=== PATIENT | female | born 1965 | race Caucasian/White ===

== ENCOUNTER → 2018-10-31 | Outpatient (CLI) | payer OTHER, BC ==
[2018-10-31 13:32] VITALS: BP 147/84; PULSE 79; TEMP 98.1; BMI 35.5
--- NOTE | 2018-10-31 15:06 | FL ---
EXAMINATION TYPE: FL barium swallow DATE OF EXAM: 10/31/2018 LAP BANDING LIMITED ESOPHAGRAM: CLINICAL HISTORY: History of lap band for over 10 years with dysphasia, pain at site. TECHNIQUE: Limited esophagram is performed utilizing 2-3 oz of barium. 20 seconds of fluoroscopic ti me was utilized during procedure. 18 spot images are saved to PACS. COMPARISON: Prior CT abdomen and pelvis February 20, 2010. FINDINGS: Pre-procedure machine heel seat fitter image shows lap band in stable position in the epigastric region bel ow the gastroesophageal junction. Angle is unchanged. Cholecystectomy clips are redemonstrated. The patient then drank oral contrast. There is good flow of contrast along the course of the esophagu s. There is good flow of contrast along the course of the lap band, there is no evidence of contrast extravasation to suggest leak. There is no lap band slippage appreciated. IMPRESSION: No evidence of lap band slippage or significant obstruction.
--- NOTE | 2018-10-31 16:42 | P.HPBAR ---
Bariatric H&P - History & Physicial H&P Date: 10/31/18 History & Physicial: Visit/CC: discuss band issues Patient initial contact: Initial weight: 98.883 kg Initial weight in pounds: 218.00 Height: 5 ft 1 in Initial BMI: 41.1 Last weight: Current weight: 85.275 kg Current weight in pounds: 188.00 Current BMI: 35.5 [place] body weight (based on NIH guidelines): 47.627 kg Excess body weight loss: 26.5% The patient is a 52 year-old F who presents for Bariatric Assessment. Patient has had some complaints of mild pain at her port site. She's not had a fill in many years. She currently feels hungry. Past Medical History Past Medical History: Hypertension History of Any Multi-Drug Resistant Organisms: None Reported Past Surgical History: Bariatric Surgery, Cholecystectomy, Hysterectomy Additional Past Surgical History / Comment(s): lap band placed 2010 (?), partial hysterectomy (bilateral ovaries retained), Past Anesthesia/Blood Transfusion Reactions: Postoperative Nausea & Vomiting (PONV) Additional Past Anesthesia/Blood Transfusion Reaction / Comm: No blood transfusion to date Smoking Status: Never smoker Surgical - Exam Vital Signs Temp Pulse BP 98.1 F 79 147/84 10/31/18 13:23 10/31/18 13:23 10/31/18 13:23 - General well developed, well nourished, no distress - Eyes PERRL - ENT normal pinna - Neck no masses - Abdomen Abdomen: soft, non tender Bariatric Assessment & Plan Plan: The patient had an esophagram. This was normal. She had her [place] adjusted. She had 3 mL added to her band. She will follow-up in one month. Bariatric Checklist Checklist: Plan: Checklist: EGD: 1. Hiatal hernia: 2. H. Pylori: HgbA1c: Vitamin D: Smoking: Never smoker Primary care physician referral: Dr. Petty Hargrove ([place] office) Psychiatry clearance: Cardiology clearance: Sleep study: Diet journal: VTE risk score: VTE risk level: Rehab needs at discharge:
== END ==
LOC: BARWHC3 12:52
PROVIDERS: ATTEND Surgery
DX: Z48.815 Encounter for surgical aftercare following surgery on the digestive system (principal); R10.13 Epigastric pain; R13.10 Dysphagia, unspecified; Z98.84 Bariatric surgery status; Z90.49 Acquired absence of other specified parts of digestive tract
CPT/HCPCS: 74220; 99213

== ENCOUNTER 2018-12-12 11:19 | Day surgery (SDC) | payer OTHER, BC ==
[2018-12-09 08:49] VITALS: BMI 36.2
[~2018-12-12 11:19] MED LIST: LACTATED RINGERS 1,000 ML IV SCH
[2018-12-12] MEDS ORDERED: LIDOCAINE 1% 20 ML VIAL (10MG/ML) FOR IV START INTRADERMA ONE (11:32)
[2018-12-12] MEDS ORDERED: LACTATED RINGERS 1,000 ML IV ONE (11:32)
[2018-12-12 11:53] VITALS: TEMP 97.8
[2018-12-12] MEDS ORDERED: PROPOFOL 10 MG/ML 20 ML VIAL IV ONE (12:00)
--- NOTE | 2018-12-12 12:26 | P.PCN ---
Date of Procedure: 12/12/18 Description of Procedure: BRIEF HISTORY: Patient is a 53-year-old pleasant female scheduled for an elective colonoscopy as a part of screening for malignant neoplasm of the colon. Patient reports a remote history of colonoscopy approximately 20 years ago and believes she may have had polyps at that time. She is unsure why the colonoscopy was performed. She denies any change in bowel habits, blood per rectum or family history of colon cancer. PROCEDURE PERFORMED: Colonoscopy. PREOPERATIVE DIAGNOSIS: Screening for malignant neoplasm of the colon, Patient reports last colonoscopy approximately 20 years ago with possible polypectomy at that time. ESTIMATED BLOOD LOSS: Minimal. IV sedation per Anesthesia. PROCEDURE: After informed consent was obtained, the patient, was brought into the endoscopy unit. IV sedation was administered by Anesthesia under continuous monitoring. Digital rectal examination was normal. Initially the Olympus CF-190 flexible video colonoscope was then inserted in the rectum, gradually advanced into the cecum without any difficulty, the terminal ileum was intubated and appeared normal. Careful examination was performed as the scope was gradually being withdrawn. Ileocecal valve and the appendiceal orifice were visualized and appeared normal. Prep was excellent. Mucosa of the cecum, ascending colon, transverse colon, descending colon, sigmoid colon, and rectum appeared normal. Retroflexion was performed in the rectum and no lesions were seen, low-grade internal hemorrhoids seen. The patient tolerated the procedure well. IMPRESSION: Normal-appearing colon from rectum to cecum, and normal-appearing terminal ileum. RECOMMENDATIONS: Findings of this examination were discussed with the patient. Okay to resume diet and medications. Recommendation is for repeat screening colonoscopy in 10 years based on findings from current colonoscopy, if patient indeed had polypectomy with past colonoscopy would recommend colonoscopy in 5 years.
[2018-12-12 12:29] VITALS: RESP 16
[2018-12-12 12:50] VITALS: BP 116/76; PULSE 76
== END 2018-12-12 13:10 | disposition home or self-care (01) ==
LOC: ORWHC2ENDO 11:19
PROVIDERS: ATTEND Internal Medicine
DX: Z12.11 Encounter for screening for malignant neoplasm of colon (principal); K64.8 Other hemorrhoids; I10 Essential (primary) hypertension; K21.9 Gastro-esophageal reflux disease without esophagitis; Z79.899 Other long term (current) drug therapy; Z90.710 Acquired absence of both cervix and uterus; Z98.84 Bariatric surgery status; Z90.49 Acquired absence of other specified parts of digestive tract
CPT/HCPCS: J2704; G0121

== ENCOUNTER → 2018-12-22 | Outpatient (CLI) | payer OTHER, BC ==
--- NOTE | 2018-12-26 10:37 | MM ---
Reason for exam: screening (asymptomatic). Last mammogram was performed 8 years ago. History: Patient is postmenopausal. Took hormonal contraceptives for 1 year. Physical Findings: A clinical breast exam by your physician is recommended on an annual basis and results should be correlated with mammographic findings. MG Screening Mammo w CAD Bilateral CC and MLO view(s) were taken. Prior study comparison: December 19, 2010, [facility] DIGITAL LEFT BREAST MAMMOGRAM w/CAD. December 05, 2010, bilateral digital screening mammo w/CAD. There are scattered fibroglandular densities. Inferior asymmetric density right breast MLO view. Otherwise, no significant change. ASSESSMENT: Incomplete: need additional imaging evaluation, BI-RAD 0 RECOMMENDATION: Special view mammogram of the right breast. (3D) If lesion persists on supplemental views, image directed ultrasound is recommended. [facility] will attempt to contact patient to return for supplemental views and ultrasound if indicated.
== END | disposition home or self-care (01) ==
LOC: RADMAMWWP 16:11
PROVIDERS: ATTEND Family Medicine
DX: Z12.31 Encounter for screening mammogram for malignant neoplasm of breast (principal)
CPT/HCPCS: 77067

== ENCOUNTER → 2019-01-02 | Outpatient (CLI) | payer OTHER, BC ==
--- NOTE | 2019-01-03 08:38 | MM ---
Reason for exam: additional evaluation requested from abnormal screening. Last mammogram was performed less than 1 month ago. History: Patient is postmenopausal. Took hormonal contraceptives for 1 year. Physical Findings: Nurse did not find any significant physical abnormalities on exam. MG Work Up Mamm w CAD RT LM and spot compression MLO view(s) were taken of the right breast. Prior study comparison: December 22, 2018, bilateral MG screening mammo w CAD. December 19, 2010, [facility] DIGITAL LEFT BREAST MAMMOGRAM w/CAD. There are scattered fibroglandular densities. The inferior density becomes less defined on spot MLO and does not appear to persist on the true lateral view. Precautionary 6 month follow up recommended. These results were verbally communicated with the patient and result sheet given to the patient on 01/02/19. ASSESSMENT: Probably benign, BI-RAD 3 RECOMMENDATION: Follow-up diagnostic mammogram of the right breast in 6 months.
== END | disposition home or self-care (01) ==
LOC: RADMAMWWP 14:53
PROVIDERS: ATTEND Family Medicine
DX: R92.8 Other abnormal and inconclusive findings on diagnostic imaging of breast (principal)
CPT/HCPCS: 77065

== ENCOUNTER → 2019-11-08 | Outpatient (CLI) | payer OTHER, BC ==
--- NOTE | 2019-11-08 13:59 | MM ---
Reason for exam: follow-up at short interval from prior study. Last mammogram was performed 10 months ago. History: Patient is postmenopausal. Took hormonal contraceptives for 1 year. Physical Findings: Nurse did not find any significant physical abnormalities on exam. MG Diagnostic Mammo RT w CAD CC and MLO view(s) were taken of the right breast. Prior study comparison: January 02, 2019, right breast MG work up mamm w CAD RT. December 22, 2018, bilateral MG screening mammo w CAD. The breast tissue is heterogeneously dense. This may lower the sensitivity of mammography. Nodular density is less conspicuous. These results were verbally communicated with the patient and result sheet given to the patient on 11/08/19. ASSESSMENT: Benign, BI-RAD 2 RECOMMENDATION: Follow-up diagnostic mammogram of both breasts in 2 months. Back on schedule for December 2019.
== END | disposition home or self-care (01) ==
LOC: RADMAMWWP 12:48
PROVIDERS: ATTEND Family Medicine
DX: R92.8 Other abnormal and inconclusive findings on diagnostic imaging of breast (principal)
CPT/HCPCS: 77065

== ENCOUNTER 2019-12-14 10:46 | Inpatient (IN) | payer OTHER, BC ==
[2019-12-14] MEDS ORDERED: SODIUM CHLORIDE 0.9% 1,000 ML IV ONE (11:31)
[2019-12-14] MEDS: SODIUM CHLORIDE 0.9% 1,000 ML IV SCH ×2 (12:13→22:36)
[2019-12-14 12:17] LABS: Basophils % (A) 0 %; Eosinophils % (A) 0 %; HCT 44.9 % (34.0-46.0); HGB 14.5 gm/dL (11.4-16.0); Lymphocytes # (A) 0.5 k/uL (1.0-4.8); Lymphocytes % (A) 9 %; MCH 28.5 pg (25.0-35.0); MCHC 32.2 g/dL (31.0-37.0); MCV 88.3 fL (80.0-100.0); Mean Platelet Volume 7.4; Monocytes # (A) 0.2 k/uL (0-1.0); Monocytes % (A) 4 %; Neutrophils # (A) 4.5 k/uL (1.3-7.7); Neutrophils % (A) 85 %; Platelet Count 181 k/uL (150-450); RBC 5.09 m/uL (3.80-5.40); RDW 14.4 % (11.5-15.5); WBC 5.3 k/uL (3.8-10.6)
--- NOTE | 2019-12-14 12:23 | XR ---
EXAMINATION TYPE: XR chest 1V portable DATE OF EXAM: 12/14/2019 CLINICAL HISTORY: Suspected COVID-19 pneumonia. TECHNIQUE: Portable frontal view of the chest. COMPARISON: None FINDINGS: Low lung volumes. The cardiomediastinal silhouette is within normal limits for size. Pulmo nary vasculature is normal. Patchy airspace opacities of the bilateral lungs. No pleural effusion, or pneumothorax seen. The osseous structures are intact. IMPRESSION: Diffuse airspace opacities of the bilateral lungs most likely represent pneumonia, with differential including Covid 19 viral infection.
--- NOTE | 2019-12-14 12:25 | ED ---
General Adult HPI - General Source: patient, RN notes reviewed, old records reviewed Mode of arrival: wheelchair Limitations: no limitations <Joellen Valdivia - Last Filed: 12/14/19 13:34> <July Rivas - Last Filed: 12/17/19 22:09> - General Chief complaint: Weakness Stated complaint: + covid and sob Time Seen by Provider: 12/14/19 11:06 - History of Present Illness Initial comments: 54-year-old female presents emergency department today for evaluation with complaints of nausea vomiting. Patient purchase diagnosed with Covid On Wednesday of this week. She states that she's been unable to keep anything down. She complains of weakness, nausea and vomiting. Patient reports that multiple family have been admitted for Covid 19 infection. (Joellen Valdivia) - Related Data Home Medications Medication Instructions Recorded Confirmed lisinopriL 20 mg PO DAILY 10/31/18 12/14/19 Pravastatin Sodium [Pravachol] 40 mg PO HS 12/14/19 12/14/19 Allergies Allergy/AdvReac Type Severity Reaction Status Date / Time No Known Allergies Allergy Verified 12/14/19 13:03 Review of Systems ROS Other: All systems not noted in ROS Statement are negative. <Joellen Valdivia - Last Filed: 12/14/19 13:34> ROS Other: All systems not noted in ROS Statement are negative. <July Rivas - Last Filed: 12/17/19 22:09> ROS Statement: Those systems with pertinent positive or pertinent negative responses have been documented in the HPI. Past Medical History Past Medical History: Hypertension History of Any Multi-Drug Resistant Organisms: None Reported Past Surgical History: Bariatric Surgery, Cholecystectomy, Hysterectomy Additional Past Surgical History / Comment(s): lap band placed 2010 (?), partial hysterectomy (bilateral ovaries retained), colonscopy Past Anesthesia/Blood Transfusion Reactions: Postoperative Nausea & Vomiting (PONV) Additional Past Anesthesia/Blood Transfusion Reaction / Comment(s): No blood transfusion to date Past Psychological History: No Psychological Hx Reported Smoking Status: Never smoker Past Alcohol Use History: None Reported Past Drug Use History: None Reported - Past Family History Father Family Medical History: Cancer Additional Family Medical History / Comment(s): bladder Sister(s) Family Medical History: Cancer <Joellen Valdivia - Last Filed: 12/14/19 13:34> General Exam Limitations: no limitations General appearance: alert, in no apparent distress Head exam: Present: atraumatic, normocephalic, normal inspection, other (Hoarse voice) Eye exam: Present: normal appearance, PERRL, EOMI. Absent: scleral icterus, conjunctival injection, periorbital swelling ENT exam: Present: normal exam, mucous membranes moist Neck exam: Present: normal inspection. Absent: tenderness, meningismus, lymphadenopathy Respiratory exam: Present: decreased breath sounds. Absent: normal lung sounds bilaterally, respiratory distress, wheezes, rales, rhonchi, stridor Cardiovascular Exam: Present: regular rate, normal rhythm, normal heart sounds. Absent: systolic murmur, diastolic murmur, rubs, gallop, clicks GI/Abdominal exam: Present: soft, normal bowel sounds. Absent: distended, tenderness, guarding, rebound, rigid Extremities exam: Present: normal inspection, full ROM, normal capillary refill. Absent: tenderness, pedal edema, joint swelling, calf tenderness Back exam: Present: normal inspection Neurological exam: Present: alert, oriented X3, CN II-XII intact <Joellen Valdivia - Last Filed: 12/14/19 13:34> - General Exam Comments Initial Comments: 54-year-old male. No distress. (Joellen Valdivia) Course Vital Signs 12/14/19 12/14/19 12/14/19 10:51 12:09 12:28 Temperature 98.6 F Pulse Rate 102 H 92 90 Respiratory 18 18 18 Rate Blood Pressure 102/70 142/81 133/77 O2 Sat by Pulse 92 L 98 99 Oximetry 12/14/19 12/14/19 13:51 14:00 Temperature 100.3 F H Pulse Rate 91 83 Respiratory 18 18 Rate Blood Pressure 133/81 141/85 O2 Sat by Pulse 98 98 Oximetry EKG Findings - EKG Comments: EKG Findings:: EKG shows normal sinus rhythm nonspecific ST and T wave at [place]. Abnormal EKG. Ventricular rate of 96 bpm. Interval is 1:30 milliseconds. She worship is 76 ms. QT QTC 340/429 ms. <Joellen Valdivia - Last Filed: 12/14/19 13:34> Medical Decision Making - Lab Data Result diagrams: 12/14/19 11:45 10/29/20 11:45 - Radiology Data Radiology results: report reviewed <Edel Valdiviaily - Last Filed: 12/14/19 13:34> - Lab Data Result diagrams: 12/17/19 04:16 12/17/19 04:16 <July Rivas - Last Filed: 12/17/19 22:09> - Medical Decision Making 54-year-old male presents emergency department today for evaluation with chief complaint of nausea vomiting weakness. Patient is diagnosed with pelvic 19 infection on Wednesday. She reports that she's been getting increasingly more fatigued and dehydrated. Patient has been given IV fluids labwork obtained. Chest x-ray shows evidence of bilateral airspace disease consistent with cocaine 19 infection. She was hypoxic upon arrival 87-90% on room air. She is noted on 2 L [address] Dr. Rivas whom discussed with Dr. Armstrong, Patient will be admitted at this time consult pulmonology. (Joellen Valdivia) I was available for consultation in the emergency department. The history and physical exam were done by the midlevel provider. I was consulted for this patients care. I reviewed the case with the midlevel provider and based on their presentation of the patient, I agree with the assessment, medical decision making and plan of care as documented. Chart was dictated using [employer] dictation software. Attempts were made to correct any dictation errors however some typographical errors may persist. Patient was seen during a national state of emergency due to the Covid-19 pandemic. (July Rivas) - Lab Data Lab Results 12/14/19 12/14/19 12/14/19 Range/Units 11:45 11:45 11:45 WBC 5.3 (3.8-10.6) k/uL RBC 5.09 (3.80-5.40) m/uL Hgb 14.5 (11.4-16.0) gm/dL Hct 44.9 (34.0-46.0) % MCV 88.3 (80.0-100.0) fL MCH 28.5 (25.0-35.0) pg MCHC 32.2 (31.0-37.0) g/dL RDW 14.4 (11.5-15.5) % Plt Count 181 (150-450) k/uL Neutrophils % 85 % Lymphocytes % 9 % Monocytes % 4 % Eosinophils % 0 % Basophils % 0 % Neutrophils # 4.5 (1.3-7.7) k/uL Lymphocytes # 0.5 L (1.0-4.8) k/uL Monocytes # 0.2 (0-1.0) k/uL Eosinophils # 0.0 (0-0.7) k/uL Basophils # 0.0 (0-0.2) k/uL PT 9.6 (9.0-12.0) sec INR 0.9 (<1.2) D-Dimer 1.22 H (<0.60) mg/L FEU Sodium 137 (137-145) mmol/L Potassium 3.8 (3.5-5.1) mmol/L Chloride 101 (98-107) mmol/L Carbon Dioxide 26 (22-30) mmol/L Anion Gap 10 mmol/L BUN 14 (7-17) mg/dL Creatinine 0.57 (0.52-1.04) mg/dL Est GFR (CKD-EPI)AfAm >90 (>60 ml/min/1.73 sqM) Est GFR (CKD-EPI)NonAf >90 (>60 ml/min/1.73 sqM) Glucose 118 H (74-99) mg/dL Plasma Lactic Acid Jonathon (0.7-2.0) mmol/L Calcium 8.6 (8.4-10.2) mg/dL Magnesium 2.1 (1.6-2.3) mg/dL Total Bilirubin 0.6 (0.2-1.3) mg/dL AST 48 H (14-36) U/L ALT 21 (4-34) U/L Alkaline Phosphatase 89 (38-126) U/L C-Reactive Protein 73.9 H (<10.0) mg/L Total Protein 6.4 (6.3-8.2) g/dL Albumin 3.6 (3.5-5.0) g/dL Procalcitonin (0.02-0.09) ng/mL 12/14/19 12/14/19 Range/Units 11:45 11:45 WBC (3.8-10.6) k/uL RBC (3.80-5.40) m/uL Hgb (11.4-16.0) gm/dL Hct (34.0-46.0) % MCV (80.0-100.0) fL MCH (25.0-35.0) pg MCHC (31.0-37.0) g/dL RDW (11.5-15.5) % Plt Count (150-450) k/uL Neutrophils % % Lymphocytes % % Monocytes % % Eosinophils % % Basophils % % Neutrophils # (1.3-7.7) k/uL Lymphocytes # (1.0-4.8) k/uL Monocytes # (0-1.0) k/uL Eosinophils # (0-0.7) k/uL Basophils # (0-0.2) k/uL PT (9.0-12.0) sec INR (<1.2) D-Dimer (<0.60) mg/L FEU Sodium (137-145) mmol/L Potassium (3.5-5.1) mmol/L Chloride (98-107) mmol/L Carbon Dioxide (22-30) mmol/L Anion Gap mmol/L BUN (7-17) mg/dL Creatinine (0.52-1.04) mg/dL Est GFR (CKD-EPI)AfAm (>60 ml/min/1.73 sqM) Est GFR (CKD-EPI)NonAf (>60 ml/min/1.73 sqM) Glucose (74-99) mg/dL Plasma Lactic Acid Jonathon 0.9 (0.7-2.0) mmol/L Calcium (8.4-10.2) mg/dL Magnesium (1.6-2.3) mg/dL Total Bilirubin (0.2-1.3) mg/dL AST (14-36) U/L ALT (4-34) U/L Alkaline Phosphatase (38-126) U/L C-Reactive Protein (<10.0) mg/L Total Protein (6.3-8.2) g/dL Albumin (3.5-5.0) g/dL Procalcitonin 0.12 H (0.02-0.09) ng/mL - Radiology Data Diffuse airspace opacities in bilateral lungs represent pneumonia differential including [place] 19 viral infection. (Joellen Valdivia) Disposition Is patient prescribed a controlled substance at d/c from ED?: No Time of Disposition: 13:37 <Joellen Valdivia - Last Filed: 12/14/19 13:34> <July Rivas - Last Filed: 12/17/19 22:09> Clinical Impression: COVID-19, Hypoxia, Dehydration Disposition: ADMITTED IP TO THIS HOSP Condition: Stable
[2019-12-14 12:26] LABS: INR 0.9 (<1.2); Prothrombin Time 9.6 sec (9.0-12.0)
[2019-12-14 12:32] LABS: ALT 21 U/L (4-34); AST 48 U/L (14-36); African American GFR (CKD) >90 (>60 ml/min/1.73 sqM); Albumin 3.6 g/dL (3.5-5.0); Alkaline Phosphatase 89 U/L (38-126); Anion Gap 10 mmol/L; Blood Urea Nitrogen 14 mg/dL (7-17); C Reactive Protein 73.9 mg/L (<10.0); Calcium 8.6 mg/dL (8.4-10.2); Carbon Dioxide 26 mmol/L (22-30); Chloride 101 mmol/L (98-107); D-Dimer 1.22 mg/L FEU (<0.60); Glucose 118 mg/dL (74-99); Magnesium 2.1 mg/dL (1.6-2.3); Non-African American GFR(CKD) >90 (>60 ml/min/1.73 sqM); Potassium 3.8 mmol/L (3.5-5.1); Sodium 137 mmol/L (137-145); Total Bilirubin 0.6 mg/dL (0.2-1.3); Total Protein 6.4 g/dL (6.3-8.2)
[2019-12-14] MEDS ORDERED: HYDROmorphone 0.5 MG/0.5 ML SYRINGE IVP PRN (13:38)
[2019-12-14] MEDS ORDERED: IBUPROFEN 400 MG TAB PO PRN (13:38)
[2019-12-14] MEDS ORDERED: NALOXONE 0.4 MG/ML 1 ML VIAL IV PRN (13:38)
[2019-12-14] MEDS: dexAMETHasone 2 MG TAB PO SCH (22:35)
[2019-12-14] MEDS: AZITHROMYCIN 500 MG TAB PO SCH (22:35)
[2019-12-14] MEDS: PRAVASTATIN SODIUM 40 MG TAB PO SCH (22:35)
[2019-12-14] MEDS: ENOXAPARIN 40 MG/0.4 ML SYRINGE SQ SCH (22:36)
--- NOTE | 2019-12-14 23:24 | P.HPIM ---
History of Present Illness H&P Date: 12/14/19 Chief Complaint: N/V/SOB and Fever Patient is a 54-year-old female with a known history of hypertension, hyperlipidemia presents to ER with complaints of nausea and vomiting. Patient was diagnosed with COVID-19 on 12/12/2019. Patient has been having intermittent fevers and nausea vomiting and unable to keep down food. Patient has been having generalized weakness and myalgias. Patient states that multiple members of her family were admitted to the hospital due to COVID-19 infections. On admission patient was tachycardic and hypoxic at 86% on room air. Patient was placed on nasal cannula oxygen and was admitted to the hospital currently. Patient feels generalized weakness. Denies any chest pain or shortness of breath. Laboratory data showed lymphocytes 0.5, D-dimer 1.22, CRP 73.2, pro calcitonin 0.12 Chest x-ray showed diffuse airspace opacities of the bilateral lungs most likely represent pneumonia. With a differential including COVID-19 viral infection EKG showed normal sinus rhythm. Review of Systems Constitutional: Patient does have fever or chills . generalized weakness , no weight loss. Abdomen: nausea vomiting and diarrhea and abdominal pain. Cardiovascular: Patient denies any chest pain or short of breath no palpitations. Respiratory: patient denied any cough or sputum production. No shortness of breath Neurologic: Patient denied any numbness or tingling headache. Musculoskeletal: Patient denies any complaints of joint swelling or deformity. Skin: Negative Psychiatric: Negative Endocrine: No heat or cold intolerance. No recent weight gain. Genitourinary: No dysuria or hematuria. All other 14 point ROS negative except the above Past Medical History Past Medical History: Hyperlipidemia, Hypertension History of Any Multi-Drug Resistant Organisms: None Reported Past Surgical History: Bariatric Surgery, Cholecystectomy, Hysterectomy Additional Past Surgical History / Comment(s): lap band placed 2010 (?), partial hysterectomy (bilateral ovaries retained), colonscopy Past Anesthesia/Blood Transfusion Reactions: Postoperative Nausea & Vomiting (PONV) Additional Past Anesthesia/Blood Transfusion Reaction / Comment(s): No blood transfusion to date Past Psychological History: No Psychological Hx Reported Smoking Status: Never smoker Past Alcohol Use History: None Reported Past Drug Use History: None Reported - Past Family History Father Family Medical History: Cancer Additional Family Medical History / Comment(s): bladder Sister(s) Family Medical History: Cancer Medications and Allergies Home Medications Medication Instructions Recorded Confirmed Type lisinopriL 20 mg PO DAILY 10/31/18 12/14/19 History Pravastatin Sodium [Pravachol] 40 mg PO HS 12/14/19 12/14/19 History Allergies Allergy/AdvReac Type Severity Reaction Status Date / Time No Known Allergies Allergy Verified 12/14/19 13:03 Physical Exam Vitals: Vital Signs Temp Pulse Pulse Resp BP BP Pulse Ox 12/14/19 19:22 99.0 F 99 14 153/82 93 L 12/14/19 14:36 98.5 F 86 17 130/81 90 L 12/14/19 14:00 83 18 141/85 98 12/14/19 13:51 100.3 F H 91 18 133/81 98 12/14/19 12:28 90 18 133/77 99 12/14/19 12:09 92 18 142/81 98 12/14/19 10:51 98.6 F 102 H 18 102/70 92 L Intake and Output 12/14/19 12/14/19 12/14/19 06:59 14:59 22:59 Intake Total 1200 Balance 1200 Intake: Amount of Fluid Infused ( 1200 ml) Other: Weight 86.183 kg PHYSICAL EXAMINATION: Patient is lying in the bed comfortably, no acute distress, awake alert and oriented.. HEENT: Normocephalic. Neck is supple. Pupils reactive. Nostrils clear. Oral cavity is moist. Ears reveal no drainage. Neck reveals no JVD, carotid bruits, or thyromegaly. CHEST EXAMINATION: Trachea is central. Symmetrical expansion. Lung mauricio clear to auscultation and percussion. CARDIAC: Normal S1, S2 with no gallops. No murmurs ABDOMEN: Soft. Bowel sounds normal. No organomegaly. No abdominal bruits. Extremities: reveal no edema. No clubbing or cyanosis Neurologically awake, alert, oriented x3 with well-coordinated movements. No focal deficits noted Skin: No rash or skin lesions. Psychiatric: Coperative. Nonsuicidal Musculoskeletal: No joint swelling or deformity. Normal range of motion. Results CBC & Chem 7: 12/14/19 11:45 12/14/19 11:45 Labs: Abnormal Lab Results - Last 24 Hours (Table) 12/14/19 12/14/19 12/14/19 Range/Units 11:45 11:45 11:45 Lymphocytes # 0.5 L (1.0-4.8) k/uL D-Dimer 1.22 H (<0.60) mg/L FEU Glucose 118 H (74-99) mg/dL AST 48 H (14-36) U/L C-Reactive Protein 73.9 H (<10.0) mg/L Procalcitonin (0.02-0.09) ng/mL 12/14/19 Range/Units 11:45 Lymphocytes # (1.0-4.8) k/uL D-Dimer (<0.60) mg/L FEU Glucose (74-99) mg/dL AST (14-36) U/L C-Reactive Protein (<10.0) mg/L Procalcitonin 0.12 H (0.02-0.09) ng/mL Thrombosis Risk Factor Assmnt - DVT/VTE Prophylaxis DVT/VTE Prophylaxis: Pharmacologic Prophylaxis ordered - Choose All That Apply Each Factor Represents 1 point: Age 41-60 years Thrombosis Risk Factor Assessment Total Risk Factor Score: 1 Thrombosis Risk Factor Assessment Level: Low Risk Assessment and Plan Assessment: Acute COVID-19 virus pneumonia Acute hypoxic respiratory failure secondary to pneumonia Nausea vomiting, generalized weakness and cough shortness of breath secondary to pneumonia Hypertension Hyperlipidemia DVT prophylaxis with Lovenox. Plan: Patient will be continued on gentle IV hydration and oxygen supplementation. Will be started on dexamethasone 6 mg daily and Lovenox 40 mg subcu daily. Pulmonary was consulted and monitor closely. Will consider remdesivir course. Further recommendations based on clinical course. Continue with droplet and contact precautions. Time with Patient: Greater than 30
[2019-12-15 06:17] LABS: Basophils % (A) 0 %; Eosinophils % (A) 0 %; HCT 43.6 % (34.0-46.0); HGB 13.9 gm/dL (11.4-16.0); Lymphocytes # (A) 0.5 k/uL (1.0-4.8); Lymphocytes % (A) 10 %; MCV 90.7 fL (80.0-100.0); Mean Platelet Volume 7.5; Monocytes # (A) 0.2 k/uL (0-1.0); Monocytes % (A) 3 %; Neutrophils # (A) 4.2 k/uL (1.3-7.7); Neutrophils % (A) 86 %; Platelet Count 184 k/uL (150-450); RDW 14.1 % (11.5-15.5); WBC 4.9 k/uL (3.8-10.6)
[2019-12-15] MEDS: SODIUM CHLORIDE 0.9% 1,000 ML IV SCH ×2 (07:29→16:53)
[2019-12-15] MEDS: lisinopriL 20 MG TAB PO SCH (07:40)
[2019-12-15] MEDS: ENOXAPARIN 40 MG/0.4 ML SYRINGE SQ SCH (07:40)
[2019-12-15] MEDS: AZITHROMYCIN 500 MG TAB PO SCH (07:42)
[2019-12-15] MEDS: dexAMETHasone 2 MG TAB PO SCH (07:42)
[2019-12-15] MEDS ORDERED: PANTOPRAZOLE 40 MG/10 ML VIAL IV SCH (09:00)
[2019-12-15 10:24] LABS: African American GFR (CKD) 120.6 (60.0-200.0); Anion Gap 13.2 mmol/L (4.00-12.00); BUN/Creat Ratio 13.33 Ratio (12.00-20.00); Calcium 7.9 mg/dL (8.7-10.3); Carbon Dioxide 18.8 mmol/L (21.6-31.8); Ferritin 382.1 ng/mL (10.0-291.0); Non-African American GFR(CKD) 104.1 (60.0-200.0); Potassium 4.2 mmol/L (3.5-5.5)
[2019-12-15] MEDS ORDERED: REMDESIVIR 200 MG in SODIUM CHLORIDE 0.9% 250 ML IVPB ONE (12:00)
--- NOTE | 2019-12-15 14:35 | P.PN ---
Subjective Progress Note Date: 12/15/19 Principal diagnosis: Shortness of breath, Covid 19 pneumonia 54-year-old white female patient with past medical history of hypertension, nonsmoker, previous history of lab band surgery for morbid obesity who presented to the hospital on 12/14/2019 with complaints of nausea, vomiting, weakness. Patient was tested for Covid 19 7 days ago last Wednesday, and received positive results 5 days ago on Wednesday. Patient has a daughter who was hospitalized with COVID 19 related pneumonia, and that daughter was discharged home after treatment, her other daughter is also currently hospitalized with Covid 19. Her was also positive for Covid 19 infection. Patient has not been able to keep anything down related to nausea and vomiting. Chest x-ray showed diffuse airspace opacities of bilateral lungs related to Covid 19 viral infection. Patient had positive lymphopenia, with lymphocyte count of 0.5, d-dimer was 1.22, initial BMP was unremarkable, lactic acid was 0.9, ferritin level was elevated at 382, LDH of 704, CRP was significantly elevated at 73.9, pro calcitonin is 0.12, C. diff was negative. Patient is currently on 10 L of oxygen her pulse ox is 91%, she is a very short of breath with any activity. Occasional cough, nonproductive, she was started on oral Decadron, prophylactic dose of Lovenox, and we will start the patient on Remdesivir Objective - Vital Signs Vital signs: Vital Signs Temp 98.0 F 12/15/19 14:16 Pulse 74 12/15/19 14:16 Resp 26 H 12/15/19 14:16 BP 135/80 12/15/19 14:16 Pulse Ox 91 L 12/15/19 14:16 Intake & Output 12/14/19 12/15/19 12/15/19 18:59 06:59 18:59 Intake Total 1200 1800 Balance 1200 1800 Weight 86.183 kg Intake: IV 1200 Sodium Chloride 0.9% 1, 1200 000 ml @ 100 mls/hr IV . Q10H [facility] Rx#:[id number] Amount of Fluid Infused ( 1200 ml) Oral 600 Other: # Voids 1 1 # Bowel Movements 1 - Exam GENERAL EXAM: Alert, , comfortable in no apparent distress. HEAD: Normocephalic/atraumatic. EYES: Normal reaction of pupils, equal size. Conjunctiva pink, sclera white. NOSE: Clear with pink turbinates. THROAT: No erythema or exudates. NECK: No masses, no JVD, no thyroid enlargement, no adenopathy. CHEST: No chest wall deformity. Symmetrical expansion. LUNGS: Equal air entry with no crackles, wheeze, rhonchi or dullness. CVS: Regular rate and rhythm, normal S1 and S2, no gallops, no murmurs, no rubs ABDOMEN: Soft, nontender. No hepatosplenomegaly, normal bowel sounds, no guarding or rigidity. EXTREMITIES: No clubbing, no edema, no cyanosis, 2+ pulses and upper and lower extremities. MUSCULOSKELETAL: Muscle strength and tone normal. SPINE: No scoliosis or deformity SKIN: No rashes CENTRAL NERVOUS SYSTEM: Alert and oriented -3. No focal deficits, tone is normal in all 4 extremities. PSYCHIATRIC: Alert and oriented -3. Appropriate affect. Intact judgment and insight. - Labs CBC & Chem 7: 12/15/19 05:28 12/15/19 05:28 Labs: Abnormal Lab Results - Last 24 Hours (Table) 12/14/19 12/15/19 12/15/19 Range/Units 11:45 05:28 05:28 Lymphocytes # 0.5 L (1.0-4.8) k/uL Carbon Dioxide 18.8 L (21.6-31.8) mmol/L Anion Gap 13.20 H (4.00-12.00) mmol/L BUN 8.0 L (9.0-27.0) mg/dL Glucose 130 H (70-110) mg/dL Calcium 7.9 L (8.7-10.3) mg/dL Ferritin 382.1 H (10.0-291.0) ng/mL Lactate Dehydrogenase 704 H (120-246) U/L Procalcitonin 0.12 H (0.02-0.09) ng/mL Microbiology - Last 24 Hours (Table) 12/14/19 11:45 Blood Culture - Preliminary Blood No Growth after 24 hours Assessment and Plan Plan: Assessment: #1. Acute hypoxemic respiratory failure related to Covid 19 related pneumonia #2. Weakness, nausea, vomiting, with onset of symptoms 7 days ago on Wednesday and positive outpatient Covid 19 PCR Wednesday 5 days ago #3. Increased inflammatory markers related to the above #4. Hypertension #5. Hyperlipidemia #6. Morbid obesity with history of previous lap band surgery Plan: We'll continue with oral Decadron, continue with prophylactic dose of Lovenox, we'll add Pepcid, we'll add Remdesivir, we'll add zinc, vitamin C, Zofran, continue monitoring febrile pattern, oxygenation pattern, if oxygenation becomes worse we'll transfer to the intensive care unit. Follow inflammatory markers I performed a history & physical examination of the patient and discussed their management with my nurse practitioner, Andreia Lau. I reviewed the nurse practitioner's note and agree with the documented findings and plan of care. Lung sounds are positive for diminished breath sounds. The findings and the impression was discussed with the patient. I attest to the documentation by the nurse practitioner. Time with Patient: Greater than 30
--- NOTE | 2019-12-15 15:35 | XR ---
EXAMINATION TYPE: XR chest 1V portable DATE OF EXAM: 12/15/2019 CLINICAL HISTORY: Difficulty breathing progress study. TECHNIQUE: Single AP portable upright view of the chest is obtained. COMPARISON: Chest x-ray from one day earlier FINDINGS: Persistent low lung volumes and mid to lower lung opacities greater in the periphery. No p leural effusion or pneumothorax seen bilaterally. Cardiac silhouette size stable and within normal li mits. Lap band device redemonstrated with slightly inferior position relative to hemidiaphragm is sta ble. Cholecystectomy clips are redemonstrated. Osseous structures are intact. IMPRESSION: Persistent mid to lower lung multifocal acute infiltrates greatest in the periphery corre lating with history of suspected covid 19 infection
[2019-12-15] MEDS ORDERED: MELATONIN 1 MG TAB PO SCH (21:00)
[2019-12-15] MEDS: MELATONIN 5 MG TABLET PO SCH (21:02)
[2019-12-15] MEDS: PRAVASTATIN SODIUM 40 MG TAB PO SCH (21:02)
[2019-12-15] MEDS: FAMOTIDINE 20 MG/2 ML VIAL IV SCH (21:02)
--- NOTE | 2019-12-15 23:38 | P.PN ---
Subjective Progress Note Date: 12/15/19 Patient is a 54-year-old female with a known history of hypertension, hyperlipidemia presents to ER with complaints of nausea and vomiting. Patient was diagnosed with COVID-19 on 12/12/2019. Patient has been having intermittent fevers and nausea vomiting and unable to keep down food. Patient has been lange ving generalized weakness and myalgias. Patient states that multiple members of her family were admitted to the hospital due to COVID-19 infections. On admission patient was tachycardic and hypoxic at 86% on room air. Patient was placed on nasal cannula oxygen and was admitted to the hospital currently. Patient feels generalized weakness. Denies any chest pain or shortness of breath. Laboratory data showed lymphocytes 0.5, D-dimer 1.22, CRP 73.2, pro calcitonin 0.12 Chest x-ray showed diffuse airspace opacities of the bilateral lungs most likely represent pneumonia. With a differential including COVID-19 viral infection EKG showed normal sinus rhythm. 12/15/2019 Patient is currently lying in the bed and awake alert oriented x3. Requiring oxygen at 10 L via nasal cannula high flow. Patient does have elevated inflammatory markers with LDH 704, ferritin 382 and pro calcitonin 0.12. Patient is being continued on Lovenox and dexamethasone. Remdesivir was added and loading dose was given today. Pulmonary is following. Repeat chest x-ray showed persistent mild to lower lung multifocal acute infiltrates greatest in the periphery correlating with history of suspected C OVID-19 infection. Patient has been afebrile. No nausea vomiting or abdominal pain or diarrhea. Tolerating oral diet. All other review of systems negative except above. Current medications reviewed. Objective - Vital Signs Vital signs: Vital Signs Temp 98.4 F 12/15/19 19:39 Pulse 70 12/15/19 19:54 Resp 24 12/15/19 19:54 BP 135/76 12/15/19 19:39 Pulse Ox 92 L 12/15/19 19:39 Intake & Output 12/15/19 12/15/19 12/16/19 06:59 18:59 06:59 Intake Total 1800 Balance 1800 Intake: IV 1200 Sodium Chloride 0.9% 1, 1200 000 ml @ 100 mls/hr IV . Q10H [facility] Rx#:[id number] Oral 600 Other: # Voids 1 1 # Bowel Movements 1 - Exam PHYSICAL EXAMINATION: Patient is lying in the bed comfortably, no acute distress, awake alert and oriented.. HEENT: Normocephalic. Neck is supple. Pupils reactive. Nostrils clear. Oral cavity is moist. Ears reveal no drainage. Neck reveals no JVD, carotid bruits, or thyromegaly. CHEST EXAMINATION: Trachea is central. Symmetrical expansion. Lung mauricio clear to auscultation and percussion. CARDIAC: Normal S1, S2 with no gallops. No murmurs ABDOMEN: Soft. Bowel sounds normal. No organomegaly. No abdominal bruits. Extremities: reveal no edema. No clubbing or cyanosis Neurologically awake, alert, oriented x3 with well-coordinated movements. No focal deficits noted Skin: No rash or skin lesions. Psychiatric: Coperative. Nonsuicidal Musculoskeletal: No joint swelling or deformity. Normal range of motion. - Labs CBC & Chem 7: 12/15/19 05:28 12/15/19 05:28 Labs: Abnormal Lab Results - Last 24 Hours (Table) 12/15/19 12/15/19 Range/Units 05:28 05:28 Lymphocytes # 0.5 L (1.0-4.8) k/uL Carbon Dioxide 18.8 L (21.6-31.8) mmol/L Anion Gap 13.20 H (4.00-12.00) mmol/L BUN 8.0 L (9.0-27.0) mg/dL Glucose 130 H (70-110) mg/dL Calcium 7.9 L (8.7-10.3) mg/dL Ferritin 382.1 H (10.0-291.0) ng/mL Lactate Dehydrogenase 704 H (120-246) U/L Microbiology - Last 24 Hours (Table) 12/14/19 11:45 Blood Culture - Preliminary Blood No Growth after 24 hours Assessment and Plan Assessment: Acute COVID-19 virus pneumonia Acute hypoxic respiratory failure secondary to pneumonia Nausea vomiting, generalized weakness and cough shortness of breath secondary to pneumonia Hypertension Hyperlipidemia DVT prophylaxis with Lovenox. Plan: Patient will be continued on gentle IV hydration and oxygen supplementation. Will be started on dexamethasone 6 mg daily and Lovenox 40 mg subcu daily. Pulmonary is on board. strated on remdesivir course. Further recommendations based on clinical course. Continue with droplet and contact precautions. Time with Patient: Greater than 30
[2019-12-16] MEDS: SODIUM CHLORIDE 0.9% 1,000 ML IV SCH ×3 (04:55→23:05)
[2019-12-16 06:44] LABS: Basophils % (A) 0 %; Eosinophils % (A) 0 %; HCT 42.5 % (34.0-46.0); HGB 13.3 gm/dL (11.4-16.0); Lymphocytes # (A) 0.5 k/uL (1.0-4.8); Lymphocytes % (A) 6 %; MCHC 31.4 g/dL (31.0-37.0); MCV 89.1 fL (80.0-100.0); Mean Platelet Volume 7.2; Monocytes # (A) 0.2 k/uL (0-1.0); Monocytes % (A) 3 %; Neutrophils % (A) 91 %; Platelet Count 213 k/uL (150-450); RBC 4.77 m/uL (3.80-5.40); RDW 14.2 % (11.5-15.5); WBC 8.8 k/uL (3.8-10.6)
[2019-12-16 06:59] LABS: D-Dimer 2.52 mg/L FEU (<0.60)
[2019-12-16] MEDS: ENOXAPARIN 40 MG/0.4 ML SYRINGE SQ SCH (07:21)
[2019-12-16] MEDS: dexAMETHasone 2 MG TAB PO SCH (07:22)
[2019-12-16] MEDS: lisinopriL 20 MG TAB PO SCH (07:22)
[2019-12-16] MEDS: FAMOTIDINE 20 MG/2 ML VIAL IV SCH ×2 (07:22→20:10)
[2019-12-16] MEDS: ASCORBIC ACID 500 MG TAB PO SCH (07:22)
[2019-12-16] MEDS: ZINC SULFATE 220 MG CAP PO SCH (07:22)
[2019-12-16 08:46] LABS: ALT 17 U/L (4-34); AST 55 U/L (14-36); African American GFR (CKD) >90 (>60 ml/min/1.73 sqM); Albumin 2.7 g/dL (3.5-5.0); Alkaline Phosphatase 69 U/L (38-126); Anion Gap 5 mmol/L; Blood Urea Nitrogen 13 mg/dL (7-17); Calcium 8.1 mg/dL (8.4-10.2); Carbon Dioxide 26 mmol/L (22-30); Chloride 111 mmol/L (98-107); Globulin 2.6 g/dL; Glucose 115 mg/dL (74-99); Non-African American GFR(CKD) >90 (>60 ml/min/1.73 sqM); Potassium 3.4 mmol/L (3.5-5.1); Sodium 142 mmol/L (137-145); Total Bilirubin 0.5 mg/dL (0.2-1.3); Total Protein 5.3 g/dL (6.3-8.2)
[2019-12-16 08:58] LABS: C Reactive Protein 70.8 mg/L (<10.0); LDH 1933 U/L (313-618)
--- NOTE | 2019-12-16 12:29 | P.PN ---
Subjective Progress Note Date: 12/16/19 Principal diagnosis: CoVID 19 pneumonitis 54-year-old white female patient with past medical history of hypertension, nonsmoker, previous history of lab band surgery for morbid obesity who presented to the hospital on 12/14/2019 with complaints of nausea, vomiting, weakness. Joao sanchez was tested for Covid 19 7 days ago last Wednesday, and received positive results 5 days ago on Wednesday. Patient has a daughter who was hospitalized with COVID 19 related pneumonia, and that daughter was discharged home after treatment, her other daughter is also currently hospitalized with Covid 19. Her was also positive for Covid 19 infection. Patient has not been able to keep anything down related to nausea and vomiting. Chest x-ray showed diffuse airspace opacities of bilateral lungs related to Covid 19 viral infection. Patient had positive lymphopenia, with lymphocyte count of 0.5, d-dimer was 1.22, initial BMP was unremarkable, lactic acid was 0.9, ferritin level was alina vated at 382, LDH of 704, CRP was significantly elevated at 73.9, pro calcitonin is 0.12, C. diff was negative. Patient is currently on 10 L of oxygen her pulse ox is 91%, she is a very short of breath with any activity. Occasional cough, nonproductive, she was started on oral Decadron, prophylactic dose of Lovenox, and we will start the patient on Remdesivir. The patient is seen today 12/16/2019 in follow-up on the regular medical floor. She is currently awake. She is still quite short of breath. Still fatigued and weak. She is now requiring AirVo high flow oxygen with the fluid at 50 L an FiO2 of 70% to maintain O2 saturations in the 90s. Currently afebrile. She had a temperature earlier this morning at 100.0. She is short of breath with minimal exertion. White count 8.8. Hemoglobin 13.3. Lymphocyte 0.5. D-dimer 2.52. Sodium 142. Potassium 3.4. Creatinine 0.54. LDH 1933. C-reactive protein 70.8. Continued on Remdesivir, day #2. Continued on zinc, melatonin, vitamin C, Decadron, Lovenox, Pepcid. 0.9 normal saline at 100 ML's per hour. Objective - Vital Signs Vital signs: Vital Signs Temp 98.6 F 12/16/19 07:15 Pulse 86 12/16/19 07:15 Resp 17 12/16/19 07:15 BP 145/73 12/16/19 07:15 Pulse Ox 96 12/16/19 07:15 Intake & Output 12/15/19 12/16/19 12/16/19 18:59 06:59 18:59 Intake Total 1600 Balance 1600 Intake: IV 1600 Sodium Chloride 0.9% 1, 1600 000 ml @ 100 mls/hr IV . Q10H [facility] Rx#:[id number] Other: # Voids 1 2 # Bowel Movements 1 - Exam GENERAL EXAM: Alert, pleasant 54-year-old female patient, now on AirVo at 50 L and 70% FiO2, in mild respiratory distress. HEAD: Normocephalic/atraumatic. EYES: Normal reaction of pupils, equal size. Conjunctiva pink, sclera white. NOSE: Clear with pink turbinates. THROAT: No erythema or exudates. NECK: No masses, no JVD, no thyroid enlargement, no adenopathy. CHEST: No chest wall deformity. Symmetrical expansion. LUNGS: Equal air entry with bilateral scattered rhonchi. CVS: Regular rate and rhythm, normal S1 and S2, no gallops, no murmurs, no rubs ABDOMEN: Soft, nontender. No hepatosplenomegaly, normal bowel sounds, no guarding or rigidity. EXTREMITIES: No clubbing, no edema, no cyanosis, 2+ pulses and upper and lower extremities. MUSCULOSKELETAL: Muscle strength and tone normal. SPINE: No scoliosis or deformity SKIN: No rashes CENTRAL NERVOUS SYSTEM: No focal deficits, tone is normal in all 4 extremities. PSYCHIATRIC: Alert and oriented -3. Appropriate affect. Intact judgment and insight. - Labs CBC & Chem 7: 12/16/19 06:08 12/16/19 06:08 Labs: Abnormal Lab Results - Last 24 Hours (Table) 12/16/19 12/16/19 12/16/19 Range/Units 06:08 06:08 06:08 Neutrophils # 8.0 H (1.3-7.7) k/uL Lymphocytes # 0.5 L (1.0-4.8) k/uL Fibrinogen 514 H (200-500) mg/dL D-Dimer 2.52 H (<0.60) mg/L FEU Potassium 3.4 L (3.5-5.1) mmol/L Chloride 111 H (98-107) mmol/L Glucose 115 H (74-99) mg/dL Calcium 8.1 L (8.4-10.2) mg/dL AST 55 H (14-36) U/L Lactate Dehydrogenase 1933 H (313-618) U/L C-Reactive Protein 70.8 H (<10.0) mg/L Total Protein 5.3 L (6.3-8.2) g/dL Albumin 2.7 L (3.5-5.0) g/dL Microbiology - Last 24 Hours (Table) 12/14/19 11:45 Blood Culture - Preliminary Blood No Growth after 24 hours Assessment and Plan Assessment: #1. Acute hypoxemic respiratory failure related to Covid 19 related pneumonia, now requiring AirVo at 50 L and 70% FiO2, transferred to the ICU on 12/16/2019 #2. Weakness, nausea, vomiting, with onset of symptoms 7 days ago on Wednesday and positive outpatient Covid 19 PCR Wednesday 5 days ago #3. Increased inflammatory markers related to the above #4. Hypertension #5. Hyperlipidemia #6. Morbid obesity with history of previous lap band surgery Plan: The patient was seen and evaluated by Dr. Benitez She will be transferred to the intensive care unit for closer monitoring Continue Remdesivir Continue vitamin C, zinc, Decadron, Lovenox, Pepcid, melatonin Repeat chest x-ray in a.m. Titrate down the FiO2 as tolerated We will continue to follow make further recommendations based on her clinical status. I, the cosigning physician, performed a history & physical examination of the patient. Lungs sounds with bilateral scattered rhonchi. Maintaining good O2 saturations in the 90s on AirVo at 50 L and 70% FiO2. I discussed the assessment and plan of care with my nurse practitioner, Latha So. I attest to the above note as dictated by her.
[2019-12-16] MEDS: REMDESIVIR 100 MG in SODIUM CHLORIDE 0.9% 250 ML IVPB SCH (12:49)
[2019-12-16 13:42] LABS: Glucose,Whole Blood 116 mg/dL (75-99)
[2019-12-16 17:26] LABS: Ferritin 552.7 ng/mL (10.0-291.0)
[2019-12-16] MEDS ORDERED: Potassium Replacement Protocol 1 EACH MISC MISCELLANE PRN (19:34)
[2019-12-16] MEDS: POTASSIUM CHLORIDE 10 MEQ in WATER FOR INJECTION 1 100ML.BAG IVPB SCH ×4 (20:10→23:43)
[2019-12-16] MEDS: MELATONIN 5 MG TABLET PO SCH (21:16)
[2019-12-16] MEDS: PRAVASTATIN SODIUM 40 MG TAB PO SCH (21:16)
[2019-12-17] MEDS: ONDANSETRON 4 MG/2 ML VIAL IVP PRN ×2 (01:54→23:46)
[2019-12-17 05:09] LABS: Basophils # (A) 0.1 k/uL (0-0.2); Basophils % (A) 1 %; Eosinophils % (A) 0 %; HGB 13.6 gm/dL (11.4-16.0); Lymphocytes # (A) 0.6 k/uL (1.0-4.8); Lymphocytes % (A) 6 %; MCH 28.5 pg (25.0-35.0); MCHC 31.6 g/dL (31.0-37.0); MCV 90.2 fL (80.0-100.0); Mean Platelet Volume 7.4; Monocytes # (A) 0.4 k/uL (0-1.0); Monocytes % (A) 3 %; Neutrophils % (A) 89 %; Platelet Count 224 k/uL (150-450); RBC 4.76 m/uL (3.80-5.40); RDW 14.2 % (11.5-15.5); WBC 10.2 k/uL (3.8-10.6)
[2019-12-17 05:20] LABS: D-Dimer 3.97 mg/L FEU (<0.60)
[2019-12-17 05:26] LABS: ALT 15 U/L (4-34); AST 51 U/L (14-36); African American GFR (CKD) >90 (>60 ml/min/1.73 sqM); Albumin 2.5 g/dL (3.5-5.0); Alkaline Phosphatase 61 U/L (38-126); Anion Gap 5 mmol/L; Blood Urea Nitrogen 12 mg/dL (7-17); Carbon Dioxide 23 mmol/L (22-30); Chloride 114 mmol/L (98-107); Glucose 87 mg/dL (74-99); Non-African American GFR(CKD) >90 (>60 ml/min/1.73 sqM); Potassium 3.7 mmol/L (3.5-5.1); Sodium 142 mmol/L (137-145); Total Bilirubin 0.5 mg/dL (0.2-1.3)
--- NOTE | 2019-12-17 07:29 | XR ---
EXAMINATION TYPE: XR chest 1V portable DATE OF EXAM: 12/17/2019 COMPARISON: 12/15/2019 INDICATION: Covid TECHNIQUE: Single frontal view of the chest is obtained. FINDINGS: The heart size is normal. The pulmonary vasculature is distinct. There is diffuse increased lung markings greater bronchograms are present. Findings can be compatible with ARDS. Findings are worsening over the interval. IMPRESSION: 1. Diffuse increased lung markings bilaterally. Correlate for ARDS.
[2019-12-17] MEDS ORDERED: FUROSEMIDE 10 MG/ML 4 ML VIAL IV STA (07:48)
[2019-12-17] MEDS ORDERED: POTASSIUM CHLORIDE ER 20 MEQ TAB.ER PO SCH (08:00)
[2019-12-17 08:21] LABS: LDH 3003 U/L (313-618)
[2019-12-17 09:16] LABS: C Reactive Protein 169.4 mg/L (<10.0)
[2019-12-17] MEDS: PRAVASTATIN SODIUM 40 MG TAB PO SCH (09:16)
[2019-12-17] MEDS: ZINC SULFATE 220 MG CAP PO SCH (09:16)
[2019-12-17] MEDS: ENOXAPARIN 40 MG/0.4 ML SYRINGE SQ SCH ×2 (09:16→20:51)
[2019-12-17] MEDS: lisinopriL 20 MG TAB PO SCH (09:16)
[2019-12-17] MEDS: dexAMETHasone 2 MG TAB PO SCH (09:16)
[2019-12-17] MEDS: ASCORBIC ACID 500 MG TAB PO SCH (09:16)
[2019-12-17] MEDS: FAMOTIDINE 20 MG/2 ML VIAL IV SCH ×2 (09:16→20:51)
[2019-12-17] MEDS: SODIUM CHLORIDE 0.9% 1,000 ML IV SCH ×2 (10:00→20:51)
--- NOTE | 2019-12-17 12:01 | P.PN ---
Subjective Progress Note Date: 12/17/19 54-year-old white female patient with past medical history of hypertension, nonsmoker, previous history of lab band surgery for morbid obesity who presented to the hospital on 12/14/2019 with complaints of nausea, vomiting, weakness. Patient was tested for Covid 19 7 days ago last Wednesday, and received positive results 5 days ago on Wednesday. Patient has a daughter who was hospitalized with COVID 19 related pneumonia, and that daughter was discharged home after treatment, her other daughter is also currently hospitalized with Covid 19. Her was also positive for Covid 19 infection. Patient has not been able to keep anything down related to nausea and vomiting. Chest x-ray showed diffuse airspace opacities of bilateral lungs related to Covid 19 viral infection. Patient had positive lymphopenia, with lymphocyte count of 0.5, d-dimer was 1.22, initial BMP was unremarkable, lactic acid was 0.9, ferritin level was elevated at 382, LDH of 704, CRP was significantly elevated at 73.9, pro calcitonin is 0.12, C. diff was negative. Patient is currently on 10 L of oxygen her pulse ox is 91%, she is a very short of breath with any activity. Occasional cough, nonproductive, she was started on oral Decadron, prophylactic dose of Lovenox, and we will start the patient on Remdesivir. The patient is seen today 12/16/2019 in follow-up on the regular medical floor. She is currently awake. She is still quite short of breath. Still fatigued and weak. She is now requiring AirVo high flow oxygen with the fluid at 50 L an FiO2 of 70% to maintain O2 saturations in the 90s. Currently afebrile. She had a temperature earlier this morning at 100.0. She is short of breath with minimal exertion. White count 8.8. Hemoglobin 13.3. Lymphocyte 0.5. D-dimer 2.52. Sodium 142. Potassium 3.4. Creatinine 0.54. LDH 1933. C-reactive protein 70.8. Continued on Remdesivir, day #2. Continued on zinc, melatonin, vitamin C, Decadron, Lovenox, Pepcid. 0.9 normal saline at 100 ML's per hour. 12/17/2019, the patient is currently being taken care of in the intensive care unit. Noted the patient got transferred to the ICU yesterday because of her progressive hypoxemia that was developing related to colitis code 19 related pneumonia. The patient has progressive increase in the oxygen requirements and currently she is in the intensive care unit and she is on 6 L of oxygen to high flow system and the patient's pulse ox in the order of 94%. Chest x-ray showing diffuse breath and pulmonary infiltrates consistent with pneumonia. The patient is short of breath even at rest and she is trying to sleep on her side and prone herself if possible. She is not using this is an was of breathing , is quite tired and weak and lethargic. No chest pain. No hemoptysis. No pleurisy. She is on and off cough and. No altered mentation. We discussed the possibility of intubation mechanical ventilation and she was agreeable to that. I think we can hold off on this intervention for now and monitor progress. She still on Remdesivir and Decadron. I'm going to go ahead and order interleukin-6 levels to evaluate this patient for possible tocilizumab treatment. We will also order some coalescent immunoglobulins if available. The patient's d-dimer is up to 3.97. The patient continues to have lymphopenia with a lymphocyte count of 0.6. White cell count of 10.2. The electrolytes are all within normal limits. The LDH is up to 3003 and the C-reactive protein is up to 169. She is having low-grade fever on and off. Oral intake is quite diminished. Objective - Vital Signs Vital signs: Vital Signs Temp 97.9 F 12/17/19 04:30 Pulse 68 12/17/19 07:00 Resp 25 H 12/17/19 07:00 BP 150/54 12/17/19 07:00 Pulse Ox 96 12/17/19 10:57 Intake & Output 12/16/19 12/17/19 12/17/19 19:59 06:59 18:59 Intake Total 100 Output Total Balance 100 Weight Intake: IV 100 Potassium Chloride 10 meq In Water For Injection 1 100ml.bag @ 100 mls/hr IVPB Q1HR [facility] Rx#: [id number] Sodium Chloride 0.9% 1, 100 000 ml @ 100 mls/hr IV . Q10H [facility] Rx#:[id number] Tube Feeding Output: Urine - Exam - Exam GENERAL EXAM: Alert, pleasant 54-year-old female patient, now on AirVo at 60 L and 94% FiO2, in mild respiratory distress. The patient is not using extra muscles of breathing. She is alert and awake and communicating. She is getting more lethargic however. HEAD: Normocephalic/atraumatic. EYES: Normal reaction of pupils, equal size. Conjunctiva pink, sclera white. NOSE: Clear with pink turbinates. THROAT: No erythema or exudates. NECK: No masses, no JVD, no thyroid enlargement, no adenopathy. CHEST: No chest wall deformity. Symmetrical expansion. LUNGS: Equal air entry with bilateral scattered rhonchi. CVS: Regular rate and rhythm, normal S1 and S2, no gallops, no murmurs, no rubs ABDOMEN: Soft, nontender. No hepatosplenomegaly, normal bowel sounds, no guarding or rigidity. EXTREMITIES: No clubbing, no edema, no cyanosis, 2+ pulses and upper and lower extremities. MUSCULOSKELETAL: Muscle strength and tone normal. SPINE: No scoliosis or deformity SKIN: No rashes CENTRAL NERVOUS SYSTEM: No focal deficits, tone is normal in all 4 extremities. PSYCHIATRIC: Alert and oriented -3. Appropriate affect. Intact judgment and insight. - Labs CBC & Chem 7: 12/17/19 04:16 12/17/19 04:16 Labs: Abnormal Lab Results - Last 24 Hours (Table) 12/16/19 12/16/19 12/17/19 Range/Units 06:08 13:41 04:16 Neutrophils # 9.0 H (1.3-7.7) k/uL Lymphocytes # 0.6 L (1.0-4.8) k/uL Fibrinogen (200-500) mg/dL D-Dimer (<0.60) mg/L FEU Chloride (98-107) mmol/L Creatinine (0.52-1.04) mg/dL POC Glucose (mg/dL) 116 H (75-99) mg/dL Calcium (8.4-10.2) mg/dL Ferritin 552.7 H (10.0-291.0) ng/mL AST (14-36) U/L Lactate Dehydrogenase (313-618) U/L C-Reactive Protein (<10.0) mg/L Total Protein (6.3-8.2) g/dL Albumin (3.5-5.0) g/dL 12/17/19 12/17/19 Range/Units 04:16 04:16 Neutrophils # (1.3-7.7) k/uL Lymphocytes # (1.0-4.8) k/uL Fibrinogen 506 H (200-500) mg/dL D-Dimer 3.97 H (<0.60) mg/L FEU Chloride 114 H (98-107) mmol/L Creatinine 0.49 L (0.52-1.04) mg/dL POC Glucose (mg/dL) (75-99) mg/dL Calcium 8.0 L (8.4-10.2) mg/dL Ferritin (10.0-291.0) ng/mL AST 51 H (14-36) U/L Lactate Dehydrogenase 3003 H (313-618) U/L C-Reactive Protein 169.4 H (<10.0) mg/L Total Protein 5.0 L (6.3-8.2) g/dL Albumin 2.5 L (3.5-5.0) g/dL Microbiology - Last 24 Hours (Table) 12/14/19 11:45 Blood Culture - Preliminary Blood No Growth after 48 hours Assessment and Plan Plan: 1. Acute hypoxemic respiratory failure related to Covid 19 related pneumonia, now requiring AirVo at 60 L and the chest x-ray shows significant increase in a diffuse bilateral pulmonary infiltrates and there is obvious worsening in the pulmonary infiltration compared to yesterday's chest x-ray. As patient may be going into ARDS secondary to Covid 19 related pneumonia. 2 Covid 19 related pneumonia 3 episodic fever, generalized weakness secondary to Covid 19 related infection #3. Increased inflammatory markers related to the above #4. Hypertension #5. Hyperlipidemia #6. Morbid obesity with history of previous lap band surgery Plan: Keep the patient in the intensive care unit for close monitoring Continue high flow oxygen at 60 L per minute Continue oral Decadron 6 mg by mouth daily Continue Remdesivir per protocol Order convalescent plasma for this patient if available we'll proceed with she is using her with that check a baseline interleukin-6 level and consider Tocilizumab Continue zinc sulfate, vitamin C, and melatonin Continue Lovenox at a dose of 40 mg subcu twice a day and adjustments was done based on the elevated d-dimer Condition is highly critical the patient may potentially require intubation mechanical ventilation. She was agreeable to that. We'll continue to follow.
[2019-12-17] MEDS: REMDESIVIR 100 MG in SODIUM CHLORIDE 0.9% 250 ML IVPB SCH (12:07)
[2019-12-17] MEDS: MELATONIN 5 MG TABLET PO SCH (20:51)
--- NOTE | 2019-12-18 01:39 | P.PN ---
Subjective Progress Note Date: 12/16/19 Principal diagnosis: Acute COVID-19 virus pneumonia Acute hypoxic respiratory failure secondary to pneumonia. Requiring high flow oxygen with FiO2 70% Patient is a 54-year-old female with a known history of hypertension, hyperlipidemia presents to ER with complaints of nausea and vomiting. Patient was diagnosed with COVID-19 on 12/12/2019. Patient has been having intermittent fevers and nausea vomiting and unable to keep down food. Patient has been having generalized weakness and myalgias. Patient states that multiple members of her family were admitted to the hospital due to COVID-19 infections. On admission patient was tachycardic and hypoxic at 86% on room air. Patient was placed on nasal cannula oxygen and was admitted to the hospital currently. Patient feels generalized weakness. Denies any chest pain or shortness of breath. Laboratory data showed lymphocytes 0.5, D-dimer 1.22, CRP 73.2, pro calcitonin 0.12 Chest x-ray showed diffuse airspace opacities of the bilateral lungs most likely represent pneumonia. With a differential including COVID-19 viral infection EKG showed normal sinus rhythm. 12/15/2019 Patient is currently lying in the bed and awake alert oriented x3. Requiring oxygen at 10 L via nasal cannula high flow. Patient does have elevated inflammatory markers with LDH 704, ferritin 382 and pro calcitonin 0.12. Patient is being continued on Lovenox and dexamethasone. Remdesivir was added and loading dose was given today. Pulmonary is following. Repeat chest x-ray showed persistent mild to lower lung multifocal acute infiltrates greatest in the periphery correlating with history of suspected COVID-19 infection. Patient has been afebrile. No nausea vomiting or abdominal pain or diarrhea. Tolerating oral diet. 12/16/2019 Patient is currently awake alert and still having shortness of breath and requiring high flow oxygen at 50 L and FiO2 70%. Patient has been afebrile otherwise. Currently being continued on dexamethasone 6 mg daily, Lovenox and remdesivir was started. Due to worsening shortness of breath patient is being transferred to the MICU. Laboratory data showed WBC 8.8, hemoglobin 13.3 and platelets 213 D-dimer is 2.52, potassium 3.4, ferritin 552.7, LDH 1933, CRP 70.8. Current medications reviewed. All other review of systems negative except above. Current medications reviewed. Objective - Vital Signs Vital signs: Vital Signs Temp 98.2 F 12/16/19 20:00 Pulse 75 12/16/19 21:00 Resp 37 H 12/16/19 21:00 BP 149/77 12/16/19 21:00 Pulse Ox 92 L 12/16/19 21:00 Intake & Output 12/16/19 12/16/19 12/17/19 06:59 18:59 05:59 Intake Total 1600 1300 740 Output Total 100 100 Balance 1600 1200 640 Intake: IV 1600 1300 500 Potassium Chloride 10 meq 200 In Water For Injection 1 100ml.bag @ 100 mls/hr IVPB Q1HR [facility] Rx#: [id number] Sodium Chloride 0.9% 1, 1600 1300 300 000 ml @ 100 mls/hr IV . Q10H [facility] Rx#:[id number] Tube Feeding 240 Output: Urine 100 100 Other: # Voids 2 - Exam PHYSICAL EXAMINATION: Patient is lying in the bed comfortably, no acute distress, awake alert and oriented.. HEENT: Normocephalic. Neck is supple. Pupils reactive. Nostrils clear. Oral cavity is moist. Ears reveal no drainage. Neck reveals no JVD, carotid bruits, or thyromegaly. CHEST EXAMINATION: Trachea is central. Symmetrical expansion. Lung mauricio clear to auscultation and percussion. CARDIAC: Normal S1, S2 with no gallops. No murmurs ABDOMEN: Soft. Bowel sounds normal. No organomegaly. No abdominal bruits. Extremities: reveal no edema. No clubbing or cyanosis Neurologically awake, alert, oriented x3 with well-coordinated movements. No focal deficits noted Skin: No rash or skin lesions. Psychiatric: Coperative. Nonsuicidal Musculoskeletal: No joint swelling or deformity. Normal range of motion. - Labs CBC & Chem 7: 12/17/19 04:16 12/17/19 04:16 Labs: Abnormal Lab Results - Last 24 Hours (Table) 12/16/19 12/16/19 12/16/19 Range/Units 06:08 06:08 06:08 Neutrophils # 8.0 H (1.3-7.7) k/uL Lymphocytes # 0.5 L (1.0-4.8) k/uL Fibrinogen 514 H (200-500) mg/dL D-Dimer 2.52 H (<0.60) mg/L FEU Potassium 3.4 L (3.5-5.1) mmol/L Chloride 111 H (98-107) mmol/L Glucose 115 H (74-99) mg/dL POC Glucose (mg/dL) (75-99) mg/dL Calcium 8.1 L (8.4-10.2) mg/dL Ferritin 552.7 H (10.0-291.0) ng/mL AST 55 H (14-36) U/L Lactate Dehydrogenase 1933 H (313-618) U/L C-Reactive Protein 70.8 H (<10.0) mg/L Total Protein 5.3 L (6.3-8.2) g/dL Albumin 2.7 L (3.5-5.0) g/dL 12/16/19 Range/Units 13:41 Neutrophils # (1.3-7.7) k/uL Lymphocytes # (1.0-4.8) k/uL Fibrinogen (200-500) mg/dL D-Dimer (<0.60) mg/L FEU Potassium (3.5-5.1) mmol/L Chloride (98-107) mmol/L Glucose (74-99) mg/dL POC Glucose (mg/dL) 116 H (75-99) mg/dL Calcium (8.4-10.2) mg/dL Ferritin (10.0-291.0) ng/mL AST (14-36) U/L Lactate Dehydrogenase (313-618) U/L C-Reactive Protein (<10.0) mg/L Total Protein (6.3-8.2) g/dL Albumin (3.5-5.0) g/dL Microbiology - Last 24 Hours (Table) 12/14/19 11:45 Blood Culture - Preliminary Blood No Growth after 48 hours Assessment and Plan Assessment: Acute COVID-19 virus pneumonia Acute hypoxic respiratory failure secondary to pneumonia. Requiring high flow oxygen with FiO2 70% Nausea vomiting, generalized weakness and cough shortness of breath secondary to pneumonia. Hypertension Hyperlipidemia DVT prophylaxis with Lovenox. Plan: Patient will be continued on gentle IV hydration and oxygen supplementation. on dexamethasone 6 mg daily and Lovenox 40 mg subcu daily. Pulmonary is on board. strated on remdesivir course. Continue with droplet and contact precautions.Pulmonary is following. Prognosis is guarded at this time. Time with Patient: Greater than 30
[2019-12-18 04:29] LABS: Basophils % (A) 0 %; Eosinophils % (A) 0 %; HCT 41.7 % (34.0-46.0); HGB 12.9 gm/dL (11.4-16.0); Lymphocytes # (A) 0.6 k/uL (1.0-4.8); Lymphocytes % (A) 6 %; MCH 27.8 pg (25.0-35.0); MCV 89.8 fL (80.0-100.0); Mean Platelet Volume 8.1; Monocytes # (A) 0.3 k/uL (0-1.0); Monocytes % (A) 3 %; Neutrophils # (A) 9.2 k/uL (1.3-7.7); Neutrophils % (A) 90 %; Platelet Count 266 k/uL (150-450); RBC 4.64 m/uL (3.80-5.40); RDW 14.4 % (11.5-15.5); WBC 10.2 k/uL (3.8-10.6)
[2019-12-18 04:44] LABS: D-Dimer 4.69 mg/L FEU (<0.60)
[2019-12-18 04:51] LABS: ALT 17 U/L (4-34); AST 48 U/L (14-36); African American GFR (CKD) >90 (>60 ml/min/1.73 sqM); Albumin 2.5 g/dL (3.5-5.0); Alkaline Phosphatase 73 U/L (38-126); Anion Gap 4 mmol/L; Blood Urea Nitrogen 12 mg/dL (7-17); Calcium 8.1 mg/dL (8.4-10.2); Carbon Dioxide 31 mmol/L (22-30); Chloride 108 mmol/L (98-107); Glucose 93 mg/dL (74-99); Non-African American GFR(CKD) >90 (>60 ml/min/1.73 sqM); Potassium 3.2 mmol/L (3.5-5.1); Sodium 143 mmol/L (137-145); Total Bilirubin 0.7 mg/dL (0.2-1.3)
[2019-12-18 05:20] LABS: C Reactive Protein 250.3 mg/L (<10.0); LDH 2003 U/L (313-618)
[2019-12-18] MEDS: POTASSIUM CHLORIDE ER 20 MEQ TAB.ER PO SCH ×6 (05:46→21:00)
[2019-12-18] MEDS: SODIUM CHLORIDE 0.9% 1,000 ML IV SCH ×2 (05:46→17:17)
--- NOTE | 2019-12-18 06:57 | XR ---
EXAMINATION TYPE: XR chest 1V portable DATE OF EXAM: 12/18/2019 CLINICAL HISTORY: Difficulty breathing progress study. Covid-19 infection. TECHNIQUE: Single AP portable upright view of the chest is obtained. COMPARISON: Chest x-ray from one day earlier and older studies. FINDINGS: Persistent low lung volumes and diffuse bilateral opacities with relative sparing of the a pices. No pleural effusion or pneumothorax seen bilaterally. Cardiac silhouette size stable and withi n normal limits. Some silhouetting of both right and left heart border is redemonstrated. Lap band de vice redemonstrated with slightly inferior position relative to hemidiaphragm is stable. Cholecystect lucio clips are partially imaged. Multilevel spurring in the spine is present. Overlying right-sided de fibrillator pad on current study. IMPRESSION: Persistent diffuse bilateral multifocal infiltrates and/or edema. Perhaps slight improved aeration left upper to midlung otherwise no significant change from one day earlier.
[2019-12-18] MEDS: dexAMETHasone 2 MG TAB PO SCH (09:16)
[2019-12-18] MEDS: FAMOTIDINE 20 MG/2 ML VIAL IV SCH ×2 (09:16→20:04)
[2019-12-18] MEDS: ASCORBIC ACID 500 MG TAB PO SCH (09:16)
[2019-12-18] MEDS: lisinopriL 20 MG TAB PO SCH (09:16)
[2019-12-18] MEDS: ENOXAPARIN 80 MG/0.8 ML SYRINGE SQ SCH ×2 (09:33→21:48)
[2019-12-18 11:23] LABS: Ferritin 487.7 ng/mL (10.0-291.0)
[2019-12-18] MEDS: ZINC SULFATE 220 MG CAP PO SCH (11:49)
[2019-12-18] MEDS: REMDESIVIR 100 MG in SODIUM CHLORIDE 0.9% 250 ML IVPB SCH (11:49)
[2019-12-18] MEDS: ACETAMINOPHEN TAB 325 MG TAB PO PRN (12:01)
[2019-12-18] MEDS ORDERED: Potassium Replacement Protocol 1 EACH MISC MISCELLANE PRN ×3 (12:48→19:43)
[2019-12-18] MEDS ORDERED: FUROSEMIDE 10 MG/ML 4 ML VIAL IV STA (14:00)
--- NOTE | 2019-12-18 14:08 | P.PN ---
Subjective Progress Note Date: 12/18/19 Principal diagnosis: Acute hypoxic respiratory failure secondary to covid 19 pneumonitis. 54-year-old white female patient with past medical history of hypertension, nonsmoker, previous history of lab band surgery for morbid obesity who presented to the hospital on 12/14/2019 with complaints of nausea, vomiting, weakness. Patient was tested for Covid 19 7 days ago last Wednesday, and received positive results 5 days ago on Wednesday. Patient has a daughter who was hospitalized with COVID 19 related pneumonia, and that daughter was discharged home after treatment, her other daughter is also currently hospitalized with Covid 19. Her was also positive for Covid 19 infection. Patient has not been able to keep anything down related to nausea and vomiting. Chest x-ray showed diffuse airspace opacities of bilateral lungs related to Covid 19 viral infection. Patient had positive lymphopenia, with lymphocyte count of 0.5, d-dimer was 1.22, initial BMP was unremarkable, lactic acid was 0.9, ferritin level was elevated at 382, LDH of 704, CRP was significantly elevated at 73.9, pro calcitonin is 0.12, C. diff was negative. Patient is currently on 10 L of oxygen her pulse ox is 91%, she is a very short of breath with any activity. Occasional cough, nonproductive, she was started on oral Decadron, prophylactic dose of Lovenox, and we will start the patient on Remdesivir. The patient is seen today 12/16/2019 in follow-up on the regular medical floor. She is currently awake. She is still quite short of breath. Still fatigued and weak. She is now requiring AirVo high flow oxygen with the fluid at 50 L an FiO2 of 70% to maintain O2 saturations in the 90s. Currently afebrile. She had a temperature earlier this morning at 100.0. She is short of breath with minimal exertion. White count 8.8. Hemoglobin 13.3. Lymphocyte 0.5. D-dimer 2.52. Sodium 142. Potassium 3.4. Creatinine 0.54. LDH 1933. C-reactive protein 70.8. Continued on Remdesivir, day #2. Continued on zinc, melatonin, vitamin C, Decadron, Lovenox, Pepcid. 0.9 normal saline at 100 ML's per hour. 12/17/2019, the patient is currently being taken care of in the intensive care unit. Noted the patient got transferred to the ICU yesterday because of her progressive hypoxemia that was developing related to colitis code 19 related pneumonia. The patient has progressive increase in the oxygen requirements and currently she is in the intensive care unit and she is on 6 L of oxygen to high flow system and the patient's pulse ox in the order of 94%. Chest x-ray showing diffuse breath and pulmonary infiltrates consistent with pneumonia. The patient is short of breath even at rest and she is trying to sleep on her side and prone herself if possible. She is not using this is an was of breathing , is quite tired and weak and lethargic. No chest pain. No hemoptysis. No pleurisy. She is on and off cough and. No altered mentation. We discussed the possibility of intubation mechanical ventilation and she was agreeable to that. I think we can hold off on this intervention for now and monitor progress. She still on Remdesivir and Decadron. I'm going to go ahead and order interleukin-6 levels to evaluate this patient for possible tocilizumab treatment. We will also order some coalescent immunoglobulins if available. The patient's d-dimer is up to 3.97. The patient continues to have lymphopenia with a lymphocyte count of 0.6. White cell count of 10.2. The electrolytes are all within normal limits. The LDH is up to 3003 and the C-reactive protein is up to 169. She is having low-grade fever on and off. Oral intake is quite diminished. Patient was reevaluated today on 12/18/19, remains in the ICU, she is presently on airvo at a flow of 60 L/m, and FiO2 of 94%, patient is comfortable, does not seem to be in distress, patient is on third day of remdesivir , and she received convalescent plasma on 12/17/19. Chest x-ray continues to deteriorate, and she has diffuse multifocal infiltrates not much knife changer the last couple of days. Surprisingly, the patient seems to be clinically better than expected considering the worsening of her chest x-ray. Patient has a relatively high d- dimer, and she remains on Lovenox at 80 mg subcu twice a day. Patient remains on Decadron. I also plan to give the patient a dose of Lasix today. No plans to transfer the patient out of the ICU at this point yet. Labs today showed a relatively normal CBC. D-dimer is rising up to 4.69 today. Electrolytes are normal except for low potassium of 3.2. Renal profile is normal. LDH seems to be coming down however C-reactive protein is elevated. Objective - Vital Signs Vital signs: Vital Signs Temp 100.3 F H 12/18/19 12:00 Pulse 85 12/18/19 13:00 Resp 41 H 12/18/19 13:00 BP 123/65 12/18/19 13:00 Pulse Ox 87 L 12/18/19 13:00 Intake & Output 12/17/19 12/18/19 12/18/19 18:59 06:59 18:59 Intake Total 1450 1575 850 Output Total 3000 300 500 Balance -1550 1275 350 Weight 83.3 kg Intake: IV 1450 1150 850 Remdesivir (Eua) 100 mg 250 250 In Sodium Chloride 0.9% 250 ml @ 250 mls/hr IVPB DAILY@1200 [facility] Rx#: [id number] Sodium Chloride 0.9% 1, 1200 1150 600 000 ml @ 100 mls/hr IV . Q10H [facility] Rx#:[id number] Blood Product 0 425 Ffp Pher Conval Covid19 0 215 Acda 1 Unit [id number] Output: Urine 3000 300 500 Other: Voiding Method Indwelling Catheter # Voids 1 1 1 - Exam GENERAL EXAM: Revealed a 54-year-old female on airvo , in no distress. HEAD: Normocephalic/atraumatic. EENT: PERRLA, EOMI, no icterus, moist mucous membranes, no neck masses, no JVD, no stridor. CHEST: No chest wall deformity. Symmetrical expansion. LUNGS: Crackles at the bases bilaterally. CVS: Regular rate and rhythm, normal S1 and S2, no gallops, no murmurs, no rubs ABDOMEN: Soft, nontender. No hepatosplenomegaly, normal bowel sounds, no guarding or rigidity. EXTREMITIES: No clubbing, no edema, no cyanosis, 2+ pulses and upper and lower extremities. MUSCULOSKELETAL: Muscle strength and tone normal. SPINE: No scoliosis or deformity SKIN: No rashes CENTRAL NERVOUS SYSTEM: No focal deficits, tone is normal in all 4 extremities. PSYCHIATRIC: Alert and oriented -3. Appropriate affect. Intact judgment and insight. - Labs CBC & Chem 7: 12/18/19 03:32 12/18/19 12:18 Labs: Abnormal Lab Results - Last 24 Hours (Table) 12/18/19 12/18/19 12/18/19 Range/Units 03:32 03:32 03:32 Neutrophils # 9.2 H (1.3-7.7) k/uL Lymphocytes # 0.6 L (1.0-4.8) k/uL Fibrinogen 566 H (200-500) mg/dL D-Dimer 4.69 H (<0.60) mg/L FEU Potassium 3.2 L (3.5-5.1) mmol/L Chloride 108 H (98-107) mmol/L Carbon Dioxide 31 H (22-30) mmol/L Creatinine 0.50 L (0.52-1.04) mg/dL Calcium 8.1 L (8.4-10.2) mg/dL Ferritin 487.7 H (10.0-291.0) ng/mL AST 48 H (14-36) U/L Lactate Dehydrogenase 2003 H (313-618) U/L C-Reactive Protein 250.3 H (<10.0) mg/L Total Protein 5.0 L (6.3-8.2) g/dL Albumin 2.5 L (3.5-5.0) g/dL 12/18/19 Range/Units 12:18 Neutrophils # (1.3-7.7) k/uL Lymphocytes # (1.0-4.8) k/uL Fibrinogen (200-500) mg/dL D-Dimer (<0.60) mg/L FEU Potassium 3.2 L (3.5-5.1) mmol/L Chloride (98-107) mmol/L Carbon Dioxide (22-30) mmol/L Creatinine (0.52-1.04) mg/dL Calcium (8.4-10.2) mg/dL Ferritin (10.0-291.0) ng/mL AST (14-36) U/L Lactate Dehydrogenase (313-618) U/L C-Reactive Protein (<10.0) mg/L Total Protein (6.3-8.2) g/dL Albumin (3.5-5.0) g/dL Microbiology - Last 24 Hours (Table) 12/14/19 11:45 Blood Culture - Preliminary Blood No Growth after 72 hours Assessment and Plan Assessment: Impression: Acute hypoxic respiratory failure secondary to covid 19 pneumonitis. Acute Covid in 19 pneumonitis. Increased inflammatory markers related to above. Generalized weakness secondary to above. History of obesity and previous lab band surgery. Patient is status post day #3 of remdesivir treatment and convalescent plasma given. Recommendation: Continue present treatment plan. Increase Lovenox to 80 mg by mouth twice a day considering the increase in her d-dimer. Continue high flow oxygen and high FiO2. Titrate accordingly. Continue to monitor the patient in the ICU. Prognosis is definitely guarded. We will continue to follow. Time with Patient: Less than 30
[2019-12-18] MEDS: POTASSIUM CHLORIDE 10 MEQ in WATER FOR INJECTION 1 100ML.BAG IVPB SCH ×2 (17:17→17:18)
[2019-12-18] MEDS: PRAVASTATIN SODIUM 40 MG TAB PO SCH (21:00)
[2019-12-18] MEDS: MELATONIN 5 MG TABLET PO SCH (21:00)
[2019-12-19] MEDS: SODIUM CHLORIDE 0.9% 1,000 ML IV SCH ×3 (02:43→23:54)
[2019-12-19] MEDS ORDERED: propofoL 100 ML IV ONE (03:41)
[2019-12-19] MEDS ORDERED: CISATRACURIUM 2 MG/ML 5 ML VIAL IV ONE (04:43)
--- NOTE | 2019-12-19 04:47 | XR ---
ADDENDUM - Added by Sagar Bagley MD on 12/19/2019 5:58 AM (-06:00) Speech recognition error. ET tube 3.8 cm above the darrick. EXAM: XR Chest, 1 View CLINICAL HISTORY: ITS.REASON XR Reason: Tube placement TECHNIQUE: Frontal view of the chest. COMPARISON: Chest x-ray 12/18/2019. FINDINGS: Lungs: Continued diffuse bilateral interstitial and airspace disease. Pleural space: Unremarkable. No pneumothorax. Heart: No cardiomegaly. Mediastinum: Unremarkable. Bones/joints: No acute osseous abnormality. Tubes, lines and devices: ET tube 3.8 cm below the darrick. An enteric tube tip overlies the proximal stomach. IMPRESSION: Continued diffuse bilateral interstitial and airspace disease. <MYCVCSECTION> Communications: 12/19/19 05:56 Call From [facility] on 12/18 05:54 (-05:00)
[2019-12-19] MEDS: CISATRACURIUM 200 MG in SODIUM CHLORIDE 0.9% 180 ML IV SCH ×2 (04:54→21:09)
[2019-12-19 06:13] LABS: ABG Base Excess 0.9 mmol/L; ABG HCO3 28 mmol/L (21-25); ABG Oxygen Saturation 98.8 % (94-97); ABG PCO2 57 mmHg (35-45); ABG PH 7.29 (7.35-7.45); ABG PO2 137 mmHg (83-108); ABG TCO2 29 mmol/L (19-24); Allen Test Performed? Yes
[2019-12-19 07:48] LABS: Basophils % (A) 0 %; Eosinophils % (A) 0 %; HCT 42.1 % (34.0-46.0); HGB 12.8 gm/dL (11.4-16.0); Hypochromasia Slight; Lymphocytes # (A) 0.6 k/uL (1.0-4.8); Lymphocytes % (A) 4 %; MCHC 30.5 g/dL (31.0-37.0); MCV 91.8 fL (80.0-100.0); Mean Platelet Volume 7.6; Monocytes # (A) 0.4 k/uL (0-1.0); Monocytes % (A) 3 %; Neutrophils # (A) 13.3 k/uL (1.3-7.7); Neutrophils % (A) 93 %; Platelet Count 342 k/uL (150-450); RBC 4.59 m/uL (3.80-5.40); RDW 14.5 % (11.5-15.5); WBC 14.3 k/uL (3.8-10.6)
[2019-12-19 07:52] LABS: Albumin 2.4 g/dL (3.5-5.0)
[2019-12-19 08:06] LABS: ALT 23 U/L (4-34); AST 64 U/L (14-36); African American GFR (CKD) >90 (>60 ml/min/1.73 sqM); Alkaline Phosphatase 85 U/L (38-126); Anion Gap 7 mmol/L; Blood Urea Nitrogen 14 mg/dL (7-17); Calcium 7.8 mg/dL (8.4-10.2); Carbon Dioxide 26 mmol/L (22-30); Chloride 109 mmol/L (98-107); Creatine Kinase 459 U/L (30-135); Glucose 92 mg/dL (74-99); Non-African American GFR(CKD) >90 (>60 ml/min/1.73 sqM); Potassium 3.9 mmol/L (3.5-5.1); Sodium 142 mmol/L (137-145); Total Bilirubin 0.9 mg/dL (0.2-1.3); Total Protein 4.9 g/dL (6.3-8.2)
[2019-12-19 08:18] LABS: LDH 2264 U/L (313-618)
[2019-12-19] MEDS: FAMOTIDINE 20 MG/2 ML VIAL IV SCH ×2 (08:50→20:59)
[2019-12-19] MEDS: ASCORBIC ACID 500 MG TAB PO SCH (08:50)
[2019-12-19 09:02] LABS: D-Dimer 4.25 mg/L FEU (<0.60)
[2019-12-19 09:07] LABS: C Reactive Protein 267.4 mg/L (<10.0)
[2019-12-19] MEDS: lisinopriL 20 MG TAB PO SCH (09:11)
[2019-12-19] MEDS: ENOXAPARIN 80 MG/0.8 ML SYRINGE SQ SCH ×2 (09:22→20:59)
[2019-12-19] MEDS: dexAMETHasone 2 MG TAB PO SCH (09:22)
[2019-12-19] MEDS: ZINC SULFATE 220 MG CAP PO SCH (09:22)
[2019-12-19] MEDS ORDERED: fentaNYL (PF) 1,000 MCG in SODIUM CHLORIDE 0.9% 80 ML IV SCH (11:00)
[2019-12-19] MEDS ORDERED: SODIUM CHLORIDE 0.9% 1,000 ML IV ONE ×2 (12:20→16:59)
--- NOTE | 2019-12-19 12:30 | XR ---
EXAMINATION TYPE: XR chest 1V confirm line [facility] DATE OF EXAM: 12/19/2019 COMPARISON: 12/19/2019, earlier today HISTORY: 54-year-old female central line placement TECHNIQUE: Single frontal view of the chest is obtained. FINDINGS: Right IJ CVC tip within the lower right atrium. Heart normal size. Diffuse interstitial and patchy ai rspace opacities persist but aeration is improving from prior. No sizable pleural effusion. ET tube a nd NG tube are satisfactory. Suspect calcified left AP window/left hilar lymph nodes. IMPRESSION: 1. Right IJ CVC tip in the lower right atrium. 2. Continued diffuse opacities though with significant improvement from earlier today.
[2019-12-19] MEDS: REMDESIVIR 100 MG in SODIUM CHLORIDE 0.9% 250 ML IVPB SCH (12:47)
--- NOTE | 2019-12-19 15:32 | P.PN ---
Subjective Progress Note Date: 12/19/19 Principal diagnosis: Acute hypoxic respiratory failure secondary to covid 19 pneumonitis. 54-year-old white female patient with past medical history of hypertension, nonsmoker, previous history of lab band surgery for morbid obesity who presented to the hospital on 12/14/2019 with complaints of nausea, vomiting, weakness. Patient was tested for Covid 19 7 days ago last Wednesday, and received positive results 5 days ago on Wednesday. Patient has a daughter who was hospitalized with COVID 19 related pneumonia, and that daughter was discharged home after treatment, her other daughter is also currently hospitalized with Covid 19. Her was also positive for Covid 19 infection. Patient has not been able to keep anything down related to nausea and vomiting. Chest x-ray showed diffuse airspace opacities of bilateral lungs related to Covid 19 viral infection. Patient had positive lymphopenia, with lymphocyte count of 0.5, d-dimer was 1.22, initial BMP was unremarkable, lactic acid was 0.9, ferritin level was elevated at 382, LDH of 704, CRP was significantly elevated at 73.9, pro calcitonin is 0.12, C. diff was negative. Patient is currently on 10 L of oxygen her pulse ox is 91%, she is a very short of breath with any activity. Occasional cough, nonproductive, she was started on oral Decadron, prophylactic dose of Lovenox, and we will start the patient on Remdesivir. The patient is seen today 12/16/2019 in follow-up on the regular medical floor. She is currently awake. She is still quite short of breath. Still fatigued and weak. She is now requiring AirVo high flow oxygen with the fluid at 50 L an FiO2 of 70% to maintain O2 saturations in the 90s. Currently afebrile. She had a temperature earlier this morning at 100.0. She is short of breath with minimal exertion. White count 8.8. Hemoglobin 13.3. Lymphocyte 0.5. D-dimer 2.52. Sodium 142. Potassium 3.4. Creatinine 0.54. LDH 1933. C-reactive protein 70.8. Continued on Remdesivir, day #2. Continued on zinc, melatonin, vitamin C, Decadron, Lovenox, Pepcid. 0.9 normal saline at 100 ML's per hour. 12/17/2019, the patient is currently being taken care of in the intensive care unit. Noted the patient got transferred to the ICU yesterday because of her progressive hypoxemia that was developing related to colitis code 19 related pneumonia. The patient has progressive increase in the oxygen requirements and currently she is in the intensive care unit and she is on 6 L of oxygen to high flow system and the patient's pulse ox in the order of 94%. Chest x-ray showing diffuse breath and pulmonary infiltrates consistent with pneumonia. The patient is short of breath even at rest and she is trying to sleep on her side and prone herself if possible. She is not using this is an was of breathing , is quite tired and weak and lethargic. No chest pain. No hemoptysis. No pleurisy. She is on and off cough and. No altered mentation. We discussed the possibility of intubation mechanical ventilation and she was agreeable to that. I think we can hold off on this intervention for now and monitor progress. She still on Remdesivir and Decadron. I'm going to go ahead and order interleukin-6 levels to evaluate this patient for possible tocilizumab treatment. We will also order some coalescent immunoglobulins if available. The patient's d-dimer is up to 3.97. The patient continues to have lymphopenia with a lymphocyte count of 0.6. White cell count of 10.2. The electrolytes are all within normal limits. The LDH is up to 3003 and the C-reactive protein is up to 169. She is having low-grade fever on and off. Oral intake is quite diminished. Patient was reevaluated today on 12/18/19, remains in the ICU, she is presently on airvo at a flow of 60 L/m, and FiO2 of 94%, patient is comfortable, does not seem to be in distress, patient is on third day of remdesivir , and she received convalescent plasma on 12/17/19. Chest x-ray continues to deteriorate, and she has diffuse multifocal infiltrates not much manager exchange the last couple of days. Surprisingly, the patient seems to be clinically better than expected considering the worsening of her chest x-ray. Patient has a relatively high d- dimer, and she remains on Lovenox at 80 mg subcu twice a day. Patient remains on Decadron. I also plan to give the patient a dose of Lasix today. No plans to transfer the patient out of the ICU at this point yet. Labs today showed a relatively normal CBC. D-dimer is rising up to 4.69 today. Electrolytes are normal except for low potassium of 3.2. Renal profile is normal. LDH seems to be coming down however C-reactive protein is elevated. Patient was reevaluated today on 12/19/19, patient took a downhill course last night, her oxygenation worsened significantly, patient dropped her O2 saturation down to the 70s, and she was on a high flow O2 using airvo patient was supposedly DO NOT RESUSCITATE CODE STATUS, however she changed her CODE STATUS and the patient required intubation and mechanical ventilation. She is now on mechanical ventilation. And her ventilator settings are assist control rate of 20 tidal volume is 400 FiO2 80% PEEP of 12. I adjusted her FiO2 down to 65% tidal volume cut down to 375 respiratory rate increased to 28. Patient is on Nimbex at 2 mcg/kg/m, she is also on propofol at 60, and may consider adding fentanyl. Her peak airway pressure is 38 and her plateau pressure is 34. Chest x-ray continues to show worsening ARDS. D-dimer today is 4.25 CBC is relatively normal ABG earlier today showed a pO2 of 137 pCO2 of 57 pH of 7.29. Basic metabolic profile is basically normal. Renal profile is normal. Inflammatory markers are high including elevated C-reactive protein of 267 LDH is 2264 and ferritin is pending. D-dimer is 4.5 with fibrinogen of 581. Objective - Vital Signs Vital signs: Vital Signs Temp 99.2 F 12/19/19 12:30 Pulse 107 H 12/19/19 13:30 Resp 28 H 12/19/19 13:30 BP 99/53 12/19/19 12:30 Pulse Ox 97 12/19/19 13:30 Intake & Output 12/18/19 12/19/19 12/19/19 18:59 06:59 18:59 Intake Total 1450 7429.521 4753.374 Output Total 2545 1185 360 Balance -1095 637.100 1017.374 Weight 82.7 kg 82.7 kg Intake: IV 1450 1200 950 Remdesivir (Eua) 100 mg 250 250 In Sodium Chloride 0.9% 250 ml @ 250 mls/hr IVPB DAILY@1200 [facility] Rx#: [id number] Sodium Chloride 0.9% 1, 1200 1200 700 000 ml @ 100 mls/hr IV . Q10H [facility] Rx#:[id number] Intake, IV Titration 25.865 1177.374 Amount Sodium Chloride 0.9% 1, 1000 000 ml @ 999 mls/hr IV . Q1H1M [facility] Rx#:[id number] fentaNYL (PF) 1,000 mcg 3.239 In Sodium Chloride 0.9% 80 ml @ Per Protocol IV . Q0M [facility] Rx#:[id number] propofoL 1,000 mg In 25.865 174.135 Empty Bag 1 bag @ Titrate IV .Q0M [facility] Rx#: [id number] Lipid 125 Sodium Chloride 0.9% 1, 125 000 ml @ 100 mls/hr IV . Q10H [facility] Rx#:[id number] Output: Urine 2545 1185 360 Other: Voiding Method Indwelling Catheter Indwelling Catheter # Voids 1 ABP, PAP, CO, CI - Last Documented Arterial Blood Pressure 143/78 - Exam GENERAL EXAM: Revealed a 54-year-old female on mechanical ventilation, sedated and paralyzed. HEAD: Normocephalic/atraumatic. Endotracheal tube and orogastric tube are intact. EENT: PERRLA, EOMI, no icterus, moist mucous membranes, no neck masses, no JVD, no stridor. CHEST: No chest wall deformity. Symmetrical expansion. LUNGS: Diffuse crackles and rhonchi bilaterally. CVS: Regular rate and rhythm, normal S1 and S2, no gallops, no murmurs, no rubs ABDOMEN: Soft, nontender. No hepatosplenomegaly, normal bowel sounds, no guarding or rigidity. EXTREMITIES: No clubbing, no edema, no cyanosis, 2+ pulses and upper and lower extremities. MUSCULOSKELETAL: Could not be assessed, patient is sedated and paralyzed. SKIN: No rashes CENTRAL NERVOUS SYSTEM: Could not be assessed, patient is sedated and paralyzed. PSYCHIATRIC: Unable to assess - Labs CBC & Chem 7: 12/19/19 07:17 12/19/19 07:17 Labs: Abnormal Lab Results - Last 24 Hours (Table) 12/17/19 12/18/19 12/19/19 Range/Units 08:05 18:07 06:10 WBC (3.8-10.6) k/uL MCHC (31.0-37.0) g/dL Neutrophils # (1.3-7.7) k/uL Lymphocytes # (1.0-4.8) k/uL Fibrinogen (200-500) mg/dL D-Dimer (<0.60) mg/L FEU ABG pH 7.29 L (7.35-7.45) ABG pCO2 57 H (35-45) mmHg ABG pO2 137 H (83-108) mmHg ABG HCO3 28 H (21-25) mmol/L ABG Total CO2 29 H (19-24) mmol/L ABG O2 Saturation 98.8 H (94-97) % Potassium 3.4 L (3.5-5.1) mmol/L Chloride (98-107) mmol/L Creatinine (0.52-1.04) mg/dL Calcium (8.4-10.2) mg/dL AST (14-36) U/L Lactate Dehydrogenase (313-618) U/L Creatine Kinase (30-135) U/L C-Reactive Protein (<10.0) mg/L Total Protein (6.3-8.2) g/dL Albumin (3.5-5.0) g/dL Interleukin 6 223.3 H (<6.4) pg/mL 12/19/19 12/19/19 12/19/19 Range/Units 07:17 07:17 07:59 WBC 14.3 H (3.8-10.6) k/uL MCHC 30.5 L (31.0-37.0) g/dL Neutrophils # 13.3 H (1.3-7.7) k/uL Lymphocytes # 0.6 L (1.0-4.8) k/uL Fibrinogen 581 H (200-500) mg/dL D-Dimer 4.25 H (<0.60) mg/L FEU ABG pH (7.35-7.45) ABG pCO2 (35-45) mmHg ABG pO2 (83-108) mmHg ABG HCO3 (21-25) mmol/L ABG Total CO2 (19-24) mmol/L ABG O2 Saturation (94-97) % Potassium (3.5-5.1) mmol/L Chloride 109 H (98-107) mmol/L Creatinine 0.50 L (0.52-1.04) mg/dL Calcium 7.8 L (8.4-10.2) mg/dL AST 64 H (14-36) U/L Lactate Dehydrogenase 2264 H (313-618) U/L Creatine Kinase 459 H (30-135) U/L C-Reactive Protein 267.4 H (<10.0) mg/L Total Protein 4.9 L (6.3-8.2) g/dL Albumin 2.4 L (3.5-5.0) g/dL Interleukin 6 (<6.4) pg/mL Microbiology - Last 24 Hours (Table) 12/14/19 11:45 Blood Culture - Preliminary Blood No Growth after 120 hours 12/19/19 04:40 Gram Stain - Preliminary Sputum Sputum Culture - Preliminary Assessment and Plan Assessment: Impression: Acute hypoxic respiratory failure secondary to covid 19 pneumonitis. With ARDS Requiring intubation on 12/19/19 Acute Covid in 19 pneumonitis. Increased inflammatory markers related to above. Generalized weakness secondary to above. History of obesity and previous lab band surgery. Patient is status post day #4 of remdesivir treatment and convalescent plasma given. Recommendation: Continue present treatment plan. Continue Lovenox. Continue high flow oxygen and high FiO2. Titrate accordingly. Continue to monitor the patient in the ICU. Prognosis is extremely poor and guarded especially now that she is intubated on mechanical ventilation. Lines including a right IJ central line were placed, Critical care time is 34 minutes not including the time placed on procedures. We will continue to follow. Time with Patient: Greater than 30
[2019-12-19 16:18] LABS: Ferritin 584.6 ng/mL (10.0-291.0)
[2019-12-19] MEDS: NOREPINEPHRINE 32 MG in SODIUM CHLORIDE 0.9% 218 ML IV SCH (17:18)
--- NOTE | 2019-12-19 17:52 | OP ---
OPERATIVE REPORT OPERATIVE REPORT: Placement of right internal jugular central line. PREOPERATIVE DIAGNOSIS: Acute Covid pneumonitis and hypoxic respiratory failure. POSTOPERATIVE DIAGNOSIS: Acute Covid pneumonitis and hypoxic respiratory failure. ANESTHESIA USED: 2 mL of 1% lidocaine. PROCEDURE DETAILS: The patient was placed in a Trendelenburg position, the right adnexal region was prepared in a sterile fashion and drapes were applied. The area behind the posterior belly of the sternocleidomastoid was locally anesthetized. Then using the posterior approach, the right internal jugular vein was easily cannulated, a guidewire was placed, the area around the guidewire was dilated. Then a triple-lumen catheter was inserted over the guidewire, the guidewire was removed. Good blood flow noted in the 3 different ports, line was secured using 3.0 silk sutures. Chest x-ray showed adequate placement of the central line. No evidence of any complications. MMODL / IJN: [id number] /
--- NOTE | 2019-12-19 17:52 | PCN ---
PROCEDURE NOTE OPERATIVE REPORT: Placement of left radial arterial line. PREOPERATIVE DIAGNOSIS: Acute hypoxic respiratory failure secondary to Covid 19 pneumonitis. POSTOPERATIVE DIAGNOSIS: Acute hypoxic respiratory failure secondary to Covid 19 pneumonitis. ANESTHESIA: None deployed. PROCEDURE DETAILS: The left wrist was prepared in a sterile fashion. The drapes were applied. The left radial artery was palpated, cannulated, and a guidewire was placed. A Cook catheter was inserted over the guidewire, and the guidewire was removed. Good blood flow noted. No evidence of any immediate complications and good waveform. The line was secured using 3.0 silk sutures. MMODL / IJN: [id number] /
[2019-12-19] MEDS: CHLORHEXIDINE GLUCONATE 15 ML CUP MUCOUS MEM SCH (20:58)
[2019-12-19] MEDS: PRAVASTATIN SODIUM 40 MG TAB PO SCH (20:58)
[2019-12-19] MEDS: MELATONIN 5 MG TABLET PO SCH (20:58)
[2019-12-20 00:06] LABS: Glucose,Whole Blood 114 mg/dL (75-99)
[2019-12-20 05:03] LABS: Basophils % (A) 0 %; Eosinophils % (A) 0 %; HCT 39.8 % (34.0-46.0); Hypochromasia Slight; Lymphocytes # (A) 0.4 k/uL (1.0-4.8); Lymphocytes % (A) 4 %; MCHC 30.1 g/dL (31.0-37.0); Mean Platelet Volume 7.2; Monocytes # (A) 0.3 k/uL (0-1.0); Monocytes % (A) 4 %; Neutrophils # (A) 7.3 k/uL (1.3-7.7); Neutrophils % (A) 91 %; Platelet Count 315 k/uL (150-450); RBC 4.28 m/uL (3.80-5.40); RDW 14.9 % (11.5-15.5)
[2019-12-20 05:19] LABS: ALT 21 U/L (4-34); AST 40 U/L (14-36); African American GFR (CKD) >90 (>60 ml/min/1.73 sqM); Albumin 2.2 g/dL (3.5-5.0); Alkaline Phosphatase 79 U/L (38-126); Anion Gap 2 mmol/L; Blood Urea Nitrogen 13 mg/dL (7-17); Calcium 7.8 mg/dL (8.4-10.2); Carbon Dioxide 29 mmol/L (22-30); Chloride 111 mmol/L (98-107); Creatine Kinase 123 U/L (30-135); Glucose 130 mg/dL (74-99); Non-African American GFR(CKD) >90 (>60 ml/min/1.73 sqM); Potassium 3.7 mmol/L (3.5-5.1); Sodium 142 mmol/L (137-145); Total Bilirubin 0.6 mg/dL (0.2-1.3); Total Protein 4.7 g/dL (6.3-8.2)
[2019-12-20 06:08] LABS: Glucose,Whole Blood 108 mg/dL (75-99)
[2019-12-20 06:21] LABS: C Reactive Protein 190.9 mg/L (<10.0)
--- NOTE | 2019-12-20 07:15 | XR ---
EXAMINATION TYPE: XR chest 1V portable DATE OF EXAM: 12/20/2019 COMPARISON: 12/19/2019 HISTORY: Shortness TECHNIQUE: Single frontal view of the chest is obtained. FINDINGS: Central line, ET tube, NG tube stable. Diffuse bilateral airspace disease with pleural eff usion. No sizable pneumothorax. Heart size stable. IMPRESSION: 1. Diffuse bilateral airspace disease stable
[2019-12-20 07:37] LABS: ABG Base Excess 3.4 mmol/L; ABG HCO3 29 mmol/L (21-25); ABG Oxygen Saturation 96.8 % (94-97); ABG PCO2 53 mmHg (35-45); ABG PH 7.35 (7.35-7.45); ABG PO2 81 mmHg (83-108); ABG TCO2 31 mmol/L (19-24)
[2019-12-20 07:39] LABS: Allen Test Performed? no
[2019-12-20] MEDS ORDERED: POTASSIUM BICARBONATE/CIT AC 20 MEQ TABLET.EFF NG-TUBE SCH (08:00)
[2019-12-20] MEDS: CHLORHEXIDINE GLUCONATE 15 ML CUP MUCOUS MEM SCH ×2 (09:13→20:27)
[2019-12-20] MEDS: dexAMETHasone 2 MG TAB PO SCH (09:14)
[2019-12-20] MEDS: ZINC SULFATE 220 MG CAP PO SCH (09:14)
[2019-12-20] MEDS: FAMOTIDINE 20 MG/2 ML VIAL IV SCH ×2 (09:15→20:27)
[2019-12-20] MEDS: ENOXAPARIN 80 MG/0.8 ML SYRINGE SQ SCH ×2 (09:15→20:50)
[2019-12-20] MEDS: ASCORBIC ACID 500 MG TAB PO SCH (09:15)
[2019-12-20] MEDS: lisinopriL 20 MG TAB PO SCH (09:16)
[2019-12-20] MEDS: HYDROmorphone 0.5 MG/0.5 ML SYRINGE IVP SCH ×8 (09:49→23:38)
[2019-12-20] MEDS: SODIUM CHLORIDE 0.9% 1,000 ML IV SCH ×2 (12:16→20:25)
--- NOTE | 2019-12-20 13:05 | P.PN ---
Subjective Progress Note Date: 12/20/19 Principal diagnosis: Acute hypoxic respiratory failure secondary to covid 19 pneumonitis. 54-year-old white female patient with past medical history of hypertension, nonsmoker, previous history of lab band surgery for morbid obesity who presented to the hospital on 12/14/2019 with complaints of nausea, vomiting, weakness. Patient was tested for Covid 19 7 days ago last Wednesday, and received positive results 5 days ago on Wednesday. Patient has a daughter who was hospitalized with COVID 19 related pneumonia, and that daughter was discharged home after treatment, her other daughter is also currently hospitalized with Covid 19. Her was also positive for Covid 19 infection. Patient has not been able to keep anything down related to nausea and vomiting. Chest x-ray showed diffuse airspace opacities of bilateral lungs related to Covid 19 viral infection. Patient had positive lymphopenia, with lymphocyte count of 0.5, d-dimer was 1.22, initial BMP was unremarkable, lactic acid was 0.9, ferritin level was elevated at 382, LDH of 704, CRP was significantly elevated at 73.9, pro calcitonin is 0.12, C. diff was negative. Patient is currently on 10 L of oxygen her pulse ox is 91%, she is a very short of breath with any activity. Occasional cough, nonproductive, she was started on oral Decadron, prophylactic dose of Lovenox, and we will start the patient on Remdesivir. The patient is seen today 12/16/2019 in follow-up on the regular medical floor. She is currently awake. She is still quite short of breath. Still fatigued and weak. She is now requiring AirVo high flow oxygen with the fluid at 50 L an FiO2 of 70% to maintain O2 saturations in the 90s. Currently afebrile. She had a temperature earlier this morning at 100.0. She is short of breath with minimal exertion. White count 8.8. Hemoglobin 13.3. Lymphocyte 0.5. D-dimer 2.52. Sodium 142. Potassium 3.4. Creatinine 0.54. LDH 1933. C-reactive protein 70.8. Continued on Remdesivir, day #2. Continued on zinc, melatonin, vitamin C, Decadron, Lovenox, Pepcid. 0.9 normal saline at 100 ML's per hour. 12/17/2019, the patient is currently being taken care of in the intensive care unit. Noted the patient got transferred to the ICU yesterday because of her progressive hypoxemia that was developing related to colitis code 19 related pneumonia. The patient has progressive increase in the oxygen requirements and currently she is in the intensive care unit and she is on 6 L of oxygen to high flow system and the patient's pulse ox in the order of 94%. Chest x-ray showing diffuse breath and pulmonary infiltrates consistent with pneumonia. The patient is short of breath even at rest and she is trying to sleep on her side and prone herself if possible. She is not using this is an was of breathing , is quite tired and weak and lethargic. No chest pain. No hemoptysis. No pleurisy. She is on and off cough and. No altered mentation. We discussed the possibility of intubation mechanical ventilation and she was agreeable to that. I think we can hold off on this intervention for now and monitor progress. She still on Remdesivir and Decadron. I'm going to go ahead and order interleukin-6 levels to evaluate this patient for possible tocilizumab treatment. We will also order some coalescent immunoglobulins if available. The patient's d-dimer is up to 3.97. The patient continues to have lymphopenia with a lymphocyte count of 0.6. White cell count of 10.2. The electrolytes are all within normal limits. The LDH is up to 3003 and the C-reactive protein is up to 169. She is having low-grade fever on and off. Oral intake is quite diminished. Patient was reevaluated today on 12/18/19, remains in the ICU, she is presently on airvo at a flow of 60 L/m, and FiO2 of 94%, patient is comfortable, does not seem to be in distress, patient is on third day of remdesivir , and she received convalescent plasma on 12/17/19. Chest x-ray continues to deteriorate, and she has diffuse multifocal infiltrates not much place change roof bolter the last couple of days. Surprisingly, the patient seems to be clinically better than expected considering the worsening of her chest x-ray. Patient has a relatively high d- dimer, and she remains on Lovenox at 80 mg subcu twice a day. Patient remains on Decadron. I also plan to give the patient a dose of Lasix today. No plans to transfer the patient out of the ICU at this point yet. Labs today showed a relatively normal CBC. D-dimer is rising up to 4.69 today. Electrolytes are normal except for low potassium of 3.2. Renal profile is normal. LDH seems to be coming down however C-reactive protein is elevated. Patient was reevaluated today on 12/19/19, patient took a downhill course last night, her oxygenation worsened significantly, patient dropped her O2 saturation down to the 70s, and she was on a high flow O2 using airvo patient was supposedly DO NOT RESUSCITATE CODE STATUS, however she changed her CODE STATUS and the patient required intubation and mechanical ventilation. She is now on mechanical ventilation. And her ventilator settings are assist control rate of 20 tidal volume is 400 FiO2 80% PEEP of 12. I adjusted her FiO2 down to 65% tidal volume cut down to 375 respiratory rate increased to 28. Patient is on Nimbex at 2 mcg/kg/m, she is also on propofol at 60, and may consider adding fentanyl. Her peak airway pressure is 38 and her plateau pressure is 34. Chest x-ray continues to show worsening ARDS. D-dimer today is 4.25 CBC is relatively normal ABG earlier today showed a pO2 of 137 pCO2 of 57 pH of 7.29. Basic metabolic profile is basically normal. Renal profile is normal. Inflammatory markers are high including elevated C-reactive protein of 267 LDH is 2264 and ferritin is pending. D-dimer is 4.5 with fibrinogen of 581. Patient was reevaluated today on 12/20/19, she is now in the ICU intubated and mechanically ventilated. Her ventilator settings are assist control rate of 28 tidal volume is 380 FiO2 is 70% and PEEP is 12. ABG showed a pO2 of 81 pCO2 of 53 pH of 7.35, hence I was able to titrate down her FiO2 to 60%. I have also recommended Dilaudid 0.5 mg every 12 hours. Patient remains on propofol at 50 mcg/kg/m and she is on Nimbex. She required norepinephrine yesterday as she was placed on fentanyl, however she did not tolerate the fentanyl well, and both were discontinued including norepinephrine. Patient is on vital HP nutritional support . Chest x-ray continues to show evidence of ARDS. Labs showed relatively normal CBC, platelets are normal, lymphocytes are low at 4%. D-dimer is 2.48. Elects lites are normal renal profile is normal. Her inflammatory markers were reviewed her C-reactive protein is 191 ferritin is 456 and her LDH not done today. C-reactive protein is lower today than the last 2 days. Objective - Vital Signs Vital signs: Vital Signs Temp 99.1 F 12/20/19 12:00 Pulse 85 12/20/19 12:00 Resp 28 H 12/20/19 12:00 BP 127/78 12/20/19 07:00 Pulse Ox 91 L 12/20/19 12:00 Intake & Output 12/19/19 12/20/19 12/20/19 18:59 06:59 18:59 Intake Total 3627.400 1711.769 726.968 Output Total 540 690 315 Balance 3087.400 1021.769 411.968 Weight 82.7 kg Intake: IV 1250 1300 500 Remdesivir (Eua) 100 mg 250 In Sodium Chloride 0.9% 250 ml @ 250 mls/hr IVPB DAILY@1200 [facility] Rx#: [id number] Sodium Chloride 0.9% 1, 1000 1300 500 000 ml @ 100 mls/hr IV . Q10H [facility] Rx#:[id number] Intake, IV Titration 2277.400 355.769 112.968 Amount Cisatracurium 200 mg In 162.435 Sodium Chloride 0.9% 180 ml @ 2 MCG/KG/MIN 9.996 mls/hr IV .Q20H1M [facility] Rx# :[id number] Norepinephrine 32 mg In 0.026 11.063 0 Sodium Chloride 0.9% 218 ml @ 0.05 MCG/KG/MIN 1. 938 mls/hr IV .Q24H [facility] Rx#:[id number] Sodium Chloride 0.9% 1, 1000 000 ml @ 999 mls/hr IV . Q1H1M [facility] Rx#:[id number] Sodium Chloride 0.9% 1, 1000 000 ml @ 999 mls/hr IV . Q1H1M [facility] Rx#:[id number] fentaNYL (PF) 1,000 mcg 3.239 In Sodium Chloride 0.9% 80 ml @ Per Protocol IV . Q0M [facility] Rx#:[id number] propofoL 1,000 mg In 274.135 182.271 112.968 Empty Bag 1 bag @ Titrate IV .Q0M [facility] Rx#: [id number] Tube Feeding 70 56 84 Other 30 30 Output: Urine 540 690 315 Other: Voiding Method Indwelling Catheter Indwelling Catheter Indwelling Catheter # Voids 1 ABP, PAP, CO, CI - Last Documented Arterial Blood Pressure 130/59 - Exam GENERAL EXAM: Revealed a 54-year-old female on mechanical ventilation, sedated and paralyzed. HEAD: Normocephalic/atraumatic. Endotracheal tube and orogastric tube are intact. EENT: PERRLA, EOMI, no icterus, moist mucous membranes, no neck masses, no JVD, no stridor. Right IJ triple-lumen catheter is noted. CHEST: No chest wall deformity. Symmetrical expansion. LUNGS: Fine crackles at the bases, no rhonchi and no wheezes.. CVS: Regular rate and rhythm, normal S1 and S2, no gallops, no murmurs, no rubs ABDOMEN: Soft, nontender. No hepatosplenomegaly, normal bowel sounds, no guarding or rigidity. EXTREMITIES: No clubbing, no edema, no cyanosis, 2+ pulses and upper and lower extremities. MUSCULOSKELETAL: Could not be assessed, patient is sedated and paralyzed. SKIN: No rashes CENTRAL NERVOUS SYSTEM: Could not be assessed, patient is sedated and paralyzed. PSYCHIATRIC: Unable to assess - Labs CBC & Chem 7: 12/20/19 04:50 12/20/19 04:50 Labs: Abnormal Lab Results - Last 24 Hours (Table) 12/19/19 12/20/19 12/20/19 Range/Units 07:17 00:04 04:50 MCHC 30.1 L (31.0-37.0) g/dL Lymphocytes # 0.4 L (1.0-4.8) k/uL D-Dimer (<0.60) mg/L FEU ABG pCO2 (35-45) mmHg ABG pO2 (83-108) mmHg ABG HCO3 (21-25) mmol/L ABG Total CO2 (19-24) mmol/L Chloride (98-107) mmol/L Creatinine (0.52-1.04) mg/dL Glucose (74-99) mg/dL POC Glucose (mg/dL) 114 H (75-99) mg/dL Calcium (8.4-10.2) mg/dL Ferritin 584.6 H (10.0-291.0) ng/mL AST (14-36) U/L C-Reactive Protein (<10.0) mg/L Total Protein (6.3-8.2) g/dL Albumin (3.5-5.0) g/dL 12/20/19 12/20/19 12/20/19 Range/Units 04:50 04:50 04:50 MCHC (31.0-37.0) g/dL Lymphocytes # (1.0-4.8) k/uL D-Dimer 2.48 H (<0.60) mg/L FEU ABG pCO2 (35-45) mmHg ABG pO2 (83-108) mmHg ABG HCO3 (21-25) mmol/L ABG Total CO2 (19-24) mmol/L Chloride 111 H (98-107) mmol/L Creatinine 0.44 L (0.52-1.04) mg/dL Glucose 130 H (74-99) mg/dL POC Glucose (mg/dL) (75-99) mg/dL Calcium 7.8 L (8.4-10.2) mg/dL Ferritin 456.4 H (10.0-291.0) ng/mL AST 40 H (14-36) U/L C-Reactive Protein 190.9 H (<10.0) mg/L Total Protein 4.7 L (6.3-8.2) g/dL Albumin 2.2 L (3.5-5.0) g/dL 12/20/19 12/20/19 Range/Units 06:07 07:30 MCHC (31.0-37.0) g/dL Lymphocytes # (1.0-4.8) k/uL D-Dimer (<0.60) mg/L FEU ABG pCO2 53 H (35-45) mmHg ABG pO2 81 L (83-108) mmHg ABG HCO3 29 H (21-25) mmol/L ABG Total CO2 31 H (19-24) mmol/L Chloride (98-107) mmol/L Creatinine (0.52-1.04) mg/dL Glucose (74-99) mg/dL POC Glucose (mg/dL) 108 H (75-99) mg/dL Calcium (8.4-10.2) mg/dL Ferritin (10.0-291.0) ng/mL AST (14-36) U/L C-Reactive Protein (<10.0) mg/L Total Protein (6.3-8.2) g/dL Albumin (3.5-5.0) g/dL Microbiology - Last 24 Hours (Table) 12/14/19 11:45 Blood Culture - Preliminary Blood No Growth after 120 hours 12/19/19 04:40 Gram Stain - Preliminary Sputum Sputum Culture - Preliminary Assessment and Plan Assessment: Impression: Acute hypoxic respiratory failure secondary to covid 19 pneumonitis. With ARDS Requiring intubation on 12/19/19 ARDS, requiring high FiO2 and high PEEP. Acute Covid in 19 pneumonitis. Increased inflammatory markers related to above. Generalized weakness secondary to above. History of obesity and previous lab band surgery. Patient is status post day #5 of remdesivir treatment and convalescent plasma given. Recommendation: Continue ventilatory support. Continue nutritional support. Continue Decadron. Continue supportive care measures. Continue GI and DVT prophylaxis. Titrate FiO2 as tolerated and keep O2 saturation above 90% Continue to monitor the patient in the ICU. Prognosis remains definitely poor and guarded. Patient is obviously critically ill, and critical care time is 33 minutes We'll continue to follow. Time with Patient: Greater than 30
[2019-12-20] MEDS: CISATRACURIUM 200 MG in SODIUM CHLORIDE 0.9% 180 ML IV SCH (17:53)
[2019-12-20] MEDS: MELATONIN 5 MG TABLET PO SCH (20:49)
[2019-12-20] MEDS: PRAVASTATIN SODIUM 40 MG TAB PO SCH (20:49)
[2019-12-20] MEDS: NOREPINEPHRINE 32 MG in SODIUM CHLORIDE 0.9% 218 ML IV SCH (22:28)
[2019-12-20 23:53] LABS: Glucose,Whole Blood 151 mg/dL (75-99)
[2019-12-21] MEDS: HYDROmorphone 0.5 MG/0.5 ML SYRINGE IVP SCH ×12 (01:34→23:47)
[2019-12-21 04:20] LABS: Basophils % (A) 0 %; Eosinophils % (A) 0 %; HGB 11.2 gm/dL (11.4-16.0); Hypochromasia Slight; Lymphocytes # (A) 0.3 k/uL (1.0-4.8); Lymphocytes % (A) 5 %; MCH 28.4 pg (25.0-35.0); MCHC 31.1 g/dL (31.0-37.0); MCV 91.1 fL (80.0-100.0); Monocytes # (A) 0.3 k/uL (0-1.0); Monocytes % (A) 5 %; Neutrophils # (A) 5.2 k/uL (1.3-7.7); Neutrophils % (A) 89 %; Platelet Count 254 k/uL (150-450); RBC 3.95 m/uL (3.80-5.40); RDW 14.3 % (11.5-15.5); WBC 5.9 k/uL (3.8-10.6)
[2019-12-21 04:42] LABS: ALT 29 U/L (4-34); AST 53 U/L (14-36); African American GFR (CKD) >90 (>60 ml/min/1.73 sqM); Alkaline Phosphatase 76 U/L (38-126); Anion Gap 1 mmol/L; Blood Urea Nitrogen 12 mg/dL (7-17); Calcium 7.8 mg/dL (8.4-10.2); Carbon Dioxide 30 mmol/L (22-30); Chloride 111 mmol/L (98-107); Creatine Kinase 43 U/L (30-135); Glucose 157 mg/dL (74-99); Non-African American GFR(CKD) >90 (>60 ml/min/1.73 sqM); Potassium 3.7 mmol/L (3.5-5.1); Sodium 142 mmol/L (137-145); Total Bilirubin 0.5 mg/dL (0.2-1.3); Total Protein 4.4 g/dL (6.3-8.2)
[2019-12-21 04:57] LABS: C Reactive Protein 172.1 mg/L (<10.0)
[2019-12-21] MEDS: SODIUM CHLORIDE 0.9% 1,000 ML IV SCH ×3 (05:24→19:41)
[2019-12-21] MEDS ORDERED: POTASSIUM BICARBONATE/CIT AC 20 MEQ TABLET.EFF NG-TUBE SCH (06:00)
[2019-12-21 06:14] LABS: Glucose,Whole Blood 143 mg/dL (75-99)
--- NOTE | 2019-12-21 07:44 | XR ---
EXAMINATION TYPE: XR chest 1V portable DATE OF EXAM: 12/21/2019 COMPARISON: Prior chest x-ray 12/20/2019 HISTORY: Intubated TECHNIQUE: Single frontal view of the chest is obtained. FINDINGS: Endotracheal tube and NG tube are overlying appropriate positions. Right jugular central v enous catheter shows the distal tip in the right atrium. Bilateral airspace disease, bibasilar increa sed attenuation is noted. Heart is stable. No evident pneumothorax. There are overlying cardiac leads . IMPRESSION: Correlate for congestive heart failure with pulmonary edema, basilar effusions, pneumoni a, ARDS
[2019-12-21 08:00] LABS: ABG Base Excess 6.6 mmol/L; ABG HCO3 31 mmol/L (21-25); ABG Oxygen Saturation 92.5 % (94-97); ABG PCO2 45 mmHg (35-45); ABG PH 7.44 (7.35-7.45); ABG TCO2 32 mmol/L (19-24)
[2019-12-21 08:04] LABS: ABG PO2 59 mmHg (83-108); Allen Test Performed? NO
[2019-12-21] MEDS: CHLORHEXIDINE GLUCONATE 15 ML CUP MUCOUS MEM SCH ×2 (09:24→21:06)
[2019-12-21] MEDS: dexAMETHasone 2 MG TAB PO SCH (09:24)
[2019-12-21] MEDS: FAMOTIDINE 20 MG/2 ML VIAL IV SCH ×2 (09:24→21:06)
[2019-12-21] MEDS: ASCORBIC ACID 500 MG TAB PO SCH (09:24)
[2019-12-21] MEDS: ENOXAPARIN 80 MG/0.8 ML SYRINGE SQ SCH ×2 (09:24→21:06)
[2019-12-21] MEDS: ZINC SULFATE 220 MG CAP PO SCH (09:25)
--- NOTE | 2019-12-21 09:47 | P.PN ---
Subjective Progress Note Date: 12/17/19 Principal diagnosis: Acute COVID-19 virus pneumonia Acute hypoxic respiratory failure secondary to pneumonia. Requiring high flow oxygen with FiO2 70% Patient is a 54-year-old female with a known history of hypertension, hyperlipidemia presents to ER with complaints of nausea and vomiting. Patient was diagnosed with COVID-19 on 12/12/2019. Patient has been having intermittent fevers and nausea vomiting and unable to keep down food. Patient has been having generalized weakness and myalgias. Patient states that multiple members of her family were admitted to the hospital due to COVID-19 infections. On admission patient was tachycardic and hypoxic at 86% on room air. Patient was placed on nasal cannula oxygen and was admitted to the hospital currently. Patient feels generalized weakness. Denies any chest pain or shortness of breath. Laboratory data showed lymphocytes 0.5, D-dimer 1.22, CRP 73.2, pro calcitonin 0.12 Chest x-ray showed diffuse airspace opacities of the bilateral lungs most likely represent pneumonia. With a differential including COVID-19 viral infection EKG showed normal sinus rhythm. 12/15/2019 Patient is currently lying in the bed and awake alert oriented x3. Requiring oxygen at 10 L via nasal cannula high flow. Patient does have elevated inflammatory markers with LDH 704, ferritin 382 and pro calcitonin 0.12. Patient is being continued on Lovenox and dexamethasone. Remdesivir was added and loading dose was given today. Pulmonary is following. Repeat chest x-ray showed persistent mild to lower lung multifocal acute infiltrates greatest in the periphery correlating with history of suspected COVID-19 infection. Patient has been afebrile. No nausea vomiting or abdominal pain or diarrhea. Tolerating oral diet. 12/16/2019 Patient is currently awake alert and still having shortness of breath and requiring high flow oxygen at 50 L and FiO2 70%. Patient has been afebrile otherwise. Currently being continued on dexamethasone 6 mg daily, Lovenox and remdesivir was started. Due to worsening shortness of breath patient is being transferred to the MICU. Laboratory data showed WBC 8.8, hemoglobin 13.3 and platelets 213 D-dimer is 2.52, potassium 3.4, ferritin 552.7, LDH 1933, CRP 70.8. 12/17/2019 Patient is currently in MICU requiring high flow oxygen with nasal cannula. Chest x-ray showing diffuse bilateral pulmonary infiltrates consistent with pneumonia. Denied any complaints of chest pain. Does have cough without sputum production. Patient is being continued on Lovenox and dexamethasone. Remdesivir was sta rted. Patient continues to have lymphopenia. Patient is having low-grade fevers otherwise. All other review of systems negative except above. Current medications reviewed. Objective - Vital Signs Vital signs: Vital Signs Temp 98.1 F 12/17/19 19:14 Pulse 64 12/17/19 19:14 Resp 37 H 12/17/19 19:14 BP 141/81 12/17/19 19:14 Pulse Ox 93 L 12/17/19 19:31 Intake & Output 12/17/19 12/17/19 12/18/19 06:59 18:59 06:59 Intake Total 1450 50 Output Total 3000 0 Balance -1550 50 Weight Intake: IV 1450 50 Potassium Chloride 10 meq In Water For Injection 1 100ml.bag @ 100 mls/hr IVPB Q1HR [facility] Rx#: [id number] Remdesivir (Eua) 100 mg 250 In Sodium Chloride 0.9% 250 ml @ 250 mls/hr IVPB DAILY@1200 [facility] Rx#: [id number] Sodium Chloride 0.9% 1, 1200 50 000 ml @ 100 mls/hr IV . Q10H [facility] Rx#:[id number] Tube Feeding Blood Product 0 Ffp Pher Conval Covid19 0 Acda 1 Unit [id number] Output: Urine 3000 0 Other: # Voids 1 - Exam PHYSICAL EXAMINATION: Patient is lying in the bed comfortably, no acute distress, awake alert and oriented.. HEENT: Normocephalic. Neck is supple. Pupils reactive. Nostrils clear. Oral cavity is moist. Ears reveal no drainage. Neck reveals no JVD, carotid bruits, or thyromegaly. CHEST EXAMINATION: Trachea is central. Symmetrical expansion. Lung mauricio clear to auscultation and percussion. CARDIAC: Normal S1, S2 with no gallops. No murmurs ABDOMEN: Soft. Bowel sounds normal. No organomegaly. No abdominal bruits. Extremities: reveal no edema. No clubbing or cyanosis Neurologically awake, alert, oriented x3 with well-coordinated movements. No focal deficits noted Skin: No rash or skin lesions. Psychiatric: Coperative. Nonsuicidal Musculoskeletal: No joint swelling or deformity. Normal range of motion. - Labs CBC & Chem 7: 12/21/19 04:10 12/21/19 04:10 Labs: Abnormal Lab Results - Last 24 Hours (Table) 12/17/19 12/17/19 12/17/19 Range/Units 04:16 04:16 04:16 Neutrophils # 9.0 H (1.3-7.7) k/uL Lymphocytes # 0.6 L (1.0-4.8) k/uL Fibrinogen 506 H (200-500) mg/dL D-Dimer 3.97 H (<0.60) mg/L FEU Chloride 114 H (98-107) mmol/L Creatinine 0.49 L (0.52-1.04) mg/dL Calcium 8.0 L (8.4-10.2) mg/dL Ferritin (10.0-291.0) ng/mL AST 51 H (14-36) U/L Lactate Dehydrogenase 3003 H (313-618) U/L C-Reactive Protein 169.4 H (<10.0) mg/L Total Protein 5.0 L (6.3-8.2) g/dL Albumin 2.5 L (3.5-5.0) g/dL 12/17/19 Range/Units 08:05 Neutrophils # (1.3-7.7) k/uL Lymphocytes # (1.0-4.8) k/uL Fibrinogen (200-500) mg/dL D-Dimer (<0.60) mg/L FEU Chloride (98-107) mmol/L Creatinine (0.52-1.04) mg/dL Calcium (8.4-10.2) mg/dL Ferritin 532.5 H (10.0-291.0) ng/mL AST (14-36) U/L Lactate Dehydrogenase (313-618) U/L C-Reactive Protein (<10.0) mg/L Total Protein (6.3-8.2) g/dL Albumin (3.5-5.0) g/dL Microbiology - Last 24 Hours (Table) 12/14/19 11:45 Blood Culture - Preliminary Blood No Growth after 72 hours Assessment and Plan Assessment: Acute COVID-19 virus pneumonia Acute hypoxic respiratory failure secondary to pneumonia. Requiring high flow oxygen with FiO2 70% Nausea vomiting, generalized weakness and cough shortness of breath secondary to pneumonia. Hypertension Hyperlipidemia DVT prophylaxis with Lovenox. Plan: Patient will be continued on gentle IV hydration and oxygen supplementation. on dexamethasone 6 mg daily and Lovenox 40 mg subcu daily. Pulmonary is on board. strated on remdesivir course. Continue with droplet and contact precautions.Pulmonary is following. Prognosis is guarded at this time. Time with Patient: Greater than 30
--- NOTE | 2019-12-21 09:50 | P.PN ---
Subjective Progress Note Date: 12/18/19 Principal diagnosis: Acute COVID-19 virus pneumonia Acute hypoxic respiratory failure secondary to pneumonia. Requiring high flow oxygen with FiO2 70% Patient is a 54-year-old female with a known history of hypertension, hyperlipidemia presents to ER with complaints of nausea and vomiting. Patient was diagnosed with COVID-19 on 12/12/2019. Patient has been having intermittent fevers and nausea vomiting and unable to keep down food. Patient has been having generalized weakness and myalgias. Patient states that multiple members of her family were admitted to the hospital due to COVID-19 infections. On admission patient was tachycardic and hypoxic at 86% on room air. Patient was placed on nasal cannula oxygen and was admitted to the hospital currently. Patient feels generalized weakness. Denies any chest pain or shortness of breath. Laboratory data showed lymphocytes 0.5, D-dimer 1.22, CRP 73.2, pro calcitonin 0.12 Chest x-ray showed diffuse airspace opacities of the bilateral lungs most likely represent pneumonia. With a differential including COVID-19 viral infection EKG showed normal sinus rhythm. 12/15/2019 Patient is currently lying in the bed and awake alert oriented x3. Requiring oxygen at 10 L via nasal cannula high flow. Patient does have elevated inflammatory markers with LDH 704, ferritin 382 and pro calcitonin 0.12. Patient is being continued on Lovenox and dexamethasone. Remdesivir was added and loading dose was given today. Pulmonary is following. Repeat chest x-ray showed persistent mild to lower lung multifocal acute infiltrates greatest in the periphery correlating with history of suspected COVID-19 infection. Patient has been afebrile. No nausea vomiting or abdominal pain or diarrhea. Tolerating oral diet. 12/16/2019 Patient is currently awake alert and still having shortness of breath and requiring high flow oxygen at 50 L and FiO2 70%. Patient has been afebrile otherwise. Currently being continued on dexamethasone 6 mg daily, Lovenox and remdesivir was started. Due to worsening shortness of breath patient is being transferred to the MICU. Laboratory data showed WBC 8.8, hemoglobin 13.3 and platelets 213 D-dimer is 2.52, potassium 3.4, ferritin 552.7, LDH 1933, CRP 70.8. 12/17/2019 Patient is currently in MICU requiring high flow oxygen with nasal cannula. Chest x-ray showing diffuse bilateral pulmonary infiltrates consistent with pneumonia. Denied any complaints of chest pain. Does have cough without sputum production. Patient is being continued on Lovenox and dexamethasone. Remdesivir was sta rted. Patient continues to have lymphopenia. Patient is having low-grade fevers otherwise. 12/18/2019 Patient is currently on avoid 60 L FiO2 94%. Patient is comfortable lying in the bed. Next a chest x-ray showed diffuse multifocal infiltrates without change. Patient is being continued on Lovenox and Decadron and remedesivir. Laboratory data reviewed and replace potassium. Inflammatory markers are still elevated. All other review of systems negative except above. Current medications reviewed. Objective - Vital Signs Vital signs: Vital Signs Temp 98.0 F 12/18/19 20:00 Pulse 70 12/18/19 21:00 Resp 34 H 12/18/19 21:00 BP 147/72 12/18/19 21:00 Pulse Ox 92 L 12/18/19 21:00 Intake & Output 12/18/19 12/18/19 12/19/19 06:59 18:59 06:59 Intake Total 1575 1450 425 Output Total 300 2545 200 Balance 1275 -1095 225 Weight 83.3 kg Intake: IV 1150 1450 300 Remdesivir (Eua) 100 mg 250 In Sodium Chloride 0.9% 250 ml @ 250 mls/hr IVPB DAILY@1200 [facility] Rx#: [id number] Sodium Chloride 0.9% 1, 1150 1200 300 000 ml @ 100 mls/hr IV . Q10H [facility] Rx#:[id number] Blood Product 425 Ffp Pher Conval Covid19 215 Acda 1 Unit [id number] Lipid 125 Sodium Chloride 0.9% 1, 125 000 ml @ 100 mls/hr IV . Q10H [facility] Rx#:[id number] Output: Urine 300 2545 200 Other: Voiding Method Indwelling Catheter Indwelling Catheter # Voids 1 1 - Exam PHYSICAL EXAMINATION: Patient is lying in the bed comfortably, no acute distress, awake alert and oriented.. HEENT: Normocephalic. Neck is supple. Pupils reactive. Nostrils clear. Oral cavity is moist. Ears reveal no drainage. Neck reveals no JVD, carotid bruits, or thyromegaly. CHEST EXAMINATION: Trachea is central. Symmetrical expansion. Lung mauricio clear to auscultation and percussion. CARDIAC: Normal S1, S2 with no gallops. No murmurs ABDOMEN: Soft. Bowel sounds normal. No organomegaly. No abdominal bruits. Extremities: reveal no edema. No clubbing or cyanosis Neurologically awake, alert, oriented x3 with well-coordinated movements. No focal deficits noted Skin: No rash or skin lesions. Psychiatric: Coperative. Nonsuicidal Musculoskeletal: No joint swelling or deformity. Normal range of motion. - Labs CBC & Chem 7: 12/21/19 04:10 12/21/19 04:10 Labs: Abnormal Lab Results - Last 24 Hours (Table) 12/18/19 12/18/19 12/18/19 Range/Units 03:32 03:32 03:32 Neutrophils # 9.2 H (1.3-7.7) k/uL Lymphocytes # 0.6 L (1.0-4.8) k/uL Fibrinogen 566 H (200-500) mg/dL D-Dimer 4.69 H (<0.60) mg/L FEU Potassium 3.2 L (3.5-5.1) mmol/L Chloride 108 H (98-107) mmol/L Carbon Dioxide 31 H (22-30) mmol/L Creatinine 0.50 L (0.52-1.04) mg/dL Calcium 8.1 L (8.4-10.2) mg/dL Ferritin 487.7 H (10.0-291.0) ng/mL AST 48 H (14-36) U/L Lactate Dehydrogenase 2003 H (313-618) U/L C-Reactive Protein 250.3 H (<10.0) mg/L Total Protein 5.0 L (6.3-8.2) g/dL Albumin 2.5 L (3.5-5.0) g/dL 12/18/19 12/18/19 Range/Units 12:18 18:07 Neutrophils # (1.3-7.7) k/uL Lymphocytes # (1.0-4.8) k/uL Fibrinogen (200-500) mg/dL D-Dimer (<0.60) mg/L FEU Potassium 3.2 L 3.4 L (3.5-5.1) mmol/L Chloride (98-107) mmol/L Carbon Dioxide (22-30) mmol/L Creatinine (0.52-1.04) mg/dL Calcium (8.4-10.2) mg/dL Ferritin (10.0-291.0) ng/mL AST (14-36) U/L Lactate Dehydrogenase (313-618) U/L C-Reactive Protein (<10.0) mg/L Total Protein (6.3-8.2) g/dL Albumin (3.5-5.0) g/dL Microbiology - Last 24 Hours (Table) 12/14/19 11:45 Blood Culture - Preliminary Blood No Growth after 96 hours Assessment and Plan Assessment: Acute COVID-19 virus pneumonia Acute hypoxic respiratory failure secondary to pneumonia. Requiring high flow oxygen with FiO2 70% Nausea vomiting, generalized weakness and cough shortness of breath secondary to pneumonia. Hypertension Hyperlipidemia DVT prophylaxis with Lovenox. Plan: Patient will be continued on gentle IV hydration and oxygen supplementation. on dexamethasone 6 mg daily and Lovenox 80 mg subcu daily. Pulmonary is on board. strated on remdesivir course. Continue with droplet and contact precautions.Pulmonary is following. Prognosis is guarded at this time. Time with Patient: Greater than 30
--- NOTE | 2019-12-21 09:52 | P.PN ---
Subjective Progress Note Date: 12/19/19 Principal diagnosis: Acute COVID-19 virus pneumonia Acute hypoxic respiratory failure secondary to pneumonia. Requiring high flow oxygen with FiO2 70% Patient is a 54-year-old female with a known history of hypertension, hyperlipidemia presents to ER with complaints of nausea and vomiting. Patient was diagnosed with COVID-19 on 12/12/2019. Patient has been having intermittent fevers and nausea vomiting and unable to keep down food. Patient has been having generalized weakness and myalgias. Patient states that multiple members of her family were admitted to the hospital due to COVID-19 infections. On admission patient was tachycardic and hypoxic at 86% on room air. Patient was placed on nasal cannula oxygen and was admitted to the hospital currently. Patient feels generalized weakness. Denies any chest pain or shortness of breath. Laboratory data showed lymphocytes 0.5, D-dimer 1.22, CRP 73.2, pro calcitonin 0.12 Chest x-ray showed diffuse airspace opacities of the bilateral lungs most likely represent pneumonia. With a differential including COVID-19 viral infection EKG showed normal sinus rhythm. 12/15/2019 Patient is currently lying in the bed and awake alert oriented x3. Requiring oxygen at 10 L via nasal cannula high flow. Patient does have elevated inflammatory markers with LDH 704, ferritin 382 and pro calcitonin 0.12. Patient is being continued on Lovenox and dexamethasone. Remdesivir was added and loading dose was given today. Pulmonary is following. Repeat chest x-ray showed persistent mild to lower lung multifocal acute infiltrates greatest in the periphery correlating with history of suspected COVID-19 infection. Patient has been afebrile. No nausea vomiting or abdominal pain or diarrhea. Tolerating oral diet. 12/16/2019 Patient is currently awake alert and still having shortness of breath and requiring high flow oxygen at 50 L and FiO2 70%. Patient has been afebrile otherwise. Currently being continued on dexamethasone 6 mg daily, Lovenox and remdesivir was started. Due to worsening shortness of breath patient is being transferred to the MICU. Laboratory data showed WBC 8.8, hemoglobin 13.3 and platelets 213 D-dimer is 2.52, potassium 3.4, ferritin 552.7, LDH 1933, CRP 70.8. 12/17/2019 Patient is currently in MICU requiring high flow oxygen with nasal cannula. Chest x-ray showing diffuse bilateral pulmonary infiltrates consistent with pneumonia. Denied any complaints of chest pain. Does have cough without sputum production. Patient is being continued on Lovenox and dexamethasone. Remdesivir was sta rted. Patient continues to have lymphopenia. Patient is having low-grade fevers otherwise. 12/18/2019 Patient is currently on avoid 60 L FiO2 94%. Patient is comfortable lying in the bed. Next a chest x-ray showed diffuse multifocal infiltrates without change. Patient is being continued on Lovenox and Decadron and remedesivir. Laboratory data reviewed and replace potassium. Inflammatory markers are still elevated. All other review of systems negative except above. 12/18/2016 Overnight patient was pretty status declined and is currently placed on mechanical ventilator. Chest x-ray continues to show diffuse infiltrates. ABG showed pH of 7.29 and pCO2 57. Laboratory data reviewed. Patient has been afebrile today. Current medications reviewed. Objective - Vital Signs Vital signs: Vital Signs Temp 99.8 F H 12/19/19 16:00 Pulse 101 H 12/19/19 16:00 Resp 29 H 12/19/19 16:00 BP 99/53 12/19/19 12:30 Pulse Ox 94 L 12/19/19 16:00 Intake & Output 12/18/19 12/19/19 12/19/19 18:59 06:59 18:59 Intake Total 1450 0441.004 7476.374 Output Total 2545 1185 410 Balance -1095 452.692 3341.374 Weight 82.7 kg 82.7 kg Intake: IV 1450 1200 1050 Remdesivir (Eua) 100 mg 250 250 In Sodium Chloride 0.9% 250 ml @ 250 mls/hr IVPB DAILY@1200 [facility] Rx#: [id number] Sodium Chloride 0.9% 1, 1200 1200 800 000 ml @ 100 mls/hr IV . Q10H [facility] Rx#:[id number] Intake, IV Titration 25.865 1177.374 Amount Sodium Chloride 0.9% 1, 1000 000 ml @ 999 mls/hr IV . Q1H1M [facility] Rx#:[id number] fentaNYL (PF) 1,000 mcg 3.239 In Sodium Chloride 0.9% 80 ml @ Per Protocol IV . Q0M [facility] Rx#:[id number] propofoL 1,000 mg In 25.865 174.135 Empty Bag 1 bag @ Titrate IV .Q0M [facility] Rx#: [id number] Tube Feeding 14 Lipid 125 Sodium Chloride 0.9% 1, 125 000 ml @ 100 mls/hr IV . Q10H [facility] Rx#:[id number] Output: Urine 2545 1185 410 Other: Voiding Method Indwelling Catheter Indwelling Catheter # Voids 1 ABP, PAP, CO, CI - Last Documented Arterial Blood Pressure 124/69 - Exam PHYSICAL EXAMINATION: Patient is currently on mechanical ventilator... HEENT: Normocephalic. Neck is supple. Pupils reactive. Nostrils clear. Oral cavity is moist. Ears reveal no drainage. Neck reveals no JVD, carotid bruits, or thyromegaly. CHEST EXAMINATION: Trachea is central. Symmetrical expansion. Bibasilar diminished air entry. Lung mauricio clear to auscultation and percussion. CARDIAC: Normal S1, S2 with no gallops. No murmurs ABDOMEN: Soft. Bowel sounds normal. No organomegaly. No abdominal bruits. Extremities: reveal no edema. No clubbing or cyanosis Neurologically patient is currently sedated and on the carotid.. No focal deficits noted Skin: No rash or skin lesions. Psychiatric: Could not wheezes at this time. Musculoskeletal: No joint swelling or deformity. - Labs CBC & Chem 7: 12/21/19 04:10 12/21/19 04:10 Labs: Abnormal Lab Results - Last 24 Hours (Table) 12/17/19 12/18/19 12/19/19 Range/Units 08:05 18:07 06:10 WBC (3.8-10.6) k/uL MCHC (31.0-37.0) g/dL Neutrophils # (1.3-7.7) k/uL Lymphocytes # (1.0-4.8) k/uL Fibrinogen (200-500) mg/dL D-Dimer (<0.60) mg/L FEU ABG pH 7.29 L (7.35-7.45) ABG pCO2 57 H (35-45) mmHg ABG pO2 137 H (83-108) mmHg ABG HCO3 28 H (21-25) mmol/L ABG Total CO2 29 H (19-24) mmol/L ABG O2 Saturation 98.8 H (94-97) % Potassium 3.4 L (3.5-5.1) mmol/L Chloride (98-107) mmol/L Creatinine (0.52-1.04) mg/dL Calcium (8.4-10.2) mg/dL Ferritin (10.0-291.0) ng/mL AST (14-36) U/L Lactate Dehydrogenase (313-618) U/L Creatine Kinase (30-135) U/L C-Reactive Protein (<10.0) mg/L Total Protein (6.3-8.2) g/dL Albumin (3.5-5.0) g/dL Interleukin 6 223.3 H (<6.4) pg/mL 12/19/19 12/19/19 12/19/19 Range/Units 07:17 07:17 07:59 WBC 14.3 H (3.8-10.6) k/uL MCHC 30.5 L (31.0-37.0) g/dL Neutrophils # 13.3 H (1.3-7.7) k/uL Lymphocytes # 0.6 L (1.0-4.8) k/uL Fibrinogen 581 H (200-500) mg/dL D-Dimer 4.25 H (<0.60) mg/L FEU ABG pH (7.35-7.45) ABG pCO2 (35-45) mmHg ABG pO2 (83-108) mmHg ABG HCO3 (21-25) mmol/L ABG Total CO2 (19-24) mmol/L ABG O2 Saturation (94-97) % Potassium (3.5-5.1) mmol/L Chloride 109 H (98-107) mmol/L Creatinine 0.50 L (0.52-1.04) mg/dL Calcium 7.8 L (8.4-10.2) mg/dL Ferritin 584.6 H (10.0-291.0) ng/mL AST 64 H (14-36) U/L Lactate Dehydrogenase 2264 H (313-618) U/L Creatine Kinase 459 H (30-135) U/L C-Reactive Protein 267.4 H (<10.0) mg/L Total Protein 4.9 L (6.3-8.2) g/dL Albumin 2.4 L (3.5-5.0) g/dL Interleukin 6 (<6.4) pg/mL Microbiology - Last 24 Hours (Table) 12/14/19 11:45 Blood Culture - Preliminary Blood No Growth after 120 hours 12/19/19 04:40 Gram Stain - Preliminary Sputum Sputum Culture - Preliminary Assessment and Plan Assessment: Acute COVID-19 virus pneumonia Acute hypoxic respiratory failure secondary to pneumonia. Requiring high flow oxygen with FiO2 70%. Currently requiring mechanical ventilation. Nausea vomiting, generalized weakness and cough shortness of breath secondary to pneumonia. Hypertension Hyperlipidemia DVT prophylaxis with Lovenox. Plan: Patient will be continued on gentle IV hydration and oxygen supplementation. on dexamethasone 6 mg daily and Lovenox 80 mg subcu daily. Pulmonary is on board. strated on remdesivir course. Continue with droplet and contact precautions.Pulmonary is following. Prognosis is guarded at this time. Time with Patient: Greater than 30
--- NOTE | 2019-12-21 09:54 | P.PN ---
Subjective Progress Note Date: 12/20/19 Principal diagnosis: Acute COVID-19 virus pneumonia Acute hypoxic respiratory failure secondary to pneumonia. Requiring high flow oxygen with FiO2 70% Patient is a 54-year-old female with a known history of hypertension, hyperlipidemia presents to ER with complaints of nausea and vomiting. Patient was diagnosed with COVID-19 on 12/12/2019. Patient has been having intermittent fevers and nausea vomiting and unable to keep down food. Patient has been having generalized weakness and myalgias. Patient states that multiple members of her family were admitted to the hospital due to COVID-19 infections. On admission patient was tachycardic and hypoxic at 86% on room air. Patient was placed on nasal cannula oxygen and was admitted to the hospital currently. Patient feels generalized weakness. Denies any chest pain or shortness of breath. Laboratory data showed lymphocytes 0.5, D-dimer 1.22, CRP 73.2, pro calcitonin 0.12 Chest x-ray showed diffuse airspace opacities of the bilateral lungs most likely represent pneumonia. With a differential including COVID-19 viral infection EKG showed normal sinus rhythm. 12/15/2019 Patient is currently lying in the bed and awake alert oriented x3. Requiring oxygen at 10 L via nasal cannula high flow. Patient does have elevated inflammatory markers with LDH 704, ferritin 382 and pro calcitonin 0.12. Patient is being continued on Lovenox and dexamethasone. Remdesivir was added and loading dose was given today. Pulmonary is following. Repeat chest x-ray showed persistent mild to lower lung multifocal acute infiltrates greatest in the periphery correlating with history of suspected COVID-19 infection. Patient has been afebrile. No nausea vomiting or abdominal pain or diarrhea. Tolerating oral diet. 12/16/2019 Patient is currently awake alert and still having shortness of breath and requiring high flow oxygen at 50 L and FiO2 70%. Patient has been afebrile otherwise. Currently being continued on dexamethasone 6 mg daily, Lovenox and remdesivir was started. Due to worsening shortness of breath patient is being transferred to the MICU. Laboratory data showed WBC 8.8, hemoglobin 13.3 and platelets 213 D-dimer is 2.52, potassium 3.4, ferritin 552.7, LDH 1933, CRP 70.8. 12/17/2019 Patient is currently in MICU requiring high flow oxygen with nasal cannula. Chest x-ray showing diffuse bilateral pulmonary infiltrates consistent with pneumonia. Denied any complaints of chest pain. Does have cough without sputum production. Patient is being continued on Lovenox and dexamethasone. Remdesivir was sta rted. Patient continues to have lymphopenia. Patient is having low-grade fevers otherwise. 12/18/2019 Patient is currently on avoid 60 L FiO2 94%. Patient is comfortable lying in the bed. Next a chest x-ray showed diffuse multifocal infiltrates without change. Patient is being continued on Lovenox and Decadron and remedesivir. Laboratory data reviewed and replace potassium. Inflammatory markers are still elevated. All other review of systems negative except above. 12/18/2016 Overnight patient was pretty status declined and is currently placed on mechanical ventilator. Chest x-ray continues to show diffuse infiltrates. ABG showed pH of 7.29 and pCO2 57. Laboratory data reviewed. Patient has been afebrile today. 12/20/2019 Patient remained on mechanical ventilator. ABG showed pH of 7.34 and pCO2 53. Currently on FiO2 60% Chest x-ray continues to show diffuse infiltrates. No bruit or markers are trending down. All other laboratory data reviewed. Pulmonary is following. Current medications reviewed. Objective - Vital Signs Vital signs: Vital Signs Temp 98.1 F 12/20/19 20:00 Pulse 58 L 12/20/19 21:00 Resp 28 H 12/20/19 21:00 BP 116/64 12/20/19 20:00 Pulse Ox 94 L 12/20/19 21:00 Intake & Output 12/20/19 12/20/19 12/21/19 06:59 18:59 06:59 Intake Total 4932.928 3287.369 258 Output Total 690 605 127 Balance 3974.171 3620.369 131 Intake: IV 1300 1100 200 Sodium Chloride 0.9% 1, 1300 1100 200 000 ml @ 100 mls/hr IV . Q10H [facility] Rx#:[id number] Intake, IV Titration 355.769 469.369 Amount Cisatracurium 200 mg In 162.435 200.000 Sodium Chloride 0.9% 180 ml @ 2 MCG/KG/MIN 9.996 mls/hr IV .Q20H1M [facility] Rx# :[id number] Norepinephrine 32 mg In 11.063 0 Sodium Chloride 0.9% 218 ml @ 0.05 MCG/KG/MIN 1. 938 mls/hr IV .Q24H [facility] Rx#:[id number] propofoL 1,000 mg In 182.271 269.369 Empty Bag 1 bag @ Titrate IV .Q0M [facility] Rx#: [id number] Tube Feeding 56 182 28 Other 60 30 Output: Urine 690 605 127 Other: Voiding Method Indwelling Catheter Indwelling Catheter # Voids 1 ABP, PAP, CO, CI - Last Documented Arterial Blood Pressure 109/47 - Exam PHYSICAL EXAMINATION: Patient is currently on mechanical ventilator... HEENT: Normocephalic. Neck is supple. Pupils reactive. Nostrils clear. Oral cavity is moist. Ears reveal no drainage. Neck reveals no JVD, carotid bruits, or thyromegaly. CHEST EXAMINATION: Trachea is central. Symmetrical expansion. Bibasilar diminished air entry. Lung mauricio clear to auscultation and percussion. CARDIAC: Normal S1, S2 with no gallops. No murmurs ABDOMEN: Soft. Bowel sounds normal. No organomegaly. No abdominal bruits. Extremities: reveal no edema. No clubbing or cyanosis Neurologically patient is currently sedated and on the carotid.. No focal deficits noted Skin: No rash or skin lesions. Psychiatric: Could not wheezes at this time. Musculoskeletal: No joint swelling or deformity. - Labs CBC & Chem 7: 12/21/19 04:10 12/21/19 04:10 Labs: Abnormal Lab Results - Last 24 Hours (Table) 12/20/19 12/20/19 12/20/19 Range/Units 00:04 04:50 04:50 MCHC 30.1 L (31.0-37.0) g/dL Lymphocytes # 0.4 L (1.0-4.8) k/uL D-Dimer 2.48 H (<0.60) mg/L FEU ABG pCO2 (35-45) mmHg ABG pO2 (83-108) mmHg ABG HCO3 (21-25) mmol/L ABG Total CO2 (19-24) mmol/L Chloride (98-107) mmol/L Creatinine (0.52-1.04) mg/dL Glucose (74-99) mg/dL POC Glucose (mg/dL) 114 H (75-99) mg/dL Calcium (8.4-10.2) mg/dL Ferritin (10.0-291.0) ng/mL AST (14-36) U/L C-Reactive Protein (<10.0) mg/L Total Protein (6.3-8.2) g/dL Albumin (3.5-5.0) g/dL 12/20/19 12/20/19 12/20/19 Range/Units 04:50 04:50 06:07 MCHC (31.0-37.0) g/dL Lymphocytes # (1.0-4.8) k/uL D-Dimer (<0.60) mg/L FEU ABG pCO2 (35-45) mmHg ABG pO2 (83-108) mmHg ABG HCO3 (21-25) mmol/L ABG Total CO2 (19-24) mmol/L Chloride 111 H (98-107) mmol/L Creatinine 0.44 L (0.52-1.04) mg/dL Glucose 130 H (74-99) mg/dL POC Glucose (mg/dL) 108 H (75-99) mg/dL Calcium 7.8 L (8.4-10.2) mg/dL Ferritin 456.4 H (10.0-291.0) ng/mL AST 40 H (14-36) U/L C-Reactive Protein 190.9 H (<10.0) mg/L Total Protein 4.7 L (6.3-8.2) g/dL Albumin 2.2 L (3.5-5.0) g/dL 12/20/19 Range/Units 07:30 MCHC (31.0-37.0) g/dL Lymphocytes # (1.0-4.8) k/uL D-Dimer (<0.60) mg/L FEU ABG pCO2 53 H (35-45) mmHg ABG pO2 81 L (83-108) mmHg ABG HCO3 29 H (21-25) mmol/L ABG Total CO2 31 H (19-24) mmol/L Chloride (98-107) mmol/L Creatinine (0.52-1.04) mg/dL Glucose (74-99) mg/dL POC Glucose (mg/dL) (75-99) mg/dL Calcium (8.4-10.2) mg/dL Ferritin (10.0-291.0) ng/mL AST (14-36) U/L C-Reactive Protein (<10.0) mg/L Total Protein (6.3-8.2) g/dL Albumin (3.5-5.0) g/dL Microbiology - Last 24 Hours (Table) 12/14/19 11:45 Blood Culture - Final Blood No Growth after 144 hours Assessment and Plan Assessment: Acute COVID-19 virus pneumonia Acute hypoxic respiratory failure secondary to pneumonia. Requiring high flow oxygen with FiO2 70%. Currently requiring mechanical ventilation. Nausea vomiting, generalized weakness and cough shortness of breath secondary to pneumonia. Hypertension Hyperlipidemia DVT prophylaxis with Lovenox. Plan: Patient is on mechanical ventilator. Continue to follow. on dexamethasone 6 mg daily and Lovenox 80 mg subcu daily. Pulmonary is on board. strated on remdesivir course. Continue with droplet and contact precautions.Pulmonary is following. Prognosis is guarded at this time. Time with Patient: Greater than 30
[2019-12-21 09:59] LABS: Glucose,Whole Blood 135 mg/dL (75-99)
[2019-12-21] MEDS: CISATRACURIUM 200 MG in SODIUM CHLORIDE 0.9% 180 ML IV SCH (10:56)
--- NOTE | 2019-12-21 14:24 | P.PN ---
Subjective Progress Note Date: 12/21/19 Principal diagnosis: Acute hypoxic respiratory failure secondary to covid 19 pneumonitis. 54-year-old white female patient with past medical history of hypertension, nonsmoker, previous history of lab band surgery for morbid obesity who presented to the hospital on 12/14/2019 with complaints of nausea, vomiting, weakness. Patient was tested for Covid 19 7 days ago last Wednesday, and received positive results 5 days ago on Wednesday. Patient has a daughter who was hospitalized with COVID 19 related pneumonia, and that daughter was discharged home after treatment, her other daughter is also currently hospitalized with Covid 19. Her was also positive for Covid 19 infection. Patient has not been able to keep anything down related to nausea and vomiting. Chest x-ray showed diffuse airspace opacities of bilateral lungs related to Covid 19 viral infection. Patient had positive lymphopenia, with lymphocyte count of 0.5, d-dimer was 1.22, initial BMP was unremarkable, lactic acid was 0.9, ferritin level was elevated at 382, LDH of 704, CRP was significantly elevated at 73.9, pro calcitonin is 0.12, C. diff was negative. Patient is currently on 10 L of oxygen her pulse ox is 91%, she is a very short of breath with any activity. Occasional cough, nonproductive, she was started on oral Decadron, prophylactic dose of Lovenox, and we will start the patient on Remdesivir. The patient is seen today 12/16/2019 in follow-up on the regular medical floor. She is currently awake. She is still quite short of breath. Still fatigued and weak. She is now requiring AirVo high flow oxygen with the fluid at 50 L an FiO2 of 70% to maintain O2 saturations in the 90s. Currently afebrile. She had a temperature earlier this morning at 100.0. She is short of breath with minimal exertion. White count 8.8. Hemoglobin 13.3. Lymphocyte 0.5. D-dimer 2.52. Sodium 142. Potassium 3.4. Creatinine 0.54. LDH 1933. C-reactive protein 70.8. Continued on Remdesivir, day #2. Continued on zinc, melatonin, vitamin C, Decadron, Lovenox, Pepcid. 0.9 normal saline at 100 ML's per hour. 12/17/2019, the patient is currently being taken care of in the intensive care unit. Noted the patient got transferred to the ICU yesterday because of her progressive hypoxemia that was developing related to colitis code 19 related pneumonia. The patient has progressive increase in the oxygen requirements and currently she is in the intensive care unit and she is on 6 L of oxygen to high flow system and the patient's pulse ox in the order of 94%. Chest x-ray showing diffuse breath and pulmonary infiltrates consistent with pneumonia. The patient is short of breath even at rest and she is trying to sleep on her side and prone herself if possible. She is not using this is an was of breathing , is quite tired and weak and lethargic. No chest pain. No hemoptysis. No pleurisy. She is on and off cough and. No altered mentation. We discussed the possibility of intubation mechanical ventilation and she was agreeable to that. I think we can hold off on this intervention for now and monitor progress. She still on Remdesivir and Decadron. I'm going to go ahead and order interleukin-6 levels to evaluate this patient for possible tocilizumab treatment. We will also order some coalescent immunoglobulins if available. The patient's d-dimer is up to 3.97. The patient continues to have lymphopenia with a lymphocyte count of 0.6. White cell count of 10.2. The electrolytes are all within normal limits. The LDH is up to 3003 and the C-reactive protein is up to 169. She is having low-grade fever on and off. Oral intake is quite diminished. Patient was reevaluated today on 12/18/19, remains in the ICU, she is presently on airvo at a flow of 60 L/m, and FiO2 of 94%, patient is comfortable, does not seem to be in distress, patient is on third day of remdesivir , and she received convalescent plasma on 12/17/19. Chest x-ray continues to deteriorate, and she has diffuse multifocal infiltrates not much tire changer aircraft the last couple of days. Surprisingly, the patient seems to be clinically better than expected considering the worsening of her chest x-ray. Patient has a relatively high d- dimer, and she remains on Lovenox at 80 mg subcu twice a day. Patient remains on Decadron. I also plan to give the patient a dose of Lasix today. No plans to transfer the patient out of the ICU at this point yet. Labs today showed a relatively normal CBC. D-dimer is rising up to 4.69 today. Electrolytes are normal except for low potassium of 3.2. Renal profile is normal. LDH seems to be coming down however C-reactive protein is elevated. Patient was reevaluated today on 12/19/19, patient took a downhill course last night, her oxygenation worsened significantly, patient dropped her O2 saturation down to the 70s, and she was on a high flow O2 using airvo patient was supposedly DO NOT RESUSCITATE CODE STATUS, however she changed her CODE STATUS and the patient required intubation and mechanical ventilation. She is now on mechanical ventilation. And her ventilator settings are assist control rate of 20 tidal volume is 400 FiO2 80% PEEP of 12. I adjusted her FiO2 down to 65% tidal volume cut down to 375 respiratory rate increased to 28. Patient is on Nimbex at 2 mcg/kg/m, she is also on propofol at 60, and may consider adding fentanyl. Her peak airway pressure is 38 and her plateau pressure is 34. Chest x-ray continues to show worsening ARDS. D-dimer today is 4.25 CBC is relatively normal ABG earlier today showed a pO2 of 137 pCO2 of 57 pH of 7.29. Basic metabolic profile is basically normal. Renal profile is normal. Inflammatory markers are high including elevated C-reactive protein of 267 LDH is 2264 and ferritin is pending. D-dimer is 4.5 with fibrinogen of 581. Patient was reevaluated today on 12/20/19, she is now in the ICU intubated and mechanically ventilated. Her ventilator settings are assist control rate of 28 tidal volume is 380 FiO2 is 70% and PEEP is 12. ABG showed a pO2 of 81 pCO2 of 53 pH of 7.35, hence I was able to titrate down her FiO2 to 60%. I have also recommended Dilaudid 0.5 mg every 12 hours. Patient remains on propofol at 50 mcg/kg/m and she is on Nimbex. She required norepinephrine yesterday as she was placed on fentanyl, however she did not tolerate the fentanyl well, and both were discontinued including norepinephrine. Patient is on vital HP nutritional support . Chest x-ray continues to show evidence of ARDS. Labs showed relatively normal CBC, platelets are normal, lymphocytes are low at 4%. D-dimer is 2.48. Elects lites are normal renal profile is normal. Her inflammatory markers were reviewed her C-reactive protein is 191 ferritin is 456 and her LDH not done today. C-reactive protein is lower today than the last 2 days. Patient was reevaluated today on 12/21/19, remains in the ICU, basically on the same ventilator settings, she is now on assist control rate of 28 tidal volume of 375 FiO2 of 60% PEEP is 12 her pO2 is marginal at 59, hence I have increased her PEEP up to 16. Patient remains on Nimbex at 2 mcg/kg/m, she is also on propofol at 40 mcg/kg/m, she is on enteral feeding vital HP . And her IV fluid is at 100 mL per hour. Patient is hemodynamically stable, not requiring any pressors. Chest x-ray continues to show evidence of diffuse interstitial infiltrates/ARDS. Electrolytes are normal renal profile is normal CBC is rel atively normal. D-dimer is 1.54. C-reactive protein is 172 and her ferritin level is 618. Objective - Vital Signs Vital signs: Vital Signs Temp 98.4 F 12/21/19 04:00 Pulse 54 L 12/21/19 12:00 Resp 28 H 12/21/19 12:00 BP 127/59 12/21/19 08:00 Pulse Ox 91 L 12/21/19 08:00 Intake & Output 12/20/19 12/21/19 12/21/19 18:59 06:59 18:59 Intake Total 4625.212 3743.097 1045.227 Output Total 605 487 263 Balance 9749.951 2089.097 782.227 Weight 82.7 kg Intake: IV 1100 1100 800 Sodium Chloride 0.9% 1, 1100 1100 800 000 ml @ 100 mls/hr IV . Q10H [facility] Rx#:[id number] Intake, IV Titration 469.369 343.097 203.227 Amount Cisatracurium 200 mg In 200.000 91.713 108.287 Sodium Chloride 0.9% 180 ml @ 2 MCG/KG/MIN 9.996 mls/hr IV .Q20H1M [facility] Rx# :[id number] Norepinephrine 32 mg In 0 8.907 Sodium Chloride 0.9% 218 ml @ 0.05 MCG/KG/MIN 1. 938 mls/hr IV .Q24H [facility] Rx#:[id number] propofoL 1,000 mg In 269.369 242.477 94.94 Empty Bag 1 bag @ Titrate IV .Q0M [facility] Rx#: [id number] Tube Feeding 182 154 42 Other 60 90 Output: Urine 605 487 263 Other: Voiding Method Indwelling Catheter Indwelling Catheter Indwelling Catheter # Voids 1 # Bowel Movements 0 ABP, PAP, CO, CI - Last Documented Arterial Blood Pressure 116/53 - Exam GENERAL EXAM: Revealed a 54-year-old female remains intubated, mechanically ventilated, and on Nimbex as well as propofol. HEAD: Normocephalic/atraumatic. Endotracheal tube and orogastric tube are intact. EENT: PERRLA, EOMI, no icterus, moist mucous membranes, right IJ catheter is intact.. CHEST: No chest wall deformity. Symmetrical expansion. LUNGS: Fine crackles at the bases, no rhonchi and no wheezes.. CVS: Regular rate and rhythm, normal S1 and S2, no gallops, no murmurs, no rubs ABDOMEN: Soft, nontender. No hepatosplenomegaly, normal bowel sounds, no guarding or rigidity. EXTREMITIES: No clubbing, no edema, no cyanosis, 2+ pulses and upper and lower extremities. MUSCULOSKELETAL: Could not be assessed, patient is sedated and paralyzed. SKIN: No rashes CENTRAL NERVOUS SYSTEM: Could not be assessed, patient is sedated and paralyzed. PSYCHIATRIC: Unable to assess - Labs CBC & Chem 7: 12/21/19 04:10 12/21/19 10:00 Labs: Abnormal Lab Results - Last 24 Hours (Table) 12/20/19 12/21/19 12/21/19 Range/Units 23:51 04:10 04:10 Hgb 11.2 L (11.4-16.0) gm/dL Lymphocytes # 0.3 L (1.0-4.8) k/uL D-Dimer 1.54 H (<0.60) mg/L FEU ABG pO2 (83-108) mmHg ABG HCO3 (21-25) mmol/L ABG Total CO2 (19-24) mmol/L ABG O2 Saturation (94-97) % Chloride (98-107) mmol/L Creatinine (0.52-1.04) mg/dL Glucose (74-99) mg/dL POC Glucose (mg/dL) 151 H (75-99) mg/dL Calcium (8.4-10.2) mg/dL Ferritin (10.0-291.0) ng/mL AST (14-36) U/L C-Reactive Protein (<10.0) mg/L Total Protein (6.3-8.2) g/dL Albumin (3.5-5.0) g/dL 12/21/19 12/21/19 12/21/19 Range/Units 04:10 06:12 07:53 Hgb (11.4-16.0) gm/dL Lymphocytes # (1.0-4.8) k/uL D-Dimer (<0.60) mg/L FEU ABG pO2 59 L* (83-108) mmHg ABG HCO3 31 H (21-25) mmol/L ABG Total CO2 32 H (19-24) mmol/L ABG O2 Saturation 92.5 L (94-97) % Chloride 111 H (98-107) mmol/L Creatinine 0.44 L (0.52-1.04) mg/dL Glucose 157 H (74-99) mg/dL POC Glucose (mg/dL) 143 H (75-99) mg/dL Calcium 7.8 L (8.4-10.2) mg/dL Ferritin 618.0 H (10.0-291.0) ng/mL AST 53 H (14-36) U/L C-Reactive Protein 172.1 H (<10.0) mg/L Total Protein 4.4 L (6.3-8.2) g/dL Albumin 2.0 L (3.5-5.0) g/dL 12/21/19 Range/Units 09:57 Hgb (11.4-16.0) gm/dL Lymphocytes # (1.0-4.8) k/uL D-Dimer (<0.60) mg/L FEU ABG pO2 (83-108) mmHg ABG HCO3 (21-25) mmol/L ABG Total CO2 (19-24) mmol/L ABG O2 Saturation (94-97) % Chloride (98-107) mmol/L Creatinine (0.52-1.04) mg/dL Glucose (74-99) mg/dL POC Glucose (mg/dL) 135 H (75-99) mg/dL Calcium (8.4-10.2) mg/dL Ferritin (10.0-291.0) ng/mL AST (14-36) U/L C-Reactive Protein (<10.0) mg/L Total Protein (6.3-8.2) g/dL Albumin (3.5-5.0) g/dL Microbiology - Last 24 Hours (Table) 12/19/19 04:40 Gram Stain - Final Sputum Sputum Culture - Final 12/14/19 11:45 Blood Culture - Final Blood No Growth after 144 hours Assessment and Plan Assessment: Impression: Acute hypoxic respiratory failure secondary to covid 19 pneumonitis. With ARDS Requiring intubation on 12/19/19 ARDS, requiring high FiO2 and high PEEP. PEEP was increased to 16. And FiO2 remained at 60% Acute Covid in 19 pneumonitis. Increased inflammatory markers related to above. Generalized weakness secondary to above. History of obesity and previous lab band surgery. Patient finished full course of REM to severe and finished convalescent plasma treatment. Recommendation: Continue ventilatory support. Continue nutritional support. Continue Decadron. Continue GI and DVT prophylaxis. Increase PEEP to 16. Titrate FiO2 as tolerated and keep O2 saturation above 90% patient remains critically ill, prognosis is guarded, critical care time is 32 minutes Time with Patient: Greater than 30
[2019-12-21] MEDS: NOREPINEPHRINE 32 MG in SODIUM CHLORIDE 0.9% 218 ML IV SCH (17:23)
--- NOTE | 2019-12-21 20:17 | P.PN ---
Subjective Progress Note Date: 12/21/19 Principal diagnosis: Acute COVID-19 virus pneumonia Acute hypoxic respiratory failure secondary to pneumonia. Requiring high flow oxygen with FiO2 70% Patient is a 54-year-old female with a known history of hypertension, hyperlipidemia presents to ER with complaints of nausea and vomiting. Patient was diagnosed with COVID-19 on 12/12/2019. Patient has been having intermittent fevers and nausea vomiting and unable to keep down food. Patient has been having generalized weakness and myalgias. Patient states that multiple members of her family were admitted to the hospital due to COVID-19 infections. On admission patient was tachycardic and hypoxic at 86% on room air. Patient was placed on nasal cannula oxygen and was admitted to the hospital currently. Patient feels generalized weakness. Denies any chest pain or shortness of breath. Laboratory data showed lymphocytes 0.5, D-dimer 1.22, CRP 73.2, pro calcitonin 0.12 Chest x-ray showed diffuse airspace opacities of the bilateral lungs most likely represent pneumonia. With a differential including COVID-19 viral infection EKG showed normal sinus rhythm. 12/15/2019 Patient is currently lying in the bed and awake alert oriented x3. Requiring oxygen at 10 L via nasal cannula high flow. Patient does have elevated inflammatory markers with LDH 704, ferritin 382 and pro calcitonin 0.12. Patient is being continued on Lovenox and dexamethasone. Remdesivir was added and loading dose was given today. Pulmonary is following. Repeat chest x-ray showed persistent mild to lower lung multifocal acute infiltrates greatest in the periphery correlating with history of suspected COVID-19 infection. Patient has been afebrile. No nausea vomiting or abdominal pain or diarrhea. Tolerating oral diet. 12/16/2019 Patient is currently awake alert and still having shortness of breath and requiring high flow oxygen at 50 L and FiO2 70%. Patient has been afebrile otherwise. Currently being continued on dexamethasone 6 mg daily, Lovenox and remdesivir was started. Due to worsening shortness of breath patient is being transferred to the MICU. Laboratory data showed WBC 8.8, hemoglobin 13.3 and platelets 213 D-dimer is 2.52, potassium 3.4, ferritin 552.7, LDH 1933, CRP 70.8. 12/17/2019 Patient is currently in MICU requiring high flow oxygen with nasal cannula. Chest x-ray showing diffuse bilateral pulmonary infiltrates consistent with pneumonia. Denied any complaints of chest pain. Does have cough without sputum production. Patient is being continued on Lovenox and dexamethasone. Remdesivir was sta rted. Patient continues to have lymphopenia. Patient is having low-grade fevers otherwise. 12/18/2019 Patient is currently on avoid 60 L FiO2 94%. Patient is comfortable lying in the bed. Next a chest x-ray showed diffuse multifocal infiltrates without change. Patient is being continued on Lovenox and Decadron and remedesivir. Laboratory data reviewed and replace potassium. Inflammatory markers are still elevated. All other review of systems negative except above. 12/18/2016 Overnight patient was pretty status declined and is currently placed on mechanical ventilator. Chest x-ray continues to show diffuse infiltrates. ABG showed pH of 7.29 and pCO2 57. Laboratory data reviewed. Patient has been afebrile today. 12/20/2019 Patient remained on mechanical ventilator. ABG showed pH of 7.34 and pCO2 53. Currently on FiO2 60% Chest x-ray continues to show diffuse infiltrates. No bruit or markers are trending down. All other laboratory data reviewed. Pulmonary is following. 12/21/2019 Patient remained on mechanical ventilator. ABG showed pH of 7.44, PCO2 45 and PO2 59 FiO2 60% and PEEP of 12., Increased to 16 today. Chest x-ray showed correlate for congestive heart failure with pulmonary edema, basilar effusions pneumonia/ARDS. Laboratory data showed CRP 172, ferritin 618 and absolute lymphocyte count 0.3 and D-dimer 1.54 Review of systems could not be obtained from the patient. Patient has been afebrile. Current medications reviewed. Objective - Vital Signs Vital signs: Vital Signs Temp 98.4 F 12/21/19 04:00 Pulse 54 L 12/21/19 08:00 Resp 28 H 12/21/19 08:00 BP 127/59 12/21/19 08:00 Pulse Ox 91 L 12/21/19 08:00 Intake & Output 12/20/19 12/21/19 12/21/19 18:59 06:59 18:59 Intake Total 9474.512 3047.097 328 Output Total 605 487 108 Balance 7384.069 6143.097 220 Intake: IV 1100 1100 300 Sodium Chloride 0.9% 1, 1100 1100 300 000 ml @ 100 mls/hr IV . Q10H [facility] Rx#:[id number] Intake, IV Titration 469.369 343.097 Amount Cisatracurium 200 mg In 200.000 91.713 Sodium Chloride 0.9% 180 ml @ 2 MCG/KG/MIN 9.996 mls/hr IV .Q20H1M [facility] Rx# :[id number] Norepinephrine 32 mg In 0 8.907 Sodium Chloride 0.9% 218 ml @ 0.05 MCG/KG/MIN 1. 938 mls/hr IV .Q24H [facility] Rx#:[id number] propofoL 1,000 mg In 269.369 242.477 Empty Bag 1 bag @ Titrate IV .Q0M [facility] Rx#: [id number] Tube Feeding 182 154 28 Other 60 90 Output: Urine 605 487 108 Other: Voiding Method Indwelling Catheter Indwelling Catheter # Voids 1 # Bowel Movements 0 ABP, PAP, CO, CI - Last Documented Arterial Blood Pressure 116/53 - Exam PHYSICAL EXAMINATION: Patient is currently on mechanical ventilator... HEENT: Normocephalic. Neck is supple. Pupils reactive. Nostrils clear. Oral cavity is moist. Ears reveal no drainage. Neck reveals no JVD, carotid bruits, or thyromegaly. CHEST EXAMINATION: Trachea is central. Symmetrical expansion. Bibasilar diminished air entry. Lung mauricio clear to auscultation and percussion. CARDIAC: Normal S1, S2 with no gallops. No murmurs ABDOMEN: Soft. Bowel sounds normal. No organomegaly. No abdominal bruits. Extremities: reveal no edema. No clubbing or cyanosis Neurologically patient is currently sedated and on the carotid.. No focal deficits noted Skin: No rash or skin lesions. Psychiatric: Could not wheezes at this time. Musculoskeletal: No joint swelling or deformity. - Labs CBC & Chem 7: 12/21/19 04:10 12/21/19 10:00 Labs: Abnormal Lab Results - Last 24 Hours (Table) 12/20/19 12/20/19 12/21/19 Range/Units 04:50 23:51 04:10 Hgb 11.2 L (11.4-16.0) gm/dL Lymphocytes # 0.3 L (1.0-4.8) k/uL D-Dimer (<0.60) mg/L FEU ABG pO2 (83-108) mmHg ABG HCO3 (21-25) mmol/L ABG Total CO2 (19-24) mmol/L ABG O2 Saturation (94-97) % Chloride (98-107) mmol/L Creatinine (0.52-1.04) mg/dL Glucose (74-99) mg/dL POC Glucose (mg/dL) 151 H (75-99) mg/dL Calcium (8.4-10.2) mg/dL Ferritin 456.4 H (10.0-291.0) ng/mL AST (14-36) U/L C-Reactive Protein (<10.0) mg/L Total Protein (6.3-8.2) g/dL Albumin (3.5-5.0) g/dL 12/21/19 12/21/19 12/21/19 Range/Units 04:10 04:10 06:12 Hgb (11.4-16.0) gm/dL Lymphocytes # (1.0-4.8) k/uL D-Dimer 1.54 H (<0.60) mg/L FEU ABG pO2 (83-108) mmHg ABG HCO3 (21-25) mmol/L ABG Total CO2 (19-24) mmol/L ABG O2 Saturation (94-97) % Chloride 111 H (98-107) mmol/L Creatinine 0.44 L (0.52-1.04) mg/dL Glucose 157 H (74-99) mg/dL POC Glucose (mg/dL) 143 H (75-99) mg/dL Calcium 7.8 L (8.4-10.2) mg/dL Ferritin 618.0 H (10.0-291.0) ng/mL AST 53 H (14-36) U/L C-Reactive Protein 172.1 H (<10.0) mg/L Total Protein 4.4 L (6.3-8.2) g/dL Albumin 2.0 L (3.5-5.0) g/dL 12/21/19 Range/Units 07:53 Hgb (11.4-16.0) gm/dL Lymphocytes # (1.0-4.8) k/uL D-Dimer (<0.60) mg/L FEU ABG pO2 59 L* (83-108) mmHg ABG HCO3 31 H (21-25) mmol/L ABG Total CO2 32 H (19-24) mmol/L ABG O2 Saturation 92.5 L (94-97) % Chloride (98-107) mmol/L Creatinine (0.52-1.04) mg/dL Glucose (74-99) mg/dL POC Glucose (mg/dL) (75-99) mg/dL Calcium (8.4-10.2) mg/dL Ferritin (10.0-291.0) ng/mL AST (14-36) U/L C-Reactive Protein (<10.0) mg/L Total Protein (6.3-8.2) g/dL Albumin (3.5-5.0) g/dL Microbiology - Last 24 Hours (Table) 12/19/19 04:40 Gram Stain - Final Sputum Sputum Culture - Final 12/14/19 11:45 Blood Culture - Final Blood No Growth after 144 hours Assessment and Plan Assessment: Acute COVID-19 virus pneumonia Acute hypoxic respiratory failure secondary to pneumonia. Requiring high flow oxygen --> Currently requiring mechanical ventilation. Nausea vomiting, generalized weakness and cough shortness of breath secondary to pneumonia. Hypertension Hyperlipidemia DVT prophylaxis with Lovenox. Plan: Patient is on mechanical ventilator. Continue to follow. on dexamethasone 6 mg daily and Lovenox 80 mg subcu daily. Pulmonary is on board. started on remdesivir course. Continue with droplet and contact precautions.Pulmonary is following. Progn osis is guarded at this time. Time with Patient: Greater than 30
[2019-12-21] MEDS: MELATONIN 5 MG TABLET PO SCH (21:06)
[2019-12-21] MEDS: PRAVASTATIN SODIUM 40 MG TAB PO SCH (21:06)
[2019-12-22] MEDS: CISATRACURIUM 200 MG in SODIUM CHLORIDE 0.9% 180 ML IV SCH ×2 (01:42→17:49)
[2019-12-22] MEDS: HYDROmorphone 0.5 MG/0.5 ML SYRINGE IVP SCH ×12 (01:43→23:37)
[2019-12-22 05:51] LABS: Basophils % (A) 0 %; Eosinophils # (A) 0.1 k/uL (0-0.7); Eosinophils % (A) 1 %; HCT 35.1 % (34.0-46.0); HGB 11.4 gm/dL (11.4-16.0); Hypochromasia Slight; Lymphocytes # (A) 0.5 k/uL (1.0-4.8); Lymphocytes % (A) 7 %; MCH 29.3 pg (25.0-35.0); MCHC 32.4 g/dL (31.0-37.0); MCV 90.2 fL (80.0-100.0); Mean Platelet Volume 8.3; Monocytes # (A) 0.2 k/uL (0-1.0); Monocytes % (A) 3 %; Neutrophils # (A) 6.2 k/uL (1.3-7.7); Neutrophils % (A) 87 %; Platelet Count 232 k/uL (150-450); RBC 3.89 m/uL (3.80-5.40); RDW 14.2 % (11.5-15.5); WBC 7.1 k/uL (3.8-10.6)
[2019-12-22 05:58] LABS: Glucose,Whole Blood 114 mg/dL (75-99)
[2019-12-22 06:04] LABS: Anion Gap 0 mmol/L; Blood Urea Nitrogen 14 mg/dL (7-17); Carbon Dioxide 32 mmol/L (22-30); Chloride 110 mmol/L (98-107); Glucose 130 mg/dL (74-99); Potassium 3.7 mmol/L (3.5-5.1); Sodium 142 mmol/L (137-145)
[2019-12-22 06:05] LABS: ALT 51 U/L (4-34); AST 93 U/L (14-36); African American GFR (CKD) >90 (>60 ml/min/1.73 sqM); Alkaline Phosphatase 76 U/L (38-126); C Reactive Protein 71.2 mg/L (<10.0); Calcium 7.7 mg/dL (8.4-10.2); Creatine Kinase 20 U/L (30-135); Non-African American GFR(CKD) >90 (>60 ml/min/1.73 sqM); Total Bilirubin 0.5 mg/dL (0.2-1.3); Total Protein 4.5 g/dL (6.3-8.2)
[2019-12-22] MEDS ORDERED: POTASSIUM BICARBONATE/CIT AC 20 MEQ TABLET.EFF NG-TUBE SCH ×2 (07:00→18:00)
--- NOTE | 2019-12-22 07:57 | XR ---
EXAMINATION TYPE: XR chest 1V portable DATE OF EXAM: 12/22/2019 COMPARISON: 12/21/2019 INDICATION: Tube placement TECHNIQUE: Single frontal view of the chest is obtained. FINDINGS: The heart size is normal. The pulmonary vasculature is rounded. There is diffuse patchy infiltrates in the bilateral lungs greater in the lower lung mauricio. Findings are similar to comparison. Right central venous catheter is present with tip in the deep right atrium. Endotracheal tube tip is above the darrick. Nasogastric tube transverses the thorax. IMPRESSION: 1. Stable patchy infiltrate to the bilateral lung mauricio. Continued follow-up is recommended. 2. Lines and catheters discussed above
[2019-12-22 08:03] LABS: ABG Base Excess 5.3 mmol/L; ABG HCO3 30 mmol/L (21-25); ABG Oxygen Saturation 95.5 % (94-97); ABG PCO2 46 mmHg (35-45); ABG PH 7.42 (7.35-7.45); ABG PO2 75 mmHg (83-108); ABG TCO2 31 mmol/L (19-24)
[2019-12-22 08:04] LABS: Allen Test Performed? no
[2019-12-22] MEDS: ENOXAPARIN 80 MG/0.8 ML SYRINGE SQ SCH ×2 (08:39→21:26)
[2019-12-22] MEDS: dexAMETHasone 2 MG TAB PO SCH (08:40)
[2019-12-22] MEDS: ZINC SULFATE 220 MG CAP PO SCH (08:40)
[2019-12-22] MEDS: ASCORBIC ACID 500 MG TAB PO SCH (08:41)
[2019-12-22] MEDS: CHLORHEXIDINE GLUCONATE 15 ML CUP MUCOUS MEM SCH ×2 (08:41→20:01)
[2019-12-22] MEDS: FAMOTIDINE 20 MG/2 ML VIAL IV SCH ×2 (08:41→20:01)
[2019-12-22] MEDS: SODIUM CHLORIDE 0.9% 1,000 ML IV SCH ×2 (09:55→18:12)
[2019-12-22] MEDS ORDERED: FUROSEMIDE 10 MG/ML 4 ML VIAL IV STA (10:21)
[2019-12-22] MEDS: PIPERACILLIN-TAZOBACTAM 3.375 GM in SODIUM CHLORIDE 0.9% 100 ML IVPB SCH ×3 (10:46→23:37)
[2019-12-22 11:47] LABS: Glucose,Whole Blood 138 mg/dL (75-99)
[2019-12-22] MEDS: NOREPINEPHRINE 32 MG in SODIUM CHLORIDE 0.9% 218 ML IV SCH (12:24)
--- NOTE | 2019-12-22 14:33 | P.PN ---
Subjective Progress Note Date: 12/22/19 Principal diagnosis: Acute hypoxic respiratory failure secondary to covid 19 pneumonitis. 54-year-old white female patient with past medical history of hypertension, nonsmoker, previous history of lab band surgery for morbid obesity who presented to the hospital on 12/14/2019 with complaints of nausea, vomiting, weakness. Patient was tested for Covid 19 7 days ago last Wednesday, and received positive results 5 days ago on Wednesday. Patient has a daughter who was hospitalized with COVID 19 related pneumonia, and that daughter was discharged home after treatment, her other daughter is also currently hospitalized with Covid 19. Her was also positive for Covid 19 infection. Patient has not been able to keep anything down related to nausea and vomiting. Chest x-ray showed diffuse airspace opacities of bilateral lungs related to Covid 19 viral infection. Patient had positive lymphopenia, with lymphocyte count of 0.5, d-dimer was 1.22, initial BMP was unremarkable, lactic acid was 0.9, ferritin level was elevated at 382, LDH of 704, CRP was significantly elevated at 73.9, pro calcitonin is 0.12, C. diff was negative. Patient is currently on 10 L of oxygen her pulse ox is 91%, she is a very short of breath with any activity. Occasional cough, nonproductive, she was started on oral Decadron, prophylactic dose of Lovenox, and we will start the patient on Remdesivir. The patient is seen today 12/16/2019 in follow-up on the regular medical floor. She is currently awake. She is still quite short of breath. Still fatigued and weak. She is now requiring AirVo high flow oxygen with the fluid at 50 L an FiO2 of 70% to maintain O2 saturations in the 90s. Currently afebrile. She had a temperature earlier this morning at 100.0. She is short of breath with minimal exertion. White count 8.8. Hemoglobin 13.3. Lymphocyte 0.5. D-dimer 2.52. Sodium 142. Potassium 3.4. Creatinine 0.54. LDH 1933. C-reactive protein 70.8. Continued on Remdesivir, day #2. Continued on zinc, melatonin, vitamin C, Decadron, Lovenox, Pepcid. 0.9 normal saline at 100 ML's per hour. 12/17/2019, the patient is currently being taken care of in the intensive care unit. Noted the patient got transferred to the ICU yesterday because of her progressive hypoxemia that was developing related to colitis code 19 related pneumonia. The patient has progressive increase in the oxygen requirements and currently she is in the intensive care unit and she is on 6 L of oxygen to high flow system and the patient's pulse ox in the order of 94%. Chest x-ray showing diffuse breath and pulmonary infiltrates consistent with pneumonia. The patient is short of breath even at rest and she is trying to sleep on her side and prone herself if possible. She is not using this is an was of breathing , is quite tired and weak and lethargic. No chest pain. No hemoptysis. No pleurisy. She is on and off cough and. No altered mentation. We discussed the possibility of intubation mechanical ventilation and she was agreeable to that. I think we can hold off on this intervention for now and monitor progress. She still on Remdesivir and Decadron. I'm going to go ahead and order interleukin-6 levels to evaluate this patient for possible tocilizumab treatment. We will also order some coalescent immunoglobulins if available. The patient's d-dimer is up to 3.97. The patient continues to have lymphopenia with a lymphocyte count of 0.6. White cell count of 10.2. The electrolytes are all within normal limits. The LDH is up to 3003 and the C-reactive protein is up to 169. She is having low-grade fever on and off. Oral intake is quite diminished. Patient was reevaluated today on 12/18/19, remains in the ICU, she is presently on airvo at a flow of 60 L/m, and FiO2 of 94%, patient is comfortable, does not seem to be in distress, patient is on third day of remdesivir , and she received convalescent plasma on 12/17/19. Chest x-ray continues to deteriorate, and she has diffuse multifocal infiltrates not much foreign exchange clerk the last couple of days. Surprisingly, the patient seems to be clinically better than expected considering the worsening of her chest x-ray. Patient has a relatively high d- dimer, and she remains on Lovenox at 80 mg subcu twice a day. Patient remains on Decadron. I also plan to give the patient a dose of Lasix today. No plans to transfer the patient out of the ICU at this point yet. Labs today showed a relatively normal CBC. D-dimer is rising up to 4.69 today. Electrolytes are normal except for low potassium of 3.2. Renal profile is normal. LDH seems to be coming down however C-reactive protein is elevated. Patient was reevaluated today on 12/19/19, patient took a downhill course last night, her oxygenation worsened significantly, patient dropped her O2 saturation down to the 70s, and she was on a high flow O2 using airvo patient was supposedly DO NOT RESUSCITATE CODE STATUS, however she changed her CODE STATUS and the patient required intubation and mechanical ventilation. She is now on mechanical ventilation. And her ventilator settings are assist control rate of 20 tidal volume is 400 FiO2 80% PEEP of 12. I adjusted her FiO2 down to 65% tidal volume cut down to 375 respiratory rate increased to 28. Patient is on Nimbex at 2 mcg/kg/m, she is also on propofol at 60, and may consider adding fentanyl. Her peak airway pressure is 38 and her plateau pressure is 34. Chest x-ray continues to show worsening ARDS. D-dimer today is 4.25 CBC is relatively normal ABG earlier today showed a pO2 of 137 pCO2 of 57 pH of 7.29. Basic metabolic profile is basically normal. Renal profile is normal. Inflammatory markers are high including elevated C-reactive protein of 267 LDH is 2264 and ferritin is pending. D-dimer is 4.5 with fibrinogen of 581. Patient was reevaluated today on 12/20/19, she is now in the ICU intubated and mechanically ventilated. Her ventilator settings are assist control rate of 28 tidal volume is 380 FiO2 is 70% and PEEP is 12. ABG showed a pO2 of 81 pCO2 of 53 pH of 7.35, hence I was able to titrate down her FiO2 to 60%. I have also recommended Dilaudid 0.5 mg every 12 hours. Patient remains on propofol at 50 mcg/kg/m and she is on Nimbex. She required norepinephrine yesterday as she was placed on fentanyl, however she did not tolerate the fentanyl well, and both were discontinued including norepinephrine. Patient is on vital HP nutritional support . Chest x-ray continues to show evidence of ARDS. Labs showed relatively normal CBC, platelets are normal, lymphocytes are low at 4%. D-dimer is 2.48. Elects lites are normal renal profile is normal. Her inflammatory markers were reviewed her C-reactive protein is 191 ferritin is 456 and her LDH not done today. C-reactive protein is lower today than the last 2 days. Patient was reevaluated today on 12/21/19, remains in the ICU, basically on the same ventilator settings, she is now on assist control rate of 28 tidal volume of 375 FiO2 of 60% PEEP is 12 her pO2 is marginal at 59, hence I have increased her PEEP up to 16. Patient remains on Nimbex at 2 mcg/kg/m, she is also on propofol at 40 mcg/kg/m, she is on enteral feeding vital HP 14/14. And her IV fluid is at 100 mL per hour. Patient is hemodynamically stable, not requiring any pressors. Chest x-ray continues to show evidence of diffuse interstitial infiltrates/ARDS. Electrolytes are normal renal profile is normal CBC is rel atively normal. D-dimer is 1.54. C-reactive protein is 172 and her ferritin level is 618. Patient was reevaluated today on 12/22/19, remains in ICU, intubated and mechanically ventilated, sedated and paralyzed, and maintained on Nimbex propofol, also on Dilaudid. Her ventilator settings are assist control rate of 28 tidal volume is 375 FiO2 is 60% and PEEP is 16. Attempted to go down on the FiO2 to 55%, however her saturation dropped, been recommended placing her back on 60% and The PEEP at 16. ABG today showed a pO2 of 75 pCO2 of 46 pH of 7.42. Patient is sedated and paralyzed, her chest x-ray continues to show evidence of ARDS. Patient is on enteral feeding using vital HP 14/14 patient seems to be edematous, hence I recommended Lasix 40 mg IV push 1, and empirically I went ahead and added Zosyn. Bit concerned about slight increase in the constellation in the right lower lobe. Objective - Vital Signs Vital signs: Vital Signs Temp 98.5 F 12/22/19 12:00 Pulse 65 12/22/19 13:00 Resp 28 H 12/22/19 13:00 BP 94/63 12/22/19 13:00 Pulse Ox 92 L 12/22/19 13:00 Intake & Output 11/05/20 11/06/20 11/06/20 18:59 06:59 18:59 Intake Total 2244.115 7096.533 1129.440 Output Total 724 087 0051 Balance 8176.519 5810.533 -265.560 Weight 82.7 kg 85.8 kg Intake: IV 1200 1200 460 Sodium Chloride 0.9% 1, 1200 1200 460 000 ml @ 20 mls/hr IV . Q24H [facility] Rx#:[id number] Intake, IV Titration 303.227 320.533 461.440 Amount Cisatracurium 200 mg In 108.287 147.608 112.288 Sodium Chloride 0.9% 180 ml @ 2 MCG/KG/MIN 9.996 mls/hr IV .Q20H1M [facility] Rx# :[id number] Norepinephrine 32 mg In 0.827 Sodium Chloride 0.9% 218 ml @ 0.05 MCG/KG/MIN 1. 938 mls/hr IV .Q24H [facility] Rx#:[id number] Piperacillin-Tazobactam 3 100 .375 gm In Sodium Chloride 0.9% 100 ml @ 25 mls/hr IVPB Q8HR [facility] Rx# :[id number] propofoL 1,000 mg In 194.94 172.925 248.325 Empty Bag 1 bag @ Titrate IV .Q0M [facility] Rx#: [id number] Tube Feeding 56 140 98 Other 120 110 Output: Urine 291 532 3422 Other: Voiding Method Indwelling Catheter Indwelling Catheter Indwelling Catheter # Voids 1 # Bowel Movements 0 0 ABP, PAP, CO, CI - Last Documented Arterial Blood Pressure 97/49 - Exam GENERAL EXAM: Revealed a 54-year-old female remains intubated, mechanically ventilated, and on Nimbex as well as propofol. And on Dilaudid. HEAD: Normocephalic/atraumatic. Endotracheal tube and orogastric tube are intact. EENT: PERRLA, EOMI, no icterus, moist mucous membranes, CHEST: No chest wall deformity. Symmetrical expansion. LUNGS: Bilateral crackles at the bases noted, no wheezes. CVS: Regular rate and rhythm, normal S1 and S2, no gallops, no murmurs, no rubs ABDOMEN: Soft, nontender. No hepatosplenomegaly, normal bowel sounds, no guarding or rigidity. EXTREMITIES: No clubbing, 2+ bipedal edema, no cyanosis, 2+ pulses and upper and lower extremities. MUSCULOSKELETAL: Could not be assessed, patient is sedated and paralyzed. SKIN: No rashes CENTRAL NERVOUS SYSTEM: Could not be assessed, patient is sedated and paralyzed. PSYCHIATRIC: Unable to assess - Labs CBC & Chem 7: 12/22/19 05:31 12/22/19 05:31 Labs: Abnormal Lab Results - Last 24 Hours (Table) 12/22/19 12/22/19 12/22/19 Range/Units 05:31 05:31 05:31 Lymphocytes # 0.5 L (1.0-4.8) k/uL D-Dimer 1.92 H (<0.60) mg/L FEU ABG pCO2 (35-45) mmHg ABG pO2 (83-108) mmHg ABG HCO3 (21-25) mmol/L ABG Total CO2 (19-24) mmol/L Chloride 110 H (98-107) mmol/L Carbon Dioxide 32 H (22-30) mmol/L Creatinine 0.39 L (0.52-1.04) mg/dL Glucose 130 H (74-99) mg/dL POC Glucose (mg/dL) (75-99) mg/dL Calcium 7.7 L (8.4-10.2) mg/dL AST 93 H (14-36) U/L ALT 51 H (4-34) U/L Creatine Kinase 20 L (30-135) U/L C-Reactive Protein 71.2 H (<10.0) mg/L Total Protein 4.5 L (6.3-8.2) g/dL Albumin 2.0 L (3.5-5.0) g/dL 12/22/19 12/22/19 12/22/19 Range/Units 05:57 08:01 11:45 Lymphocytes # (1.0-4.8) k/uL D-Dimer (<0.60) mg/L FEU ABG pCO2 46 H (35-45) mmHg ABG pO2 75 L (83-108) mmHg ABG HCO3 30 H (21-25) mmol/L ABG Total CO2 31 H (19-24) mmol/L Chloride (98-107) mmol/L Carbon Dioxide (22-30) mmol/L Creatinine (0.52-1.04) mg/dL Glucose (74-99) mg/dL POC Glucose (mg/dL) 114 H 138 H (75-99) mg/dL Calcium (8.4-10.2) mg/dL AST (14-36) U/L ALT (4-34) U/L Creatine Kinase (30-135) U/L C-Reactive Protein (<10.0) mg/L Total Protein (6.3-8.2) g/dL Albumin (3.5-5.0) g/dL Microbiology - Last 24 Hours (Table) 12/19/19 04:40 Gram Stain - Final Sputum Sputum Culture - Final Assessment and Plan Assessment: Impression: Acute hypoxic respiratory failure secondary to covid 19 pneumonitis. With ARDS Requiring intubation on 12/19/19 ARDS, requiring high FiO2 and high PEEP. PEEP was increased to 16. And FiO2 remained at 60% Acute Covid in 19 pneumonitis. Increased inflammatory markers related to above. Generalized weakness secondary to above. History of obesity and previous lab band surgery. Patient finished full course of REMDESIVIR and finished convalescent plasma treatment. Recommendation: Continue ventilatory support. We'll keep the patient on PEEP of 16 and FiO2 of 60% for now. Could not tolerate going down to 55%. Continue nutritional support. Continue enteral feeding. Continue Decadron. Continue GI and DVT prophylaxis. Continue PEEP at 16. Patient will be given a dose of Lasix as she seems to be quite swollen and edematous. Patient will be started empirically on Zosyn. patient remains critically ill, prognosis is guarded, critical care time is 34 minutes Time with Patient: Greater than 30
--- NOTE | 2019-12-22 15:02 | P.PN ---
Subjective Acute hypoxic respiratory failure secondary to covid 19 pneumonitis. Patient remains on ventilator support, patient did receive convalescent plasma along with Remdesevir. Patient remains on the Decadron patient remains on pressor support. Zosyn was added empirically by pulmonology. Patient remains on assist-control ventilation with the high before 15 FiO2 of 60%.failed weaning trials today. review of systems: Unable to obtain due to her clinical condition. All inpatient medications were reviewed and appropriate changes in these medications as dictated in the interval history and assessment and plan. Objective - Vital Signs Vital signs: Vital Signs Temp 98.5 F 12/22/19 12:00 Pulse 65 12/22/19 13:00 Resp 28 H 12/22/19 13:00 BP 94/63 12/22/19 13:00 Pulse Ox 92 L 12/22/19 13:00 Intake & Output 12/21/19 12/22/19 12/22/19 18:59 06:59 18:59 Intake Total 3148.378 4970.533 1129.440 Output Total 796 249 9296 Balance 6229.948 6454.533 -265.560 Weight 82.7 kg 85.8 kg Intake: IV 1200 1200 460 Sodium Chloride 0.9% 1, 1200 1200 460 000 ml @ 20 mls/hr IV . Q24H [facility] Rx#:[id number] Intake, IV Titration 303.227 320.533 461.440 Amount Cisatracurium 200 mg In 108.287 147.608 112.288 Sodium Chloride 0.9% 180 ml @ 2 MCG/KG/MIN 9.996 mls/hr IV .Q20H1M [facility] Rx# :[id number] Norepinephrine 32 mg In 0.827 Sodium Chloride 0.9% 218 ml @ 0.05 MCG/KG/MIN 1. 938 mls/hr IV .Q24H [facility] Rx#:[id number] Piperacillin-Tazobactam 3 100 .375 gm In Sodium Chloride 0.9% 100 ml @ 25 mls/hr IVPB Q8HR [facility] Rx# :[id number] propofoL 1,000 mg In 194.94 172.925 248.325 Empty Bag 1 bag @ Titrate IV .Q0M [facility] Rx#: [id number] Tube Feeding 56 140 98 Other 120 110 Output: Urine 338 870 0981 Other: Voiding Method Indwelling Catheter Indwelling Catheter Indwelling Catheter # Voids 1 # Bowel Movements 0 0 ABP, PAP, CO, CI - Last Documented Arterial Blood Pressure 97/49 - Exam PHYSICAL EXAMINATION: GENERAL: patient is intubated sedated paralyzed HEENT: Pupils are round and equally reacting to light. EOMI. No scleral icterus. No conjunctival pallor. Normocephalic, atraumatic. No pharyngeal erythema. No thyromegaly. CARDIOVASCULAR: S1 and S2 present. No murmurs, rubs, or gallops. PULMONARY: Chest is clear to auscultation, no wheezing or crackles. ABDOMEN: Soft, nontender, nondistended, normoactive bowel sounds. No palpable organomegaly. MUSCULOSKELETAL: No joint swelling or deformity. EXTREMITIES: No cyanosis, clubbing, or pedal edema. NEUROLOGICAL: patient is sedated SKIN: No rashes. Note: Because of [place] [id number] isolation, some of the history and physical exam findings are indirect and obtained from nursing staff, and other physician examinations to avoid unnecessary contact with the patient. - Labs CBC & Chem 7: 12/22/19 05:31 12/22/19 05:31 Labs: Abnormal Lab Results - Last 24 Hours (Table) 12/22/19 12/22/19 12/22/19 Range/Units 05:31 05:31 05:31 Lymphocytes # 0.5 L (1.0-4.8) k/uL D-Dimer 1.92 H (<0.60) mg/L FEU ABG pCO2 (35-45) mmHg ABG pO2 (83-108) mmHg ABG HCO3 (21-25) mmol/L ABG Total CO2 (19-24) mmol/L Chloride 110 H (98-107) mmol/L Carbon Dioxide 32 H (22-30) mmol/L Creatinine 0.39 L (0.52-1.04) mg/dL Glucose 130 H (74-99) mg/dL POC Glucose (mg/dL) (75-99) mg/dL Calcium 7.7 L (8.4-10.2) mg/dL AST 93 H (14-36) U/L ALT 51 H (4-34) U/L Creatine Kinase 20 L (30-135) U/L C-Reactive Protein 71.2 H (<10.0) mg/L Total Protein 4.5 L (6.3-8.2) g/dL Albumin 2.0 L (3.5-5.0) g/dL 12/22/19 12/22/19 12/22/19 Range/Units 05:57 08:01 11:45 Lymphocytes # (1.0-4.8) k/uL D-Dimer (<0.60) mg/L FEU ABG pCO2 46 H (35-45) mmHg ABG pO2 75 L (83-108) mmHg ABG HCO3 30 H (21-25) mmol/L ABG Total CO2 31 H (19-24) mmol/L Chloride (98-107) mmol/L Carbon Dioxide (22-30) mmol/L Creatinine (0.52-1.04) mg/dL Glucose (74-99) mg/dL POC Glucose (mg/dL) 114 H 138 H (75-99) mg/dL Calcium (8.4-10.2) mg/dL AST (14-36) U/L ALT (4-34) U/L Creatine Kinase (30-135) U/L C-Reactive Protein (<10.0) mg/L Total Protein (6.3-8.2) g/dL Albumin (3.5-5.0) g/dL Assessment and Plan Plan: COVID-19 virus pneumoniano significant improvement in her respiratory status the patient remains on mechanical ventilator. Acute hypoxic respiratory failure secondary to pneumonia. Requiring high flow oxygen --> Currently requiring mechanical ventilation. Nausea vomiting, generalized weakness and cough shortness of breath secondary to pneumonia. Hypertension Hyperlipidemia DVT prophylaxis with Lovenox.although patient's INR is high. Plan: Patient is on mechanical ventilator. on dexamethasone 6 mg daily and Lovenox 80 mg subcu daily. Pulmonary is on board. started on remdesivir course. Continue with droplet and contact precautions.Pulmonary is following. Prognosis is guarded at this time. Time with Patient: Greater than 30
[2019-12-22 17:35] LABS: Ferritin 791.4 ng/mL (10.0-291.0)
[2019-12-22] MEDS: MELATONIN 5 MG TABLET PO SCH (21:26)
[2019-12-22] MEDS: PRAVASTATIN SODIUM 40 MG TAB PO SCH (21:26)
[2019-12-23] MEDS: HYDROmorphone 0.5 MG/0.5 ML SYRINGE IVP SCH ×11 (02:12→22:11)
[2019-12-23 05:41] LABS: Basophils % (A) 0 %; Eosinophils # (A) 0.1 k/uL (0-0.7); Eosinophils % (A) 2 %; HCT 34.4 % (34.0-46.0); HGB 11.1 gm/dL (11.4-16.0); Lymphocytes # (A) 0.6 k/uL (1.0-4.8); Lymphocytes % (A) 9 %; MCH 28.9 pg (25.0-35.0); MCHC 32.2 g/dL (31.0-37.0); Monocytes # (A) 0.2 k/uL (0-1.0); Monocytes % (A) 4 %; Neutrophils # (A) 5.5 k/uL (1.3-7.7); Neutrophils % (A) 84 %; Platelet Count 231 k/uL (150-450); RBC 3.83 m/uL (3.80-5.40); RDW 14.5 % (11.5-15.5); WBC 6.6 k/uL (3.8-10.6)
[2019-12-23 05:49] LABS: African American GFR (CKD) >90 (>60 ml/min/1.73 sqM); Anion Gap 0 mmol/L; Blood Urea Nitrogen 15 mg/dL (7-17); C Reactive Protein 88.8 mg/L (<10.0); Calcium 7.7 mg/dL (8.4-10.2); Carbon Dioxide 35 mmol/L (22-30); Chloride 106 mmol/L (98-107); Creatine Kinase 23 U/L (30-135); Glucose 119 mg/dL (74-99); LDH 915 U/L (313-618); Non-African American GFR(CKD) >90 (>60 ml/min/1.73 sqM); Potassium 3.6 mmol/L (3.5-5.1); Sodium 141 mmol/L (137-145)
[2019-12-23 05:53] LABS: D-Dimer 2.6 mg/L FEU (<0.60)
[2019-12-23] MEDS ORDERED: POTASSIUM BICARBONATE/CIT AC 20 MEQ TABLET.EFF NG-TUBE SCH ×2 (06:00→15:00)
[2019-12-23] MEDS: CISATRACURIUM 200 MG in SODIUM CHLORIDE 0.9% 180 ML IV SCH ×2 (06:19→20:20)
[2019-12-23 07:32] LABS: ABG Base Excess 10.6 mmol/L; ABG HCO3 34 mmol/L (21-25); ABG Oxygen Saturation 92.2 % (94-97); ABG PCO2 44 mmHg (35-45); ABG PO2 60 mmHg (83-108); ABG TCO2 35 mmol/L (19-24); Allen Test Performed? Yes
[2019-12-23] MEDS: PIPERACILLIN-TAZOBACTAM 3.375 GM in SODIUM CHLORIDE 0.9% 100 ML IVPB SCH ×3 (07:57→23:26)
--- NOTE | 2019-12-23 08:31 | XR ---
EXAMINATION TYPE: XR chest 1V portable DATE OF EXAM: 12/23/2019 CLINICAL HISTORY: Tube placement. TECHNIQUE: Portable semiupright view of the chest. COMPARISON: 12/22/2019 chest radiograph FINDINGS: Endotracheal tube and enteric tube redemonstrated. Redemonstrated right internal jugular c entral venous catheter with distal tip over the right atrium. The cardiomediastinal silhouette is wit hin normal limits for size. Diffuse patchy airspace opacities of the bilateral lungs, mildly decrease d versus 12/22/2019. No pneumothorax. No pleural effusion. IMPRESSION: Patchy bilateral airspace opacities are mildly decreased versus 12/22/2019.
[2019-12-23] MEDS: dexAMETHasone 2 MG TAB PO SCH (09:04)
[2019-12-23] MEDS: CHLORHEXIDINE GLUCONATE 15 ML CUP MUCOUS MEM SCH ×2 (09:04→19:40)
[2019-12-23] MEDS: ASCORBIC ACID 500 MG TAB PO SCH (09:04)
[2019-12-23] MEDS: FAMOTIDINE 20 MG/2 ML VIAL IV SCH ×2 (09:04→19:40)
[2019-12-23] MEDS: ZINC SULFATE 220 MG CAP PO SCH (09:04)
[2019-12-23] MEDS: ENOXAPARIN 80 MG/0.8 ML SYRINGE SQ SCH ×2 (09:05→19:41)
--- NOTE | 2019-12-23 12:36 | P.PN ---
Subjective Progress Note Date: 12/23/19 Principal diagnosis: Acute hypoxic respiratory failure secondary to covid 19 pneumonitis. 54-year-old white female patient with past medical history of hypertension, nonsmoker, previous history of lab band surgery for morbid obesity who presented to the hospital on 12/14/2019 with complaints of nausea, vomiting, weakness. Patient was tested for Covid 19 7 days ago last Wednesday, and received positive results 5 days ago on Wednesday. Patient has a daughter who was hospitalized with COVID 19 related pneumonia, and that daughter was discharged home after treatment, her other daughter is also currently hospitalized with Covid 19. Her was also positive for Covid 19 infection. Patient has not been able to keep anything down related to nausea and vomiting. Chest x-ray showed diffuse airspace opacities of bilateral lungs related to Covid 19 viral infection. Patient had positive lymphopenia, with lymphocyte count of 0.5, d-dimer was 1.22, initial BMP was unremarkable, lactic acid was 0.9, ferritin level was elevated at 382, LDH of 704, CRP was significantly elevated at 73.9, pro calcitonin is 0.12, C. diff was negative. Patient is currently on 10 L of oxygen her pulse ox is 91%, she is a very short of breath with any activity. Occasional cough, nonproductive, she was started on oral Decadron, prophylactic dose of Lovenox, and we will start the patient on Remdesivir. The patient is seen today 12/16/2019 in follow-up on the regular medical floor. She is currently awake. She is still quite short of breath. Still fatigued and weak. She is now requiring AirVo high flow oxygen with the fluid at 50 L an FiO2 of 70% to maintain O2 saturations in the 90s. Currently afebrile. She had a temperature earlier this morning at 100.0. She is short of breath with minimal exertion. White count 8.8. Hemoglobin 13.3. Lymphocyte 0.5. D-dimer 2.52. Sodium 142. Potassium 3.4. Creatinine 0.54. LDH 1933. C-reactive protein 70.8. Continued on Remdesivir, day #2. Continued on zinc, melatonin, vitamin C, Decadron, Lovenox, Pepcid. 0.9 normal saline at 100 ML's per hour. 12/17/2019, the patient is currently being taken care of in the intensive care unit. Noted the patient got transferred to the ICU yesterday because of her progressive hypoxemia that was developing related to colitis code 19 related pneumonia. The patient has progressive increase in the oxygen requirements and currently she is in the intensive care unit and she is on 6 L of oxygen to high flow system and the patient's pulse ox in the order of 94%. Chest x-ray showing diffuse breath and pulmonary infiltrates consistent with pneumonia. The patient is short of breath even at rest and she is trying to sleep on her side and prone herself if possible. She is not using this is an was of breathing , is quite tired and weak and lethargic. No chest pain. No hemoptysis. No pleurisy. She is on and off cough and. No altered mentation. We discussed the possibility of intubation mechanical ventilation and she was agreeable to that. I think we can hold off on this intervention for now and monitor progress. She still on Remdesivir and Decadron. I'm going to go ahead and order interleukin-6 levels to evaluate this patient for possible tocilizumab treatment. We will also order some coalescent immunoglobulins if available. The patient's d-dimer is up to 3.97. The patient continues to have lymphopenia with a lymphocyte count of 0.6. White cell count of 10.2. The electrolytes are all within normal limits. The LDH is up to 3003 and the C-reactive protein is up to 169. She is having low-grade fever on and off. Oral intake is quite diminished. Patient was reevaluated today on 12/18/19, remains in the ICU, she is presently on airvo at a flow of 60 L/m, and FiO2 of 94%, patient is comfortable, does not seem to be in distress, patient is on third day of remdesivir , and she received convalescent plasma on 12/17/19. Chest x-ray continues to deteriorate, and she has diffuse multifocal infiltrates not much globe changer the last couple of days. Surprisingly, the patient seems to be clinically better than expected considering the worsening of her chest x-ray. Patient has a relatively high d- dimer, and she remains on Lovenox at 80 mg subcu twice a day. Patient remains on Decadron. I also plan to give the patient a dose of Lasix today. No plans to transfer the patient out of the ICU at this point yet. Labs today showed a relatively normal CBC. D-dimer is rising up to 4.69 today. Electrolytes are normal except for low potassium of 3.2. Renal profile is normal. LDH seems to be coming down however C-reactive protein is elevated. Patient was reevaluated today on 12/19/19, patient took a downhill course last night, her oxygenation worsened significantly, patient dropped her O2 saturation down to the 70s, and she was on a high flow O2 using airvo patient was supposedly DO NOT RESUSCITATE CODE STATUS, however she changed her CODE STATUS and the patient required intubation and mechanical ventilation. She is now on mechanical ventilation. And her ventilator settings are assist control rate of 20 tidal volume is 400 FiO2 80% PEEP of 12. I adjusted her FiO2 down to 65% tidal volume cut down to 375 respiratory rate increased to 28. Patient is on Nimbex at 2 mcg/kg/m, she is also on propofol at 60, and may consider adding fentanyl. Her peak airway pressure is 38 and her plateau pressure is 34. Chest x-ray continues to show worsening ARDS. D-dimer today is 4.25 CBC is relatively normal ABG earlier today showed a pO2 of 137 pCO2 of 57 pH of 7.29. Basic metabolic profile is basically normal. Renal profile is normal. Inflammatory markers are high including elevated C-reactive protein of 267 LDH is 2264 and ferritin is pending. D-dimer is 4.5 with fibrinogen of 581. Patient was reevaluated today on 12/20/19, she is now in the ICU intubated and mechanically ventilated. Her ventilator settings are assist control rate of 28 tidal volume is 380 FiO2 is 70% and PEEP is 12. ABG showed a pO2 of 81 pCO2 of 53 pH of 7.35, hence I was able to titrate down her FiO2 to 60%. I have also recommended Dilaudid 0.5 mg every 12 hours. Patient remains on propofol at 50 mcg/kg/m and she is on Nimbex. She required norepinephrine yesterday as she was placed on fentanyl, however she did not tolerate the fentanyl well, and both were discontinued including norepinephrine. Patient is on vital HP nutritional support . Chest x-ray continues to show evidence of ARDS. Labs showed relatively normal CBC, platelets are normal, lymphocytes are low at 4%. D-dimer is 2.48. Elects lites are normal renal profile is normal. Her inflammatory markers were reviewed her C-reactive protein is 191 ferritin is 456 and her LDH not done today. C-reactive protein is lower today than the last 2 days. Patient was reevaluated today on 12/21/19, remains in the ICU, basically on the same ventilator settings, she is now on assist control rate of 28 tidal volume of 375 FiO2 of 60% PEEP is 12 her pO2 is marginal at 59, hence I have increased her PEEP up to 16. Patient remains on Nimbex at 2 mcg/kg/m, she is also on propofol at 40 mcg/kg/m, she is on enteral feeding vital HP 14/14. And her IV fluid is at 100 mL per hour. Patient is hemodynamically stable, not requiring any pressors. Chest x-ray continues to show evidence of diffuse interstitial infiltrates/ARDS. Electrolytes are normal renal profile is normal CBC is rel atively normal. D-dimer is 1.54. C-reactive protein is 172 and her ferritin level is 618. Patient was reevaluated today on 12/22/19, remains in ICU, intubated and mechanically ventilated, sedated and paralyzed, and maintained on Nimbex propofol, also on Dilaudid. Her ventilator settings are assist control rate of 28 tidal volume is 375 FiO2 is 60% and PEEP is 16. Attempted to go down on the FiO2 to 55%, however her saturation dropped, been recommended placing her back on 60% and The PEEP at 16. ABG today showed a pO2 of 75 pCO2 of 46 pH of 7.42. Patient is sedated and paralyzed, her chest x-ray continues to show evidence of ARDS. Patient is on enteral feeding using vital HP 14/14 patient seems to be edematous, hence I recommended Lasix 40 mg IV push 1, and empirically I went ahead and added Zosyn. Bit concerned about slight increase in the constellation in the right lower lobe. Patient was reevaluated today on 12/23/19 remains in the ICU, intubated, mechanically ventilated. Remains on assist control mode of mechanical ventilation. Rate is 28 tidal volume 375 FiO2 60% PEEP is 16 ABG today is marginal with a pO2 of 60 pCO2 of 44 pH of 7.50. Patient remains on propofol Nimbex and she is receiving Dilaudid. Remains on enteral feeding. IV fluid is increased to 75 mL per hour. Based on the ABG and based on her overall status, no plans to wean or extubated at this point. Chest x-ray continues to show evidence of ARDS, not much of a change overall. Objective - Vital Signs Vital signs: Vital Signs Temp 98.8 F 12/23/19 08:00 Pulse 82 12/23/19 11:00 Resp 28 H 12/23/19 11:00 BP 124/65 12/23/19 07:00 Pulse Ox 90 L 12/23/19 11:00 Intake & Output 12/22/19 12/23/19 12/23/19 18:59 06:59 18:59 Intake Total 0224.403 2565.483 465 Output Total 1795 416 275 Balance -291.125 601.483 190 Intake: IV 560 240 265 Sodium Chloride 0.9% 1, 560 240 265 000 ml @ 75 mls/hr IV . [id number] [facility] Rx#:[id number] Intake, IV Titration 635.875 453.483 100 Amount Cisatracurium 200 mg In 185.509 187.425 Sodium Chloride 0.9% 180 ml @ 2 MCG/KG/MIN 9.996 mls/hr IV .Q20H1M [facility] Rx# :[id number] Norepinephrine 32 mg In 2.041 0.078 Sodium Chloride 0.9% 218 ml @ 0.05 MCG/KG/MIN 1. 938 mls/hr IV .Q24H [facility] Rx#:[id number] Piperacillin-Tazobactam 3 100 .375 gm In Sodium Chloride 0.9% 100 ml @ 25 mls/hr IVPB Q8HR [facility] Rx# :[id number] propofoL 1,000 mg In 348.325 265.980 100 Empty Bag 1 bag @ Titrate IV .Q0M [facility] Rx#: [id number] Tube Feeding 168 154 70 Other 140 170 30 Output: Urine 1795 416 275 Other: Voiding Method Indwelling Catheter Indwelling Catheter # Bowel Movements 0 0 ABP, PAP, CO, CI - Last Documented Arterial Blood Pressure 150/69 - Exam GENERAL EXAM: 54-year-old and mechanical ventilation. Sedated. HEAD: Normocephalic/atraumatic. Endotracheal tube and orogastric tube are intact. EENT: PERRLA, EOMI, no icterus, moist mucous membranes, CHEST: No chest wall deformity. Symmetrical expansion. LUNGS: Fine crackles at the bases. CVS: Regular rate and rhythm, normal S1 and S2, no gallops, no murmurs, no rubs ABDOMEN: Soft, nontender. No hepatosplenomegaly, normal bowel sounds, no guarding or rigidity. EXTREMITIES: No clubbing, trace of bipedal edema, no cyanosis, 2+ pulses and upper and lower extremities. MUSCULOSKELETAL: Could not be assessed, patient is sedated and paralyzed. SKIN: No rashes CENTRAL NERVOUS SYSTEM: Could not be assessed, patient is sedated and paralyzed. PSYCHIATRIC: Unable to assess - Labs CBC & Chem 7: 12/23/19 04:24 12/23/19 04:24 Labs: Abnormal Lab Results - Last 24 Hours (Table) 12/22/19 12/23/19 12/23/19 Range/Units 05:31 04:24 04:24 Hgb 11.1 L (11.4-16.0) gm/dL Lymphocytes # 0.6 L (1.0-4.8) k/uL Fibrinogen 525 H (200-500) mg/dL D-Dimer 2.60 H (<0.60) mg/L FEU ABG pH (7.35-7.45) ABG pO2 (83-108) mmHg ABG HCO3 (21-25) mmol/L ABG Total CO2 (19-24) mmol/L ABG O2 Saturation (94-97) % Carbon Dioxide (22-30) mmol/L Creatinine (0.52-1.04) mg/dL Glucose (74-99) mg/dL Calcium (8.4-10.2) mg/dL Ferritin 791.4 H (10.0-291.0) ng/mL Lactate Dehydrogenase (313-618) U/L Creatine Kinase (30-135) U/L C-Reactive Protein (<10.0) mg/L 12/23/19 12/23/19 Range/Units 04:24 07:26 Hgb (11.4-16.0) gm/dL Lymphocytes # (1.0-4.8) k/uL Fibrinogen (200-500) mg/dL D-Dimer (<0.60) mg/L FEU ABG pH 7.50 H (7.35-7.45) ABG pO2 60 L (83-108) mmHg ABG HCO3 34 H (21-25) mmol/L ABG Total CO2 35 H (19-24) mmol/L ABG O2 Saturation 92.2 L (94-97) % Carbon Dioxide 35 H (22-30) mmol/L Creatinine 0.46 L (0.52-1.04) mg/dL Glucose 119 H (74-99) mg/dL Calcium 7.7 L (8.4-10.2) mg/dL Ferritin (10.0-291.0) ng/mL Lactate Dehydrogenase 915 H (313-618) U/L Creatine Kinase 23 L (30-135) U/L C-Reactive Protein 88.8 H (<10.0) mg/L Assessment and Plan Assessment: Impression: Acute hypoxic respiratory failure secondary to covid 19 pneumonitis. With ARDS Requiring intubation on 12/19/19 ARDS, requiring high FiO2 and high PEEP. PEEP was increased to 16. And FiO2 remained at 60% Acute Covid in 19 pneumonitis. Increased inflammatory markers related to above. Generalized weakness secondary to above. History of obesity and previous lab band surgery. Patient finished full course of REMDESIVIR and finished convalescent plasma treatment. Recommendation: Continue ventilatory support. No plans to wean at this point. Continue nutritional support. Continue enteral feeding. Seems to be fairly well tolerated. Continue Decadron. Continue GI and DVT prophylaxis. Continue PEEP at 16. And continue FiO2 at 60% Discontinue diuretics and increase IV fluid to 75 mL per hour. Continue antibiotics/Zosyn. Remains critically ill, critical care time is 32 minutes Prognosis remains poor and guarded. Time with Patient: Greater than 30
--- NOTE | 2019-12-23 17:10 | P.PN ---
Subjective Acute hypoxic respiratory failure secondary to covid 19 pneumonitis. Patient remains on ventilator support, patient did receive convalescent plasma along with Remdesevir. Patient remains on the Decadron patient remains on pressor support. Zosyn was added empirically by pulmonology. Patient remains on assist-control ventilation with the high before 15 FiO2 of 60%.failed weaning trials today. 12/23/2019 Patient remains on the ventilator still requiring PEEP of 16 FiO2 of 60%. Patient is mildly alkalotic. Probably need to go down on the it up respiratory rate. Patient is on tidal volume at 375. Patient is on very low-dose of norepinephrine today. review of systems: Unable to obtain due to her clinical condition. All inpatient medications were reviewed and appropriate changes in these medications as dictated in the interval history and assessment and plan. Objective - Vital Signs Vital signs: Vital Signs Temp 98.6 F 12/23/19 16:00 Pulse 58 L 12/23/19 16:00 Resp 28 H 12/23/19 16:00 BP 115/62 12/23/19 13:00 Pulse Ox 94 L 12/23/19 16:00 Intake & Output 12/22/19 12/23/19 12/23/19 18:59 06:59 18:59 Intake Total 7545.160 9857.483 1305 Output Total 1795 416 575 Balance -291.125 601.483 730 Weight 85.8 kg Intake: IV 560 240 640 Sodium Chloride 0.9% 1, 560 240 640 000 ml @ 75 mls/hr IV . [id number] [facility] Rx#:[id number] Intake, IV Titration 635.875 453.483 400 Amount Cisatracurium 200 mg In 185.509 187.425 Sodium Chloride 0.9% 180 ml @ 2 MCG/KG/MIN 9.996 mls/hr IV .Q20H1M [facility] Rx# :[id number] Norepinephrine 32 mg In 2.041 0.078 Sodium Chloride 0.9% 218 ml @ 0.05 MCG/KG/MIN 1. 938 mls/hr IV .Q24H [facility] Rx#:[id number] Piperacillin-Tazobactam 3 100 200 .375 gm In Sodium Chloride 0.9% 100 ml @ 25 mls/hr IVPB Q8HR [facility] Rx# :[id number] propofoL 1,000 mg In 348.325 265.980 200 Empty Bag 1 bag @ Titrate IV .Q0M [facility] Rx#: [id number] Tube Feeding 168 154 205 Other 140 170 60 Output: Urine 1795 416 575 Other: Voiding Method Indwelling Catheter Indwelling Catheter Indwelling Catheter # Bowel Movements 0 0 ABP, PAP, CO, CI - Last Documented Arterial Blood Pressure 132/58 - Exam PHYSICAL EXAMINATION: GENERAL: patient is intubated sedated paralyzed HEENT: Pupils are round and equally reacting to light. EOMI. No scleral icterus. No conjunctival pallor. Normocephalic, atraumatic. No pharyngeal erythema. No thyromegaly. CARDIOVASCULAR: S1 and S2 present. No murmurs, rubs, or gallops. PULMONARY: Chest is clear to auscultation, no wheezing or crackles. ABDOMEN: Soft, nontender, nondistended, normoactive bowel sounds. No palpable organomegaly. MUSCULOSKELETAL: No joint swelling or deformity. EXTREMITIES: No cyanosis, clubbing, or pedal edema. NEUROLOGICAL: patient is sedated SKIN: No rashes. Note: Because of [place] [id number] isolation, some of the history and physical exam findings are indirect and obtained from nursing staff, and other physician examinations to avoid unnecessary contact with the patient. - Labs CBC & Chem 7: 12/23/19 04:24 12/23/19 12:10 Labs: Abnormal Lab Results - Last 24 Hours (Table) 12/22/19 12/23/19 12/23/19 Range/Units 05:31 04:24 04:24 Hgb 11.1 L (11.4-16.0) gm/dL Lymphocytes # 0.6 L (1.0-4.8) k/uL Fibrinogen 525 H (200-500) mg/dL D-Dimer 2.60 H (<0.60) mg/L FEU ABG pH (7.35-7.45) ABG pO2 (83-108) mmHg ABG HCO3 (21-25) mmol/L ABG Total CO2 (19-24) mmol/L ABG O2 Saturation (94-97) % Carbon Dioxide (22-30) mmol/L Creatinine (0.52-1.04) mg/dL Glucose (74-99) mg/dL Calcium (8.4-10.2) mg/dL Ferritin 791.4 H (10.0-291.0) ng/mL Lactate Dehydrogenase (313-618) U/L Creatine Kinase (30-135) U/L C-Reactive Protein (<10.0) mg/L 12/23/19 12/23/19 Range/Units 04:24 07:26 Hgb (11.4-16.0) gm/dL Lymphocytes # (1.0-4.8) k/uL Fibrinogen (200-500) mg/dL D-Dimer (<0.60) mg/L FEU ABG pH 7.50 H (7.35-7.45) ABG pO2 60 L (83-108) mmHg ABG HCO3 34 H (21-25) mmol/L ABG Total CO2 35 H (19-24) mmol/L ABG O2 Saturation 92.2 L (94-97) % Carbon Dioxide 35 H (22-30) mmol/L Creatinine 0.46 L (0.52-1.04) mg/dL Glucose 119 H (74-99) mg/dL Calcium 7.7 L (8.4-10.2) mg/dL Ferritin (10.0-291.0) ng/mL Lactate Dehydrogenase 915 H (313-618) U/L Creatine Kinase 23 L (30-135) U/L C-Reactive Protein 88.8 H (<10.0) mg/L Assessment and Plan Plan: COVID-19 virus pneumoniano significant improvement in her respiratory status the patient remains on mechanical ventilator. Acute hypoxic respiratory failure secondary to pneumonia. Requiring high flow oxygen --> Currently requiring mechanical ventilation. Nausea vomiting, generalized weakness and cough shortness of breath secondary to pneumonia. Hypertension Hyperlipidemia DVT prophylaxis with Lovenox.although patient's INR is high. Plan: Patient is on mechanical ventilator. on dexamethasone 6 mg daily and Lovenox 80 mg subcu daily. Pulmonary is on board. started on remdesivir course. Continue with droplet and contact precautions.Pulmonary is following. Prognosis is guarded at this time. Time with Patient: Greater than 30
[2019-12-23] MEDS: NOREPINEPHRINE 32 MG in SODIUM CHLORIDE 0.9% 218 ML IV SCH (18:18)
[2019-12-23] MEDS: PRAVASTATIN SODIUM 40 MG TAB PO SCH (19:40)
[2019-12-23] MEDS: MELATONIN 5 MG TABLET PO SCH (19:42)
[2019-12-23] MEDS: SODIUM CHLORIDE 0.9% 1,000 ML IV SCH ×2 (19:57→23:23)
[2019-12-24] MEDS: HYDROmorphone 0.5 MG/0.5 ML SYRINGE IVP SCH ×13 (00:21→23:51)
[2019-12-24 00:28] LABS: Glucose,Whole Blood 134 mg/dL (75-99)
[2019-12-24 04:59] LABS: Glucose,Whole Blood 132 mg/dL (75-99)
[2019-12-24 05:18] LABS: Basophils # (A) 0.1 k/uL (0-0.2); Basophils % (A) 1 %; Eosinophils # (A) 0.1 k/uL (0-0.7); Eosinophils % (A) 1 %; HCT 34.1 % (34.0-46.0); HGB 10.8 gm/dL (11.4-16.0); Lymphocytes # (A) 0.8 k/uL (1.0-4.8); Lymphocytes % (A) 14 %; MCH 28.6 pg (25.0-35.0); MCHC 31.7 g/dL (31.0-37.0); MCV 90.4 fL (80.0-100.0); Mean Platelet Volume 8.2; Monocytes # (A) 0.2 k/uL (0-1.0); Monocytes % (A) 4 %; Neutrophils # (A) 4.5 k/uL (1.3-7.7); Neutrophils % (A) 79 %; Platelet Count 211 k/uL (150-450); RBC 3.77 m/uL (3.80-5.40); RDW 14.4 % (11.5-15.5); WBC 5.6 k/uL (3.8-10.6)
[2019-12-24 05:38] LABS: ALT 60 U/L (4-34); AST 65 U/L (14-36); African American GFR (CKD) >90 (>60 ml/min/1.73 sqM); Alkaline Phosphatase 72 U/L (38-126); Anion Gap -1 mmol/L; Blood Urea Nitrogen 15 mg/dL (7-17); Calcium 7.6 mg/dL (8.4-10.2); Carbon Dioxide 35 mmol/L (22-30); Chloride 105 mmol/L (98-107); Creatine Kinase <20 U/L (30-135); Glucose 137 mg/dL (74-99); LDH 916 U/L (313-618); Non-African American GFR(CKD) >90 (>60 ml/min/1.73 sqM); Potassium 3.7 mmol/L (3.5-5.1); Sodium 139 mmol/L (137-145); Total Bilirubin 0.6 mg/dL (0.2-1.3); Total Protein 4.6 g/dL (6.3-8.2)
[2019-12-24 05:54] LABS: C Reactive Protein 121.7 mg/L (<10.0)
[2019-12-24] MEDS ORDERED: POTASSIUM BICARBONATE/CIT AC 20 MEQ TABLET.EFF NG-TUBE SCH (07:00)
[2019-12-24] MEDS: CISATRACURIUM 200 MG in SODIUM CHLORIDE 0.9% 180 ML IV SCH ×2 (07:14→19:38)
--- NOTE | 2019-12-24 07:19 | XR ---
EXAMINATION TYPE: XR chest 1V portable DATE OF EXAM: 12/24/2019 COMPARISON: 12/23/2019 HISTORY: SOB, Follow Up FINDINGS: Indwelling tubes and catheters are unchanged. No change in perihilar and basilar filtrates. Stable appearance of the cardio-mediastinal structures at this time. Pleural effusion unchanged. IMPRESSION: 1. Stable portable chest. Clinical correlation and follow up until resolution is recommended.
[2019-12-24 07:31] LABS: ABG HCO3 33 mmol/L (21-25); ABG PCO2 45 mmHg (35-45); ABG PH 7.47 (7.35-7.45); ABG PO2 68 mmHg (83-108); ABG TCO2 34 mmol/L (19-24); Allen Test Performed? Yes
[2019-12-24] MEDS: PIPERACILLIN-TAZOBACTAM 3.375 GM in SODIUM CHLORIDE 0.9% 100 ML IVPB SCH ×3 (08:14→23:21)
[2019-12-24 09:25] LABS: Ferritin 682.1 ng/mL (10.0-291.0)
[2019-12-24] MEDS: dexAMETHasone 2 MG TAB PO SCH (09:39)
[2019-12-24] MEDS: ZINC SULFATE 220 MG CAP PO SCH (09:39)
[2019-12-24] MEDS: ASCORBIC ACID 500 MG TAB PO SCH (09:39)
[2019-12-24] MEDS: FAMOTIDINE 20 MG/2 ML VIAL IV SCH ×2 (09:39→19:50)
[2019-12-24] MEDS: CHLORHEXIDINE GLUCONATE 15 ML CUP MUCOUS MEM SCH ×2 (09:40→19:50)
[2019-12-24] MEDS: ENOXAPARIN 80 MG/0.8 ML SYRINGE SQ SCH ×2 (09:40→19:50)
--- NOTE | 2019-12-24 13:47 | P.PN ---
Subjective Progress Note Date: 12/24/19 Principal diagnosis: Acute hypoxic respiratory failure secondary to covid 19 pneumonitis. 54-year-old white female patient with past medical history of hypertension, nonsmoker, previous history of lab band surgery for morbid obesity who presented to the hospital on 12/14/2019 with complaints of nausea, vomiting, weakness. Patient was tested for Covid 19 7 days ago last Wednesday, and received positive results 5 days ago on Wednesday. Patient has a daughter who was hospitalized with COVID 19 related pneumonia, and that daughter was discharged home after treatment, her other daughter is also currently hospitalized with Covid 19. Her was also positive for Covid 19 infection. Patient has not been able to keep anything down related to nausea and vomiting. Chest x-ray showed diffuse airspace opacities of bilateral lungs related to Covid 19 viral infection. Patient had positive lymphopenia, with lymphocyte count of 0.5, d-dimer was 1.22, initial BMP was unremarkable, lactic acid was 0.9, ferritin level was elevated at 382, LDH of 704, CRP was significantly elevated at 73.9, pro calcitonin is 0.12, C. diff was negative. Patient is currently on 10 L of oxygen her pulse ox is 91%, she is a very short of breath with any activity. Occasional cough, nonproductive, she was started on oral Decadron, prophylactic dose of Lovenox, and we will start the patient on Remdesivir. The patient is seen today 12/16/2019 in follow-up on the regular medical floor. She is currently awake. She is still quite short of breath. Still fatigued and weak. She is now requiring AirVo high flow oxygen with the fluid at 50 L an FiO2 of 70% to maintain O2 saturations in the 90s. Currently afebrile. She had a temperature earlier this morning at 100.0. She is short of breath with minimal exertion. White count 8.8. Hemoglobin 13.3. Lymphocyte 0.5. D-dimer 2.52. Sodium 142. Potassium 3.4. Creatinine 0.54. LDH 1933. C-reactive protein 70.8. Continued on Remdesivir, day #2. Continued on zinc, melatonin, vitamin C, Decadron, Lovenox, Pepcid. 0.9 normal saline at 100 ML's per hour. 12/17/2019, the patient is currently being taken care of in the intensive care unit. Noted the patient got transferred to the ICU yesterday because of her progressive hypoxemia that was developing related to colitis code 19 related pneumonia. The patient has progressive increase in the oxygen requirements and currently she is in the intensive care unit and she is on 6 L of oxygen to high flow system and the patient's pulse ox in the order of 94%. Chest x-ray showing diffuse breath and pulmonary infiltrates consistent with pneumonia. The patient is short of breath even at rest and she is trying to sleep on her side and prone herself if possible. She is not using this is an was of breathing , is quite tired and weak and lethargic. No chest pain. No hemoptysis. No pleurisy. She is on and off cough and. No altered mentation. We discussed the possibility of intubation mechanical ventilation and she was agreeable to that. I think we can hold off on this intervention for now and monitor progress. She still on Remdesivir and Decadron. I'm going to go ahead and order interleukin-6 levels to evaluate this patient for possible tocilizumab treatment. We will also order some coalescent immunoglobulins if available. The patient's d-dimer is up to 3.97. The patient continues to have lymphopenia with a lymphocyte count of 0.6. White cell count of 10.2. The electrolytes are all within normal limits. The LDH is up to 3003 and the C-reactive protein is up to 169. She is having low-grade fever on and off. Oral intake is quite diminished. Patient was reevaluated today on 12/18/19, remains in the ICU, she is presently on airvo at a flow of 60 L/m, and FiO2 of 94%, patient is comfortable, does not seem to be in distress, patient is on third day of remdesivir , and she received convalescent plasma on 12/17/19. Chest x-ray continues to deteriorate, and she has diffuse multifocal infiltrates not much interchange agent the last couple of days. Surprisingly, the patient seems to be clinically better than expected considering the worsening of her chest x-ray. Patient has a relatively high d- dimer, and she remains on Lovenox at 80 mg subcu twice a day. Patient remains on Decadron. I also plan to give the patient a dose of Lasix today. No plans to transfer the patient out of the ICU at this point yet. Labs today showed a relatively normal CBC. D-dimer is rising up to 4.69 today. Electrolytes are normal except for low potassium of 3.2. Renal profile is normal. LDH seems to be coming down however C-reactive protein is elevated. Patient was reevaluated today on 12/19/19, patient took a downhill course last night, her oxygenation worsened significantly, patient dropped her O2 saturation down to the 70s, and she was on a high flow O2 using airvo patient was supposedly DO NOT RESUSCITATE CODE STATUS, however she changed her CODE STATUS and the patient required intubation and mechanical ventilation. She is now on mechanical ventilation. And her ventilator settings are assist control rate of 20 tidal volume is 400 FiO2 80% PEEP of 12. I adjusted her FiO2 down to 65% tidal volume cut down to 375 respiratory rate increased to 28. Patient is on Nimbex at 2 mcg/kg/m, she is also on propofol at 60, and may consider adding fentanyl. Her peak airway pressure is 38 and her plateau pressure is 34. Chest x-ray continues to show worsening ARDS. D-dimer today is 4.25 CBC is relatively normal ABG earlier today showed a pO2 of 137 pCO2 of 57 pH of 7.29. Basic metabolic profile is basically normal. Renal profile is normal. Inflammatory markers are high including elevated C-reactive protein of 267 LDH is 2264 and ferritin is pending. D-dimer is 4.5 with fibrinogen of 581. Patient was reevaluated today on 12/20/19, she is now in the ICU intubated and mechanically ventilated. Her ventilator settings are assist control rate of 28 tidal volume is 380 FiO2 is 70% and PEEP is 12. ABG showed a pO2 of 81 pCO2 of 53 pH of 7.35, hence I was able to titrate down her FiO2 to 60%. I have also recommended Dilaudid 0.5 mg every 12 hours. Patient remains on propofol at 50 mcg/kg/m and she is on Nimbex. She required norepinephrine yesterday as she was placed on fentanyl, however she did not tolerate the fentanyl well, and both were discontinued including norepinephrine. Patient is on vital HP nutritional support . Chest x-ray continues to show evidence of ARDS. Labs showed relatively normal CBC, platelets are normal, lymphocytes are low at 4%. D-dimer is 2.48. Elects lites are normal renal profile is normal. Her inflammatory markers were reviewed her C-reactive protein is 191 ferritin is 456 and her LDH not done today. C-reactive protein is lower today than the last 2 days. Patient was reevaluated today on 12/21/19, remains in the ICU, basically on the same ventilator settings, she is now on assist control rate of 28 tidal volume of 375 FiO2 of 60% PEEP is 12 her pO2 is marginal at 59, hence I have increased her PEEP up to 16. Patient remains on Nimbex at 2 mcg/kg/m, she is also on propofol at 40 mcg/kg/m, she is on enteral feeding vital HP 14/14. And her IV fluid is at 100 mL per hour. Patient is hemodynamically stable, not requiring any pressors. Chest x-ray continues to show evidence of diffuse interstitial infiltrates/ARDS. Electrolytes are normal renal profile is normal CBC is rel atively normal. D-dimer is 1.54. C-reactive protein is 172 and her ferritin level is 618. Patient was reevaluated today on 12/22/19, remains in ICU, intubated and mechanically ventilated, sedated and paralyzed, and maintained on Nimbex propofol, also on Dilaudid. Her ventilator settings are assist control rate of 28 tidal volume is 375 FiO2 is 60% and PEEP is 16. Attempted to go down on the FiO2 to 55%, however her saturation dropped, been recommended placing her back on 60% and The PEEP at 16. ABG today showed a pO2 of 75 pCO2 of 46 pH of 7.42. Patient is sedated and paralyzed, her chest x-ray continues to show evidence of ARDS. Patient is on enteral feeding using vital HP 14/14 patient seems to be edematous, hence I recommended Lasix 40 mg IV push 1, and empirically I went ahead and added Zosyn. Bit concerned about slight increase in the constellation in the right lower lobe. Patient was reevaluated today on 12/23/19 remains in the ICU, intubated, mechanically ventilated. Remains on assist control mode of mechanical ventilation. Rate is 28 tidal volume 375 FiO2 60% PEEP is 16 ABG today is marginal with a pO2 of 60 pCO2 of 44 pH of 7.50. Patient remains on propofol Nimbex and she is receiving Dilaudid. Remains on enteral feeding. IV fluid is increased to 75 mL per hour. Based on the ABG and based on her overall status, no plans to wean or extubated at this point. Chest x-ray continues to show evidence of ARDS, not much of a change overall. Reevaluated today on 01/03/20, patient remains in the ICU intubated and mechanically ventilated. Patient had covid 19 pneumonitis and ARDS. Her ventilator settings are assist control rate of 28 tidal volume is 375 FiO2 is 60% PEEP is 16. I did cut down the FiO2 to 55%. ABG showed a pO2 of 68 pCO2 of 45 pH of 7.47. Patient remains on Nimbex propofol at 50 she is not requiring any pressors. She is on vital HP . Zosyn was added empirically. Patient did receive full course of remdesivir and she received one infusion of convalescent plasma. Chest x-ray was reviewed today, continues to show ARDS, but I believe there is slight improvement in his definitely not any worse. Hence considering her O2 saturations holding, I cut down the FiO2 to 55% The PEEP at 16. Patient remains on enteral feedings she remains on GI and DVT prophylaxis and clearly not ready for any modality of weaning at this point. Objective - Vital Signs Vital signs: Vital Signs Temp 98.9 F 12/24/19 08:00 Pulse 66 12/24/19 11:00 Resp 28 H 12/24/19 11:00 BP 125/73 12/24/19 10:00 Pulse Ox 91 L 12/24/19 11:00 Intake & Output 12/23/19 12/24/19 12/24/19 18:59 06:59 18:59 Intake Total 1509 1665 776.435 Output Total 675 605 280 Balance 834 1060 496.435 Weight 85.8 kg Intake: IV 790 900 375 Sodium Chloride 0.9% 1, 790 900 375 000 ml @ 75 mls/hr IV . [id number] [facility] Rx#:[id number] Intake, IV Titration 400 600 263.435 Amount Cisatracurium 200 mg In 200 163.435 Sodium Chloride 0.9% 180 ml @ 2 MCG/KG/MIN 9.996 mls/hr IV .Q20H1M [facility] Rx# :[id number] Piperacillin-Tazobactam 3 200 100 .375 gm In Sodium Chloride 0.9% 100 ml @ 25 mls/hr IVPB Q8HR [facility] Rx# :[id number] propofoL 1,000 mg In 200 300 100 Empty Bag 1 bag @ Titrate IV .Q0M [facility] Rx#: [id number] Tube Feeding 259 135 108 Other 60 30 30 Output: Urine 675 605 280 Other: Voiding Method Indwelling Catheter Indwelling Catheter # Bowel Movements 0 ABP, PAP, CO, CI - Last Documented Arterial Blood Pressure 129/59 - Exam GENERAL EXAM: 54-year-old and mechanical ventilation. Paralyzed and sedated. Still requiring high FiO2 and a relatively high PEEP. HEAD: Normocephalic/atraumatic. Endotracheal tube and orogastric tube are intact. EENT: PERRLA, EOMI, no icterus, moist mucous membranes, CHEST: No chest wall deformity. Symmetrical expansion. LUNGS: Fine crackles at the bases. CVS: Regular rate and rhythm, normal S1 and S2, no gallops, no murmurs, no rubs ABDOMEN: Soft, nontender. No hepatosplenomegaly, normal bowel sounds, no guarding or rigidity. EXTREMITIES: No clubbing, trace of bipedal edema, no cyanosis, 2+ pulses and upper and lower extremities. MUSCULOSKELETAL: Could not be assessed, patient is sedated and paralyzed. SKIN: No rashes CENTRAL NERVOUS SYSTEM: Could not be assessed, patient is sedated and paralyzed. PSYCHIATRIC: Unable to assess - Labs CBC & Chem 7: 12/24/19 04:50 12/24/19 04:50 Labs: Abnormal Lab Results - Last 24 Hours (Table) 12/24/19 12/24/19 12/24/19 Range/Units 00:27 04:50 04:50 RBC 3.77 L (3.80-5.40) m/uL Hgb 10.8 L (11.4-16.0) gm/dL Lymphocytes # 0.8 L (1.0-4.8) k/uL D-Dimer 2.86 H (<0.60) mg/L FEU ABG pH (7.35-7.45) ABG pO2 (83-108) mmHg ABG HCO3 (21-25) mmol/L ABG Total CO2 (19-24) mmol/L Carbon Dioxide (22-30) mmol/L Creatinine (0.52-1.04) mg/dL Glucose (74-99) mg/dL POC Glucose (mg/dL) 134 H (75-99) mg/dL Calcium (8.4-10.2) mg/dL Ferritin (10.0-291.0) ng/mL AST (14-36) U/L ALT (4-34) U/L Lactate Dehydrogenase (313-618) U/L Creatine Kinase (30-135) U/L C-Reactive Protein (<10.0) mg/L Total Protein (6.3-8.2) g/dL Albumin (3.5-5.0) g/dL 12/24/19 12/24/19 12/24/19 Range/Units 04:50 04:57 07:23 RBC (3.80-5.40) m/uL Hgb (11.4-16.0) gm/dL Lymphocytes # (1.0-4.8) k/uL D-Dimer (<0.60) mg/L FEU ABG pH 7.47 H (7.35-7.45) ABG pO2 68 L (83-108) mmHg ABG HCO3 33 H (21-25) mmol/L ABG Total CO2 34 H (19-24) mmol/L Carbon Dioxide 35 H (22-30) mmol/L Creatinine 0.49 L (0.52-1.04) mg/dL Glucose 137 H (74-99) mg/dL POC Glucose (mg/dL) 132 H (75-99) mg/dL Calcium 7.6 L (8.4-10.2) mg/dL Ferritin 682.1 H (10.0-291.0) ng/mL AST 65 H (14-36) U/L ALT 60 H (4-34) U/L Lactate Dehydrogenase 916 H (313-618) U/L Creatine Kinase <20 L (30-135) U/L C-Reactive Protein 121.7 H (<10.0) mg/L Total Protein 4.6 L (6.3-8.2) g/dL Albumin 2.0 L (3.5-5.0) g/dL Assessment and Plan Assessment: Impression: Acute hypoxic respiratory failure secondary to covid 19 pneumonitis. With ARDS Requiring intubation on 12/19/19 ARDS, requiring high FiO2 and high PEEP. PEEP was increased to 16. And FiO2 remained at 60% Acute Covid in 19 pneumonitis. Increased inflammatory markers related to above. History of obesity and previous lab band surgery. Patient finished full course of REMDESIVIR and finished convalescent plasma treatment. Recommendation: Continue ventilatory support. FiO2 is now at 55% PEEP is 16. Continue nutritional support. Continue enteral feeding. Seems to be fairly well tolerated. Continue Decadron. Continue GI and DVT prophylaxis. Continue PEEP at 16. Discontinue diuretics and increase IV fluid to 75 mL per hour. Continue antibiotics/Zosyn. Remains critically ill, critical care time is 34 minutes Prognosis remains poor and guarded. Time with Patient: Greater than 30
--- NOTE | 2019-12-24 15:26 | P.PN ---
Subjective Acute hypoxic respiratory failure secondary to covid 19 pneumonitis. Patient remains on ventilator support, patient did receive convalescent plasma along with Remdesevir. Patient remains on the Decadron patient remains on pressor support. Zosyn was added empirically by pulmonology. Patient remains on assist-control ventilation with the high before 15 FiO2 of 60%.failed weaning trials today. 12/23/2019 Patient remains on the ventilator still requiring PEEP of 16 FiO2 of 60%. Patient is mildly alkalotic. Probably need to go down on the it up respiratory rate. Patient is on tidal volume at 375. Patient is on very low-dose of norepinephrine today. 12/24/2019 Patient remains on mechanical ventilator patient has cold with 19 pneumonitis along with ARDS on high PEEP of 16 FiO2 of 55 and now. Patient's ABGs shows improvement in alkalosis. Patient is presently not requiring any pressors patient ontinues to be on propofol and Pneumovaxpatient remains on Decadron. review of systems: Unable to obtain due to her clinical condition. All inpatient medications were reviewed and appropriate changes in these medications as dictated in the interval history and assessment and plan. Objective - Vital Signs Vital signs: Vital Signs Temp 98.9 F 12/24/19 08:00 Pulse 53 L 12/24/19 14:00 Resp 28 H 12/24/19 14:00 BP 120/64 12/24/19 12:00 Pulse Ox 93 L 12/24/19 14:00 Intake & Output 12/23/19 12/24/19 12/24/19 18:59 06:59 18:59 Intake Total 1509 1665 1214.435 Output Total 675 605 880 Balance 834 1060 334.435 Weight 85.8 kg Intake: IV 790 900 675 Sodium Chloride 0.9% 1, 790 900 675 000 ml @ 75 mls/hr IV . [id number] [facility] Rx#:[id number] Intake, IV Titration 400 600 263.435 Amount Cisatracurium 200 mg In 200 163.435 Sodium Chloride 0.9% 180 ml @ 2 MCG/KG/MIN 9.996 mls/hr IV .Q20H1M [facility] Rx# :[id number] Piperacillin-Tazobactam 3 200 100 .375 gm In Sodium Chloride 0.9% 100 ml @ 25 mls/hr IVPB Q8HR [facility] Rx# :[id number] propofoL 1,000 mg In 200 300 100 Empty Bag 1 bag @ Titrate IV .Q0M [facility] Rx#: [id number] Tube Feeding 259 135 216 Other 60 30 60 Output: Urine 675 605 880 Other: Voiding Method Indwelling Catheter Indwelling Catheter Indwelling Catheter # Bowel Movements 0 ABP, PAP, CO, CI - Last Documented Arterial Blood Pressure 111/54 - Exam PHYSICAL EXAMINATION: GENERAL: patient is intubated sedated paralyzed HEENT: Pupils are round and equally reacting to light. EOMI. No scleral icterus. No conjunctival pallor. Normocephalic, atraumatic. No pharyngeal erythema. No thyromegaly. CARDIOVASCULAR: S1 and S2 present. No murmurs, rubs, or gallops. PULMONARY: Chest is clear to auscultation, no wheezing or crackles. ABDOMEN: Soft, nontender, nondistended, normoactive bowel sounds. No palpable organomegaly. MUSCULOSKELETAL: No joint swelling or deformity. EXTREMITIES: No cyanosis, clubbing, or pedal edema. NEUROLOGICAL: patient is sedated SKIN: No rashes. Note: Because of [place] [id number] isolation, some of the history and physical exam findings are indirect and obtained from nursing staff, and other physician examinations to avoid unnecessary contact with the patient. - Labs CBC & Chem 7: 12/24/19 04:50 12/24/19 04:50 Labs: Abnormal Lab Results - Last 24 Hours (Table) 12/24/19 12/24/19 12/24/19 Range/Units 00:27 04:50 04:50 RBC 3.77 L (3.80-5.40) m/uL Hgb 10.8 L (11.4-16.0) gm/dL Lymphocytes # 0.8 L (1.0-4.8) k/uL D-Dimer 2.86 H (<0.60) mg/L FEU ABG pH (7.35-7.45) ABG pO2 (83-108) mmHg ABG HCO3 (21-25) mmol/L ABG Total CO2 (19-24) mmol/L Carbon Dioxide (22-30) mmol/L Creatinine (0.52-1.04) mg/dL Glucose (74-99) mg/dL POC Glucose (mg/dL) 134 H (75-99) mg/dL Calcium (8.4-10.2) mg/dL Ferritin (10.0-291.0) ng/mL AST (14-36) U/L ALT (4-34) U/L Lactate Dehydrogenase (313-618) U/L Creatine Kinase (30-135) U/L C-Reactive Protein (<10.0) mg/L Total Protein (6.3-8.2) g/dL Albumin (3.5-5.0) g/dL 12/24/19 12/24/19 12/24/19 Range/Units 04:50 04:57 07:23 RBC (3.80-5.40) m/uL Hgb (11.4-16.0) gm/dL Lymphocytes # (1.0-4.8) k/uL D-Dimer (<0.60) mg/L FEU ABG pH 7.47 H (7.35-7.45) ABG pO2 68 L (83-108) mmHg ABG HCO3 33 H (21-25) mmol/L ABG Total CO2 34 H (19-24) mmol/L Carbon Dioxide 35 H (22-30) mmol/L Creatinine 0.49 L (0.52-1.04) mg/dL Glucose 137 H (74-99) mg/dL POC Glucose (mg/dL) 132 H (75-99) mg/dL Calcium 7.6 L (8.4-10.2) mg/dL Ferritin 682.1 H (10.0-291.0) ng/mL AST 65 H (14-36) U/L ALT 60 H (4-34) U/L Lactate Dehydrogenase 916 H (313-618) U/L Creatine Kinase <20 L (30-135) U/L C-Reactive Protein 121.7 H (<10.0) mg/L Total Protein 4.6 L (6.3-8.2) g/dL Albumin 2.0 L (3.5-5.0) g/dL Assessment and Plan Plan: COVID-19 virus pneumoniano significant improvement in her respiratory status the patient remains on mechanical ventilator. Acute hypoxic respiratory failure secondary to pneumonia. Requiring high flow oxygen --> Currently requiring mechanical ventilation. Nausea vomiting, generalized weakness and cough shortness of breath secondary to pneumonia. Hypertension Hyperlipidemia DVT prophylaxis with Lovenox. Plan: Patient is on mechanical ventilator. on dexamethasone 6 mg daily and Lovenox 80 mg subcu daily. completed remdesivir course. Continue with droplet and contact precautions.Pulmonary is following. Prognosis is guarded at this time.
[2019-12-24] MEDS: NOREPINEPHRINE 32 MG in SODIUM CHLORIDE 0.9% 218 ML IV SCH (18:59)
[2019-12-24] MEDS: MELATONIN 5 MG TABLET PO SCH (19:50)
[2019-12-24] MEDS: PRAVASTATIN SODIUM 40 MG TAB PO SCH (19:50)
[2019-12-24] MEDS: SODIUM CHLORIDE 0.9% 1,000 ML IV SCH (21:59)
[2019-12-25 00:37] LABS: Glucose,Whole Blood 123 mg/dL (75-99)
[2019-12-25] MEDS: HYDROmorphone 0.5 MG/0.5 ML SYRINGE IVP SCH ×12 (02:01→23:40)
[2019-12-25 04:10] LABS: Basophils # (A) 0.1 k/uL (0-0.2); Basophils % (A) 1 %; Eosinophils # (A) 0.1 k/uL (0-0.7); Eosinophils % (A) 1 %; HCT 33.1 % (34.0-46.0); HGB 10.7 gm/dL (11.4-16.0); Lymphocytes # (A) 0.9 k/uL (1.0-4.8); Lymphocytes % (A) 16 %; MCH 28.4 pg (25.0-35.0); MCHC 32.2 g/dL (31.0-37.0); MCV 88.2 fL (80.0-100.0); Mean Platelet Volume 8.2; Monocytes # (A) 0.3 k/uL (0-1.0); Monocytes % (A) 5 %; Neutrophils # (A) 4.6 k/uL (1.3-7.7); Neutrophils % (A) 77 %; Platelet Count 207 k/uL (150-450); RBC 3.75 m/uL (3.80-5.40); RDW 14.6 % (11.5-15.5)
[2019-12-25 04:25] LABS: ALT 70 U/L (4-34); AST 65 U/L (14-36); African American GFR (CKD) >90 (>60 ml/min/1.73 sqM); Albumin 2.1 g/dL (3.5-5.0); Alkaline Phosphatase 81 U/L (38-126); Anion Gap 0 mmol/L; Blood Urea Nitrogen 14 mg/dL (7-17); Calcium 7.7 mg/dL (8.4-10.2); Carbon Dioxide 32 mmol/L (22-30); Chloride 106 mmol/L (98-107); Glucose 128 mg/dL (74-99); Non-African American GFR(CKD) >90 (>60 ml/min/1.73 sqM); Potassium 3.9 mmol/L (3.5-5.1); Sodium 138 mmol/L (137-145); Total Bilirubin 0.5 mg/dL (0.2-1.3); Total Protein 4.8 g/dL (6.3-8.2)
[2019-12-25] MEDS ORDERED: POTASSIUM BICARBONATE/CIT AC 20 MEQ TABLET.EFF NG-TUBE SCH (05:00)
[2019-12-25] MEDS: CISATRACURIUM 200 MG in SODIUM CHLORIDE 0.9% 180 ML IV SCH ×2 (05:09→18:30)
[2019-12-25 05:20] LABS: ABG Base Excess 8.1 mmol/L; ABG HCO3 32 mmol/L (21-25); ABG Oxygen Saturation 94.4 % (94-97); ABG PCO2 45 mmHg (35-45); ABG PH 7.46 (7.35-7.45); ABG PO2 70 mmHg (83-108); ABG TCO2 33 mmol/L (19-24); Allen Test Performed? Yes
--- NOTE | 2019-12-25 07:31 | XR ---
EXAMINATION TYPE: XR chest 1V portable DATE OF EXAM: 12/25/2019 COMPARISON: 12/24/2019 HISTORY: SOB, Follow Up FINDINGS: Indwelling tubes and catheters are unchanged. Patchy perihilar and basilar infiltrates with small effusions persist essentially unchanged. Stable appearance of the cardio-mediastinal structures at this time. Pleural effusion unchanged. IMPRESSION: 1. Stable portable chest. Clinical correlation and follow up until resolution is recommended.
[2019-12-25] MEDS: dexAMETHasone 2 MG TAB PO SCH (08:22)
[2019-12-25] MEDS: ZINC SULFATE 220 MG CAP PO SCH (08:22)
[2019-12-25] MEDS: ENOXAPARIN 80 MG/0.8 ML SYRINGE SQ SCH ×2 (08:22→20:55)
[2019-12-25] MEDS: ASCORBIC ACID 500 MG TAB PO SCH (08:31)
[2019-12-25] MEDS: CHLORHEXIDINE GLUCONATE 15 ML CUP MUCOUS MEM SCH ×2 (08:31→19:58)
[2019-12-25] MEDS: PIPERACILLIN-TAZOBACTAM 3.375 GM in SODIUM CHLORIDE 0.9% 100 ML IVPB SCH ×3 (08:32→23:40)
[2019-12-25] MEDS: FAMOTIDINE 20 MG/2 ML VIAL IV SCH ×2 (09:19→19:57)
[2019-12-25] MEDS: DOCUSATE ORAL SOLN 100 MG/10 ML CUP PO PRN ×2 (10:13→21:51)
--- NOTE | 2019-12-25 10:31 | P.PN ---
Subjective Progress Note Date: 12/25/19 Principal diagnosis: Shortness of breath, Covid 19 pneumonia 54-year-old white female patient with past medical history of hypertension, nonsmoker, previous history of lab band surgery for morbid obesity who presented to the hospital on 12/14/2019 with complaints of nausea, vomiting, weakness. Patient was tested for Covid 19 7 days ago last Wednesday, and received positive results 5 days ago on Wednesday. Patient has a daughter who was hospitalized with COVID 19 related pneumonia, and that daughter was discharged home after treatment, her other daughter is also currently hospitalized with Covid 19. Her was also positive for Covid 19 infection. Patient has not been able to keep anything down related to nausea and vomiting. Chest x-ray showed diffuse airspace opacities of bilateral lungs related to Covid 19 viral infection. Patient had positive lymphopenia, with lymphocyte count of 0.5, d-dimer was 1.22, initial BMP was unremarkable, lactic acid was 0.9, ferritin level was elevated at 382, LDH of 704, CRP was significantly elevated at 73.9, pro calcitonin is 0.12, C. diff was negative. Patient is currently on 10 L of oxygen her pulse ox is 91%, she is a very short of breath with any activity. Occasional cough, nonproductive, she was started on oral Decadron, prophylactic dose of Lovenox, and we will start the patient on Remdesivir On 12/25/2019 patient seen in follow-up in the intensive care unit, she remains intubated, sedated and paralyzed, current vent settings are assist control mode of ventilation with a rate of 20, tidal vital 375, FiO2 60% and PEEP of 16, this morning blood gases showed pO2 of 70, pCO2 45, and pH is 7.46. Her IV drips include 0.9 normal saline at a rate 75 ML per hour, Diprivan at 50 mics per kilo per minute, Nimbex at 3 mics per kilo per minute, and patient has not been on any vasoactive drips. Vital high protein for tube feeding at 27 with a goal of 27 standard water flushes. Today's chest x-ray has been reviewed, showing stable she perihilar basilar infiltrates with small effusions. Patient has been afebrile, hemodynamically patient has been stable. She is status post convelescent plasma infusion back on 2019, and patient has completed Remdesivir. Patient remains on Lovenox 80 mg subcu twice daily, she is on IV Pepcid, she remains on oral Decadron 6 mg daily, today's lab work has been reviewed, no LDH and CRP today, on yesterday's labs LDH was stable from the day before, but overall decreasing over the last few days, CRP remains elevated at 121.7, but overall decreased from its peak at 267.4. Microalbumin reviewed, blood and sputum cultures have been negative to date, she remains on Zosyn for empiric antibiotic coverage. Objective - Vital Signs Vital signs: Vital Signs Temp 98.6 F 12/25/19 08:00 Pulse 55 L 12/25/19 09:00 Resp 28 H 12/25/19 09:00 BP 137/67 12/25/19 08:00 Pulse Ox 92 L 12/25/19 09:00 Intake & Output 12/24/19 12/25/19 12/25/19 18:59 06:59 18:59 Intake Total 8490.901 7821.718 336 Output Total 1355 960 345 Balance 292.389 881.718 -9 Weight 95.2 kg Intake: IV 900 900 225 Sodium Chloride 0.9% 1, 900 900 225 000 ml @ 75 mls/hr IV . [id number] [facility] Rx#:[id number] Intake, IV Titration 360.389 527.718 Amount Cisatracurium 200 mg In 163.435 328.619 Sodium Chloride 0.9% 180 ml @ 2 MCG/KG/MIN 9.996 mls/hr IV .Q20H1M [facility] Rx# :[id number] propofoL 1,000 mg In 196.954 199.099 Empty Bag 1 bag @ Titrate IV .Q0M [facility] Rx#: [id number] Tube Feeding 297 324 81 Other 90 90 30 Output: Urine 1355 960 345 Other: Voiding Method Indwelling Catheter Indwelling Catheter ABP, PAP, CO, CI - Last Documented Arterial Blood Pressure 126/59 - Exam GENERAL EXAM: Today to, sedated 54-year-old white female, paralyzed, intubated and sedated on mechanical ventilator with FiO2 of 50% and PEEP of 16 comfortable in no apparent distress. HEAD: Normocephalic/atraumatic. EYES: Normal reaction of pupils, equal size. Conjunctiva pink, sclera white. NOSE: Clear with pink turbinates. THROAT: No erythema or exudates. NECK: No masses, no JVD, no thyroid enlargement, no adenopathy. CHEST: No chest wall deformity. Symmetrical expansion. LUNGS: Equal air entry with no crackles, wheeze, rhonchi or dullness. CVS: Regular rate and rhythm, normal S1 and S2, no gallops, no murmurs, no rubs ABDOMEN: Soft, nontender. No hepatosplenomegaly, normal bowel sounds, no guarding or rigidity. EXTREMITIES: No clubbing, no edema, no cyanosis, 2+ pulses and upper and lower extremities. MUSCULOSKELETAL: Muscle strength and tone normal. SPINE: No scoliosis or deformity SKIN: No rashes CENTRAL NERVOUS SYSTEM: Sedated, intubated. No focal deficits, tone is normal in all 4 extremities. - Labs CBC & Chem 7: 12/25/19 04:00 12/25/19 04:00 Labs: Abnormal Lab Results - Last 24 Hours (Table) 12/25/19 12/25/19 12/25/19 Range/Units 00:35 04:00 04:00 RBC 3.75 L (3.80-5.40) m/uL Hgb 10.7 L (11.4-16.0) gm/dL Hct 33.1 L (34.0-46.0) % Lymphocytes # 0.9 L (1.0-4.8) k/uL ABG pH (7.35-7.45) ABG pO2 (83-108) mmHg ABG HCO3 (21-25) mmol/L ABG Total CO2 (19-24) mmol/L Carbon Dioxide 32 H (22-30) mmol/L Creatinine 0.45 L (0.52-1.04) mg/dL Glucose 128 H (74-99) mg/dL POC Glucose (mg/dL) 123 H (75-99) mg/dL Calcium 7.7 L (8.4-10.2) mg/dL AST 65 H (14-36) U/L ALT 70 H (4-34) U/L Total Protein 4.8 L (6.3-8.2) g/dL Albumin 2.1 L (3.5-5.0) g/dL 12/25/19 Range/Units 05:16 RBC (3.80-5.40) m/uL Hgb (11.4-16.0) gm/dL Hct (34.0-46.0) % Lymphocytes # (1.0-4.8) k/uL ABG pH 7.46 H (7.35-7.45) ABG pO2 70 L (83-108) mmHg ABG HCO3 32 H (21-25) mmol/L ABG Total CO2 33 H (19-24) mmol/L Carbon Dioxide (22-30) mmol/L Creatinine (0.52-1.04) mg/dL Glucose (74-99) mg/dL POC Glucose (mg/dL) (75-99) mg/dL Calcium (8.4-10.2) mg/dL AST (14-36) U/L ALT (4-34) U/L Total Protein (6.3-8.2) g/dL Albumin (3.5-5.0) g/dL Assessment and Plan Plan: Assessment: #1. Acute hypoxemic respiratory failure related to Covid 19 related pneumonia and COVID 19 related ARDS, patient has been intubated since 12/19/2019, and today on 12/25/2019 remains intubated, requiring 50% FiO2 and PEEP of 16. She has completed a course of Remdesivir, and received Convalescent plasma #2. Weakness, nausea, vomiting, and family members infected with Covid 19 #3. Increased inflammatory markers related to the above #4. Hypertension #5. Hyperlipidemia #6. Morbid obesity with history of previous lap band surgery Plan: Continue with current vent settings, pO2 still marginal. Not ready for any weaning yet, vital signs have been stable, patient has been afebrile, inflammatory markers overall are decreasing, patient has completed her Remdesi vir, she has received COVID 19 immunoglobulin infusion, continue supportive treatment, continue paralytics and sedatives, tube feedings, and today with empiric antibiotics, will prognosis is extremely guarded. We'll continue to follow inflammatory markers, blood gases and chest x-rays. I performed a history & physical examination of the patient and discussed their management with my nurse practitioner, Andreia Lau. I reviewed the nurse practitioner's note and agree with the documented findings and plan of care. Lung sounds are positive for diminished breath sounds. The findings and the impression was discussed with the patient. I attest to the documentation by the nurse practitioner. Time with Patient: Greater than 30
[2019-12-25] MEDS ORDERED: CISATRACURIUM 2 MG/ML 5 ML VIAL IV ONE ×2 (11:01→11:03)
[2019-12-25] MEDS ORDERED: IPRATROPIUM-ALBUTEROL 3 ML NEB ONE (11:02)
--- NOTE | 2019-12-25 11:21 | XR ---
EXAMINATION TYPE: XR chest 1V portable DATE OF EXAM: 12/25/2019 COMPARISON: 12/25/2019 HISTORY: SOB, Follow Up FINDINGS: Indwelling tubes and catheters are unchanged. Diffuse bilateral infiltrates and small pleural effusions persist. No significant interval change. Stable appearance of the cardio-mediastinal structures at this time. IMPRESSION: 1. Stable portable chest. Clinical correlation and follow up until resolution is recommended.
[2019-12-25] MEDS: SODIUM CHLORIDE 0.9% 1,000 ML IV SCH ×2 (13:06→23:40)
[2019-12-25] MEDS ORDERED: ALBUTEROL HFA INHALER INHALATION PRN (14:01)
[2019-12-25 15:13] LABS: C Reactive Protein 80.1 mg/L (<10.0)
[2019-12-25] MEDS: ALBUTEROL HFA INHALER INHALATION SCH ×2 (15:29→19:01)
--- NOTE | 2019-12-25 17:03 | P.PN ---
Subjective Acute hypoxic respiratory failure secondary to covid 19 pneumonitis. Patient remains on ventilator support, patient did receive convalescent plasma along with Remdesevir. Patient remains on the Decadron patient remains on pressor support. Zosyn was added empirically by pulmonology. Patient remains on assist-control ventilation with the high before 15 FiO2 of 60%.failed weaning trials today. 12/23/2019 Patient remains on the ventilator still requiring PEEP of 16 FiO2 of 60%. Patient is mildly alkalotic. Probably need to go down on the it up respiratory rate. Patient is on tidal volume at 375. Patient is on very low-dose of norepinephrine today. 12/24/2019 Patient remains on mechanical ventilator patient has cold with 19 pneumonitis along with ARDS on high PEEP of 16 FiO2 of 55 and now. Patient's ABGs shows improvement in alkalosis. Patient is presently not requiring any pressors patient ontinues to be on propofol and Nimbex remains on Decadron. 12/25/2019 Patient can use to require high be because of ARDS associated with Covid. Patient can use to be on propofol and Nimbex. Off pressor support receiving normal saline. Completed course of Remdesivir. review of systems: Unable to obtain due to her clinical condition. All inpatient medications were reviewed and appropriate changes in these medications as dictated in the interval history and assessment and plan. Objective - Vital Signs Vital signs: Vital Signs Temp 98.6 F 12/25/19 08:00 Pulse 62 12/25/19 15:00 Resp 28 H 12/25/19 15:00 BP 137/67 12/25/19 08:00 Pulse Ox 93 L 12/25/19 15:00 Intake & Output 12/24/19 12/25/19 12/25/19 18:59 06:59 18:59 Intake Total 1168.523 3511.718 1271.911 Output Total 1498 347 9837 Balance 292.389 881.718 -573.089 Weight 95.2 kg Intake: IV 900 900 750 Sodium Chloride 0.9% 1, 900 900 750 000 ml @ 75 mls/hr IV . [id number] [facility] Rx#:[id number] Intake, IV Titration 360.389 527.718 161.911 Amount Cisatracurium 200 mg In 163.435 328.619 91.463 Sodium Chloride 0.9% 180 ml @ 2 MCG/KG/MIN 9.996 mls/hr IV .Q20H1M [facility] Rx# :[id number] propofoL 1,000 mg In 196.954 199.099 Empty Bag 1 bag @ Titrate IV .Q0M [facility] Rx#: [id number] propofoL 500 mg In Empty 70.448 Bag 1 bag @ Titrate IV . Q0M [facility] Rx#:[id number] Tube Feeding 297 324 270 Other 90 90 90 Output: Urine 1271 374 9152 Other: Voiding Method Indwelling Catheter Indwelling Catheter Indwelling Catheter ABP, PAP, CO, CI - Last Documented Arterial Blood Pressure 151/71 - Exam PHYSICAL EXAMINATION: GENERAL: patient is intubated sedated paralyzed HEENT: Pupils are round and equally reacting to light. EOMI. No scleral icterus. No conjunctival pallor. Normocephalic, atraumatic. No pharyngeal erythema. No thyromegaly. CARDIOVASCULAR: S1 and S2 present. No murmurs, rubs, or gallops. PULMONARY: Chest is clear to auscultation, no wheezing or crackles. ABDOMEN: Soft, nontender, nondistended, normoactive bowel sounds. No palpable organomegaly. MUSCULOSKELETAL: No joint swelling or deformity. EXTREMITIES: No cyanosis, clubbing, or pedal edema. NEUROLOGICAL: patient is sedated SKIN: No rashes. Note: Because of [place] [id number] isolation, some of the history and physical exam find ings are indirect and obtained from nursing staff, and other physician examinations to avoid unnecessary contact with the patient. - Labs CBC & Chem 7: 12/25/19 04:00 12/25/19 04:00 Labs: Abnormal Lab Results - Last 24 Hours (Table) 12/25/19 12/25/19 12/25/19 Range/Units 00:35 04:00 04:00 RBC 3.75 L (3.80-5.40) m/uL Hgb 10.7 L (11.4-16.0) gm/dL Hct 33.1 L (34.0-46.0) % Lymphocytes # 0.9 L (1.0-4.8) k/uL ABG pH (7.35-7.45) ABG pO2 (83-108) mmHg ABG HCO3 (21-25) mmol/L ABG Total CO2 (19-24) mmol/L Carbon Dioxide 32 H (22-30) mmol/L Creatinine 0.45 L (0.52-1.04) mg/dL Glucose 128 H (74-99) mg/dL POC Glucose (mg/dL) 123 H (75-99) mg/dL Calcium 7.7 L (8.4-10.2) mg/dL AST 65 H (14-36) U/L ALT 70 H (4-34) U/L Lactate Dehydrogenase (313-618) U/L Creatine Kinase (30-135) U/L C-Reactive Protein (<10.0) mg/L Total Protein 4.8 L (6.3-8.2) g/dL Albumin 2.1 L (3.5-5.0) g/dL 12/25/19 12/25/19 Range/Units 04:00 05:16 RBC (3.80-5.40) m/uL Hgb (11.4-16.0) gm/dL Hct (34.0-46.0) % Lymphocytes # (1.0-4.8) k/uL ABG pH 7.46 H (7.35-7.45) ABG pO2 70 L (83-108) mmHg ABG HCO3 32 H (21-25) mmol/L ABG Total CO2 33 H (19-24) mmol/L Carbon Dioxide (22-30) mmol/L Creatinine (0.52-1.04) mg/dL Glucose (74-99) mg/dL POC Glucose (mg/dL) (75-99) mg/dL Calcium (8.4-10.2) mg/dL AST (14-36) U/L ALT (4-34) U/L Lactate Dehydrogenase 857 H (313-618) U/L Creatine Kinase 21 L (30-135) U/L C-Reactive Protein 80.1 H (<10.0) mg/L Total Protein (6.3-8.2) g/dL Albumin (3.5-5.0) g/dL Assessment and Plan Plan: COVID-19 virus pneumoniano significant improvement in her respiratory status the patient remains on mechanical ventilator. Acute hypoxic respiratory failure secondary to pneumonia. Requiring high flow oxygen --> Currently requiring mechanical ventilation. Nausea vomiting, generalized weakness and cough shortness of breath secondary to pneumonia. Hypertension Hyperlipidemia DVT prophylaxis with Lovenox. Plan: Patient is on mechanical ventilator. on dexamethasone 6 mg daily and Lovenox 80 mg subcu daily. completed remdesivir course. Continue with droplet and contact precautions.Pulmonary is following. Prognosis is guarded at this time.
[2019-12-25] MEDS: NOREPINEPHRINE 32 MG in SODIUM CHLORIDE 0.9% 218 ML IV SCH (18:03)
[2019-12-25] MEDS: MELATONIN 5 MG TABLET PO SCH (19:58)
[2019-12-25] MEDS: PRAVASTATIN SODIUM 40 MG TAB PO SCH (20:04)
[2019-12-25 23:48] LABS: Glucose,Whole Blood 86 mg/dL (75-99)
[2019-12-26] MEDS: ALBUTEROL HFA INHALER INHALATION SCH ×6 (00:57→20:34)
[2019-12-26] MEDS: HYDROmorphone 0.5 MG/0.5 ML SYRINGE IVP SCH ×11 (02:28→22:04)
[2019-12-26 03:58] LABS: Basophils # (A) 0.1 k/uL (0-0.2); Basophils % (A) 1 %; Eosinophils # (A) 0.1 k/uL (0-0.7); Eosinophils % (A) 1 %; HCT 31.3 % (34.0-46.0); HGB 10.3 gm/dL (11.4-16.0); Lymphocytes % (A) 13 %; MCH 29.3 pg (25.0-35.0); MCV 88.6 fL (80.0-100.0); Mean Platelet Volume 8.6; Monocytes # (A) 0.3 k/uL (0-1.0); Monocytes % (A) 5 %; Neutrophils # (A) 5.8 k/uL (1.3-7.7); Neutrophils % (A) 80 %; Platelet Count 220 k/uL (150-450); RBC 3.53 m/uL (3.80-5.40); RDW 14.7 % (11.5-15.5); WBC 7.3 k/uL (3.8-10.6)
[2019-12-26 04:07] LABS: Potassium 3.9 mmol/L (3.5-5.1)
[2019-12-26 04:08] LABS: ALT 65 U/L (4-34); AST 51 U/L (14-36); African American GFR (CKD) >90 (>60 ml/min/1.73 sqM); Albumin 2.1 g/dL (3.5-5.0); Alkaline Phosphatase 79 U/L (38-126); Anion Gap 2 mmol/L; Blood Urea Nitrogen 11 mg/dL (7-17); Calcium 7.9 mg/dL (8.4-10.2); Carbon Dioxide 31 mmol/L (22-30); Chloride 105 mmol/L (98-107); Glucose 89 mg/dL (74-99); Non-African American GFR(CKD) >90 (>60 ml/min/1.73 sqM); Sodium 138 mmol/L (137-145); Total Bilirubin 0.6 mg/dL (0.2-1.3); Total Protein 4.7 g/dL (6.3-8.2)
[2019-12-26] MEDS: CISATRACURIUM 200 MG in SODIUM CHLORIDE 0.9% 180 ML IV SCH (04:48)
[2019-12-26] MEDS ORDERED: POTASSIUM BICARBONATE/CIT AC 20 MEQ TABLET.EFF NG-TUBE SCH (05:00)
[2019-12-26 05:18] LABS: ABG Base Excess 7.2 mmol/L; ABG HCO3 31 mmol/L (21-25); ABG Oxygen Saturation 93.7 % (94-97); ABG PCO2 46 mmHg (35-45); ABG PH 7.44 (7.35-7.45); ABG PO2 69 mmHg (83-108); ABG TCO2 33 mmol/L (19-24); Allen Test Performed? Yes
[2019-12-26 06:06] LABS: Glucose,Whole Blood 85 mg/dL (75-99)
--- NOTE | 2019-12-26 06:58 | XR ---
EXAMINATION TYPE: XR chest 1V portable DATE OF EXAM: 12/26/2019 COMPARISON: 12/25/2019 HISTORY: SOB, Follow Up FINDINGS: Indwelling tubes and catheters are unchanged. Right IJ central venous line with its distal tip within the right atrium. Diffuse airspace infiltrates persist throughout both lung mauricio with interval progression suggested at the right lung base. Stable appearance of the cardio-mediastinal structures at this time. Pleural effusion unchanged. IMPRESSION: 1. Diffuse airspace infiltrates persist throughout both lung mauricio with interval progression sugges clarita at the right lung base.Clinical correlation and follow up until resolution is recommended.
[2019-12-26] MEDS: ARTIFICIAL TEARS-HYPROMELLOSE DROPS 15 ML BTL BOTH EYES SCH ×4 (08:51→20:29)
[2019-12-26] MEDS: CHLORHEXIDINE GLUCONATE 15 ML CUP MUCOUS MEM SCH ×2 (08:52→20:28)
[2019-12-26] MEDS: ASCORBIC ACID 500 MG TAB PO SCH (08:52)
[2019-12-26] MEDS: FAMOTIDINE 20 MG/2 ML VIAL IV SCH ×2 (08:52→20:28)
[2019-12-26] MEDS: PIPERACILLIN-TAZOBACTAM 3.375 GM in SODIUM CHLORIDE 0.9% 100 ML IVPB SCH ×2 (08:52→16:52)
[2019-12-26] MEDS: ZINC SULFATE 220 MG CAP PO SCH (08:53)
[2019-12-26] MEDS: ENOXAPARIN 80 MG/0.8 ML SYRINGE SQ SCH ×2 (08:53→20:28)
[2019-12-26] MEDS: dexAMETHasone 2 MG TAB PO SCH (08:53)
[2019-12-26 10:50] LABS: Ferritin 458.1 ng/mL (10.0-291.0)
--- NOTE | 2019-12-26 10:51 | P.PN ---
Subjective Progress Note Date: 12/26/19 Principal diagnosis: Shortness of breath, Covid 19 pneumonia 54-year-old white female patient with past medical history of hypertension, nonsmoker, previous history of lab band surgery for morbid obesity who presented to the hospital on 12/14/2019 with complaints of nausea, vomiting, weakness. Patient was tested for Covid 19 7 days ago last Wednesday, and received positive results 5 days ago on Wednesday. Patient has a daughter who was hospitalized with COVID 19 related pneumonia, and that daughter was discharged home after treatment, her other daughter is also currently hospitalized with Covid 19. Her was also positive for Covid 19 infection. Patient has not been able to keep anything down related to nausea and vomiting. Chest x-ray showed diffuse airspace opacities of bilateral lungs related to Covid 19 viral infection. Patient had positive lymphopenia, with lymphocyte count of 0.5, d-dimer was 1.22, initial BMP was unremarkable, lactic acid was 0.9, ferritin level was elevated at 382, LDH of 704, CRP was significantly elevated at 73.9, pro calcitonin is 0.12, C. diff was negative. Patient is currently on 10 L of oxygen her pulse ox is 91%, she is a very short of breath with any activity. Occasional cough, nonproductive, she was started on oral Decadron, prophylactic dose of Lovenox, and we will start the patient on Remdesivir On 12/25/2019 patient seen in follow-up in the intensive care unit, she remains intubated, sedated and paralyzed, current vent settings are assist control mode of ventilation with a rate of 20, tidal vital 375, FiO2 60% and PEEP of 16, this morning blood gases showed pO2 of 70, pCO2 45, and pH is 7.46. Her IV drips include 0.9 normal saline at a rate 75 ML per hour, Diprivan at 50 mics per kilo per minute, Nimbex at 3 mics per kilo per minute, and patient has not been on any vasoactive drips. Vital high protein for tube feeding at 27 with a goal of 27 standard water flushes. Today's chest x-ray has been reviewed, showing stable she perihilar basilar infiltrates with small effusions. Patient has been afebrile, hemodynamically patient has been stable. She is status post convelescent plasma infusion back on 2019, and patient has completed Remdesivir. Patient remains on Lovenox 80 mg subcu twice daily, she is on IV Pepcid, she remains on oral Decadron 6 mg daily, today's lab work has been reviewed, no LDH and CRP today, on yesterday's labs LDH was stable from the day before, but overall decreasing over the last few days, CRP remains elevated at 121.7, but overall decreased from its peak at 267.4. Microalbumin reviewed, blood and sputum cultures have been negative to date, she remains on Zosyn for empiric antibiotic coverage. On 12/26/2019 patient seen in follow-up in the intensive care unit, remains sedated, and paralyzed, on mechanical ventilator, current vent settings are ass ist-control mode of ventilation with a rate of 28, tidal volume of 375, FiO2 50% and PEEP of 16, this morning blood gases revealed pO2 of 69, pCO2 of 46 and pH of 7.44. O2 saturation at 95-96%, and have been stable in the last 24 hours. Patient is afebrile, she is not on any vasopressors, she is on 0.9 normal saline at a rate of 75, Diprivan at 50 mics per kilo per minute, Nimbex at 2 mics per k ilo per minute, she is tolerating tube feedings, vital high protein was 27 with a goal of 27. She is making good urine, in the order of 45-150 ML per hour. She is on Zosyn for empiric antibiotic coverage, patient has been afebrile whole entire hospital stay. Blood and sputum culture have shown no growth. Today's labs have been reviewed, showing white blood cell count of 7.3, hemoglobin of 10.3, sodium of 138, potassium 3.9, chloride is 105, CO2 31, BUN is 11 creatinine 0.42, AST and ultimately mildly elevated at 51 and 65 respectively, alkaline phosphatase within normal limits. Yesterday patient had a episode of acute elevation of peak airway pressures up to 52, and plateau pressure of 34 after repositioning, Chest x-ray showed no evidence of pneumothorax, did show stable basilar infiltrate with small effusions. As we were getting ready to do an emergency bronchoscopy for evaluation for presence of mucus plugging, patient's peak pressures and plateau pressures have improved as the head of the bed was lowered. Bronchoscopy was canceled. Objective - Vital Signs Vital signs: Vital Signs Temp 97.8 F 12/26/19 08:00 Pulse 68 12/26/19 09:00 Resp 28 H 12/26/19 09:00 BP 129/80 12/26/19 09:00 Pulse Ox 95 12/26/19 09:00 Intake & Output 12/25/19 12/26/19 12/26/19 18:59 06:59 18:59 Intake Total 3644.092 6411.149 333 Output Total 2620 1145 300 Balance -1098.896 96.149 33 Weight 91.8 kg Intake: IV 975 825 225 Sodium Chloride 0.9% 1, 975 825 225 000 ml @ 75 mls/hr IV . [id number] [facility] Rx#:[id number] Intake, IV Titration 297.104 272.149 Amount Cisatracurium 200 mg In 200.000 160.269 Sodium Chloride 0.9% 180 ml @ 2 MCG/KG/MIN 9.996 mls/hr IV .Q20H1M [facility] Rx# :[id number] propofoL 1,000 mg In 61.88 Empty Bag 1 bag @ Titrate IV .Q0M [facility] Rx#: [id number] propofoL 500 mg In Empty 97.104 50 Bag 1 bag @ Titrate IV . Q0M [facility] Rx#:[id number] Tube Feeding 189 54 108 Other 60 90 Output: Urine 2620 1145 300 Other: Voiding Method Indwelling Catheter Indwelling Catheter Indwelling Catheter # Voids 75 ABP, PAP, CO, CI - Last Documented Arterial Blood Pressure 170/75 - Exam GENERAL EXAM: Today to, sedated 54-year-old white female, paralyzed, intubated and sedated on mechanical ventilator with FiO2 of 50% and PEEP of 16 comfortable in no apparent distress. HEAD: Normocephalic/atraumatic. EYES: Normal reaction of pupils, equal size. Conjunctiva pink, sclera white. NOSE: Clear with pink turbinates. THROAT: No erythema or exudates. NECK: No masses, no JVD, no thyroid enlargement, no adenopathy. CHEST: No chest wall deformity. Symmetrical expansion. LUNGS: Equal air entry with no crackles, wheeze, rhonchi or dullness. CVS: Regular rate and rhythm, normal S1 and S2, no gallops, no murmurs, no rubs ABDOMEN: Soft, nontender. No hepatosplenomegaly, normal bowel sounds, no guarding or rigidity. EXTREMITIES: No clubbing, no edema, no cyanosis, 2+ pulses and upper and lower extremities. MUSCULOSKELETAL: Muscle strength and tone normal. SPINE: No scoliosis or deformity SKIN: No rashes CENTRAL NERVOUS SYSTEM: Sedated, intubated. No focal deficits, tone is normal in all 4 extremities. - Labs CBC & Chem 7: 12/26/19 03:40 12/26/19 03:40 Labs: Abnormal Lab Results - Last 24 Hours (Table) 12/25/19 12/26/19 12/26/19 Range/Units 04:00 03:40 03:40 RBC 3.53 L (3.80-5.40) m/uL Hgb 10.3 L (11.4-16.0) gm/dL Hct 31.3 L (34.0-46.0) % D-Dimer 2.39 H (<0.60) mg/L FEU ABG pCO2 (35-45) mmHg ABG pO2 (83-108) mmHg ABG HCO3 (21-25) mmol/L ABG Total CO2 (19-24) mmol/L ABG O2 Saturation (94-97) % Carbon Dioxide (22-30) mmol/L Creatinine (0.52-1.04) mg/dL Calcium (8.4-10.2) mg/dL AST (14-36) U/L ALT (4-34) U/L Lactate Dehydrogenase 857 H (313-618) U/L Creatine Kinase 21 L (30-135) U/L C-Reactive Protein 80.1 H (<10.0) mg/L Total Protein (6.3-8.2) g/dL Albumin (3.5-5.0) g/dL 12/26/19 12/26/19 Range/Units 03:40 05:15 RBC (3.80-5.40) m/uL Hgb (11.4-16.0) gm/dL Hct (34.0-46.0) % D-Dimer (<0.60) mg/L FEU ABG pCO2 46 H (35-45) mmHg ABG pO2 69 L (83-108) mmHg ABG HCO3 31 H (21-25) mmol/L ABG Total CO2 33 H (19-24) mmol/L ABG O2 Saturation 93.7 L (94-97) % Carbon Dioxide 31 H (22-30) mmol/L Creatinine 0.42 L (0.52-1.04) mg/dL Calcium 7.9 L (8.4-10.2) mg/dL AST 51 H (14-36) U/L ALT 65 H (4-34) U/L Lactate Dehydrogenase (313-618) U/L Creatine Kinase (30-135) U/L C-Reactive Protein (<10.0) mg/L Total Protein 4.7 L (6.3-8.2) g/dL Albumin 2.1 L (3.5-5.0) g/dL Assessment and Plan Plan: Assessment: #1. Acute hypoxemic respiratory failure related to Covid 19 related pneumonia and COVID 19 related ARDS, patient has been intubated since 12/19/2019, and today on 12/25/2019 remains intubated, requiring 50% FiO2 and PEEP of 16. She has completed a course of Remdesivir, and received Convalescent plasma #2. Weakness, nausea, vomiting, and family members infected with Covid 19 #3. Increased inflammatory markers related to the above #4. Hypertension #5. Hyperlipidemia #6. Morbid obesity with history of previous lap band surgery Plan: O2 saturations have remained stable over the last 24 hours, FiO2 at 50%, no acute events overnight, will proceed with paralytic holiday, continue with sedation, patient is not ready for any weaning trials yet, today chest x-ray has been reviewed showing stable findings of diffuse airspace infiltrates throughout both lungs. Hemodynamic patient remains stable, she has been afebrile, she continues on Zosyn for empiric antibiotic coverage, culture didn't remains negative, continue with nutrition, continue with GI and DVT prophylaxis. Obtain a set of her inflammatory markers, continue nebulized bronchodilators and dexamethasone. Condition remains critical, prognosis is very guarded I performed a history & physical examination of the patient and discussed their management with my nurse practitioner, Andreia Lau. I reviewed the nurse practitioner's note and agree with the documented findings and plan of care. Lung sounds are positive for diminished breath sounds. The findings and the impression was discussed with the patient. I attest to the documentation by the nurse practitioner. Time with Patient: Greater than 30
[2019-12-26] MEDS: CLEVIDIPINE BUTYRATE 25 MG in EMPTY BAG 1 BAG IV SCH ×3 (11:21→21:02)
[2019-12-26 11:53] LABS: Glucose,Whole Blood 116 mg/dL (75-99)
--- NOTE | 2019-12-26 13:56 | P.PN ---
Subjective Acute hypoxic respiratory failure secondary to covid 19 pneumonitis. Patient remains on ventilator support, patient did receive convalescent plasma along with Remdesevir. Patient remains on the Decadron patient remains on pressor support. Zosyn was added empirically by pulmonology. Patient remains on assist-control ventilation with the high before 15 FiO2 of 60%.failed weaning trials today. 12/23/2019 Patient remains on the ventilator still requiring PEEP of 16 FiO2 of 60%. Patient is mildly alkalotic. Probably need to go down on the it up respiratory rate. Patient is on tidal volume at 375. Patient is on very low-dose of norepinephrine today. 12/24/2019 Patient remains on mechanical ventilator patient has cold with 19 pneumonitis along with ARDS on high PEEP of 16 FiO2 of 55 and now. Patient's ABGs shows improvement in alkalosis. Patient is presently not requiring any pressors patient ontinues to be on propofol and Nimbex remains on Decadron. 12/25/2019 Patient can use to require high be because of ARDS associated with Covid. Patient can use to be on propofol and Nimbex. Off pressor support receiving normal saline. Completed course of Remdesivir. 12/26/2019 Patient remains on 50 g of propofol off Nimbex patient blood pressure went up patient will be started on lisinopril and strolls slowly wean off work reflex patient is bit tachycardic. Patient remains on the 16 of PEEP. Remains intubated review of systems: Unable to obtain due to her clinical condition. All inpatient medications were reviewed and appropriate changes in these medications as dictated in the interval history and assessment and plan. Objective - Vital Signs Vital signs: Vital Signs Temp 97.8 F 12/26/19 08:00 Pulse 97 12/26/19 13:00 Resp 28 H 12/26/19 13:00 BP 155/81 12/26/19 13:00 Pulse Ox 89 L 12/26/19 13:00 Intake & Output 12/25/19 12/26/19 12/26/19 18:59 06:59 18:59 Intake Total 9338.555 5893.149 906.953 Output Total 2620 1145 1025 Balance -1098.896 196.149 -118.047 Weight 91.8 kg 91.8 kg Intake: IV 975 825 525 Sodium Chloride 0.9% 1, 975 825 525 000 ml @ 75 mls/hr IV . [id number] [facility] Rx#:[id number] Intake, IV Titration 297.104 372.149 108.953 Amount Cisatracurium 200 mg In 200.000 160.269 Sodium Chloride 0.9% 180 ml @ 2 MCG/KG/MIN 9.996 mls/hr IV .Q20H1M [facility] Rx# :[id number] Clevidipine Butyrate 25 28.033 mg In Empty Bag 1 bag @ 1 MG/HR 2 mls/hr IV .Q24H [facility] Rx#:[id number] propofoL 1,000 mg In 161.88 80.92 Empty Bag 1 bag @ Titrate IV .Q0M [facility] Rx#: [id number] propofoL 500 mg In Empty 97.104 50 Bag 1 bag @ Titrate IV . Q0M [facility] Rx#:[id number] Tube Feeding 189 54 243 Other 60 90 30 Output: Urine 2620 1145 1025 Other: Voiding Method Indwelling Catheter Indwelling Catheter Indwelling Catheter # Voids 75 ABP, PAP, CO, CI - Last Documented Arterial Blood Pressure 142/60 - Exam PHYSICAL EXAMINATION: GENERAL: patient is intubated sedated HEENT: Pupils are round and equally reacting to light. EOMI. No scleral icterus. No conjunctival pallor. Normocephalic, atraumatic. No pharyngeal erythema. No thyromegaly. CARDIOVASCULAR: S1 and S2 present. No murmurs, rubs, or gallops. PULMONARY: Chest is clear to auscultation, no wheezing or crackles. ABDOMEN: Soft, nontender, nondistended, normoactive bowel sounds. No palpable organomegaly. MUSCULOSKELETAL: No joint swelling or deformity. EXTREMITIES: No cyanosis, clubbing, or pedal edema. NEUROLOGICAL: patient is sedated SKIN: No rashes. Note: Because of COVID 19 isolation, some of the history and physical exam findings are indirect and obtained from nursing staff, and other physician examinations to avoid unnecessary contact with the patient. - Labs CBC & Chem 7: 12/26/19 03:40 12/26/19 12:35 Labs: Abnormal Lab Results - Last 24 Hours (Table) 12/25/19 12/26/19 12/26/19 Range/Units 04:00 03:40 03:40 RBC 3.53 L (3.80-5.40) m/uL Hgb 10.3 L (11.4-16.0) gm/dL Hct 31.3 L (34.0-46.0) % D-Dimer 2.39 H (<0.60) mg/L FEU ABG pCO2 (35-45) mmHg ABG pO2 (83-108) mmHg ABG HCO3 (21-25) mmol/L ABG Total CO2 (19-24) mmol/L ABG O2 Saturation (94-97) % Carbon Dioxide (22-30) mmol/L Creatinine (0.52-1.04) mg/dL POC Glucose (mg/dL) (75-99) mg/dL Calcium (8.4-10.2) mg/dL Ferritin 458.1 H (10.0-291.0) ng/mL AST (14-36) U/L ALT (4-34) U/L Lactate Dehydrogenase 857 H (313-618) U/L Creatine Kinase 21 L (30-135) U/L C-Reactive Protein 80.1 H (<10.0) mg/L Total Protein (6.3-8.2) g/dL Albumin (3.5-5.0) g/dL 12/26/19 12/26/19 12/26/19 Range/Units 03:40 03:40 05:15 RBC (3.80-5.40) m/uL Hgb (11.4-16.0) gm/dL Hct (34.0-46.0) % D-Dimer (<0.60) mg/L FEU ABG pCO2 46 H (35-45) mmHg ABG pO2 69 L (83-108) mmHg ABG HCO3 31 H (21-25) mmol/L ABG Total CO2 33 H (19-24) mmol/L ABG O2 Saturation 93.7 L (94-97) % Carbon Dioxide 31 H (22-30) mmol/L Creatinine 0.42 L (0.52-1.04) mg/dL POC Glucose (mg/dL) (75-99) mg/dL Calcium 7.9 L (8.4-10.2) mg/dL Ferritin (10.0-291.0) ng/mL AST 51 H (14-36) U/L ALT 65 H (4-34) U/L Lactate Dehydrogenase 845 H (313-618) U/L Creatine Kinase 28 L (30-135) U/L C-Reactive Protein 56.0 H (<10.0) mg/L Total Protein 4.7 L (6.3-8.2) g/dL Albumin 2.1 L (3.5-5.0) g/dL 12/26/19 Range/Units 11:52 RBC (3.80-5.40) m/uL Hgb (11.4-16.0) gm/dL Hct (34.0-46.0) % D-Dimer (<0.60) mg/L FEU ABG pCO2 (35-45) mmHg ABG pO2 (83-108) mmHg ABG HCO3 (21-25) mmol/L ABG Total CO2 (19-24) mmol/L ABG O2 Saturation (94-97) % Carbon Dioxide (22-30) mmol/L Creatinine (0.52-1.04) mg/dL POC Glucose (mg/dL) 116 H (75-99) mg/dL Calcium (8.4-10.2) mg/dL Ferritin (10.0-291.0) ng/mL AST (14-36) U/L ALT (4-34) U/L Lactate Dehydrogenase (313-618) U/L Creatine Kinase (30-135) U/L C-Reactive Protein (<10.0) mg/L Total Protein (6.3-8.2) g/dL Albumin (3.5-5.0) g/dL Assessment and Plan Plan: COVID-19 virus pneumoniano significant improvement in her respiratory status the patient remains on mechanical ventilator. Acute hypoxic respiratory failure secondary to pneumonia. Requiring high flow oxygen --> Currently requiring mechanical ventilation. Nausea vomiting, generalized weakness and cough shortness of breath secondary to pneumonia. Hypertension Hyperlipidemia DVT prophylaxis with Lovenox. Plan: Patient is on mechanical ventilator. Patient is off Nimbex now on by mouth cl eviprex which will be weaned off and patient will be started on NICO inhibitor on dexamethasone 6 mg daily and Lovenox 80 mg subcu daily. completed remdesivir course. Continue with droplet and contact precautions.Pulmonary is following. Prognosis is guarded at this time.
[2019-12-26] MEDS: lisinopriL 20 MG TAB PO SCH (15:35)
[2019-12-26] MEDS: SODIUM CHLORIDE 0.9% 1,000 ML IV SCH (15:35)
[2019-12-26] MEDS: NOREPINEPHRINE 32 MG in SODIUM CHLORIDE 0.9% 218 ML IV SCH (16:53)
[2019-12-26] MEDS: MELATONIN 5 MG TABLET PO SCH (20:28)
[2019-12-26] MEDS: PRAVASTATIN SODIUM 40 MG TAB PO SCH (20:28)
[2019-12-26 23:59] LABS: Glucose,Whole Blood 112 mg/dL (75-99)
[2019-12-27] MEDS: HYDROmorphone 0.5 MG/0.5 ML SYRINGE IVP SCH ×12 (00:20→22:05)
[2019-12-27] MEDS: PIPERACILLIN-TAZOBACTAM 3.375 GM in SODIUM CHLORIDE 0.9% 100 ML IVPB SCH ×4 (00:21→23:16)
[2019-12-27] MEDS: ARTIFICIAL TEARS-HYPROMELLOSE DROPS 15 ML BTL BOTH EYES SCH ×7 (00:36→23:16)
[2019-12-27] MEDS: ALBUTEROL HFA INHALER INHALATION SCH ×7 (00:40→23:18)
[2019-12-27] MEDS: CISATRACURIUM 200 MG in SODIUM CHLORIDE 0.9% 180 ML IV SCH ×3 (01:20→20:37)
[2019-12-27] MEDS: SODIUM CHLORIDE 0.9% 1,000 ML IV SCH ×2 (02:14→18:43)
[2019-12-27] MEDS: CLEVIDIPINE BUTYRATE 25 MG in EMPTY BAG 1 BAG IV SCH ×2 (03:53→21:14)
[2019-12-27 04:46] LABS: Basophils % (A) 0 %; Eosinophils # (A) 0.1 k/uL (0-0.7); Eosinophils % (A) 1 %; HCT 33.1 % (34.0-46.0); HGB 10.7 gm/dL (11.4-16.0); Lymphocytes % (A) 14 %; MCH 28.1 pg (25.0-35.0); MCHC 32.4 g/dL (31.0-37.0); MCV 86.7 fL (80.0-100.0); Mean Platelet Volume 7.9; Monocytes # (A) 0.3 k/uL (0-1.0); Monocytes % (A) 5 %; Neutrophils # (A) 5.6 k/uL (1.3-7.7); Neutrophils % (A) 79 %; Platelet Count 268 k/uL (150-450); RBC 3.81 m/uL (3.80-5.40); RDW 14.8 % (11.5-15.5)
[2019-12-27 04:58] LABS: ALT 63 U/L (4-34); AST 42 U/L (14-36); African American GFR (CKD) >90 (>60 ml/min/1.73 sqM); Albumin 2.4 g/dL (3.5-5.0); Alkaline Phosphatase 89 U/L (38-126); Anion Gap 1 mmol/L; Blood Urea Nitrogen 9 mg/dL (7-17); C Reactive Protein 49.4 mg/L (<10.0); Calcium 8.3 mg/dL (8.4-10.2); Carbon Dioxide 35 mmol/L (22-30); Chloride 102 mmol/L (98-107); Creatine Kinase 24 U/L (30-135); Glucose 94 mg/dL (74-99); LDH 847 U/L (313-618); Non-African American GFR(CKD) >90 (>60 ml/min/1.73 sqM); Potassium 3.6 mmol/L (3.5-5.1); Sodium 138 mmol/L (137-145); Total Bilirubin 0.6 mg/dL (0.2-1.3); Total Protein 5.1 g/dL (6.3-8.2)
[2019-12-27 05:02] LABS: D-Dimer 2.3 mg/L FEU (<0.60)
[2019-12-27 05:22] LABS: ABG HCO3 34 mmol/L (21-25); ABG Oxygen Saturation 87.5 % (94-97); ABG PCO2 44 mmHg (35-45); ABG TCO2 36 mmol/L (19-24); Allen Test Performed? Yes
[2019-12-27 05:25] LABS: ABG PO2 51 mmHg (83-108)
[2019-12-27] MEDS ORDERED: POTASSIUM BICARBONATE/CIT AC 20 MEQ TABLET.EFF NG-TUBE SCH (06:00)
--- NOTE | 2019-12-27 07:34 | XR ---
EXAMINATION TYPE: XR chest 1V portable DATE OF EXAM: 12/27/2019 Comparison: 12/26/2019 Clinical History: 54-year-old female on vent, covid Findings: ET tube is satisfactory. NG tube courses below the diaphragm. Right IJ CVC tip in the right atrium. H eart normal size. Patchy confluent airspace opacities greatest in the mid and lower lungs persist. Sm all left effusion suspected. Calcified left hilar lymph nodes suggest prior granulomatous disease. Th ere is a slight improvement in aeration at the right base. Impression: Continued bilateral airspace disease. There may be slight improvement at the right base. Suspect a sm all left effusion.
[2019-12-27] MEDS: CHLORHEXIDINE GLUCONATE 15 ML CUP MUCOUS MEM SCH ×2 (08:13→20:23)
[2019-12-27] MEDS: ASCORBIC ACID 500 MG TAB PO SCH (08:13)
[2019-12-27] MEDS: lisinopriL 20 MG TAB PO SCH (08:16)
[2019-12-27] MEDS: FAMOTIDINE 20 MG/2 ML VIAL IV SCH ×2 (08:16→20:23)
[2019-12-27] MEDS: dexAMETHasone 2 MG TAB PO SCH (08:28)
[2019-12-27] MEDS: ENOXAPARIN 80 MG/0.8 ML SYRINGE SQ SCH ×2 (08:28→20:23)
[2019-12-27 09:30] LABS: Ferritin 475.8 ng/mL (10.0-291.0)
[2019-12-27] MEDS: ZINC SULFATE 220 MG CAP PO SCH (09:39)
--- NOTE | 2019-12-27 10:25 | P.PN ---
Subjective Progress Note Date: 12/27/19 Principal diagnosis: Shortness of breath, Covid 19 pneumonia 54-year-old white female patient with past medical history of hypertension, nonsmoker, previous history of lab band surgery for morbid obesity who presented to the hospital on 12/14/2019 with complaints of nausea, vomiting, weakness. Patient was tested for Covid 19 7 days ago last Wednesday, and received positive results 5 days ago on Wednesday. Patient has a daughter who was hospitalized with COVID 19 related pneumonia, and that daughter was discharged home after treatment, her other daughter is also currently hospitalized with Covid 19. Her was also positive for Covid 19 infection. Patient has not been able to keep anything down related to nausea and vomiting. Chest x-ray showed diffuse airspace opacities of bilateral lungs related to Covid 19 viral infection. Patient had positive lymphopenia, with lymphocyte count of 0.5, d-dimer was 1.22, initial BMP was unremarkable, lactic acid was 0.9, ferritin level was elevated at 382, LDH of 704, CRP was significantly elevated at 73.9, pro calcitonin is 0.12, C. diff was negative. Patient is currently on 10 L of oxygen her pulse ox is 91%, she is a very short of breath with any activity. Occasional cough, nonproductive, she was started on oral Decadron, prophylactic dose of Lovenox, and we will start the patient on Remdesivir On 12/25/2019 patient seen in follow-up in the intensive care unit, she remains intubated, sedated and paralyzed, current vent settings are assist control mode of ventilation with a rate of 20, tidal vital 375, FiO2 60% and PEEP of 16, this morning blood gases showed pO2 of 70, pCO2 45, and pH is 7.46. Her IV drips include 0.9 normal saline at a rate 75 ML per hour, Diprivan at 50 mics per kilo per minute, Nimbex at 3 mics per kilo per minute, and patient has not been on any vasoactive drips. Vital high protein for tube feeding at 27 with a goal of 27 standard water flushes. Today's chest x-ray has been reviewed, showing stable she perihilar basilar infiltrates with small effusions. Patient has been afebrile, hemodynamically patient has been stable. She is status post convelescent plasma infusion back on 2019, and patient has completed Remdesivir. Patient remains on Lovenox 80 mg subcu twice daily, she is on IV Pepcid, she remains on oral Decadron 6 mg daily, today's lab work has been reviewed, no LDH and CRP today, on yesterday's labs LDH was stable from the day before, but overall decreasing over the last few days, CRP remains elevated at 121.7, but overall decreased from its peak at 267.4. Microalbumin reviewed, blood and sputum cultures have been negative to date, she remains on Zosyn for empiric antibiotic coverage. On 12/26/2019 patient seen in follow-up in the intensive care unit, remains sedated, and paralyzed, on mechanical ventilator, current vent settings are ass ist-control mode of ventilation with a rate of 28, tidal volume of 375, FiO2 50% and PEEP of 16, this morning blood gases revealed pO2 of 69, pCO2 of 46 and pH of 7.44. O2 saturation at 95-96%, and have been stable in the last 24 hours. Patient is afebrile, she is not on any vasopressors, she is on 0.9 normal saline at a rate of 75, Diprivan at 50 mics per kilo per minute, Nimbex at 2 mics per k ilo per minute, she is tolerating tube feedings, vital high protein was 27 with a goal of 27. She is making good urine, in the order of 45-150 ML per hour. She is on Zosyn for empiric antibiotic coverage, patient has been afebrile whole entire hospital stay. Blood and sputum culture have shown no growth. Today's labs have been reviewed, showing white blood cell count of 7.3, hemoglobin of 10.3, sodium of 138, potassium 3.9, chloride is 105, CO2 31, BUN is 11 creatinine 0.42, AST and ultimately mildly elevated at 51 and 65 respectively, alkaline phosphatase within normal limits. Yesterday patient had a episode of acute elevation of peak airway pressures up to 52, and plateau pressure of 34 after repositioning, Chest x-ray showed no evidence of pneumothorax, did show stable basilar infiltrate with small effusions. As we were getting ready to do an emergency bronchoscopy for evaluation for presence of mucus plugging, patient's peak pressures and plateau pressures have improved as the head of the bed was lowered. Bronchoscopy was canceled. He On 12/27/2019 patient seen in follow-up in the intensive care unit, she remains intubated, sedated and paralyzed mechanical ventilator, current vent settings are assist-control with a rate of 28, tidal volume is 375, FiO2 of 60% and PEEP of 16, this morning blood gases were reviewed showing pO2 of 51, pCO2 of 44, and pH of 7.5, this was done on FiO2 of 50%, and FiO2 has since been increased to 60%. Peak inspiratory pressure is 39, and plateau pressure is 31. She is currently on drips, 0.0 nursing at a rate 75 ML per hour, Diprivan is a 50 mics per kilo per minute, and index is infusing at 2 mics per kilo per minute. She is on 2 feedings with vital high protein at a rate of 27 with a goal of 27, patient is tolerating tube feedings well. O2 sat is 94-98% on FiO2 of 60%, yesterday we planned paralytic holiday however it was not done. Patient has maintained stable saturations, peak and plateau pressures have improved still remain elevated, today's chest x-ray shows stable findings of bilateral diffuse infiltrates. Hemodynamically patient has remained stable, she's been afebrile, blood and sputum cultures have shown no growth. Inflammatory markers improved some since yesterday, overall improved from the peak. White blood cell count is 7.0, no clonus 10.7, lymphocyte, is 1.0, d-dimer is 2.3, fibrinogen level is 5 36, CO2 is 35, potassium is 3.6, the rest of the electrolytes are unremarkable, BUN is 9 creatinine 0.46, LDH is 847, CK is 24, CRP is 49.4. Objective - Vital Signs Vital signs: Vital Signs Temp 98.2 F 12/27/19 08:00 Pulse 54 L 12/27/19 09:00 Resp 28 H 12/27/19 09:00 BP 101/65 12/27/19 07:00 Pulse Ox 94 L 12/27/19 09:00 Intake & Output 12/26/19 12/27/19 12/27/19 18:59 06:59 18:59 Intake Total 5710.964 8853.888 408.911 Output Total 1875 1925 240 Balance -190.635 -226.112 168.911 Weight 91.8 kg 89.4 kg Intake: IV 900 900 225 Sodium Chloride 0.9% 1, 900 900 225 000 ml @ 75 mls/hr IV . [id number] [facility] Rx#:[id number] Intake, IV Titration 349.365 603.888 183.911 Amount Cisatracurium 200 mg In 93.212 166.764 87.215 Sodium Chloride 0.9% 180 ml @ 2 MCG/KG/MIN 9.996 mls/hr IV .Q20H1M [facility] Rx# :[id number] Clevidipine Butyrate 25 75.233 67.668 3.4 mg In Empty Bag 1 bag @ 1 MG/HR 2 mls/hr IV .Q24H [facility] Rx#:[id number] Piperacillin-Tazobactam 3 100 .375 gm In Sodium Chloride 0.9% 100 ml @ 25 mls/hr IVPB Q8HR [facility] Rx# :[id number] propofoL 1,000 mg In 180.92 269.456 93.296 Empty Bag 1 bag @ Titrate IV .Q0M [facility] Rx#: [id number] Tube Feeding 405 135 Other 30 60 Output: Urine 1875 1925 240 Other: Voiding Method Indwelling Catheter Indwelling Catheter # Voids 75 ABP, PAP, CO, CI - Last Documented Arterial Blood Pressure 134/63 - Exam GENERAL EXAM: Today to, sedated 54-year-old white female, paralyzed, intubated and sedated on mechanical ventilator with FiO2 of 60% and PEEP of 16 comfortable in no apparent distress. HEAD: Normocephalic/atraumatic. EYES: Normal reaction of pupils, equal size. Conjunctiva pink, sclera white. NOSE: Clear with pink turbinates. THROAT: No erythema or exudates. NECK: No masses, no JVD, no thyroid enlargement, no adenopathy. CHEST: No chest wall deformity. Symmetrical expansion. LUNGS: Equal air entry with no crackles, wheeze, rhonchi or dullness. CVS: Regular rate and rhythm, normal S1 and S2, no gallops, no murmurs, no rubs ABDOMEN: Soft, nontender. No hepatosplenomegaly, normal bowel sounds, no guarding or rigidity. EXTREMITIES: No clubbing, no edema, no cyanosis, 2+ pulses and upper and lower extremities. MUSCULOSKELETAL: Muscle strength and tone normal. SPINE: No scoliosis or deformity SKIN: No rashes CENTRAL NERVOUS SYSTEM: Sedated, intubated. No focal deficits, tone is normal in all 4 extremities. - Labs CBC & Chem 7: 12/27/19 04:15 12/27/19 04:15 Labs: Abnormal Lab Results - Last 24 Hours (Table) 12/25/19 12/26/19 12/26/19 Range/Units 04:00 03:40 11:52 Hgb (11.4-16.0) gm/dL Hct (34.0-46.0) % Fibrinogen (200-500) mg/dL D-Dimer (<0.60) mg/L FEU ABG pH (7.35-7.45) ABG pO2 (83-108) mmHg ABG HCO3 (21-25) mmol/L ABG Total CO2 (19-24) mmol/L ABG O2 Saturation (94-97) % Carbon Dioxide (22-30) mmol/L Creatinine (0.52-1.04) mg/dL POC Glucose (mg/dL) 116 H (75-99) mg/dL Calcium (8.4-10.2) mg/dL Ferritin 458.1 H 511.0 H (10.0-291.0) ng/mL AST (14-36) U/L ALT (4-34) U/L Lactate Dehydrogenase 845 H (313-618) U/L Creatine Kinase 28 L (30-135) U/L C-Reactive Protein 56.0 H (<10.0) mg/L Total Protein (6.3-8.2) g/dL Albumin (3.5-5.0) g/dL 12/26/19 12/27/19 12/27/19 Range/Units 23:58 04:15 04:15 Hgb 10.7 L (11.4-16.0) gm/dL Hct 33.1 L (34.0-46.0) % Fibrinogen 536 H (200-500) mg/dL D-Dimer 2.30 H (<0.60) mg/L FEU ABG pH (7.35-7.45) ABG pO2 (83-108) mmHg ABG HCO3 (21-25) mmol/L ABG Total CO2 (19-24) mmol/L ABG O2 Saturation (94-97) % Carbon Dioxide (22-30) mmol/L Creatinine (0.52-1.04) mg/dL POC Glucose (mg/dL) 112 H (75-99) mg/dL Calcium (8.4-10.2) mg/dL Ferritin (10.0-291.0) ng/mL AST (14-36) U/L ALT (4-34) U/L Lactate Dehydrogenase (313-618) U/L Creatine Kinase (30-135) U/L C-Reactive Protein (<10.0) mg/L Total Protein (6.3-8.2) g/dL Albumin (3.5-5.0) g/dL 12/27/19 12/27/19 Range/Units 04:15 05:18 Hgb (11.4-16.0) gm/dL Hct (34.0-46.0) % Fibrinogen (200-500) mg/dL D-Dimer (<0.60) mg/L FEU ABG pH 7.50 H (7.35-7.45) ABG pO2 51 L* (83-108) mmHg ABG HCO3 34 H (21-25) mmol/L ABG Total CO2 36 H (19-24) mmol/L ABG O2 Saturation 87.5 L (94-97) % Carbon Dioxide 35 H (22-30) mmol/L Creatinine 0.46 L (0.52-1.04) mg/dL POC Glucose (mg/dL) (75-99) mg/dL Calcium 8.3 L (8.4-10.2) mg/dL Ferritin 475.8 H (10.0-291.0) ng/mL AST 42 H (14-36) U/L ALT 63 H (4-34) U/L Lactate Dehydrogenase 847 H (313-618) U/L Creatine Kinase 24 L (30-135) U/L C-Reactive Protein 49.4 H (<10.0) mg/L Total Protein 5.1 L (6.3-8.2) g/dL Albumin 2.4 L (3.5-5.0) g/dL Assessment and Plan Plan: Assessment: #1. Acute hypoxemic respiratory failure related to Covid 19 related pneumonia and COVID 19 related ARDS, patient has been intubated since 12/19/2019, and today on 12/25/2019 remains intubated, requiring 50% FiO2 and PEEP of 16. She has completed a course of Remdesivir, and received Convalescent plasma On 12/27/2019 patient remains sedated, paralyzed and intubated on mechanical ventilator, FiO2 at 60% and PEEP of 16. Has not made significant improvement de spite medical treatment, and has not gotten closer to weaning off sedation or mechanical ventilation at all #2. Weakness, nausea, vomiting, and family members infected with Covid 19 #3. Increased inflammatory markers related to the above, improved from their peak, however remains significantly elevated #4. Hypertension #5. Hyperlipidemia #6. Morbid obesity with history of previous lap band surgery Plan: FiO2 down to 50%, give the patient paralytic holiday, continue sedation, continue same vent settings, and PEEP, except for FiO2, down to 50%, chest x-ray reviewed, still showing stable diffuse bilateral infiltrates, patient has not made significant improvement in terms of gas exchange despite medical treatment, however O2 saturations have remained stable, and we will attempt paralytic holiday today. Hemodynamically patient has been stable, has been afebrile, inflammatory markers remain elevated although improved from their peak. Continue with oral Decadron, continue with therapeutic doses of Lovenox, Pepcid, continue empiric antibiotics, IV hydration, tube feedings, continue supportive treatment. Continue to closely monitor, overall prognosis is extremely guarded. I performed a history & physical examination of the patient and discussed their management with my nurse practitioner, Andreia Lau. I reviewed the nurse practitioner's note and agree with the documented findings and plan of care. Lung sounds are positive for diminished breath sounds. The findings and the impression was discussed with the patient. I attest to the documentation by the nurse practitioner. Time with Patient: Greater than 30
--- NOTE | 2019-12-27 11:50 | P.PN ---
Subjective Acute hypoxic respiratory failure secondary to covid 19 pneumonitis. Patient remains on ventilator support, patient did receive convalescent plasma along with Remdesevir. Patient remains on the Decadron patient remains on pressor support. Zosyn was added empirically by pulmonology. Patient remains on assist-control ventilation with the high before 15 FiO2 of 60%.failed weaning trials today. 12/23/2019 Patient remains on the ventilator still requiring PEEP of 16 FiO2 of 60%. Patient is mildly alkalotic. Probably need to go down on the it up respiratory rate. Patient is on tidal volume at 375. Patient is on very low-dose of norepinephrine today. 12/24/2019 Patient remains on mechanical ventilator patient has cold with 19 pneumonitis along with ARDS on high PEEP of 16 FiO2 of 55 and now. Patient's ABGs shows improvement in alkalosis. Patient is presently not requiring any pressors patient ontinues to be on propofol and Nimbex remains on Decadron. 12/25/2019 Patient can use to require high be because of ARDS associated with Covid. Patient can use to be on propofol and Nimbex. Off pressor support receiving normal saline. Completed course of Remdesivir. 12/26/2019 Patient remains on 50 g of propofol off Nimbex patient blood pressure went up patient will be started on lisinopril and strolls slowly wean off work reflex patient is bit tachycardic. Patient remains on the 16 of PEEP. Remains intubated 12/27/2019 Patient the clinical condition did not change significantly. Remains on high PEEP. Remains on sedation. review of systems: Unable to obtain due to her clinical condition. All inpatient medications were reviewed and appropriate changes in these medications as dictated in the interval history and assessment and plan. Objective - Vital Signs Vital signs: Vital Signs Temp 98.2 F 12/27/19 08:00 Pulse 54 L 12/27/19 09:00 Resp 28 H 12/27/19 09:00 BP 101/65 12/27/19 07:00 Pulse Ox 94 L 12/27/19 09:00 Intake & Output 12/26/19 12/27/19 12/27/19 18:59 06:59 18:59 Intake Total 8112.200 6778.888 408.911 Output Total 1875 1925 240 Balance -190.635 -226.112 168.911 Weight 91.8 kg 89.4 kg Intake: IV 900 900 225 Sodium Chloride 0.9% 1, 900 900 225 000 ml @ 75 mls/hr IV . [id number] [facility] Rx#:[id number] Intake, IV Titration 349.365 603.888 183.911 Amount Cisatracurium 200 mg In 93.212 166.764 87.215 Sodium Chloride 0.9% 180 ml @ 2 MCG/KG/MIN 9.996 mls/hr IV .Q20H1M [facility] Rx# :[id number] Clevidipine Butyrate 25 75.233 67.668 3.4 mg In Empty Bag 1 bag @ 1 MG/HR 2 mls/hr IV .Q24H [facility] Rx#:[id number] Piperacillin-Tazobactam 3 100 .375 gm In Sodium Chloride 0.9% 100 ml @ 25 mls/hr IVPB Q8HR [facility] Rx# :[id number] propofoL 1,000 mg In 180.92 269.456 93.296 Empty Bag 1 bag @ Titrate IV .Q0M [facility] Rx#: [id number] Tube Feeding 405 135 Other 30 60 Output: Urine 1875 1925 240 Other: Voiding Method Indwelling Catheter Indwelling Catheter # Voids 75 ABP, PAP, CO, CI - Last Documented Arterial Blood Pressure 134/63 - Exam PHYSICAL EXAMINATION: GENERAL: patient is intubated sedated HEENT: Pupils are round and equally reacting to light. EOMI. No scleral icterus. No conjunctival pallor. Normocephalic, atraumatic. No pharyngeal erythema. No thyromegaly. CARDIOVASCULAR: S1 and S2 present. No murmurs, rubs, or gallops. PULMONARY: Chest is clear to auscultation, no wheezing or crackles. ABDOMEN: Soft, nontender, nondistended, normoactive bowel sounds. No palpable organomegaly. MUSCULOSKELETAL: No joint swelling or deformity. EXTREMITIES: No cyanosis, clubbing, or pedal edema. NEUROLOGICAL: patient is sedated SKIN: No rashes. Note: Because of COVID 19 isolation, some of the history and physical exam findings are indirect and obtained from nursing staff, and other physician examinations to avoid unnecessary contact with the patient. - Labs CBC & Chem 7: 12/27/19 04:15 12/27/19 04:15 Labs: Abnormal Lab Results - Last 24 Hours (Table) 11/10/20 11/10/20 11/10/20 Range/Units 03:40 11:52 23:58 Hgb (11.4-16.0) gm/dL Hct (34.0-46.0) % Fibrinogen (200-500) mg/dL D-Dimer (<0.60) mg/L FEU ABG pH (7.35-7.45) ABG pO2 (83-108) mmHg ABG HCO3 (21-25) mmol/L ABG Total CO2 (19-24) mmol/L ABG O2 Saturation (94-97) % Carbon Dioxide (22-30) mmol/L Creatinine (0.52-1.04) mg/dL POC Glucose (mg/dL) 116 H 112 H (75-99) mg/dL Calcium (8.4-10.2) mg/dL Ferritin 511.0 H (10.0-291.0) ng/mL AST (14-36) U/L ALT (4-34) U/L Lactate Dehydrogenase 845 H (313-618) U/L Creatine Kinase 28 L (30-135) U/L C-Reactive Protein 56.0 H (<10.0) mg/L Total Protein (6.3-8.2) g/dL Albumin (3.5-5.0) g/dL 12/27/19 12/27/19 12/27/19 Range/Units 04:15 04:15 04:15 Hgb 10.7 L (11.4-16.0) gm/dL Hct 33.1 L (34.0-46.0) % Fibrinogen 536 H (200-500) mg/dL D-Dimer 2.30 H (<0.60) mg/L FEU ABG pH (7.35-7.45) ABG pO2 (83-108) mmHg ABG HCO3 (21-25) mmol/L ABG Total CO2 (19-24) mmol/L ABG O2 Saturation (94-97) % Carbon Dioxide 35 H (22-30) mmol/L Creatinine 0.46 L (0.52-1.04) mg/dL POC Glucose (mg/dL) (75-99) mg/dL Calcium 8.3 L (8.4-10.2) mg/dL Ferritin 475.8 H (10.0-291.0) ng/mL AST 42 H (14-36) U/L ALT 63 H (4-34) U/L Lactate Dehydrogenase 847 H (313-618) U/L Creatine Kinase 24 L (30-135) U/L C-Reactive Protein 49.4 H (<10.0) mg/L Total Protein 5.1 L (6.3-8.2) g/dL Albumin 2.4 L (3.5-5.0) g/dL 12/27/19 Range/Units 05:18 Hgb (11.4-16.0) gm/dL Hct (34.0-46.0) % Fibrinogen (200-500) mg/dL D-Dimer (<0.60) mg/L FEU ABG pH 7.50 H (7.35-7.45) ABG pO2 51 L* (83-108) mmHg ABG HCO3 34 H (21-25) mmol/L ABG Total CO2 36 H (19-24) mmol/L ABG O2 Saturation 87.5 L (94-97) % Carbon Dioxide (22-30) mmol/L Creatinine (0.52-1.04) mg/dL POC Glucose (mg/dL) (75-99) mg/dL Calcium (8.4-10.2) mg/dL Ferritin (10.0-291.0) ng/mL AST (14-36) U/L ALT (4-34) U/L Lactate Dehydrogenase (313-618) U/L Creatine Kinase (30-135) U/L C-Reactive Protein (<10.0) mg/L Total Protein (6.3-8.2) g/dL Albumin (3.5-5.0) g/dL Assessment and Plan Plan: COVID-19 virus pneumoniano significant improvement in her respiratory status the patient remains on mechanical ventilator. Acute hypoxic respiratory failure secondary to pneumonia. Requiring high flow oxygen --> Currently requiring mechanical ventilation. Nausea vomiting, generalized weakness and cough shortness of breath secondary to pneumonia. Hypertension Hyperlipidemia DVT prophylaxis with Lovenox. Plan: Patient is on mechanical ventilator. Patient is off Nimbex now on by mouth cleviprex which will be weaned off and patient will be started on NICO inhibitor on dexamethasone 6 mg daily and Lovenox 80 mg subcu daily. completed remdesivir course. Continue with droplet and contact precautions.Pulmonary is following. Prognosis is guarded at this time.
[2019-12-27 12:52] LABS: Glucose,Whole Blood 126 mg/dL (75-99)
[2019-12-27] MEDS: POTASSIUM BICARBONATE/CIT AC 20 MEQ TABLET.EFF NG-TUBE SCH ×2 (14:41→15:17)
[2019-12-27] MEDS: MELATONIN 5 MG TABLET PO SCH (20:35)
[2019-12-27] MEDS: PRAVASTATIN SODIUM 40 MG TAB PO SCH (20:35)
[2019-12-28] MEDS: CLEVIDIPINE BUTYRATE 25 MG in EMPTY BAG 1 BAG IV SCH ×3 (00:01→23:37)
[2019-12-28] MEDS: HYDROmorphone 0.5 MG/0.5 ML SYRINGE IVP SCH ×13 (00:02→23:30)
[2019-12-28 00:10] LABS: Glucose,Whole Blood 111 mg/dL (75-99)
[2019-12-28] MEDS: ALBUTEROL HFA INHALER INHALATION SCH ×6 (03:19→23:28)
[2019-12-28] MEDS: ARTIFICIAL TEARS-HYPROMELLOSE DROPS 15 ML BTL BOTH EYES SCH ×6 (03:32→23:30)
[2019-12-28 04:25] LABS: Basophils % (A) 0 %; Eosinophils # (A) 0.1 k/uL (0-0.7); Eosinophils % (A) 1 %; HCT 31.3 % (34.0-46.0); Lymphocytes # (A) 0.9 k/uL (1.0-4.8); Lymphocytes % (A) 14 %; MCH 28.1 pg (25.0-35.0); MCV 87.8 fL (80.0-100.0); Mean Platelet Volume 7.9; Monocytes # (A) 0.3 k/uL (0-1.0); Monocytes % (A) 4 %; Neutrophils # (A) 5.5 k/uL (1.3-7.7); Neutrophils % (A) 80 %; Platelet Count 248 k/uL (150-450); RBC 3.57 m/uL (3.80-5.40); RDW 14.9 % (11.5-15.5); WBC 6.9 k/uL (3.8-10.6)
[2019-12-28 04:35] LABS: D-Dimer 1.5 mg/L FEU (<0.60)
[2019-12-28 04:50] LABS: ALT 49 U/L (4-34); AST 35 U/L (14-36); African American GFR (CKD) >90 (>60 ml/min/1.73 sqM); Albumin 2.3 g/dL (3.5-5.0); Alkaline Phosphatase 77 U/L (38-126); Anion Gap -1 mmol/L; Blood Urea Nitrogen 9 mg/dL (7-17); C Reactive Protein 61.1 mg/L (<10.0); Calcium 8.1 mg/dL (8.4-10.2); Carbon Dioxide 34 mmol/L (22-30); Chloride 103 mmol/L (98-107); Creatine Kinase 29 U/L (30-135); Glucose 121 mg/dL (74-99); LDH 772 U/L (313-618); Non-African American GFR(CKD) >90 (>60 ml/min/1.73 sqM); Potassium 3.9 mmol/L (3.5-5.1); Sodium 136 mmol/L (137-145); Total Bilirubin 0.5 mg/dL (0.2-1.3); Total Protein 4.9 g/dL (6.3-8.2)
[2019-12-28] MEDS ORDERED: POTASSIUM BICARBONATE/CIT AC 20 MEQ TABLET.EFF NG-TUBE SCH (05:00)
[2019-12-28 05:10] LABS: ABG Base Excess 9.1 mmol/L; ABG HCO3 33 mmol/L (21-25); ABG Oxygen Saturation 95.4 % (94-97); ABG PCO2 44 mmHg (35-45); ABG PH 7.48 (7.35-7.45); ABG PO2 72 mmHg (83-108); ABG TCO2 34 mmol/L (19-24)
[2019-12-28] MEDS: SODIUM CHLORIDE 0.9% 1,000 ML IV SCH ×2 (05:27→20:17)
[2019-12-28 05:28] LABS: Allen Test Performed? no
[2019-12-28] MEDS: CISATRACURIUM 200 MG in SODIUM CHLORIDE 0.9% 180 ML IV SCH (05:35)
--- NOTE | 2019-12-28 07:42 | XR ---
EXAMINATION TYPE: XR chest 1V portable DATE OF EXAM: 12/28/2019 COMPARISON: Prior chest x-ray 12/27/2019 HISTORY: Intubated TECHNIQUE: Single frontal view of the chest is obtained. FINDINGS: Endotracheal tube, NG tube, right jugular central venous catheter are overlying appropriat e positions. Distal tip of the central venous catheter is within the right atrium. Bilateral airspace disease is present. Patient is post lap band. No evident pneumothorax or pleural effusion. Heart siz e is stable. IMPRESSION: Correlate for pneumonia, edema, ARDS.
[2019-12-28] MEDS: PIPERACILLIN-TAZOBACTAM 3.375 GM in SODIUM CHLORIDE 0.9% 100 ML IVPB SCH ×3 (08:43→23:30)
[2019-12-28] MEDS: ENOXAPARIN 80 MG/0.8 ML SYRINGE SQ SCH ×2 (08:44→20:16)
[2019-12-28] MEDS: lisinopriL 20 MG TAB PO SCH (08:44)
[2019-12-28] MEDS: ASCORBIC ACID 500 MG TAB PO SCH (08:44)
[2019-12-28] MEDS: FAMOTIDINE 20 MG/2 ML VIAL IV SCH ×2 (08:44→20:16)
[2019-12-28] MEDS: CHLORHEXIDINE GLUCONATE 15 ML CUP MUCOUS MEM SCH ×2 (08:44→20:16)
[2019-12-28] MEDS: dexAMETHasone 2 MG TAB PO SCH (08:45)
[2019-12-28] MEDS: ZINC SULFATE 220 MG CAP PO SCH (08:46)
--- NOTE | 2019-12-28 09:15 | P.PN ---
Subjective Progress Note Date: 12/28/19 Principal diagnosis: Shortness of breath, Covid 19 pneumonia 54-year-old white female patient with past medical history of hypertension, nonsmoker, previous history of lab band surgery for morbid obesity who presented to the hospital on 12/14/2019 with complaints of nausea, vomiting, weakness. Patient was tested for Covid 19 7 days ago last Wednesday, and received positive results 5 days ago on Wednesday. Patient has a daughter who was hospitalized with COVID 19 related pneumonia, and that daughter was discharged home after treatment, her other daughter is also currently hospitalized with Covid 19. Her was also positive for Covid 19 infection. Patient has not been able to keep anything down related to nausea and vomiting. Chest x-ray showed diffuse airspace opacities of bilateral lungs related to Covid 19 viral infection. Patient had positive lymphopenia, with lymphocyte count of 0.5, d-dimer was 1.22, initial BMP was unremarkable, lactic acid was 0.9, ferritin level was elevated at 382, LDH of 704, CRP was significantly elevated at 73.9, pro calcitonin is 0.12, C. diff was negative. Patient is currently on 10 L of oxygen her pulse ox is 91%, she is a very short of breath with any activity. Occasional cough, nonproductive, she was started on oral Decadron, prophylactic dose of Lovenox, and we will start the patient on Remdesivir On 12/25/2019 patient seen in follow-up in the intensive care unit, she remains intubated, sedated and paralyzed, current vent settings are assist control mode of ventilation with a rate of 20, tidal vital 375, FiO2 60% and PEEP of 16, this morning blood gases showed pO2 of 70, pCO2 45, and pH is 7.46. Her IV drips include 0.9 normal saline at a rate 75 ML per hour, Diprivan at 50 mics per kilo per minute, Nimbex at 3 mics per kilo per minute, and patient has not been on any vasoactive drips. Vital high protein for tube feeding at 27 with a goal of 27 standard water flushes. Today's chest x-ray has been reviewed, showing stable she perihilar basilar infiltrates with small effusions. Patient has been afebrile, hemodynamically patient has been stable. She is status post convelescent plasma infusion back on 2019, and patient has completed Remdesivir. Patient remains on Lovenox 80 mg subcu twice daily, she is on IV Pepcid, she remains on oral Decadron 6 mg daily, today's lab work has been reviewed, no LDH and CRP today, on yesterday's labs LDH was stable from the day before, but overall decreasing over the last few days, CRP remains elevated at 121.7, but overall decreased from its peak at 267.4. Microalbumin reviewed, blood and sputum cultures have been negative to date, she remains on Zosyn for empiric antibiotic coverage. On 12/26/2019 patient seen in follow-up in the intensive care unit, remains sedated, and paralyzed, on mechanical ventilator, current vent settings are ass ist-control mode of ventilation with a rate of 28, tidal volume of 375, FiO2 50% and PEEP of 16, this morning blood gases revealed pO2 of 69, pCO2 of 46 and pH of 7.44. O2 saturation at 95-96%, and have been stable in the last 24 hours. Patient is afebrile, she is not on any vasopressors, she is on 0.9 normal saline at a rate of 75, Diprivan at 50 mics per kilo per minute, Nimbex at 2 mics per k ilo per minute, she is tolerating tube feedings, vital high protein was 27 with a goal of 27. She is making good urine, in the order of 45-150 ML per hour. She is on Zosyn for empiric antibiotic coverage, patient has been afebrile whole entire hospital stay. Blood and sputum culture have shown no growth. Today's labs have been reviewed, showing white blood cell count of 7.3, hemoglobin of 10.3, sodium of 138, potassium 3.9, chloride is 105, CO2 31, BUN is 11 creatinine 0.42, AST and ultimately mildly elevated at 51 and 65 respectively, alkaline phosphatase within normal limits. Yesterday patient had a episode of acute elevation of peak airway pressures up to 52, and plateau pressure of 34 after repositioning, Chest x-ray showed no evidence of pneumothorax, did show stable basilar infiltrate with small effusions. As we were getting ready to do an emergency bronchoscopy for evaluation for presence of mucus plugging, patient's peak pressures and plateau pressures have improved as the head of the bed was lowered. Bronchoscopy was canceled. He On 12/27/2019 patient seen in follow-up in the intensive care unit, she remains intubated, sedated and paralyzed mechanical ventilator, current vent settings are assist-control with a rate of 28, tidal volume is 375, FiO2 of 60% and PEEP of 16, this morning blood gases were reviewed showing pO2 of 51, pCO2 of 44, and pH of 7.5, this was done on FiO2 of 50%, and FiO2 has since been increased to 60%. Peak inspiratory pressure is 39, and plateau pressure is 31. She is currently on drips, 0.0 nursing at a rate 75 ML per hour, Diprivan is a 50 mics per kilo per minute, and index is infusing at 2 mics per kilo per minute. She is on 2 feedings with vital high protein at a rate of 27 with a goal of 27, patient is tolerating tube feedings well. O2 sat is 94-98% on FiO2 of 60%, yesterday we planned paralytic holiday however it was not done. Patient has maintained stable saturations, peak and plateau pressures have improved still remain elevated, today's chest x-ray shows stable findings of bilateral diffuse infiltrates. Hemodynamically patient has remained stable, she's been afebrile, blood and sputum cultures have shown no growth. Inflammatory markers improved some since yesterday, overall improved from the peak. White blood cell count is 7.0, no clonus 10.7, lymphocyte, is 1.0, d-dimer is 2.3, fibrinogen level is 5 36, CO2 is 35, potassium is 3.6, the rest of the electrolytes are unremarkable, BUN is 9 creatinine 0.46, LDH is 847, CK is 24, CRP is 49.4. On 12/28/2019 patient seen in follow-up in intensive care unit, she remains intubated, sedated and paralyzed, on assist-control mode of ventilation with a rate of 28, tidal volume of 375, FiO2 is 55 and PEEP of 16. Yesterday we attempted paralytic holiday patient tolerated very poorly, started desaturating, became very tachycardic, and had to be re-paralyzed. This morning blood gases show pO2 of 72, pCO2 44, pH of 7.48, this was done on FiO2 of 60% and FiO2 had since been dropped to 55%. O2 saturation is between 93-97%. Peak pressure is 43, and plateau is 38. 0.9 normal saline at 75 ML per hour, Nimbex is on 5 lowell per kilo per minute, Diprivan is a 50 mics per kilo per minute, Cleviprex is at 2 mg per hour. She is tolerating tube feedings, with vital high protein at a 27 with a goal of 27. Today's chest x-ray reviewed, showing stable findings of diffuse pulmonary for chest related to viral ARDS. His labs have been reviewed, showing white blood cell count of 6.9, hemoglobin is 10.0, follow-up d-dimer is 1.5, down from 2.3, sodium is 136, potassium 3.9, chloride is 103, CO2 is 34, BUN of 9, creatinine 0.44, LDH is slightly down to 772, CRP has trended up slightly to 61.1 from 49.4 on yesterday's labs. Objective - Vital Signs Vital signs: Vital Signs Temp 99 F 12/28/19 04:00 Pulse 81 12/28/19 08:00 Resp 28 H 12/28/19 08:00 BP 117/70 12/28/19 07:00 Pulse Ox 93 L 12/28/19 08:00 Intake & Output 12/27/19 12/28/19 12/28/19 18:59 06:59 18:59 Intake Total 4698.320 9737.977 208 Output Total 1525 2355 205 Balance 278.377 -558.023 3 Weight 86.4 kg Intake: IV 1066 972 81 Piperacillin-Tazobactam 3 100 .375 gm In Sodium Chloride 0.9% 100 ml @ 25 mls/hr IVPB Q8HR [facility] Rx# :[id number] Sodium Chloride 0.9% 1, 900 900 75 000 ml @ 75 mls/hr IV . [id number] [facility] Rx#:[id number] pressure bags 66 72 6 Intake, IV Titration 407.377 437.977 100 Amount Cisatracurium 200 mg In 264.726 Sodium Chloride 0.9% 180 ml @ 2 MCG/KG/MIN 10.728 mls/hr IV .[id number] [facility] Rx #:[id number] Cisatracurium 200 mg In 87.215 Sodium Chloride 0.9% 180 ml @ 2 MCG/KG/MIN 9.996 mls/hr IV .Q20H1M [facility] Rx# :[id number] Clevidipine Butyrate 25 26.866 72.299 mg In Empty Bag 1 bag @ 1 MG/HR 2 mls/hr IV .Q24H [facility] Rx#:[id number] propofoL 1,000 mg In 293.296 100.952 100 Empty Bag 1 bag @ Titrate IV .Q0M [facility] Rx#: [id number] Tube Feeding 270 297 27 Other 60 90 Output: Urine 1525 2355 205 Other: Voiding Method Indwelling Catheter Indwelling Catheter Indwelling Catheter ABP, PAP, CO, CI - Last Documented Arterial Blood Pressure 149/63 - Exam GENERAL EXAM: Today to, sedated 54-year-old white female, paralyzed, intubated and sedated on mechanical ventilator with FiO2 of 55% and PEEP of 16 comfortable in no apparent distress. HEAD: Normocephalic/atraumatic. EYES: Normal reaction of pupils, equal size. Conjunctiva pink, sclera white. NOSE: Clear with pink turbinates. THROAT: No erythema or exudates. NECK: No masses, no JVD, no thyroid enlargement, no adenopathy. CHEST: No chest wall deformity. Symmetrical expansion. LUNGS: Equal air entry with no crackles, wheeze, rhonchi or dullness. CVS: Regular rate and rhythm, normal S1 and S2, no gallops, no murmurs, no rubs ABDOMEN: Soft, nontender. No hepatosplenomegaly, normal bowel sounds, no guarding or rigidity. EXTREMITIES: No clubbing, no edema, no cyanosis, 2+ pulses and upper and lower extremities. MUSCULOSKELETAL: Muscle strength and tone normal. SPINE: No scoliosis or deformity SKIN: No rashes CENTRAL NERVOUS SYSTEM: Sedated, intubated. No focal deficits, tone is normal in all 4 extremities. - Labs CBC & Chem 7: 12/28/19 03:50 12/28/19 03:50 Labs: Abnormal Lab Results - Last 24 Hours (Table) 12/27/19 12/27/19 12/28/19 Range/Units 04:15 12:51 00:08 RBC (3.80-5.40) m/uL Hgb (11.4-16.0) gm/dL Hct (34.0-46.0) % Lymphocytes # (1.0-4.8) k/uL Fibrinogen (200-500) mg/dL D-Dimer (<0.60) mg/L FEU ABG pH (7.35-7.45) ABG pO2 (83-108) mmHg ABG HCO3 (21-25) mmol/L ABG Total CO2 (19-24) mmol/L Sodium (137-145) mmol/L Carbon Dioxide (22-30) mmol/L Creatinine (0.52-1.04) mg/dL Glucose (74-99) mg/dL POC Glucose (mg/dL) 126 H 111 H (75-99) mg/dL Calcium (8.4-10.2) mg/dL Ferritin 475.8 H (10.0-291.0) ng/mL ALT (4-34) U/L Lactate Dehydrogenase (313-618) U/L Creatine Kinase (30-135) U/L C-Reactive Protein (<10.0) mg/L Total Protein (6.3-8.2) g/dL Albumin (3.5-5.0) g/dL 12/28/19 12/28/19 12/28/19 Range/Units 03:50 03:50 03:50 RBC 3.57 L (3.80-5.40) m/uL Hgb 10.0 L (11.4-16.0) gm/dL Hct 31.3 L (34.0-46.0) % Lymphocytes # 0.9 L (1.0-4.8) k/uL Fibrinogen 526 H (200-500) mg/dL D-Dimer 1.50 H (<0.60) mg/L FEU ABG pH (7.35-7.45) ABG pO2 (83-108) mmHg ABG HCO3 (21-25) mmol/L ABG Total CO2 (19-24) mmol/L Sodium 136 L (137-145) mmol/L Carbon Dioxide 34 H (22-30) mmol/L Creatinine 0.44 L (0.52-1.04) mg/dL Glucose 121 H (74-99) mg/dL POC Glucose (mg/dL) (75-99) mg/dL Calcium 8.1 L (8.4-10.2) mg/dL Ferritin (10.0-291.0) ng/mL ALT 49 H (4-34) U/L Lactate Dehydrogenase 772 H (313-618) U/L Creatine Kinase 29 L (30-135) U/L C-Reactive Protein 61.1 H (<10.0) mg/L Total Protein 4.9 L (6.3-8.2) g/dL Albumin 2.3 L (3.5-5.0) g/dL 12/28/19 Range/Units 05:09 RBC (3.80-5.40) m/uL Hgb (11.4-16.0) gm/dL Hct (34.0-46.0) % Lymphocytes # (1.0-4.8) k/uL Fibrinogen (200-500) mg/dL D-Dimer (<0.60) mg/L FEU ABG pH 7.48 H (7.35-7.45) ABG pO2 72 L (83-108) mmHg ABG HCO3 33 H (21-25) mmol/L ABG Total CO2 34 H (19-24) mmol/L Sodium (137-145) mmol/L Carbon Dioxide (22-30) mmol/L Creatinine (0.52-1.04) mg/dL Glucose (74-99) mg/dL POC Glucose (mg/dL) (75-99) mg/dL Calcium (8.4-10.2) mg/dL Ferritin (10.0-291.0) ng/mL ALT (4-34) U/L Lactate Dehydrogenase (313-618) U/L Creatine Kinase (30-135) U/L C-Reactive Protein (<10.0) mg/L Total Protein (6.3-8.2) g/dL Albumin (3.5-5.0) g/dL Assessment and Plan Plan: Assessment: #1. Acute hypoxemic respiratory failure related to Covid 19 related pneumonia and COVID 19 related ARDS, patient has been intubated since 12/19/2019, and today on 12/25/2019 remains intubated, requiring 50% FiO2 and PEEP of 16. She has completed a course of Remdesivir, and received Convalescent plasma On 12/27/2019 patient remains sedated, paralyzed and intubated on mechanical ventilator, FiO2 at 60% and PEEP of 16. Has not made significant improvement despite medical treatment, and has not gotten closer to weaning off sedation or mechanical ventilation at all #2. Weakness, nausea, vomiting, and family members infected with Covid 19 #3. Increased inflammatory markers related to the above, improved from their peak, however remains significantly elevated #4. Hypertension #5. Hyperlipidemia #6. Morbid obesity with history of previous lap band surgery Plan: Patient failed paralytic holiday yesterday, today she remains intubated, sedated and paralyzed, currently with FiO2 of 55%, no significant progress in terms of gas exchange, oxygenation. Chest x-ray shows stable bilateral infiltrates. No fever, we'll continue empiric antibiotics, patient is maintaining negative fluid balance. Not requiring any vasopressor support. Continue supportive treatment, overall prognosis is extremely guarded. I performed a history & physical examination of the patient and discussed their management with my nurse practitioner, Andreia Lau. I reviewed the nurse practitioner's note and agree with the documented findings and plan of care. Lung sounds are positive for diminished breath sounds. The findings and the impression was discussed with the patient. I attest to the documentation by the nurse practitioner. Time with Patient: Greater than 30
--- NOTE | 2019-12-28 11:10 | P.PN ---
Subjective Acute hypoxic respiratory failure secondary to covid 19 pneumonitis. Patient remains on ventilator support, patient did receive convalescent plasma along with Remdesevir. Patient remains on the Decadron patient remains on pressor support. Zosyn was added empirically by pulmonology. Patient remains on assist-control ventilation with the high before 15 FiO2 of 60%.failed weaning trials today. 12/23/2019 Patient remains on the ventilator still requiring PEEP of 16 FiO2 of 60%. Patient is mildly alkalotic. Probably need to go down on the it up respiratory rate. Patient is on tidal volume at 375. Patient is on very low-dose of norepinephrine today. 12/24/2019 Patient remains on mechanical ventilator patient has cold with 19 pneumonitis along with ARDS on high PEEP of 16 FiO2 of 55 and now. Patient's ABGs shows improvement in alkalosis. Patient is presently not requiring any pressors patient ontinues to be on propofol and Nimbex remains on Decadron. 12/25/2019 Patient can use to require high be because of ARDS associated with Covid. Patient can use to be on propofol and Nimbex. Off pressor support receiving normal saline. Completed course of Remdesivir. 12/26/2019 Patient remains on 50 g of propofol off Nimbex patient blood pressure went up patient will be started on lisinopril and strolls slowly wean off work reflex patient is bit tachycardic. Patient remains on the 16 of PEEP. Remains intubated 12/27/2019 Patient the clinical condition did not change significantly. Remains on high PEEP. Remains on sedation. 12/28/2019 Patient is off Nimbex today beyond that no significant change in her overall clinical condition and respiratory failure. Patient remains on Zosyn prophylactically review of systems: Unable to obtain due to her clinical condition. All inpatient medications were reviewed and appropriate changes in these medications as dictated in the interval history and assessment and plan. Objective - Vital Signs Vital signs: Vital Signs Temp 99 F 12/28/19 04:00 Pulse 93 12/28/19 09:00 Resp 28 H 12/28/19 09:00 BP 117/70 12/28/19 07:00 Pulse Ox 93 L 12/28/19 09:00 Intake & Output 12/27/19 12/28/19 12/28/19 18:59 06:59 18:59 Intake Total 7832.983 8928.977 654.526 Output Total 1525 2355 580 Balance 278.377 -558.023 74.526 Weight 86.4 kg Intake: IV 1066 972 343 Piperacillin-Tazobactam 3 100 100 .375 gm In Sodium Chloride 0.9% 100 ml @ 25 mls/hr IVPB Q8HR [facility] Rx# :[id number] Sodium Chloride 0.9% 1, 900 900 225 000 ml @ 75 mls/hr IV . [id number] [facility] Rx#:[id number] pressure bags 66 72 18 Intake, IV Titration 407.377 437.977 200.526 Amount Cisatracurium 200 mg In 264.726 78.225 Sodium Chloride 0.9% 180 ml @ 2 MCG/KG/MIN 10.728 mls/hr IV .[id number] [facility] Rx #:[id number] Cisatracurium 200 mg In 87.215 Sodium Chloride 0.9% 180 ml @ 2 MCG/KG/MIN 9.996 mls/hr IV .Q20H1M [facility] Rx# :[id number] Clevidipine Butyrate 25 26.866 72.299 22.301 mg In Empty Bag 1 bag @ 1 MG/HR 2 mls/hr IV .Q24H [facility] Rx#:[id number] propofoL 1,000 mg In 293.296 100.952 100 Empty Bag 1 bag @ Titrate IV .Q0M [facility] Rx#: [id number] Tube Feeding 270 297 81 Other 60 90 30 Output: Urine 1525 2355 580 Other: Voiding Method Indwelling Catheter Indwelling Catheter Indwelling Catheter ABP, PAP, CO, CI - Last Documented Arterial Blood Pressure 174/70 - Exam PHYSICAL EXAMINATION: GENERAL: patient is intubated sedated HEENT: Pupils are round and equally reacting to light. EOMI. No scleral icterus. No conjunctival pallor. Normocephalic, atraumatic. No pharyngeal erythema. No thyromegaly. CARDIOVASCULAR: S1 and S2 present. No murmurs, rubs, or gallops. PULMONARY: Chest is clear to auscultation, no wheezing or crackles. ABDOMEN: Soft, nontender, nondistended, normoactive bowel sounds. No palpable organomegaly. MUSCULOSKELETAL: No joint swelling or deformity. EXTREMITIES: No cyanosis, clubbing, or pedal edema. NEUROLOGICAL: patient is sedated SKIN: No rashes. Note: Because of COVID 19 isolation, some of the history and physical exam findings are indirect and obtained from nursing staff, and other physician examinations to avoid unnecessary contact with the patient. - Labs CBC & Chem 7: 12/28/19 03:50 12/28/19 03:50 Labs: Abnormal Lab Results - Last 24 Hours (Table) 12/27/19 12/28/19 12/28/19 Range/Units 12:51 00:08 03:50 RBC (3.80-5.40) m/uL Hgb (11.4-16.0) gm/dL Hct (34.0-46.0) % Lymphocytes # (1.0-4.8) k/uL Fibrinogen 526 H (200-500) mg/dL D-Dimer 1.50 H (<0.60) mg/L FEU ABG pH (7.35-7.45) ABG pO2 (83-108) mmHg ABG HCO3 (21-25) mmol/L ABG Total CO2 (19-24) mmol/L Sodium (137-145) mmol/L Carbon Dioxide (22-30) mmol/L Creatinine (0.52-1.04) mg/dL Glucose (74-99) mg/dL POC Glucose (mg/dL) 126 H 111 H (75-99) mg/dL Calcium (8.4-10.2) mg/dL Ferritin (10.0-291.0) ng/mL ALT (4-34) U/L Lactate Dehydrogenase (313-618) U/L Creatine Kinase (30-135) U/L C-Reactive Protein (<10.0) mg/L Total Protein (6.3-8.2) g/dL Albumin (3.5-5.0) g/dL 12/28/19 12/28/19 12/28/19 Range/Units 03:50 03:50 05:09 RBC 3.57 L (3.80-5.40) m/uL Hgb 10.0 L (11.4-16.0) gm/dL Hct 31.3 L (34.0-46.0) % Lymphocytes # 0.9 L (1.0-4.8) k/uL Fibrinogen (200-500) mg/dL D-Dimer (<0.60) mg/L FEU ABG pH 7.48 H (7.35-7.45) ABG pO2 72 L (83-108) mmHg ABG HCO3 33 H (21-25) mmol/L ABG Total CO2 34 H (19-24) mmol/L Sodium 136 L (137-145) mmol/L Carbon Dioxide 34 H (22-30) mmol/L Creatinine 0.44 L (0.52-1.04) mg/dL Glucose 121 H (74-99) mg/dL POC Glucose (mg/dL) (75-99) mg/dL Calcium 8.1 L (8.4-10.2) mg/dL Ferritin 333.0 H (10.0-291.0) ng/mL ALT 49 H (4-34) U/L Lactate Dehydrogenase 772 H (313-618) U/L Creatine Kinase 29 L (30-135) U/L C-Reactive Protein 61.1 H (<10.0) mg/L Total Protein 4.9 L (6.3-8.2) g/dL Albumin 2.3 L (3.5-5.0) g/dL Assessment and Plan Plan: COVID-19 virus pneumoniano significant improvement in her respiratory status the patient remains on mechanical ventilator. Acute hypoxic respiratory failure secondary to pneumonia. Requiring high flow oxygen --> Currently requiring mechanical ventilation. Nausea vomiting, generalized weakness and cough shortness of breath secondary to pneumonia. Hypertension Hyperlipidemia DVT prophylaxis with Lovenox. Plan: Patient is on mechanical ventilator. Patient is off Nimbex now on by mouth cleviprex which will be weaned off and patient will be started on NICO inhibitor on dexamethasone 6 mg daily and Lovenox 80 mg subcu daily. completed remdesivir course. Continue with droplet and contact precautions.Pulmonary is following. Prognosis is guarded at this time.
[2019-12-28 11:59] LABS: Glucose,Whole Blood 143 mg/dL (75-99)
[2019-12-28] MEDS: PRAVASTATIN SODIUM 40 MG TAB PO SCH (20:16)
[2019-12-28] MEDS: MELATONIN 5 MG TABLET PO SCH (20:16)
[2019-12-29] MEDS: CISATRACURIUM 200 MG in SODIUM CHLORIDE 0.9% 180 ML IV SCH ×3 (00:36→20:32)
[2019-12-29] MEDS: HYDROmorphone 0.5 MG/0.5 ML SYRINGE IVP SCH ×11 (02:25→23:42)
[2019-12-29] MEDS: CLEVIDIPINE BUTYRATE 25 MG in EMPTY BAG 1 BAG IV SCH ×3 (03:19→19:47)
[2019-12-29] MEDS: ARTIFICIAL TEARS-HYPROMELLOSE DROPS 15 ML BTL BOTH EYES SCH ×5 (03:22→20:32)
[2019-12-29] MEDS: ALBUTEROL HFA INHALER INHALATION SCH ×6 (03:23→23:34)
[2019-12-29 04:02] LABS: Basophils # (A) 0.1 k/uL (0-0.2); Basophils % (A) 1 %; Eosinophils # (A) 0.1 k/uL (0-0.7); Eosinophils % (A) 1 %; HCT 36.4 % (34.0-46.0); HGB 12.2 gm/dL (11.4-16.0); Lymphocytes # (A) 1.1 k/uL (1.0-4.8); Lymphocytes % (A) 10 %; MCH 29.3 pg (25.0-35.0); MCHC 33.4 g/dL (31.0-37.0); MCV 87.7 fL (80.0-100.0); Mean Platelet Volume 7.7; Monocytes # (A) 0.4 k/uL (0-1.0); Monocytes % (A) 4 %; Neutrophils # (A) 8.9 k/uL (1.3-7.7); Neutrophils % (A) 84 %; Platelet Count 296 k/uL (150-450); RBC 4.15 m/uL (3.80-5.40); WBC 10.6 k/uL (3.8-10.6)
[2019-12-29 04:15] LABS: D-Dimer 1.47 mg/L FEU (<0.60)
[2019-12-29 04:16] LABS: ALT 57 U/L (4-34); AST 45 U/L (14-36); African American GFR (CKD) >90 (>60 ml/min/1.73 sqM); Alkaline Phosphatase 101 U/L (38-126); Anion Gap 4 mmol/L; Blood Urea Nitrogen 10 mg/dL (7-17); C Reactive Protein 48.3 mg/L (<10.0); Calcium 8.3 mg/dL (8.4-10.2); Carbon Dioxide 32 mmol/L (22-30); Chloride 102 mmol/L (98-107); Creatine Kinase 21 U/L (30-135); Glucose 123 mg/dL (74-99); LDH 991 U/L (313-618); Non-African American GFR(CKD) >90 (>60 ml/min/1.73 sqM); Potassium 3.8 mmol/L (3.5-5.1); Sodium 138 mmol/L (137-145); Total Bilirubin 0.7 mg/dL (0.2-1.3); Total Protein 6.1 g/dL (6.3-8.2)
[2019-12-29 04:58] LABS: ABG Base Excess 5.7 mmol/L; ABG HCO3 30 mmol/L (21-25); ABG Oxygen Saturation 89.9 % (94-97); ABG PCO2 47 mmHg (35-45); ABG PH 7.42 (7.35-7.45); ABG TCO2 32 mmol/L (19-24)
[2019-12-29] MEDS ORDERED: POTASSIUM BICARBONATE/CIT AC 20 MEQ TABLET.EFF NG-TUBE SCH (05:00)
[2019-12-29 05:02] LABS: Allen Test Performed? no
--- NOTE | 2019-12-29 07:57 | XR ---
EXAMINATION TYPE: XR chest 1V portable DATE OF EXAM: 12/29/2019 Comparison: 12/28/2019 Clinical History: 54-year-old female intubated Findings: ET tube satisfactory. NG tube courses below the diaphragm. A lap band device is present. Right IJ CVC tip in the right atrium. The patient is rotated towards the left. Heart normal size. Diffuse patchy and confluent airspace opacities persist, right greater than left. No significant change. Impression: Diffuse bilateral airspace disease, right greater the left, unchanged.
[2019-12-29] MEDS: FAMOTIDINE 20 MG/2 ML VIAL IV SCH ×2 (08:40→20:12)
[2019-12-29] MEDS: lisinopriL 20 MG TAB PO SCH (08:40)
[2019-12-29] MEDS: ASCORBIC ACID 500 MG TAB PO SCH (08:40)
[2019-12-29] MEDS: ZINC SULFATE 220 MG CAP PO SCH (08:40)
[2019-12-29] MEDS: dexAMETHasone 2 MG TAB PO SCH (08:40)
[2019-12-29] MEDS: PIPERACILLIN-TAZOBACTAM 3.375 GM in SODIUM CHLORIDE 0.9% 100 ML IVPB SCH ×2 (08:41→15:31)
[2019-12-29] MEDS: ENOXAPARIN 80 MG/0.8 ML SYRINGE SQ SCH ×2 (08:41→20:12)
[2019-12-29] MEDS: CHLORHEXIDINE GLUCONATE 15 ML CUP MUCOUS MEM SCH ×2 (08:41→20:12)
[2019-12-29 10:04] LABS: Ferritin 345.5 ng/mL (10.0-291.0)
--- NOTE | 2019-12-29 10:29 | P.PN ---
Subjective Progress Note Date: 12/29/19 Principal diagnosis: Shortness of breath, Covid 19 pneumonia 54-year-old white female patient with past medical history of hypertension, nonsmoker, previous history of lab band surgery for morbid obesity who presented to the hospital on 12/14/2019 with complaints of nausea, vomiting, weakness. Patient was tested for Covid 19 7 days ago last Wednesday, and received positive results 5 days ago on Wednesday. Patient has a daughter who was hospitalized with COVID 19 related pneumonia, and that daughter was discharged home after treatment, her other daughter is also currently hospitalized with Covid 19. Her was also positive for Covid 19 infection. Patient has not been able to keep anything down related to nausea and vomiting. Chest x-ray showed diffuse airspace opacities of bilateral lungs related to Covid 19 viral infection. Patient had positive lymphopenia, with lymphocyte count of 0.5, d-dimer was 1.22, initial BMP was unremarkable, lactic acid was 0.9, ferritin level was elevated at 382, LDH of 704, CRP was significantly elevated at 73.9, pro calcitonin is 0.12, C. diff was negative. Patient is currently on 10 L of oxygen her pulse ox is 91%, she is a very short of breath with any activity. Occasional cough, nonproductive, she was started on oral Decadron, prophylactic dose of Lovenox, and we will start the patient on Remdesivir On 12/25/2019 patient seen in follow-up in the intensive care unit, she remains intubated, sedated and paralyzed, current vent settings are assist control mode of ventilation with a rate of 20, tidal vital 375, FiO2 60% and PEEP of 16, this morning blood gases showed pO2 of 70, pCO2 45, and pH is 7.46. Her IV drips include 0.9 normal saline at a rate 75 ML per hour, Diprivan at 50 mics per kilo per minute, Nimbex at 3 mics per kilo per minute, and patient has not been on any vasoactive drips. Vital high protein for tube feeding at 27 with a goal of 27 standard water flushes. Today's chest x-ray has been reviewed, showing stable she perihilar basilar infiltrates with small effusions. Patient has been afebrile, hemodynamically patient has been stable. She is status post convelescent plasma infusion back on 2019, and patient has completed Remdesivir. Patient remains on Lovenox 80 mg subcu twice daily, she is on IV Pepcid, she remains on oral Decadron 6 mg daily, today's lab work has been reviewed, no LDH and CRP today, on yesterday's labs LDH was stable from the day before, but overall decreasing over the last few days, CRP remains elevated at 121.7, but overall decreased from its peak at 267.4. Microalbumin reviewed, blood and sputum cultures have been negative to date, she remains on Zosyn for empiric antibiotic coverage. On 12/26/2019 patient seen in follow-up in the intensive care unit, remains sedated, and paralyzed, on mechanical ventilator, current vent settings are ass ist-control mode of ventilation with a rate of 28, tidal volume of 375, FiO2 50% and PEEP of 16, this morning blood gases revealed pO2 of 69, pCO2 of 46 and pH of 7.44. O2 saturation at 95-96%, and have been stable in the last 24 hours. Patient is afebrile, she is not on any vasopressors, she is on 0.9 normal saline at a rate of 75, Diprivan at 50 mics per kilo per minute, Nimbex at 2 mics per k ilo per minute, she is tolerating tube feedings, vital high protein was 27 with a goal of 27. She is making good urine, in the order of 45-150 ML per hour. She is on Zosyn for empiric antibiotic coverage, patient has been afebrile whole entire hospital stay. Blood and sputum culture have shown no growth. Today's labs have been reviewed, showing white blood cell count of 7.3, hemoglobin of 10.3, sodium of 138, potassium 3.9, chloride is 105, CO2 31, BUN is 11 creatinine 0.42, AST and ultimately mildly elevated at 51 and 65 respectively, alkaline phosphatase within normal limits. Yesterday patient had a episode of acute elevation of peak airway pressures up to 52, and plateau pressure of 34 after repositioning, Chest x-ray showed no evidence of pneumothorax, did show stable basilar infiltrate with small effusions. As we were getting ready to do an emergency bronchoscopy for evaluation for presence of mucus plugging, patient's peak pressures and plateau pressures have improved as the head of the bed was lowered. Bronchoscopy was canceled. He On 12/27/2019 patient seen in follow-up in the intensive care unit, she remains intubated, sedated and paralyzed mechanical ventilator, current vent settings are assist-control with a rate of 28, tidal volume is 375, FiO2 of 60% and PEEP of 16, this morning blood gases were reviewed showing pO2 of 51, pCO2 of 44, and pH of 7.5, this was done on FiO2 of 50%, and FiO2 has since been increased to 60%. Peak inspiratory pressure is 39, and plateau pressure is 31. She is currently on drips, 0.0 nursing at a rate 75 ML per hour, Diprivan is a 50 mics per kilo per minute, and index is infusing at 2 mics per kilo per minute. She is on 2 feedings with vital high protein at a rate of 27 with a goal of 27, patient is tolerating tube feedings well. O2 sat is 94-98% on FiO2 of 60%, yesterday we planned paralytic holiday however it was not done. Patient has maintained stable saturations, peak and plateau pressures have improved still remain elevated, today's chest x-ray shows stable findings of bilateral diffuse infiltrates. Hemodynamically patient has remained stable, she's been afebrile, blood and sputum cultures have shown no growth. Inflammatory markers improved some since yesterday, overall improved from the peak. White blood cell count is 7.0, no clonus 10.7, lymphocyte, is 1.0, d-dimer is 2.3, fibrinogen level is 5 36, CO2 is 35, potassium is 3.6, the rest of the electrolytes are unremarkable, BUN is 9 creatinine 0.46, LDH is 847, CK is 24, CRP is 49.4. On 12/28/2019 patient seen in follow-up in intensive care unit, she remains intubated, sedated and paralyzed, on assist-control mode of ventilation with a rate of 28, tidal volume of 375, FiO2 is 55 and PEEP of 16. Yesterday we attempted paralytic holiday patient tolerated very poorly, started desaturating, became very tachycardic, and had to be re-paralyzed. This morning blood gases show pO2 of 72, pCO2 44, pH of 7.48, this was done on FiO2 of 60% and FiO2 had since been dropped to 55%. O2 saturation is between 93-97%. Peak pressure is 43, and plateau is 38. 0.9 normal saline at 75 ML per hour, Nimbex is on 5 lowell per kilo per minute, Diprivan is a 50 mics per kilo per minute, Cleviprex is at 2 mg per hour. She is tolerating tube feedings, with vital high protein at a 27 with a goal of 27. Today's chest x-ray reviewed, showing stable findings of diffuse pulmonary for chest related to viral ARDS. His labs have been reviewed, showing white blood cell count of 6.9, hemoglobin is 10.0, follow-up d-dimer is 1.5, down from 2.3, sodium is 136, potassium 3.9, chloride is 103, CO2 is 34, BUN of 9, creatinine 0.44, LDH is slightly down to 772, CRP has trended up slightly to 61.1 from 49.4 on yesterday's labs. On 12/29/2019 patient seen in follow-up in the intensive care unit, she remains intubated, paralyzed, and sedated, on assist-control mode of ventilation with a rate of 20, tidal vital 375, FiO2 50% and PEEP of 15, this morning his blood gases showed pO2 58, pCO2 47 and pH of 7.42, this was done on 50% FiO2 and PEEP of 12, subsequently the PEEP was increased to 15, her pulse ox was 84-88 this morning on PEEP of 12, and subsequently improved to 95-97 with increased PEEP. Chest x-ray shows stable diffuse bilateral airspace disease, right greater than left. She is not on any vasopressor support other than "proximal blood pressure control currently running at 4 mg per hour, Diprivan is a 50 mics per kilo per minute, 0.9 normal saline at a 75 ML per hour, Nimbex is a former mics per kilo per minute, she is tolerating tube feedings of vital HP at a rate of 27 with a goal of 27, with standard water flushes. This morning's lab work has been reviewed, white blood cell count is 10.6, hemoglobin is 12.2, d-dimer is 147, f ibrinogen level is 572, sodium is 138, potassium 3.8, chloride is 102, CO2 32, BUN is 10, creatinine 0.38, ferritin level is 345, liver enzymes AST, ALT, have been noted to be trending up, at 45 and 57 respectively, alk phos is 101, up from 77. LDH is up from previous, currently at 991, and CRP is decreasing currently at 48.3. Patient has been afebrile. Sputum and blood cultures have been negative. Patient remains on Decadron, therapeutic doses of Lovenox, Pepcid, zinc supplement, is status post Remdesivir, and 1 unit of convalescent plasma. Objective - Vital Signs Vital signs: Vital Signs Temp 98.2 F 12/29/19 08:00 Pulse 96 12/29/19 10:00 Resp 28 H 12/29/19 10:00 BP 141/69 12/29/19 10:00 Pulse Ox 90 L 12/29/19 10:00 Intake & Output 12/28/19 12/29/19 12/29/19 18:59 06:59 18:59 Intake Total 1179.736 4296.550 614 Output Total 3280 2789 620 Balance -1333.299 -1181.450 -6 Weight 86.4 kg 94.8 kg Intake: IV 1072 972 349 Piperacillin-Tazobactam 3 100 75 .375 gm In Sodium Chloride 0.9% 100 ml @ 25 mls/hr IVPB Q8HR [facility] Rx# :[id number] Sodium Chloride 0.9% 1, 900 900 250 000 ml @ 75 mls/hr IV . [id number] [facility] Rx#:[id number] pressure bags 72 72 24 Intake, IV Titration 460.701 221.550 100 Amount Cisatracurium 200 mg In 200.000 Sodium Chloride 0.9% 180 ml @ 2 MCG/KG/MIN 10.728 mls/hr IV .[id number] [facility] Rx #:[id number] Clevidipine Butyrate 25 60.701 120.600 0 mg In Empty Bag 1 bag @ 1 MG/HR 2 mls/hr IV .Q24H [facility] Rx#:[id number] propofoL 1,000 mg In 200 100.950 100 Empty Bag 1 bag @ Titrate IV .Q0M [facility] Rx#: [id number] Tube Feeding 324 324 135 Other 90 90 30 Output: Urine 3280 2789 620 Other: Voiding Method Indwelling Catheter Indwelling Catheter Indwelling Catheter ABP, PAP, CO, CI - Last Documented Arterial Blood Pressure 152/64 - Exam GENERAL EXAM: Today to, sedated 54-year-old white female, paralyzed, intubated and sedated on mechanical ventilator with FiO2 of 55% and PEEP of 16 comfortable in no apparent distress. HEAD: Normocephalic/atraumatic. EYES: Normal reaction of pupils, equal size. Conjunctiva pink, sclera white. NOSE: Clear with pink turbinates. THROAT: No erythema or exudates. NECK: No masses, no JVD, no thyroid enlargement, no adenopathy. CHEST: No chest wall deformity. Symmetrical expansion. LUNGS: Equal air entry with no crackles, wheeze, rhonchi or dullness. CVS: Regular rate and rhythm, normal S1 and S2, no gallops, no murmurs, no rubs ABDOMEN: Soft, nontender. No hepatosplenomegaly, normal bowel sounds, no guardi ng or rigidity. EXTREMITIES: No clubbing, no edema, no cyanosis, 2+ pulses and upper and lower extremities. MUSCULOSKELETAL: Muscle strength and tone normal. SPINE: No scoliosis or deformity SKIN: No rashes CENTRAL NERVOUS SYSTEM: Sedated, intubated. No focal deficits, tone is normal in all 4 extremities. - Labs CBC & Chem 7: 12/29/19 03:45 12/29/19 03:45 Labs: Abnormal Lab Results - Last 24 Hours (Table) 12/28/19 12/28/19 12/29/19 Range/Units 03:50 11:57 03:45 Neutrophils # (1.3-7.7) k/uL Fibrinogen 575 H (200-500) mg/dL D-Dimer 1.47 H (<0.60) mg/L FEU ABG pCO2 (35-45) mmHg ABG pO2 (83-108) mmHg ABG HCO3 (21-25) mmol/L ABG Total CO2 (19-24) mmol/L ABG O2 Saturation (94-97) % Carbon Dioxide (22-30) mmol/L Creatinine (0.52-1.04) mg/dL Glucose (74-99) mg/dL POC Glucose (mg/dL) 143 H (75-99) mg/dL Calcium (8.4-10.2) mg/dL Ferritin 333.0 H (10.0-291.0) ng/mL AST (14-36) U/L ALT (4-34) U/L Lactate Dehydrogenase (313-618) U/L Creatine Kinase (30-135) U/L C-Reactive Protein (<10.0) mg/L Total Protein (6.3-8.2) g/dL Albumin (3.5-5.0) g/dL 12/29/19 12/29/19 12/29/19 Range/Units 03:45 03:45 04:57 Neutrophils # 8.9 H (1.3-7.7) k/uL Fibrinogen (200-500) mg/dL D-Dimer (<0.60) mg/L FEU ABG pCO2 47 H (35-45) mmHg ABG pO2 58 L* (83-108) mmHg ABG HCO3 30 H (21-25) mmol/L ABG Total CO2 32 H (19-24) mmol/L ABG O2 Saturation 89.9 L (94-97) % Carbon Dioxide 32 H (22-30) mmol/L Creatinine 0.38 L (0.52-1.04) mg/dL Glucose 123 H (74-99) mg/dL POC Glucose (mg/dL) (75-99) mg/dL Calcium 8.3 L (8.4-10.2) mg/dL Ferritin 345.5 H (10.0-291.0) ng/mL AST 45 H (14-36) U/L ALT 57 H (4-34) U/L Lactate Dehydrogenase 991 H (313-618) U/L Creatine Kinase 21 L (30-135) U/L C-Reactive Protein 48.3 H (<10.0) mg/L Total Protein 6.1 L (6.3-8.2) g/dL Albumin 3.0 L (3.5-5.0) g/dL Assessment and Plan Plan: Assessment: #1. Acute hypoxemic respiratory failure related to Covid 19 related pneumonia and COVID 19 related ARDS, patient has been intubated since 12/19/2019, and today on 12/25/2019 remains intubated, requiring 50% FiO2 and PEEP of 16. She has completed a course of Remdesivir, and received Convalescent plasma On 12/27/2019 patient remains sedated, paralyzed and intubated on mechanical ventilator, FiO2 at 60% and PEEP of 16. Has not made significant improvement despite medical treatment, and has not gotten closer to weaning off sedation or mechanical ventilation at all On 01/15/2020 patient remains sedated, paralyzed and intubated on mechanical ventilator with increased PEEP currently at 15, and FiO2 of 50%, not any closer to weaning off sedation or mechanical ventilation. #2. Weakness, nausea, vomiting, and family members infected with Covid 19 #3. Increased inflammatory markers related to the above, improved from their peak, however remains significantly elevated #4. Hypertension #5. Hyperlipidemia #6. Morbid obesity with history of previous lap band surgery Plan: Follow-up inflammatory markers reviewed, overall improving, patient has been afebrile, hemodynamically she stable, still requiring high PEEP currently at 15, FiO2 is at 50%, not ready for paralytic holiday or sedation holiday or any weaning from the mechanical ventilator chest x-ray still showing stable findings of diffuse bilateral infiltrates. Continues on the Decadron, continues on therapeutic doses of Lovenox. Tolerating tube feedings. Liver enzymes been noted to be elevated today, we'll obtain lipase, amylase, triglyceride level due to prolonged use of propofol, may have to consider alternative sedative, if those levels come back elevated. Continue supportive treatment, patient remains critically ill, overall prognosis is extremely guarded. I performed a history & physical examination of the patient and discussed their management with my nurse practitioner, Andreia Lau. I reviewed the nurse practitioner's note and agree with the documented findings and plan of care. Lung sounds are positive for diminished breath sounds. The findings and the impression was discussed with the patient. I attest to the documentation by the nurse practitioner. Time with Patient: Greater than 30
[2019-12-29] MEDS: SODIUM CHLORIDE 0.9% 1,000 ML IV SCH (11:12)
[2019-12-29 12:44] LABS: Glucose,Whole Blood 149 mg/dL (75-99)
--- NOTE | 2019-12-29 14:29 | P.PN ---
Subjective Acute hypoxic respiratory failure secondary to covid 19 pneumonitis. Patient remains on ventilator support, patient did receive convalescent plasma along with Remdesevir. Patient remains on the Decadron patient remains on pressor support. Zosyn was added empirically by pulmonology. Patient remains on assist-control ventilation with the high before 15 FiO2 of 60%.failed weaning trials today. 12/23/2019 Patient remains on the ventilator still requiring PEEP of 16 FiO2 of 60%. Patient is mildly alkalotic. Probably need to go down on the it up respiratory rate. Patient is on tidal volume at 375. Patient is on very low-dose of norepinephrine today. 12/24/2019 Patient remains on mechanical ventilator patient has cold with 19 pneumonitis along with ARDS on high PEEP of 16 FiO2 of 55 and now. Patient's ABGs shows improvement in alkalosis. Patient is presently not requiring any pressors patient ontinues to be on propofol and Nimbex remains on Decadron. 12/25/2019 Patient can use to require high be because of ARDS associated with Covid. Patient can use to be on propofol and Nimbex. Off pressor support receiving normal saline. Completed course of Remdesivir. 12/26/2019 Patient remains on 50 g of propofol off Nimbex patient blood pressure went up patient will be started on lisinopril and strolls slowly wean off work reflex patient is bit tachycardic. Patient remains on the 16 of PEEP. Remains intubated 12/27/2019 Patient the clinical condition did not change significantly. Remains on high PEEP. Remains on sedation. 12/28/2019 Patient is off Nimbex today beyond that no significant change in her overall clinical condition and respiratory failure. Patient remains on Zosyn prophylactically 12/29/2019 Patient is back on the buttocks no significant improvement in her respiratory distress is her overall clinical condition. Patient prognosis poor review of systems: Unable to obtain due to her clinical condition. All inpatient medications were reviewed and appropriate changes in these medications as dictated in the interval history and assessment and plan. Objective - Vital Signs Vital signs: Vital Signs Temp 98.8 F 12/29/19 12:00 Pulse 88 12/29/19 13:00 Resp 18 12/29/19 13:00 BP 126/62 12/29/19 13:00 Pulse Ox 91 L 12/29/19 13:00 Intake & Output 12/28/19 12/29/19 12/29/19 18:59 06:59 18:59 Intake Total 0055.472 9958.550 1082 Output Total 3280 2789 1595 Balance -1333.299 -1181.450 -513 Weight 86.4 kg 94.8 kg 94.8 kg Intake: IV 1072 972 598 Piperacillin-Tazobactam 3 100 100 .375 gm In Sodium Chloride 0.9% 100 ml @ 25 mls/hr IVPB Q8HR [facility] Rx# :[id number] Sodium Chloride 0.9% 1, 900 900 450 000 ml @ 75 mls/hr IV . [id number] [facility] Rx#:[id number] pressure bags 72 72 48 Intake, IV Titration 460.701 221.550 100 Amount Cisatracurium 200 mg In 200.000 Sodium Chloride 0.9% 180 ml @ 2 MCG/KG/MIN 10.728 mls/hr IV .[id number] [facility] Rx #:[id number] Clevidipine Butyrate 25 60.701 120.600 0 mg In Empty Bag 1 bag @ 1 MG/HR 2 mls/hr IV .Q24H [facility] Rx#:[id number] propofoL 1,000 mg In 200 100.950 100 Empty Bag 1 bag @ Titrate IV .Q0M [facility] Rx#: [id number] Tube Feeding 324 324 324 Other 90 90 60 Output: Urine 3280 2789 1595 Other: Voiding Method Indwelling Catheter Indwelling Catheter Indwelling Catheter ABP, PAP, CO, CI - Last Documented Arterial Blood Pressure 150/67 - Exam PHYSICAL EXAMINATION: GENERAL: patient is intubated sedated HEENT: Pupils are round and equally reacting to light. EOMI. No scleral icterus. No conjunctival pallor. Normocephalic, atraumatic. No pharyngeal erythema. No thyromegaly. CARDIOVASCULAR: S1 and S2 present. No murmurs, rubs, or gallops. PULMONARY: Chest is clear to auscultation, no wheezing or crackles. ABDOMEN: Soft, nontender, nondistended, normoactive bowel sounds. No palpable organomegaly. MUSCULOSKELETAL: No joint swelling or deformity. EXTREMITIES: No cyanosis, clubbing, or pedal edema. NEUROLOGICAL: patient is sedated SKIN: No rashes. Note: Because of COVID 19 isolation, some of the history and physical exam findings are indirect and obtained from nursing staff, and other physician examinations to avoid unnecessary contact with the patient. - Labs CBC & Chem 7: 12/29/19 03:45 12/29/19 03:45 Labs: Abnormal Lab Results - Last 24 Hours (Table) 12/29/19 12/29/19 12/29/19 Range/Units 03:45 03:45 03:45 Neutrophils # 8.9 H (1.3-7.7) k/uL Fibrinogen 575 H (200-500) mg/dL D-Dimer 1.47 H (<0.60) mg/L FEU ABG pCO2 (35-45) mmHg ABG pO2 (83-108) mmHg ABG HCO3 (21-25) mmol/L ABG Total CO2 (19-24) mmol/L ABG O2 Saturation (94-97) % Carbon Dioxide 32 H (22-30) mmol/L Creatinine 0.38 L (0.52-1.04) mg/dL Glucose 123 H (74-99) mg/dL POC Glucose (mg/dL) (75-99) mg/dL Calcium 8.3 L (8.4-10.2) mg/dL Ferritin 345.5 H (10.0-291.0) ng/mL AST 45 H (14-36) U/L ALT 57 H (4-34) U/L Lactate Dehydrogenase 991 H (313-618) U/L Creatine Kinase 21 L (30-135) U/L C-Reactive Protein 48.3 H (<10.0) mg/L Total Protein 6.1 L (6.3-8.2) g/dL Albumin 3.0 L (3.5-5.0) g/dL 12/29/19 12/29/19 Range/Units 04:57 12:42 Neutrophils # (1.3-7.7) k/uL Fibrinogen (200-500) mg/dL D-Dimer (<0.60) mg/L FEU ABG pCO2 47 H (35-45) mmHg ABG pO2 58 L* (83-108) mmHg ABG HCO3 30 H (21-25) mmol/L ABG Total CO2 32 H (19-24) mmol/L ABG O2 Saturation 89.9 L (94-97) % Carbon Dioxide (22-30) mmol/L Creatinine (0.52-1.04) mg/dL Glucose (74-99) mg/dL POC Glucose (mg/dL) 149 H (75-99) mg/dL Calcium (8.4-10.2) mg/dL Ferritin (10.0-291.0) ng/mL AST (14-36) U/L ALT (4-34) U/L Lactate Dehydrogenase (313-618) U/L Creatine Kinase (30-135) U/L C-Reactive Protein (<10.0) mg/L Total Protein (6.3-8.2) g/dL Albumin (3.5-5.0) g/dL Assessment and Plan Plan: COVID-19 virus pneumoniano significant improvement in her respiratory status th e patient remains on mechanical ventilator. Acute hypoxic respiratory failure secondary to pneumonia. Requiring high flow oxygen --> Currently requiring mechanical ventilation. Nausea vomiting, generalized weakness and cough shortness of breath secondary to pneumonia. Hypertension Hyperlipidemia DVT prophylaxis with Lovenox. Plan: Patient is on mechanical ventilator. patient still on Nimbex off X continue the NICO inhibitor on dexamethasone 6 mg daily and Lovenox 80 mg subcu daily. completed remdesivir course. Continue with droplet and contact precautions.Pulmonary is following. Progno sis is guarded at this time.
[2019-12-29 17:58] LABS: Glucose,Whole Blood 128 mg/dL (75-99)
[2019-12-29] MEDS: PRAVASTATIN SODIUM 40 MG TAB PO SCH (20:12)
[2019-12-29] MEDS: MELATONIN 5 MG TABLET PO SCH (20:12)
[2019-12-30] MEDS: HYDROmorphone 0.5 MG/0.5 ML SYRINGE IVP SCH ×12 (00:51→22:27)
[2019-12-30] MEDS: ARTIFICIAL TEARS-HYPROMELLOSE DROPS 15 ML BTL BOTH EYES SCH ×7 (00:51→23:02)
[2019-12-30] MEDS: PIPERACILLIN-TAZOBACTAM 3.375 GM in SODIUM CHLORIDE 0.9% 100 ML IVPB SCH ×4 (00:51→22:54)
[2019-12-30] MEDS: CLEVIDIPINE BUTYRATE 25 MG in EMPTY BAG 1 BAG IV SCH ×4 (04:25→19:42)
[2019-12-30] MEDS: ALBUTEROL HFA INHALER INHALATION SCH ×6 (04:29→23:42)
[2019-12-30] MEDS: SODIUM CHLORIDE 0.9% 1,000 ML IV SCH ×2 (04:38→12:42)
[2019-12-30 05:35] LABS: ABG Base Excess 5.4 mmol/L; ABG HCO3 31 mmol/L (21-25); ABG Oxygen Saturation 90.3 % (94-97); ABG PCO2 53 mmHg (35-45); ABG PH 7.37 (7.35-7.45); ABG PO2 60 mmHg (83-108); ABG TCO2 32 mmol/L (19-24); Allen Test Performed? Yes
[2019-12-30 05:44] LABS: Basophils # (A) 0.1 k/uL (0-0.2); Basophils % (A) 1 %; Eosinophils # (A) 0.2 k/uL (0-0.7); Eosinophils % (A) 2 %; HCT 35.2 % (34.0-46.0); HGB 11.4 gm/dL (11.4-16.0); Lymphocytes # (A) 1.2 k/uL (1.0-4.8); Lymphocytes % (A) 10 %; MCHC 32.5 g/dL (31.0-37.0); MCV 89.2 fL (80.0-100.0); Mean Platelet Volume 7.7; Monocytes # (A) 0.6 k/uL (0-1.0); Monocytes % (A) 5 %; Neutrophils # (A) 10.3 k/uL (1.3-7.7); Neutrophils % (A) 82 %; Platelet Count 325 k/uL (150-450); RBC 3.95 m/uL (3.80-5.40); RDW 15.2 % (11.5-15.5); WBC 12.5 k/uL (3.8-10.6)
[2019-12-30 06:06] LABS: African American GFR (CKD) >90 (>60 ml/min/1.73 sqM); Anion Gap 4 mmol/L; Blood Urea Nitrogen 13 mg/dL (7-17); Calcium 8.2 mg/dL (8.4-10.2); Carbon Dioxide 30 mmol/L (22-30); Chloride 102 mmol/L (98-107); Glucose 136 mg/dL (74-99); Non-African American GFR(CKD) >90 (>60 ml/min/1.73 sqM); Potassium 3.5 mmol/L (3.5-5.1); Sodium 136 mmol/L (137-145)
[2019-12-30 06:09] LABS: Glucose,Whole Blood 115 mg/dL (75-99)
[2019-12-30] MEDS: CISATRACURIUM 200 MG in SODIUM CHLORIDE 0.9% 180 ML IV SCH ×2 (07:11→17:14)
[2019-12-30] MEDS: POTASSIUM BICARBONATE/CIT AC 20 MEQ TABLET.EFF NG-TUBE SCH ×2 (08:15→10:03)
--- NOTE | 2019-12-30 08:31 | XR ---
EXAMINATION TYPE: XR chest 1V portable DATE OF EXAM: 12/30/2019 COMPARISON: Prior chest x-ray 12/29/2019 HISTORY: Intubated TECHNIQUE: Single frontal view of the chest is obtained. FINDINGS: Endotracheal tube and NG tube, right jugular central venous catheter are overlying appropr iate positions. Patient is post lap band. No pneumothorax or pleural effusion. Bilateral airspace dis ease persists. IMPRESSION: Correlate for pneumonia, edema, ARDS
[2019-12-30] MEDS: ASCORBIC ACID 500 MG TAB PO SCH (10:03)
[2019-12-30] MEDS: dexAMETHasone 2 MG TAB PO SCH (10:04)
[2019-12-30] MEDS: CHLORHEXIDINE GLUCONATE 15 ML CUP MUCOUS MEM SCH ×2 (10:04→20:02)
[2019-12-30] MEDS: lisinopriL 20 MG TAB PO SCH (10:05)
[2019-12-30] MEDS: FAMOTIDINE 20 MG/2 ML VIAL IV SCH ×2 (10:05→20:01)
[2019-12-30] MEDS: ENOXAPARIN 80 MG/0.8 ML SYRINGE SQ SCH ×2 (10:08→20:01)
[2019-12-30] MEDS: ZINC SULFATE 220 MG CAP PO SCH (10:08)
[2019-12-30 12:07] LABS: Glucose,Whole Blood 141 mg/dL (75-99)
--- NOTE | 2019-12-30 12:08 | P.PN ---
Subjective Progress Note Date: 12/30/19 Principal diagnosis: CoVID 19 pneumonitis 54-year-old white female patient with past medical history of hypertension, nonsmoker, previous history of lab band surgery for morbid obesity who presented to the hospital on 12/14/2019 with complaints of nausea, vomiting, weakness. Jaoo sanchez was tested for Covid 19 7 days ago last Wednesday, and received positive results 5 days ago on Wednesday. Patient has a daughter who was hospitalized with COVID 19 related pneumonia, and that daughter was discharged home after treatment, her other daughter is also currently hospitalized with Covid 19. Her was also positive for Covid 19 infection. Patient has not been able to keep anything down related to nausea and vomiting. Chest x-ray showed diffuse airspace opacities of bilateral lungs related to Covid 19 viral infection. Patient had positive lymphopenia, with lymphocyte count of 0.5, d-dimer was 1.22, initial BMP was unremarkable, lactic acid was 0.9, ferritin level was alina vated at 382, LDH of 704, CRP was significantly elevated at 73.9, pro calcitonin is 0.12, C. diff was negative. Patient is currently on 10 L of oxygen her pulse ox is 91%, she is a very short of breath with any activity. Occasional cough, nonproductive, she was started on oral Decadron, prophylactic dose of Lovenox, and we will start the patient on Remdesivir On 12/25/2019 patient seen in follow-up in the intensive care unit, she remains intubated, sedated and paralyzed, current vent settings are assist control mode of ventilation with a rate of 20, tidal vital 375, FiO2 60% and PEEP of 16, this morning blood gases showed pO2 of 70, pCO2 45, and pH is 7.46. Her IV drips include 0.9 normal saline at a rate 75 ML per hour, Diprivan at 50 mics per kilo per minute, Nimbex at 3 mics per kilo per minute, and patient has not been on any vasoactive drips. Vital high protein for tube feeding at 27 with a goal of 27 standard water flushes. Today's chest x-ray has been reviewed, showing sta ble she perihilar basilar infiltrates with small effusions. Patient has been afebrile, hemodynamically patient has been stable. She is status post convelescent plasma infusion back on 11 over 2019, and patient has completed Remdesivir. Patient remains on Lovenox 80 mg subcu twice daily, she is on IV Pepcid, she remains on oral Decadron 6 mg daily, today's lab work has been reviewed, no LDH and CRP today, on yesterday's labs LDH was stable from the day before, but overall decreasing over the last few days, CRP remains elevated at 121.7, but overall decreased from its peak at 267.4. Microalbumin reviewed, blood and sputum cultures have been negative to date, she remains on Zosyn for empiric antibiotic coverage. On 12/26/2019 patient seen in follow-up in the intensive care unit, remains sedated, and paralyzed, on mechanical ventilator, current vent settings are assist-control mode of ventilation with a rate of 28, tidal volume of 375, FiO2 50% and PEEP of 16, this morning blood gases revealed pO2 of 69, pCO2 of 46 and pH of 7.44. O2 saturation at 95-96%, and have been stable in the last 24 hours. Patient is afebrile, she is not on any vasopressors, she is on 0.9 normal saline at a rate of 75, Diprivan at 50 mics per kilo per minute, Nimbex at 2 mics per kilo per minute, she is tolerating tube feedings, vital high protein was 27 with a goal of 27. She is making good urine, in the order of 45-150 ML per hour. She is on Zosyn for empiric antibiotic coverage, patient has been afebrile whole entire hospital stay. Blood and sputum culture have shown no growth. Today's labs have been reviewed, showing white blood cell count of 7.3, hemoglobin of 10.3, sodium of 138, potassium 3.9, chloride is 105, CO2 31, BUN is 11 creatinine 0.42, AST and ultimately mildly elevated at 51 and 65 respectively, alkaline phosphatase within normal limits. Yesterday patient had a episode of acute elevation of peak airway pressures up to 52, and plateau pressure of 34 after repositioning, Chest x-ray showed no evidence of pneumothorax, did show stable basilar infiltrate with small effusions. As we were getting ready to do an emergency bronchoscopy for evaluation for presence of mucus plugging, patient's peak pressures and plateau pressures have improved as the head of the bed was lowered. Bronchoscopy was canceled. He On 12/27/2019 patient seen in follow-up in the intensive care unit, she remains intubated, sedated and paralyzed mechanical ventilator, current vent settings are assist-control with a rate of 28, tidal volume is 375, FiO2 of 60% and PEEP of 16, this morning blood gases were reviewed showing pO2 of 51, pCO2 of 44, and pH of 7.5, this was done on FiO2 of 50%, and FiO2 has since been increased to 60%. Peak inspiratory pressure is 39, and plateau pressure is 31. She is currently on drips, 0.0 nursing at a rate 75 ML per hour, Diprivan is a 50 mics per kilo per minute, and index is infusing at 2 mics per kilo per minute. She is on 2 feedings with vital high protein at a rate of 27 with a goal of 27, patient is tolerating tube feedings well. O2 sat is 94-98% on FiO2 of 60%, yesterday we planned paralytic holiday however it was not done. Patient has maintained stable saturations, peak and plateau pressures have improved still remain elevated, today's chest x-ray shows stable findings of bilateral diffuse infiltrates. Hemodynamically patient has remained stable, she's been afebrile, blood and sputum cultures have shown no growth. Inflammatory markers improved some since yesterday, overall improved from the peak. White blood cell count is 7.0, no clonus 10.7, lymphocyte, is 1.0, d-dimer is 2.3, fibrinogen level is 536, CO2 is 35, potassium is 3.6, the rest of the electrolytes are unremarkable, BUN is 9 creatinine 0.46, LDH is 847, CK is 24, CRP is 49.4. On 12/28/2019 patient seen in follow-up in intensive care unit, she remains i ntubated, sedated and paralyzed, on assist-control mode of ventilation with a rate of 28, tidal volume of 375, FiO2 is 55 and PEEP of 16. Yesterday we attempted paralytic holiday patient tolerated very poorly, started desaturating, became very tachycardic, and had to be re-paralyzed. This morning blood gases show pO2 of 72, pCO2 44, pH of 7.48, this was done on FiO2 of 60% and FiO2 had since been dropped to 55%. O2 saturation is between 93-97%. Peak pressure is 43, and plateau is 38. 0.9 normal saline at 75 ML per hour, Nimbex is on 5 lowell per kilo per minute, Diprivan is a 50 mics per kilo per minute, Cleviprex is at 2 mg per hour. She is tolerating tube feedings, with vital high protein at a 27 with a goal of 27. Today's chest x-ray reviewed, showing stable findings of diffuse pulmonary for chest related to viral ARDS. His labs have been reviewed, showing white blood cell count of 6.9, hemoglobin is 10.0, follow-up d-dimer is 1.5, down from 2.3, sodium is 136, potassium 3.9, chloride is 103, CO2 is 34, BUN of 9, creatinine 0.44, LDH is slightly down to 772, CRP has trended up slightly to 61.1 from 49.4 on yesterday's labs. On 12/29/2019 patient seen in follow-up in the intensive care unit, she remains intubated, paralyzed, and sedated, on assist-control mode of ventilation with a rate of 20, tidal vital 375, FiO2 50% and PEEP of 15, this morning his blood gases showed pO2 58, pCO2 47 and pH of 7.42, this was done on 50% FiO2 and PEEP of 12, subsequently the PEEP was increased to 15, her pulse ox was 84-88 this morning on PEEP of 12, and subsequently improved to 95-97 with increased PEEP. Chest x-ray shows stable diffuse bilateral airspace disease, right greater than left. She is not on any vasopressor support other than "proximal blood pressure control currently running at 4 mg per hour, Diprivan is a 50 mics per kilo per minute, 0.9 normal saline at a 75 ML per hour, Nimbex is a former mics per kilo per minute, she is tolerating tube feedings of vital HP at a rate of 27 with a goal of 27, with standard water flushes. This morning's lab work has been reviewed, white blood cell count is 10.6, hemoglobin is 12.2, d-dimer is 147, fibrinogen level is 572, sodium is 138, potassium 3.8, chloride is 102, CO2 32, BUN is 10, creatinine 0.38, ferritin level is 345, liver enzymes AST, ALT, have been noted to be trending up, at 45 and 57 respectively, alk phos is 101, up from 77. LDH is up from previous, currently at 991, and CRP is decreasing currently at 48.3. Patient has been afebrile. Sputum and blood cultures have been negative. Patient remains on Decadron, therapeutic doses of Lovenox, Pepcid, zinc supplement, is status post Remdesivir, and 1 unit of convalescent plasma. The patient is seen today 12/30/2019 in follow-up in the intensive care unit. She remains intubated on the mechanical ventilator. Current settings are assist -control rate of 28, Serevent and 75, FiO2 50% and a PEEP of 15. Morning blood gases revealed a pO2 of 60, pCO2 53, pH 7.37. She remains sedated on propofol at 50 mcg/kg/m. Cleviprex at 6 mg per hour. 0.9 normal saline at 75 ML's per hour. Paralytics in the form of Nimbex at 3.5 mcg/kg/m. She is being nourished with vital HP at 27 ML's per hour which is goal. His x-ray continues to reveal bilateral airspace disease consistent with pneumonia versus ARDS. Blood culture reveals no growth. Sputum culture reveals no growth. White count 12.5. Hemoglobin 11.4. Sodium 136. Potassium 3.5. Creatinine 0.43. She remains on bronchodilators, vitamin C, vitamin D, dexamethasone, Lovenox, Pepcid, melatonin and zinc. Antibiotics in the form of Zosyn. She has completed her course of Remdesivir. Received convalescent plasma. Objective - Vital Signs Vital signs: Vital Signs Temp 98 F 12/30/19 04:00 Pulse 73 12/30/19 07:00 Resp 32 H 12/30/19 07:00 BP 127/68 12/30/19 07:00 Pulse Ox 96 12/30/19 07:00 Intake & Output 12/29/19 12/30/19 12/30/19 18:59 06:59 18:59 Intake Total 5211.037 3411.254 330.210 Output Total 2335 1275 45 Balance -504.726 289.254 285.210 Weight 94.8 kg Intake: IV 822 822 81 Piperacillin-Tazobactam 3 100 100 .375 gm In Sodium Chloride 0.9% 100 ml @ 25 mls/hr IVPB Q8HR [facility] Rx# :[id number] Sodium Chloride 0.9% 1, 650 650 75 000 ml @ 75 mls/hr IV . [id number] [facility] Rx#:[id number] pressure bags 72 72 6 Intake, IV Titration 513.274 328.254 222.210 Amount Cisatracurium 200 mg In 200 52.254 199.943 Sodium Chloride 0.9% 180 ml @ 2 MCG/KG/MIN 10.728 mls/hr IV .[id number] [facility] Rx #:[id number] Clevidipine Butyrate 25 18 76.000 22.267 mg In Empty Bag 1 bag @ 1 MG/HR 2 mls/hr IV .Q24H [facility] Rx#:[id number] propofoL 1,000 mg In 295.274 200.000 Empty Bag 1 bag @ Titrate IV .Q0M [facility] Rx#: [id number] Tube Feeding 405 324 27 Other 90 90 Output: Urine 2335 1275 45 Other: Voiding Method Indwelling Catheter Indwelling Catheter ABP, PAP, CO, CI - Last Documented Arterial Blood Pressure 116/48 - Exam GENERAL EXAM: Intubated, sedated 54-year-old white female, paralyzed, on mechanical ventilator with FiO2 of 50% and PEEP of 15 comfortable in no apparent distress. HEAD: Normocephalic/atraumatic. EYES: Normal reaction of pupils, equal size. Conjunctiva pink, sclera white. NOSE: Clear with pink turbinates. THROAT: No erythema or exudates. NECK: No masses, no JVD, no thyroid enlargement, no adenopathy. CHEST: No chest wall deformity. Symmetrical expansion. LUNGS: Equal air entry with bilateral scattered rhonchi. CVS: Regular rate and rhythm, normal S1 and S2, no gallops, no murmurs, no rubs ABDOMEN: Soft, nontender. No hepatosplenomegaly, normal bowel sounds, no guarding or rigidity. EXTREMITIES: No clubbing, no edema, no cyanosis, 2+ pulses and upper and lower extremities. MUSCULOSKELETAL: Muscle strength and tone normal. SPINE: No scoliosis or deformity SKIN: No rashes CENTRAL NERVOUS SYSTEM: Sedated, intubated. No focal deficits, tone is normal in all 4 extremities. - Labs CBC & Chem 7: 12/30/19 05:30 12/30/19 05:30 Labs: Abnormal Lab Results - Last 24 Hours (Table) 12/29/19 12/29/19 12/29/19 Range/Units 03:45 12:42 17:57 WBC (3.8-10.6) k/uL Neutrophils # (1.3-7.7) k/uL ABG pCO2 (35-45) mmHg ABG pO2 (83-108) mmHg ABG HCO3 (21-25) mmol/L ABG Total CO2 (19-24) mmol/L ABG O2 Saturation (94-97) % Sodium (137-145) mmol/L Creatinine (0.52-1.04) mg/dL Glucose (74-99) mg/dL POC Glucose (mg/dL) 149 H 128 H (75-99) mg/dL Calcium (8.4-10.2) mg/dL Triglycerides 353.0 H (0.0-149.0) mg/dL 12/30/19 12/30/19 12/30/19 Range/Units 05:30 05:30 05:31 WBC 12.5 H (3.8-10.6) k/uL Neutrophils # 10.3 H (1.3-7.7) k/uL ABG pCO2 53 H (35-45) mmHg ABG pO2 60 L (83-108) mmHg ABG HCO3 31 H (21-25) mmol/L ABG Total CO2 32 H (19-24) mmol/L ABG O2 Saturation 90.3 L (94-97) % Sodium 136 L (137-145) mmol/L Creatinine 0.43 L (0.52-1.04) mg/dL Glucose 136 H (74-99) mg/dL POC Glucose (mg/dL) (75-99) mg/dL Calcium 8.2 L (8.4-10.2) mg/dL Triglycerides (0.0-149.0) mg/dL 12/30/19 Range/Units 06:08 WBC (3.8-10.6) k/uL Neutrophils # (1.3-7.7) k/uL ABG pCO2 (35-45) mmHg ABG pO2 (83-108) mmHg ABG HCO3 (21-25) mmol/L ABG Total CO2 (19-24) mmol/L ABG O2 Saturation (94-97) % Sodium (137-145) mmol/L Creatinine (0.52-1.04) mg/dL Glucose (74-99) mg/dL POC Glucose (mg/dL) 115 H (75-99) mg/dL Calcium (8.4-10.2) mg/dL Triglycerides (0.0-149.0) mg/dL Assessment and Plan Assessment: 1. Acute hypoxemic respiratory failure related to Covid 19 related pneumonia, transferred to the ICU on 12/16/2019, intubated on 12/19/2019 and on the mechanical ventilator 2. Weakness, nausea, vomiting, with onset of symptoms 7 days ago prior to arrival and positive outpatient Covid 19 PCR with several family members infected 3. Increased inflammatory markers related to the above 4. Hypertension 5. Hyperlipidemia 6. Morbid obesity with history of previous lap band surgery Plan: The patient was seen and evaluated by Dr. Rodas Continue vitamin C, zinc, Lovenox, Pepcid, melatonin Discontinue Decadron since its been greater than 10 days Repeat chest x-ray, ABGs in a.m. Very slow to progress We will continue to follow and make further recommendations based on her clini kalen status. I, the cosigning physician, performed a history & physical examination of the patient. Lungs sounds with bilateral scattered rhonchi. Maintaining good O2 saturations in the 90s on the mechanical ventilator at 50% FiO2 and a PEEP of 15. I discussed the assessment and plan of care with my nurse practitioner, Latha So. I attest to the above note as dictated by her.
--- NOTE | 2019-12-30 12:35 | P.PN ---
Subjective Acute hypoxic respiratory failure secondary to covid 19 pneumonitis. Patient remains on ventilator support, patient did receive convalescent plasma along with Remdesevir. Patient remains on the Decadron patient remains on pressor support. Zosyn was added empirically by pulmonology. Patient remains on assist-control ventilation with the high before 15 FiO2 of 60%.failed weaning trials today. 12/23/2019 Patient remains on the ventilator still requiring PEEP of 16 FiO2 of 60%. Patient is mildly alkalotic. Probably need to go down on the it up respiratory rate. Patient is on tidal volume at 375. Patient is on very low-dose of norepinephrine today. 12/24/2019 Patient remains on mechanical ventilator patient has cold with 19 pneumonitis along with ARDS on high PEEP of 16 FiO2 of 55 and now. Patient's ABGs shows improvement in alkalosis. Patient is presently not requiring any pressors patient ontinues to be on propofol and Nimbex remains on Decadron. 12/25/2019 Patient can use to require high be because of ARDS associated with Covid. Patient can use to be on propofol and Nimbex. Off pressor support receiving normal saline. Completed course of Remdesivir. 12/26/2019 Patient remains on 50 g of propofol off Nimbex patient blood pressure went up patient will be started on lisinopril and strolls slowly wean off work reflex patient is bit tachycardic. Patient remains on the 16 of PEEP. Remains intubated 12/27/2019 Patient the clinical condition did not change significantly. Remains on high PEEP. Remains on sedation. 12/28/2019 Patient is off Nimbex today beyond that no significant change in her overall clinical condition and respiratory failure. Patient remains on Zosyn prophylactically 12/29/2019 Patient is back on Nimbex no significant improvement in her respiratory distress is her overall clinical condition. Patient prognosis poor 12/30/2019 patient is to minimize propofol continue the ventilator to support without any significant improvement. Patient was started back on clevidipine review of systems: Unable to obtain due to her clinical condition. All inpatient medications were reviewed and appropriate changes in these medications as dictated in the interval history and assessment and plan. Objective - Vital Signs Vital signs: Vital Signs Temp 98 F 12/30/19 04:00 Pulse 73 12/30/19 07:00 Resp 32 H 12/30/19 07:00 BP 127/68 12/30/19 07:00 Pulse Ox 96 12/30/19 07:00 Intake & Output 12/29/19 12/30/19 12/30/19 18:59 06:59 18:59 Intake Total 6571.369 5177.254 330.210 Output Total 2335 1275 45 Balance -504.726 289.254 285.210 Weight 94.8 kg Intake: IV 822 822 81 Piperacillin-Tazobactam 3 100 100 .375 gm In Sodium Chloride 0.9% 100 ml @ 25 mls/hr IVPB Q8HR [facility] Rx# :[id number] Sodium Chloride 0.9% 1, 650 650 75 000 ml @ 75 mls/hr IV . [id number] [facility] Rx#:[id number] pressure bags 72 72 6 Intake, IV Titration 513.274 328.254 222.210 Amount Cisatracurium 200 mg In 200 52.254 199.943 Sodium Chloride 0.9% 180 ml @ 2 MCG/KG/MIN 10.728 mls/hr IV .[id number] [facility] Rx #:[id number] Clevidipine Butyrate 25 18 76.000 22.267 mg In Empty Bag 1 bag @ 1 MG/HR 2 mls/hr IV .Q24H [facility] Rx#:[id number] propofoL 1,000 mg In 295.274 200.000 Empty Bag 1 bag @ Titrate IV .Q0M [facility] Rx#: [id number] Tube Feeding 405 324 27 Other 90 90 Output: Urine 2335 1275 45 Other: Voiding Method Indwelling Catheter Indwelling Catheter ABP, PAP, CO, CI - Last Documented Arterial Blood Pressure 116/48 - Exam PHYSICAL EXAMINATION: GENERAL: patient is intubated sedated HEENT: Pupils are round and equally reacting to light. EOMI. No scleral icterus. No conjunctival pallor. Normocephalic, atraumatic. No pharyngeal erythema. No thyromegaly. CARDIOVASCULAR: S1 and S2 present. No murmurs, rubs, or gallops. PULMONARY: Chest is clear to auscultation, no wheezing or crackles. ABDOMEN: Soft, nontender, nondistended, normoactive bowel sounds. No palpable organomegaly. MUSCULOSKELETAL: No joint swelling or deformity. EXTREMITIES: No cyanosis, clubbing, or pedal edema. NEUROLOGICAL: patient is sedated SKIN: No rashes. Note: Because of COVID 19 isolation, some of the history and physical exam findings are indirect and obtained from nursing staff, and other physician examinations to avoid unnecessary contact with the patient. - Labs CBC & Chem 7: 12/30/19 05:30 12/30/19 05:30 Labs: Abnormal Lab Results - Last 24 Hours (Table) 12/29/19 12/29/19 12/29/19 Range/Units 03:45 12:42 17:57 WBC (3.8-10.6) k/uL Neutrophils # (1.3-7.7) k/uL ABG pCO2 (35-45) mmHg ABG pO2 (83-108) mmHg ABG HCO3 (21-25) mmol/L ABG Total CO2 (19-24) mmol/L ABG O2 Saturation (94-97) % Sodium (137-145) mmol/L Creatinine (0.52-1.04) mg/dL Glucose (74-99) mg/dL POC Glucose (mg/dL) 149 H 128 H (75-99) mg/dL Calcium (8.4-10.2) mg/dL Triglycerides 353.0 H (0.0-149.0) mg/dL 12/30/19 12/30/19 12/30/19 Range/Units 05:30 05:30 05:31 WBC 12.5 H (3.8-10.6) k/uL Neutrophils # 10.3 H (1.3-7.7) k/uL ABG pCO2 53 H (35-45) mmHg ABG pO2 60 L (83-108) mmHg ABG HCO3 31 H (21-25) mmol/L ABG Total CO2 32 H (19-24) mmol/L ABG O2 Saturation 90.3 L (94-97) % Sodium 136 L (137-145) mmol/L Creatinine 0.43 L (0.52-1.04) mg/dL Glucose 136 H (74-99) mg/dL POC Glucose (mg/dL) (75-99) mg/dL Calcium 8.2 L (8.4-10.2) mg/dL Triglycerides (0.0-149.0) mg/dL 12/30/19 12/30/19 Range/Units 06:08 12:05 WBC (3.8-10.6) k/uL Neutrophils # (1.3-7.7) k/uL ABG pCO2 (35-45) mmHg ABG pO2 (83-108) mmHg ABG HCO3 (21-25) mmol/L ABG Total CO2 (19-24) mmol/L ABG O2 Saturation (94-97) % Sodium (137-145) mmol/L Creatinine (0.52-1.04) mg/dL Glucose (74-99) mg/dL POC Glucose (mg/dL) 115 H 141 H (75-99) mg/dL Calcium (8.4-10.2) mg/dL Triglycerides (0.0-149.0) mg/dL Assessment and Plan Plan: COVID-19 virus pneumoniano significant improvement in her respiratory status the patient remains on mechanical ventilator. Acute hypoxic respiratory failure secondary to pneumonia. Requiring high flow oxygen --> Currently requiring mechanical ventilation. Nausea vomiting, generalized weakness and cough shortness of breath secondary to pneumonia. Hypertension Hyperlipidemia DVT prophylaxis with Lovenox. Plan: Patient is on mechanical ventilator. patient still on Nimbex off X continue the NICO inhibitor on dexamethasone 6 mg daily and Lovenox 80 mg subcu daily. completed remdesivir course. Continue with droplet and contact precautions.Pulmonary is following. Prognosis is guarded at this time.
[2019-12-30] MEDS: MELATONIN 5 MG TABLET PO SCH (20:01)
[2019-12-30] MEDS: PRAVASTATIN SODIUM 40 MG TAB PO SCH (20:01)
[2019-12-30] MEDS: ACETAMINOPHEN TAB 325 MG TAB PO PRN (20:15)
[2019-12-30 20:49] LABS: Glucose,Whole Blood 122 mg/dL (75-99)
[2019-12-31] MEDS: CLEVIDIPINE BUTYRATE 25 MG in EMPTY BAG 1 BAG IV SCH ×3 (00:16→23:10)
[2019-12-31 00:23] LABS: Glucose,Whole Blood 98 mg/dL (75-99)
[2019-12-31] MEDS: HYDROmorphone 0.5 MG/0.5 ML SYRINGE IVP SCH ×11 (00:35→20:29)
--- NOTE | 2019-12-31 00:36 | XR ---
EXAM: XR Chest, 1 View CLINICAL HISTORY: ITS.REASON XR Reason: sudden high peak pressures and desaturation TECHNIQUE: Frontal view of the chest. COMPARISON: CXR 12/30/19. FINDINGS: Lungs: Stable appearance of the lungs with widespread bilateral airspace opacities. Pleural space: No pleural effusion or pneumothorax. Heart: Stable heart size. Mediastinum: Unremarkable. Bones/joints: No acute osseous findings. Tubes, lines and devices: Right internal jugular central venous catheter extends to the right atrium. Enteric tube has been pulled back, now terminating at the mid esophagus. Endotracheal tube terminates 3.7 cm above the darrick. Postoperative changes of gastric lap band. IMPRESSION: 1. Enteric tube has been pulled back, now terminating at the level of the mid esophagus. Consider advancing to 20 cm into the stomach. 2. Endotracheal tube terminates 3.7 cm above the darrick. 3. Right internal jugular central venous catheter extends to the right atrium. 4. Persistent widespread bilateral airspace opacities, pneumonia, edema, or ARDS.
[2019-12-31] MEDS: ALBUTEROL HFA INHALER INHALATION SCH ×5 (03:17→21:46)
[2019-12-31] MEDS: ARTIFICIAL TEARS-HYPROMELLOSE DROPS 15 ML BTL BOTH EYES SCH ×5 (03:56→20:29)
[2019-12-31 04:34] LABS: Basophils # (A) 0.1 k/uL (0-0.2); Basophils % (A) 1 %; Eosinophils # (A) 0.2 k/uL (0-0.7); Eosinophils % (A) 2 %; HCT 31.2 % (34.0-46.0); HGB 10.2 gm/dL (11.4-16.0); Lymphocytes # (A) 1.1 k/uL (1.0-4.8); Lymphocytes % (A) 13 %; MCH 28.7 pg (25.0-35.0); MCHC 32.6 g/dL (31.0-37.0); MCV 88.2 fL (80.0-100.0); Mean Platelet Volume 7.7; Monocytes # (A) 0.5 k/uL (0-1.0); Monocytes % (A) 5 %; Neutrophils # (A) 6.6 k/uL (1.3-7.7); Neutrophils % (A) 77 %; Platelet Count 285 k/uL (150-450); RBC 3.54 m/uL (3.80-5.40); RDW 15.3 % (11.5-15.5); WBC 8.5 k/uL (3.8-10.6)
[2019-12-31 04:50] LABS: African American GFR (CKD) >90 (>60 ml/min/1.73 sqM); Anion Gap 1 mmol/L; Blood Urea Nitrogen 12 mg/dL (7-17); C Reactive Protein 53.7 mg/L (<10.0); Calcium 8.5 mg/dL (8.4-10.2); Carbon Dioxide 32 mmol/L (22-30); Chloride 105 mmol/L (98-107); Glucose 96 mg/dL (74-99); LDH 628 U/L (313-618); Non-African American GFR(CKD) >90 (>60 ml/min/1.73 sqM); Potassium 3.6 mmol/L (3.5-5.1); Sodium 138 mmol/L (137-145)
[2019-12-31 04:57] LABS: D-Dimer 1.19 mg/L FEU (<0.60)
[2019-12-31 04:57] LABS: ABG HCO3 32 mmol/L (21-25); ABG Oxygen Saturation 93.7 % (94-97); ABG PCO2 46 mmHg (35-45); ABG PH 7.45 (7.35-7.45); ABG PO2 65 mmHg (83-108); ABG TCO2 33 mmol/L (19-24); Allen Test Performed? Yes
[2019-12-31] MEDS ORDERED: POTASSIUM BICARBONATE/CIT AC 20 MEQ TABLET.EFF NG-TUBE SCH (06:00)
[2019-12-31] MEDS: SODIUM CHLORIDE 0.9% 1,000 ML IV SCH ×2 (06:05→15:12)
[2019-12-31] MEDS: CISATRACURIUM 200 MG in SODIUM CHLORIDE 0.9% 180 ML IV SCH (06:26)
--- NOTE | 2019-12-31 07:35 | XR ---
EXAMINATION TYPE: XR chest 1V portable DATE OF EXAM: 12/31/2019 COMPARISON: 12/31/2019 HISTORY: SOB, Follow Up FINDINGS: Indwelling tubes and catheters are unchanged. Views bilateral infiltrates persist. Suspect pneumonia. Stable appearance of the cardio-mediastinal structures at this time. Pleural effusion unchanged. IMPRESSION: 1. Stable portable chest. Clinical correlation and follow up until resolution is recommended.
[2019-12-31] MEDS: PIPERACILLIN-TAZOBACTAM 3.375 GM in SODIUM CHLORIDE 0.9% 100 ML IVPB SCH ×2 (08:25→17:04)
[2019-12-31] MEDS: FAMOTIDINE 20 MG/2 ML VIAL IV SCH ×2 (08:27→20:29)
[2019-12-31] MEDS: ASCORBIC ACID 500 MG TAB PO SCH (08:27)
[2019-12-31] MEDS: lisinopriL 20 MG TAB PO SCH (08:27)
[2019-12-31] MEDS: CHLORHEXIDINE GLUCONATE 15 ML CUP MUCOUS MEM SCH ×2 (08:27→20:29)
[2019-12-31] MEDS: ENOXAPARIN 80 MG/0.8 ML SYRINGE SQ SCH ×2 (08:47→20:30)
[2019-12-31] MEDS: dexAMETHasone 2 MG TAB PO SCH (08:47)
[2019-12-31] MEDS: ZINC SULFATE 220 MG CAP PO SCH (08:48)
[2019-12-31 11:01] LABS: ABG PO2 58 mmHg (83-108)
[2019-12-31 12:01] LABS: Glucose,Whole Blood 134 mg/dL (75-99)
--- NOTE | 2019-12-31 12:07 | P.PN ---
Subjective Progress Note Date: 12/31/19 Principal diagnosis: CoVID 19 pneumonitis 54-year-old white female patient with past medical history of hypertension, nonsmoker, previous history of lab band surgery for morbid obesity who presented to the hospital on 12/14/2019 with complaints of nausea, vomiting, weakness. Joao sanchez was tested for Covid 19 7 days ago last Wednesday, and received positive results 5 days ago on Wednesday. Patient has a daughter who was hospitalized with COVID 19 related pneumonia, and that daughter was discharged home after treatment, her other daughter is also currently hospitalized with Covid 19. Her was also positive for Covid 19 infection. Patient has not been able to keep anything down related to nausea and vomiting. Chest x-ray showed diffuse airspace opacities of bilateral lungs related to Covid 19 viral infection. Patient had positive lymphopenia, with lymphocyte count of 0.5, d-dimer was 1.22, initial BMP was unremarkable, lactic acid was 0.9, ferritin level was alina vated at 382, LDH of 704, CRP was significantly elevated at 73.9, pro calcitonin is 0.12, C. diff was negative. Patient is currently on 10 L of oxygen her pulse ox is 91%, she is a very short of breath with any activity. Occasional cough, nonproductive, she was started on oral Decadron, prophylactic dose of Lovenox, and we will start the patient on Remdesivir On 12/25/2019 patient seen in follow-up in the intensive care unit, she remains intubated, sedated and paralyzed, current vent settings are assist control mode of ventilation with a rate of 20, tidal vital 375, FiO2 60% and PEEP of 16, this morning blood gases showed pO2 of 70, pCO2 45, and pH is 7.46. Her IV drips include 0.9 normal saline at a rate 75 ML per hour, Diprivan at 50 mics per kilo per minute, Nimbex at 3 mics per kilo per minute, and patient has not been on any vasoactive drips. Vital high protein for tube feeding at 27 with a goal of 27 standard water flushes. Today's chest x-ray has been reviewed, showing sta ble she perihilar basilar infiltrates with small effusions. Patient has been afebrile, hemodynamically patient has been stable. She is status post convelescent plasma infusion back on 11 over 2019, and patient has completed Remdesivir. Patient remains on Lovenox 80 mg subcu twice daily, she is on IV Pepcid, she remains on oral Decadron 6 mg daily, today's lab work has been reviewed, no LDH and CRP today, on yesterday's labs LDH was stable from the day before, but overall decreasing over the last few days, CRP remains elevated at 121.7, but overall decreased from its peak at 267.4. Microalbumin reviewed, blood and sputum cultures have been negative to date, she remains on Zosyn for empiric antibiotic coverage. On 12/26/2019 patient seen in follow-up in the intensive care unit, remains sedated, and paralyzed, on mechanical ventilator, current vent settings are assist-control mode of ventilation with a rate of 28, tidal volume of 375, FiO2 50% and PEEP of 16, this morning blood gases revealed pO2 of 69, pCO2 of 46 and pH of 7.44. O2 saturation at 95-96%, and have been stable in the last 24 hours. Patient is afebrile, she is not on any vasopressors, she is on 0.9 normal saline at a rate of 75, Diprivan at 50 mics per kilo per minute, Nimbex at 2 mics per kilo per minute, she is tolerating tube feedings, vital high protein was 27 with a goal of 27. She is making good urine, in the order of 45-150 ML per hour. She is on Zosyn for empiric antibiotic coverage, patient has been afebrile whole entire hospital stay. Blood and sputum culture have shown no growth. Today's labs have been reviewed, showing white blood cell count of 7.3, hemoglobin of 10.3, sodium of 138, potassium 3.9, chloride is 105, CO2 31, BUN is 11 creatinine 0.42, AST and ultimately mildly elevated at 51 and 65 respectively, alkaline phosphatase within normal limits. Yesterday patient had a episode of acute elevation of peak airway pressures up to 52, and plateau pressure of 34 after repositioning, Chest x-ray showed no evidence of pneumothorax, did show stable basilar infiltrate with small effusions. As we were getting ready to do an emergency bronchoscopy for evaluation for presence of mucus plugging, patient's peak pressures and plateau pressures have improved as the head of the bed was lowered. Bronchoscopy was canceled. He On 12/27/2019 patient seen in follow-up in the intensive care unit, she remains intubated, sedated and paralyzed mechanical ventilator, current vent settings are assist-control with a rate of 28, tidal volume is 375, FiO2 of 60% and PEEP of 16, this morning blood gases were reviewed showing pO2 of 51, pCO2 of 44, and pH of 7.5, this was done on FiO2 of 50%, and FiO2 has since been increased to 60%. Peak inspiratory pressure is 39, and plateau pressure is 31. She is currently on drips, 0.0 nursing at a rate 75 ML per hour, Diprivan is a 50 mics per kilo per minute, and index is infusing at 2 mics per kilo per minute. She is on 2 feedings with vital high protein at a rate of 27 with a goal of 27, patient is tolerating tube feedings well. O2 sat is 94-98% on FiO2 of 60%, yesterday we planned paralytic holiday however it was not done. Patient has maintained stable saturations, peak and plateau pressures have improved still remain elevated, today's chest x-ray shows stable findings of bilateral diffuse infiltrates. Hemodynamically patient has remained stable, she's been afebrile, blood and sputum cultures have shown no growth. Inflammatory markers improved some since yesterday, overall improved from the peak. White blood cell count is 7.0, no clonus 10.7, lymphocyte, is 1.0, d-dimer is 2.3, fibrinogen level is 536, CO2 is 35, potassium is 3.6, the rest of the electrolytes are unremarkable, BUN is 9 creatinine 0.46, LDH is 847, CK is 24, CRP is 49.4. On 12/28/2019 patient seen in follow-up in intensive care unit, she remains i ntubated, sedated and paralyzed, on assist-control mode of ventilation with a rate of 28, tidal volume of 375, FiO2 is 55 and PEEP of 16. Yesterday we attempted paralytic holiday patient tolerated very poorly, started desaturating, became very tachycardic, and had to be re-paralyzed. This morning blood gases show pO2 of 72, pCO2 44, pH of 7.48, this was done on FiO2 of 60% and FiO2 had since been dropped to 55%. O2 saturation is between 93-97%. Peak pressure is 43, and plateau is 38. 0.9 normal saline at 75 ML per hour, Nimbex is on 5 lowell per kilo per minute, Diprivan is a 50 mics per kilo per minute, Cleviprex is at 2 mg per hour. She is tolerating tube feedings, with vital high protein at a 27 with a goal of 27. Today's chest x-ray reviewed, showing stable findings of diffuse pulmonary for chest related to viral ARDS. His labs have been reviewed, showing white blood cell count of 6.9, hemoglobin is 10.0, follow-up d-dimer is 1.5, down from 2.3, sodium is 136, potassium 3.9, chloride is 103, CO2 is 34, BUN of 9, creatinine 0.44, LDH is slightly down to 772, CRP has trended up slightly to 61.1 from 49.4 on yesterday's labs. On 12/29/2019 patient seen in follow-up in the intensive care unit, she remains intubated, paralyzed, and sedated, on assist-control mode of ventilation with a rate of 20, tidal vital 375, FiO2 50% and PEEP of 15, this morning his blood gases showed pO2 58, pCO2 47 and pH of 7.42, this was done on 50% FiO2 and PEEP of 12, subsequently the PEEP was increased to 15, her pulse ox was 84-88 this morning on PEEP of 12, and subsequently improved to 95-97 with increased PEEP. Chest x-ray shows stable diffuse bilateral airspace disease, right greater than left. She is not on any vasopressor support other than "proximal blood pressure control currently running at 4 mg per hour, Diprivan is a 50 mics per kilo per minute, 0.9 normal saline at a 75 ML per hour, Nimbex is a former mics per kilo per minute, she is tolerating tube feedings of vital HP at a rate of 27 with a goal of 27, with standard water flushes. This morning's lab work has been reviewed, white blood cell count is 10.6, hemoglobin is 12.2, d-dimer is 147, fibrinogen level is 572, sodium is 138, potassium 3.8, chloride is 102, CO2 32, BUN is 10, creatinine 0.38, ferritin level is 345, liver enzymes AST, ALT, have been noted to be trending up, at 45 and 57 respectively, alk phos is 101, up from 77. LDH is up from previous, currently at 991, and CRP is decreasing currently at 48.3. Patient has been afebrile. Sputum and blood cultures have been negative. Patient remains on Decadron, therapeutic doses of Lovenox, Pepcid, zinc supplement, is status post Remdesivir, and 1 unit of convalescent plasma. The patient is seen today 12/30/2019 in follow-up in the intensive care unit. She remains intubated on the mechanical ventilator. Current settings are assist -control rate of 28, Serevent and 75, FiO2 50% and a PEEP of 15. Morning blood gases revealed a pO2 of 60, pCO2 53, pH 7.37. She remains sedated on propofol at 50 mcg/kg/m. Cleviprex at 6 mg per hour. 0.9 normal saline at 75 ML's per hour. Paralytics in the form of Nimbex at 3.5 mcg/kg/m. She is being nourished with vital HP at 27 ML's per hour which is goal. His x-ray continues to reveal bilateral airspace disease consistent with pneumonia versus ARDS. Blood culture reveals no growth. Sputum culture reveals no growth. White count 12.5. Hemoglobin 11.4. Sodium 136. Potassium 3.5. Creatinine 0.43. She remains on bronchodilators, vitamin C, vitamin D, dexamethasone, Lovenox, Pepcid, melatonin and zinc. Antibiotics in the form of Zosyn. She has completed her course of Remdesivir. Received convalescent plasma. The patient is seen today 12/31/2019 in follow-up in the intensive care unit. She remains intubated on mechanical ventilator. Current settings are assist control at a rate of 28, tidal volume 375, FiO2 50% and a PEEP of 15. Arterial blood gases reveal a pO2 of 65, pCO2 46, pH 7.45. She has a 0.9 normal saline running at 75 ML's per hour. Propofol at 50 mcg/kg/m. Nimbex at 3.5 mcg/kg/m. Cleviprex at 8 mg per hour. She remains nourished with vital HP at 27 ML's per hour which is goal. The patient has traveled down her off the paralytic she becomes quite tachycardic and desaturates. No real progress. Altered reveals no growth. Sputum culture reveals no growth. White count 8.5. Hemoglobin 10.4. D-dimer 1.19. Sodium 138. Potassium 3.6. Creatinine 0.49. LDH 628. C-reactive protein 53.7. Antibiotics in the form of Zosyn. She has completed her course of Remdesivir. Received convalescent plasma. Objective - Vital Signs Vital signs: Vital Signs Temp 99.0 F 12/31/19 08:00 Pulse 100 12/31/19 11:00 Resp 28 H 12/31/19 11:00 BP 96/58 12/31/19 07:00 Pulse Ox 90 L 12/31/19 11:00 Intake & Output 12/30/19 12/31/19 12/31/19 18:59 06:59 18:59 Intake Total 2165.821 1828.652 432 Output Total 3345 2020 500 Balance -1179.179 -191.348 -68 Intake: IV 939 957 405 Sodium Chloride 0.9% 1, 900 900 375 000 ml @ 75 mls/hr IV . [id number] [facility] Rx#:[id number] pressure bags 39 57 30 Intake, IV Titration 752.821 727.652 Amount Cisatracurium 200 mg In 346.917 200.000 Sodium Chloride 0.9% 180 ml @ 2 MCG/KG/MIN 10.728 mls/hr IV .[id number] [facility] Rx #:[id number] Clevidipine Butyrate 25 38.000 108.8 mg In Empty Bag 1 bag @ 1 MG/HR 2 mls/hr IV .Q24H [facility] Rx#:[id number] Piperacillin-Tazobactam 3 175 125 .375 gm In Sodium Chloride 0.9% 100 ml @ 25 mls/hr IVPB Q8HR [facility] Rx# :[id number] propofoL 1,000 mg In 192.904 293.852 Empty Bag 1 bag @ Titrate IV .Q0M [facility] Rx#: [id number] Oral 60 60 Tube Feeding 324 54 27 Other 90 30 Output: Urine 3345 2020 500 Other: Voiding Method Indwelling Catheter Indwelling Catheter ABP, PAP, CO, CI - Last Documented Arterial Blood Pressure 167/58 - Exam GENERAL EXAM: Intubated, sedated 54-year-old female patient, paralyzed, on mechanical ventilator with FiO2 of 50% and PEEP of 15, comfortable in no apparent distress. HEAD: Normocephalic/atraumatic. EYES: Normal reaction of pupils, equal size. Conjunctiva pink, sclera white. NOSE: Clear with pink turbinates. THROAT: No erythema or exudates. NECK: No masses, no JVD, no thyroid enlargement, no adenopathy. CHEST: No chest wall deformity. Symmetrical expansion. LUNGS: Equal air entry with bilateral scattered rhonchi. CVS: Regular rate and rhythm, normal S1 and S2, no gallops, no murmurs, no rubs ABDOMEN: Soft, nontender. No hepatosplenomegaly, normal bowel sounds, no guarding or rigidity. EXTREMITIES: No clubbing, no edema, no cyanosis, 2+ pulses and upper and lower extremities. MUSCULOSKELETAL: Muscle strength and tone normal. SPINE: No scoliosis or deformity SKIN: No rashes CENTRAL NERVOUS SYSTEM: Sedated, intubated. No focal deficits, tone is normal in all 4 extremities. - Labs CBC & Chem 7: 12/31/19 04:23 12/31/19 04:23 Labs: Abnormal Lab Results - Last 24 Hours (Table) 12/29/19 12/30/19 12/30/19 Range/Units 04:57 12:05 20:37 RBC (3.80-5.40) m/uL Hgb (11.4-16.0) gm/dL Hct (34.0-46.0) % Fibrinogen (200-500) mg/dL D-Dimer (<0.60) mg/L FEU ABG pCO2 (35-45) mmHg ABG pO2 58 L* (83-108) mmHg ABG HCO3 (21-25) mmol/L ABG Total CO2 (19-24) mmol/L ABG O2 Saturation (94-97) % Carbon Dioxide (22-30) mmol/L Creatinine (0.52-1.04) mg/dL POC Glucose (mg/dL) 141 H 122 H (75-99) mg/dL Lactate Dehydrogenase (313-618) U/L C-Reactive Protein (<10.0) mg/L 12/31/19 12/31/19 12/31/19 Range/Units 04:23 04:23 04:23 RBC 3.54 L (3.80-5.40) m/uL Hgb 10.2 L (11.4-16.0) gm/dL Hct 31.2 L (34.0-46.0) % Fibrinogen 562 H (200-500) mg/dL D-Dimer 1.19 H (<0.60) mg/L FEU ABG pCO2 (35-45) mmHg ABG pO2 (83-108) mmHg ABG HCO3 (21-25) mmol/L ABG Total CO2 (19-24) mmol/L ABG O2 Saturation (94-97) % Carbon Dioxide 32 H (22-30) mmol/L Creatinine 0.49 L (0.52-1.04) mg/dL POC Glucose (mg/dL) (75-99) mg/dL Lactate Dehydrogenase 628 H (313-618) U/L C-Reactive Protein 53.7 H (<10.0) mg/L 12/31/19 Range/Units 04:53 RBC (3.80-5.40) m/uL Hgb (11.4-16.0) gm/dL Hct (34.0-46.0) % Fibrinogen (200-500) mg/dL D-Dimer (<0.60) mg/L FEU ABG pCO2 46 H (35-45) mmHg ABG pO2 65 L (83-108) mmHg ABG HCO3 32 H (21-25) mmol/L ABG Total CO2 33 H (19-24) mmol/L ABG O2 Saturation 93.7 L (94-97) % Carbon Dioxide (22-30) mmol/L Creatinine (0.52-1.04) mg/dL POC Glucose (mg/dL) (75-99) mg/dL Lactate Dehydrogenase (313-618) U/L C-Reactive Protein (<10.0) mg/L Assessment and Plan Assessment: 1. Acute hypoxemic respiratory failure related to Covid 19 related pneumonia, transferred to the ICU on 12/16/2019, intubated on 12/19/2019 and on the mechanical ventilator 2. Weakness, nausea, vomiting, with onset of symptoms 7 days ago prior to arrival and positive outpatient Covid 19 PCR with several family members infected 3. Increased inflammatory markers related to the above 4. Hypertension 5. Hyperlipidemia 6. Morbid obesity with history of previous lap band surgery Plan: The patient was seen and evaluated by Dr. Rodas Continue the current treatment plan Continue to try to wean down and off the paralytics Repeat chest x-ray, ABGs in a.m. Very slow to progress We will continue to follow and make further recommendations based on her clinical status. Critical care time 35 minutes I, the cosigning physician, performed a history & physical examination of the patient. Lungs sounds with bilateral scattered rhonchi. Maintaining good O2 saturations in the 90s on the mechanical ventilator at 50% FiO2 and a PEEP of 15. I discussed the assessment and plan of care with my nurse practitioner, Latha So. I attest to the above note as dictated by her.
--- NOTE | 2019-12-31 13:38 | P.PN ---
Subjective Acute hypoxic respiratory failure secondary to covid 19 pneumonitis. Patient remains on ventilator support, patient did receive convalescent plasma along with Remdesevir. Patient remains on the Decadron patient remains on pressor support. Zosyn was added empirically by pulmonology. Patient remains on assist-control ventilation with the high before 15 FiO2 of 60%.failed weaning trials today. 12/23/2019 Patient remains on the ventilator still requiring PEEP of 16 FiO2 of 60%. Patient is mildly alkalotic. Probably need to go down on the it up respiratory rate. Patient is on tidal volume at 375. Patient is on very low-dose of norepinephrine today. 12/24/2019 Patient remains on mechanical ventilator patient has cold with 19 pneumonitis along with ARDS on high PEEP of 16 FiO2 of 55 and now. Patient's ABGs shows improvement in alkalosis. Patient is presently not requiring any pressors patient ontinues to be on propofol and Nimbex remains on Decadron. 12/25/2019 Patient can use to require high be because of ARDS associated with Covid. Patient can use to be on propofol and Nimbex. Off pressor support receiving normal saline. Completed course of Remdesivir. 12/26/2019 Patient remains on 50 g of propofol off Nimbex patient blood pressure went up patient will be started on lisinopril and strolls slowly wean off work reflex patient is bit tachycardic. Patient remains on the 16 of PEEP. Remains intubated 12/27/2019 Patient the clinical condition did not change significantly. Remains on high PEEP. Remains on sedation. 12/28/2019 Patient is off Nimbex today beyond that no significant change in her overall clinical condition and respiratory failure. Patient remains on Zosyn prophylactically 12/29/2019 Patient is back on Nimbex no significant improvement in her respiratory distress is her overall clinical condition. Patient prognosis poor 12/30/2019 patient is to minimize propofol continue the ventilator to support without any significant improvement. Patient was started back on clevidipine 12/31/2019. Patient remains on pretty much the same in The setting sepsis for deep of 15 now. Patient remains on Nimbex, patient is on and off Cleviprex review of systems: Unable to obtain due to her clinical condition. All inpatient medications were reviewed and appropriate changes in these medications as dictated in the interval history and assessment and plan. Objective - Vital Signs Vital signs: Vital Signs Temp 98.5 F 12/31/19 12:00 Pulse 98 12/31/19 13:00 Resp 28 H 12/31/19 13:00 BP 96/58 12/31/19 07:00 Pulse Ox 91 L 12/31/19 13:00 Intake & Output 12/30/19 12/31/19 12/31/19 18:59 06:59 18:59 Intake Total 2165.821 1828.652 621 Output Total 3345 2020 675 Balance -1179.179 -191.348 -54 Weight 83.2 kg Intake: IV 939 957 567 Sodium Chloride 0.9% 1, 900 900 525 000 ml @ 75 mls/hr IV . [id number] [facility] Rx#:[id number] pressure bags 39 57 42 Intake, IV Titration 752.821 727.652 Amount Cisatracurium 200 mg In 346.917 200.000 Sodium Chloride 0.9% 180 ml @ 2 MCG/KG/MIN 10.728 mls/hr IV .[id number] [facility] Rx #:[id number] Clevidipine Butyrate 25 38.000 108.8 mg In Empty Bag 1 bag @ 1 MG/HR 2 mls/hr IV .Q24H [facility] Rx#:[id number] Piperacillin-Tazobactam 3 175 125 .375 gm In Sodium Chloride 0.9% 100 ml @ 25 mls/hr IVPB Q8HR [facility] Rx# :[id number] propofoL 1,000 mg In 192.904 293.852 Empty Bag 1 bag @ Titrate IV .Q0M [facility] Rx#: [id number] Oral 60 60 Tube Feeding 324 54 54 Other 90 30 Output: Urine 3345 2019 675 Other: Voiding Method Indwelling Catheter Indwelling Catheter Indwelling Catheter ABP, PAP, CO, CI - Last Documented Arterial Blood Pressure 141/54 - Exam PHYSICAL EXAMINATION: GENERAL: patient is intubated sedated HEENT: Pupils are round and equally reacting to light. EOMI. No scleral icterus. No conjunctival pallor. Normocephalic, atraumatic. No pharyngeal erythema. No thyromegaly. CARDIOVASCULAR: S1 and S2 present. No murmurs, rubs, or gallops. PULMONARY: Chest is clear to auscultation, no wheezing or crackles. ABDOMEN: Soft, nontender, nondistended, normoactive bowel sounds. No palpable organomegaly. MUSCULOSKELETAL: No joint swelling or deformity. EXTREMITIES: No cyanosis, clubbing, or pedal edema. NEUROLOGICAL: patient is sedated SKIN: No rashes. Note: Because of COVID 19 isolation, some of the history and physical exam findings are indirect and obtained from nursing staff, and other physician examinations to avoid unnecessary contact with the patient. - Labs CBC & Chem 7: 12/31/19 04:23 12/31/19 04:23 Labs: Abnormal Lab Results - Last 24 Hours (Table) 12/29/19 12/30/19 12/31/19 Range/Units 04:57 20:37 04:23 RBC 3.54 L (3.80-5.40) m/uL Hgb 10.2 L (11.4-16.0) gm/dL Hct 31.2 L (34.0-46.0) % Fibrinogen (200-500) mg/dL D-Dimer (<0.60) mg/L FEU ABG pCO2 (35-45) mmHg ABG pO2 58 L* (83-108) mmHg ABG HCO3 (21-25) mmol/L ABG Total CO2 (19-24) mmol/L ABG O2 Saturation (94-97) % Carbon Dioxide (22-30) mmol/L Creatinine (0.52-1.04) mg/dL POC Glucose (mg/dL) 122 H (75-99) mg/dL Lactate Dehydrogenase (313-618) U/L C-Reactive Protein (<10.0) mg/L 12/31/19 12/31/19 12/31/19 Range/Units 04:23 04:23 04:53 RBC (3.80-5.40) m/uL Hgb (11.4-16.0) gm/dL Hct (34.0-46.0) % Fibrinogen 562 H (200-500) mg/dL D-Dimer 1.19 H (<0.60) mg/L FEU ABG pCO2 46 H (35-45) mmHg ABG pO2 65 L (83-108) mmHg ABG HCO3 32 H (21-25) mmol/L ABG Total CO2 33 H (19-24) mmol/L ABG O2 Saturation 93.7 L (94-97) % Carbon Dioxide 32 H (22-30) mmol/L Creatinine 0.49 L (0.52-1.04) mg/dL POC Glucose (mg/dL) (75-99) mg/dL Lactate Dehydrogenase 628 H (313-618) U/L C-Reactive Protein 53.7 H (<10.0) mg/L 12/31/19 Range/Units 12:00 RBC (3.80-5.40) m/uL Hgb (11.4-16.0) gm/dL Hct (34.0-46.0) % Fibrinogen (200-500) mg/dL D-Dimer (<0.60) mg/L FEU ABG pCO2 (35-45) mmHg ABG pO2 (83-108) mmHg ABG HCO3 (21-25) mmol/L ABG Total CO2 (19-24) mmol/L ABG O2 Saturation (94-97) % Carbon Dioxide (22-30) mmol/L Creatinine (0.52-1.04) mg/dL POC Glucose (mg/dL) 134 H (75-99) mg/dL Lactate Dehydrogenase (313-618) U/L C-Reactive Protein (<10.0) mg/L Assessment and Plan Plan: COVID-19 virus pneumoniano significant improvement in her respiratory status the patient remains on mechanical ventilator. Acute hypoxic respiratory failure secondary to pneumonia. Requiring high flow oxygen --> Currently requiring mechanical ventilation. Nausea vomiting, generalized weakness and cough shortness of breath secondary to pneumonia. Hypertension Hyperlipidemia DVT prophylaxis with Lovenox. Plan: Patient is on mechanical ventilator. patient still on Nimbex off X continue the NICO inhibitor on dexamethasone 6 mg daily and Lovenox 80 mg subcu daily. completed remdesivir course. Continue with droplet and contact precautions.Pulmonary is following. Prognosis is guarded at this time.
[2019-12-31 17:52] LABS: Glucose,Whole Blood 118 mg/dL (75-99)
[2019-12-31] MEDS: PRAVASTATIN SODIUM 40 MG TAB PO SCH (20:30)
[2019-12-31] MEDS: MELATONIN 5 MG TABLET PO SCH (20:30)
[2020-01-01] MEDS: HYDROmorphone 0.5 MG/0.5 ML SYRINGE IVP SCH ×11 (00:19→18:13)
[2020-01-01] MEDS: ARTIFICIAL TEARS-HYPROMELLOSE DROPS 15 ML BTL BOTH EYES SCH ×6 (00:22→20:30)
[2020-01-01] MEDS: PIPERACILLIN-TAZOBACTAM 3.375 GM in SODIUM CHLORIDE 0.9% 100 ML IVPB SCH (00:22)
[2020-01-01] MEDS: SODIUM CHLORIDE 0.9% 1,000 ML IV SCH ×2 (00:23→18:17)
[2020-01-01] MEDS: ALBUTEROL HFA INHALER INHALATION SCH ×7 (01:24→23:46)
--- NOTE | 2020-01-01 02:50 | XR ---
EXAM: XR Chest, 1 View CLINICAL HISTORY: icu management TECHNIQUE: Frontal view of the chest. COMPARISON: Yesterday FINDINGS: Lungs: Moderate amount of airspace opacities in both lungs, unchanged. Pleural space: Cannot rule out small bilateral pleural effusions. No pneumothorax. Heart: Unremarkable. No cardiomegaly. Mediastinum: Unremarkable. Bones/joints: No acute findings. Tubes, lines and devices: The sidehole and tip of enteric tube are in the body the stomach. Endotracheal tube, right jugular central venous catheter are unchanged in positions. LAP band is again noted IMPRESSION: The sidehole and tip of enteric tube are in the body the stomach. Otherwise, no substantial change.
[2020-01-01 04:51] LABS: ABG Base Excess 6.2 mmol/L; ABG HCO3 32 mmol/L (21-25); ABG Oxygen Saturation 95.3 % (94-97); ABG PCO2 56 mmHg (35-45); ABG PH 7.36 (7.35-7.45); ABG PO2 77 mmHg (83-108); ABG TCO2 33 mmol/L (19-24); Allen Test Performed? Yes
[2020-01-01] MEDS: CLEVIDIPINE BUTYRATE 25 MG in EMPTY BAG 1 BAG IV SCH ×3 (04:51→21:49)
[2020-01-01 05:16] LABS: Basophils % (A) 0 %; Eosinophils # (A) 0.3 k/uL (0-0.7); Eosinophils % (A) 2 %; HCT 36.4 % (34.0-46.0); HGB 11.6 gm/dL (11.4-16.0); Hypochromasia Slight; Lymphocytes # (A) 0.7 k/uL (1.0-4.8); Lymphocytes % (A) 4 %; MCH 28.5 pg (25.0-35.0); MCHC 31.9 g/dL (31.0-37.0); MCV 89.5 fL (80.0-100.0); Mean Platelet Volume 7.4; Monocytes # (A) 0.6 k/uL (0-1.0); Monocytes % (A) 4 %; Neutrophils % (A) 88 %; Platelet Count 333 k/uL (150-450); RBC 4.07 m/uL (3.80-5.40); RDW 15.8 % (11.5-15.5); WBC 15.8 k/uL (3.8-10.6)
[2020-01-01 05:35] LABS: African American GFR (CKD) >90 (>60 ml/min/1.73 sqM); Anion Gap 5 mmol/L; Blood Urea Nitrogen 10 mg/dL (7-17); Calcium 8.4 mg/dL (8.4-10.2); Carbon Dioxide 30 mmol/L (22-30); Chloride 99 mmol/L (98-107); Glucose 155 mg/dL (74-99); Non-African American GFR(CKD) >90 (>60 ml/min/1.73 sqM); Potassium 4.2 mmol/L (3.5-5.1); Sodium 134 mmol/L (137-145)
[2020-01-01] MEDS: CISATRACURIUM 200 MG in SODIUM CHLORIDE 0.9% 180 ML IV SCH (08:05)
[2020-01-01] MEDS: ENOXAPARIN 80 MG/0.8 ML SYRINGE SQ SCH ×2 (08:28→21:44)
[2020-01-01] MEDS: lisinopriL 20 MG TAB PO SCH (08:29)
[2020-01-01] MEDS: CHLORHEXIDINE GLUCONATE 15 ML CUP MUCOUS MEM SCH ×2 (08:29→21:30)
[2020-01-01] MEDS: FAMOTIDINE 20 MG/2 ML VIAL IV SCH ×2 (08:29→21:30)
[2020-01-01] MEDS: ASCORBIC ACID 500 MG TAB PO SCH (08:29)
[2020-01-01] MEDS: ZINC SULFATE 220 MG CAP PO SCH (08:29)
[2020-01-01] MEDS: methylPREDNISolone SOD SUCCI 40 MG/ML 1 ML VIAL IV SCH ×3 (08:32→18:17)
[2020-01-01] MEDS ORDERED: HYDROmorphone 1 MG/ML 1 ML SYRINGE IVP STA (11:09)
[2020-01-01 12:12] LABS: Glucose,Whole Blood 159 mg/dL (75-99)
--- NOTE | 2020-01-01 13:08 | P.PN ---
Subjective Acute hypoxic respiratory failure secondary to covid 19 pneumonitis. Patient remains on ventilator support, patient did receive convalescent plasma along with Remdesevir. Patient remains on the Decadron patient remains on pressor support. Zosyn was added empirically by pulmonology. Patient remains on assist-control ventilation with the high before 15 FiO2 of 60%.failed weaning trials today. 12/23/2019 Patient remains on the ventilator still requiring PEEP of 16 FiO2 of 60%. Patient is mildly alkalotic. Probably need to go down on the it up respiratory rate. Patient is on tidal volume at 375. Patient is on very low-dose of norepinephrine today. 12/24/2019 Patient remains on mechanical ventilator patient has cold with 19 pneumonitis along with ARDS on high PEEP of 16 FiO2 of 55 and now. Patient's ABGs shows improvement in alkalosis. Patient is presently not requiring any pressors patient ontinues to be on propofol and Nimbex remains on Decadron. 12/25/2019 Patient can use to require high be because of ARDS associated with Covid. Patient can use to be on propofol and Nimbex. Off pressor support receiving normal saline. Completed course of Remdesivir. 12/26/2019 Patient remains on 50 g of propofol off Nimbex patient blood pressure went up patient will be started on lisinopril and strolls slowly wean off work reflex patient is bit tachycardic. Patient remains on the 16 of PEEP. Remains intubated 12/27/2019 Patient the clinical condition did not change significantly. Remains on high PEEP. Remains on sedation. 12/28/2019 Patient is off Nimbex today beyond that no significant change in her overall clinical condition and respiratory failure. Patient remains on Zosyn prophylactically 12/29/2019 Patient is back on Nimbex no significant improvement in her respiratory distress is her overall clinical condition. Patient prognosis poor 12/30/2019 patient is to minimize propofol continue the ventilator to support without any significant improvement. Patient was started back on clevidipine 12/31/2019. Patient remains on pretty much the same in The setting sepsis for deep of 15 now. Patient remains on Nimbex, patient is on and off Cleviprex 01/01/2020 Patient is off Nimbex today no significant change in her vent settings. review of systems: Unable to obtain due to her clinical condition. All inpatient medications were reviewed and appropriate changes in these medications as dictated in the interval history and assessment and plan. Objective - Vital Signs Vital signs: Vital Signs Temp 99.7 F H 01/01/20 12:00 Pulse 78 01/01/20 12:00 Resp 28 H 01/01/20 12:00 BP 91/55 01/01/20 12:00 Pulse Ox 93 L 01/01/20 12:00 Intake & Output 12/31/19 01/01/20 01/01/20 18:59 06:59 18:59 Intake Total 1141 1719.900 684.384 Output Total 1305 1145 1835 Balance -164 574.900 -1150.616 Weight 82.4 kg 82.4 kg Intake: IV 960 1066 171 0.9 Normal Saline for 60 66 36 Pressure Bags @ 3mL/hr Piperacillin-Tazobactam 3 100 .375 gm In Sodium Chloride 0.9% 100 ml @ 25 mls/hr IVPB Q8HR [facility] Rx# :[id number] Sodium Chloride 0.9% 1, 900 900 135 000 ml @ 20 mls/hr IV . Q24H [facility] Rx#:[id number] Intake, IV Titration 100 431.900 318.384 Amount Cisatracurium 200 mg In 200 32.184 Sodium Chloride 0.9% 180 ml @ 2 MCG/KG/MIN 10.728 mls/hr IV .[id number] [facility] Rx #:[id number] Clevidipine Butyrate 25 131.900 86.2 mg In Empty Bag 1 bag @ 1 MG/HR 2 mls/hr IV .Q24H [facility] Rx#:[id number] propofoL 1,000 mg In 100 100 200.000 Empty Bag 1 bag @ Titrate IV .Q0M [facility] Rx#: [id number] Tube Feeding 81 162 135 Other 60 60 Output: Urine 1305 1145 1835 Other: Voiding Method Indwelling Catheter Indwelling Catheter ABP, PAP, CO, CI - Last Documented Arterial Blood Pressure 98/48 - Exam PHYSICAL EXAMINATION: GENERAL: patient is intubated sedated HEENT: Pupils are round and equally reacting to light. EOMI. No scleral icterus. No conjunctival pallor. Normocephalic, atraumatic. No pharyngeal erythema. No thyromegaly. CARDIOVASCULAR: S1 and S2 present. No murmurs, rubs, or gallops. PULMONARY: Chest is clear to auscultation, no wheezing or crackles. ABDOMEN: Soft, nontender, nondistended, normoactive bowel sounds. No palpable organomegaly. MUSCULOSKELETAL: No joint swelling or deformity. EXTREMITIES: No cyanosis, clubbing, or pedal edema. NEUROLOGICAL: patient is sedated SKIN: No rashes. Note: Because of COVID 19 isolation, some of the history and physical exam find ings are indirect and obtained from nursing staff, and other physician examinations to avoid unnecessary contact with the patient. - Labs CBC & Chem 7: 01/01/20 04:40 01/01/20 04:40 Labs: Abnormal Lab Results - Last 24 Hours (Table) 12/31/19 01/01/20 01/01/20 Range/Units 17:51 04:40 04:40 WBC 15.8 H (3.8-10.6) k/uL RDW 15.8 H (11.5-15.5) % Neutrophils # 14.0 H (1.3-7.7) k/uL Lymphocytes # 0.7 L (1.0-4.8) k/uL ABG pCO2 (35-45) mmHg ABG pO2 (83-108) mmHg ABG HCO3 (21-25) mmol/L ABG Total CO2 (19-24) mmol/L Sodium 134 L (137-145) mmol/L Creatinine 0.33 L (0.52-1.04) mg/dL Glucose 155 H (74-99) mg/dL POC Glucose (mg/dL) 118 H (75-99) mg/dL Triglycerides (<150) mg/dL 01/01/20 01/01/20 01/01/20 Range/Units 04:40 04:47 12:10 WBC (3.8-10.6) k/uL RDW (11.5-15.5) % Neutrophils # (1.3-7.7) k/uL Lymphocytes # (1.0-4.8) k/uL ABG pCO2 56 H (35-45) mmHg ABG pO2 77 L (83-108) mmHg ABG HCO3 32 H (21-25) mmol/L ABG Total CO2 33 H (19-24) mmol/L Sodium (137-145) mmol/L Creatinine (0.52-1.04) mg/dL Glucose (74-99) mg/dL POC Glucose (mg/dL) 159 H (75-99) mg/dL Triglycerides 409 H (<150) mg/dL Assessment and Plan Plan: COVID-19 virus pneumoniano significant improvement in her respiratory status the patient remains on mechanical ventilator. Acute hypoxic respiratory failure secondary to pneumonia. Requiring high flow oxygen --> Currently requiring mechanical ventilation. Nausea vomiting, generalized weakness and cough shortness of breath secondary to pneumonia. Hypertension Hyperlipidemia DVT prophylaxis with Lovenox. Plan: Patient is on mechanical ventilator. patient still on Nimbex off X continue the NICO inhibitor on dexamethasone 6 mg daily and Lovenox 80 mg subcu daily. completed remdesivir course. Continue with droplet and contact precautions.Pulmonary is following. Prognosis is guarded at this time.
--- NOTE | 2020-01-01 15:25 | P.PN ---
Subjective Progress Note Date: 01/01/20 This is a 51-year-old female patient with a complicated course of a COVID 19 ammonia complicated by respiratory failure. The patient was transferred to the intensive care unit on 12/16/2019 and the patient has been intubated on 12/19/2019 and since then the patient has been on a mechanical ventilator. She has a very slow progress. The patient is essentially remains intubated on a mechanical ventilator. Currently she is an assist-control mode at the rate of 28 with a tidal volume of 375 and FiO2 of 75% with a PEEP of 15. The patient is on propofol running at 50 g per KG per minute. The patient is also on Nimbex at 3.5 g per KG 5 minutes. The patient is also on normal saline today to 75 mL an hour. The blood gases from today shows a pH of 7.36 with a pCO2 of 56 and pO2 of 77. The peak aortic pressure is around 46 metastatic a pressure of 41. Hemodynamically, the patient is hypertensive and the patient is requiring clevidipine drip at 8 mg per hour for blood pressure. The patient is receiving enteral feeding for nutritional support and the patient is currently on vital high protein at the rate of 27 mL an hour. The patient has completed her course of Remdesivir and she has also received convalescent plasma. She is currently on therapeutic dose of Lovenox 80 mg subcu every 12 hours. She is covered empirically with IV Zosyn. The patient is afebrile. The ferritin from was down to 281. The LDH level was down to 628 from yesterday. A repeat blood work showed a triglyceride level of 409. This is related to her ongoing use of propofol. Objective - Vital Signs Vital signs: Vital Signs Temp 99.7 F H 01/01/20 12:00 Pulse 66 01/01/20 15:00 Resp 28 H 01/01/20 15:00 BP 111/66 01/01/20 15:00 Pulse Ox 97 01/01/20 15:00 Intake & Output 12/31/19 01/01/20 01/01/20 18:59 06:59 18:59 Intake Total 1141 1719.900 771.867 Output Total 1305 1145 2085 Balance -164 574.900 -1313.133 Weight 82.4 kg 82.4 kg Intake: IV 960 1066 203 0.9 Normal Saline for 60 66 48 Pressure Bags @ 3mL/hr Piperacillin-Tazobactam 3 100 .375 gm In Sodium Chloride 0.9% 100 ml @ 25 mls/hr IVPB Q8HR [facility] Rx# :[id number] Sodium Chloride 0.9% 1, 900 900 155 000 ml @ 20 mls/hr IV . Q24H [facility] Rx#:[id number] Intake, IV Titration 100 431.900 319.867 Amount Cisatracurium 200 mg In 200 32.184 Sodium Chloride 0.9% 180 ml @ 2 MCG/KG/MIN 10.728 mls/hr IV .[id number] [facility] Rx #:[id number] Clevidipine Butyrate 25 131.900 86.2 mg In Empty Bag 1 bag @ 1 MG/HR 2 mls/hr IV .Q24H [facility] Rx#:[id number] propofoL 1,000 mg In 100 100 201.483 Empty Bag 1 bag @ Titrate IV .Q0M [facility] Rx#: [id number] Tube Feeding 81 162 189 Other 60 60 Output: Urine 1305 1145 2085 Other: Voiding Method Indwelling Catheter Indwelling Catheter ABP, PAP, CO, CI - Last Documented Arterial Blood Pressure 127/59 - Exam GENERAL EXAM: Intubated, sedated 54-year-old female patient, paralyzed, on mecha nical ventilator with FiO2 of 75 % and PEEP of 15, comfortable in no apparent distress. HEAD: Normocephalic/atraumatic. EYES: Normal reaction of pupils, equal size. Conjunctiva pink, sclera white. NOSE: Clear with pink turbinates. THROAT: No erythema or exudates. NECK: No masses, no JVD, no thyroid enlargement, no adenopathy. CHEST: No chest wall deformity. Symmetrical expansion. LUNGS: Equal air entry with bilateral scattered rhonchi. CVS: Regular rate and rhythm, normal S1 and S2, no gallops, no murmurs, no rubs ABDOMEN: Soft, nontender. No hepatosplenomegaly, normal bowel sounds, no gua rding or rigidity. EXTREMITIES: No clubbing, no edema, no cyanosis, 2+ pulses and upper and lower extremities. MUSCULOSKELETAL: Muscle strength and tone normal. SPINE: No scoliosis or deformity SKIN: No rashes CENTRAL NERVOUS SYSTEM: Sedated, intubated. No focal deficits, tone is normal in all 4 extremities. - Labs CBC & Chem 7: 01/01/20 04:40 01/01/20 04:40 Labs: Abnormal Lab Results - Last 24 Hours (Table) 12/31/19 01/01/20 01/01/20 Range/Units 17:51 04:40 04:40 WBC 15.8 H (3.8-10.6) k/uL RDW 15.8 H (11.5-15.5) % Neutrophils # 14.0 H (1.3-7.7) k/uL Lymphocytes # 0.7 L (1.0-4.8) k/uL ABG pCO2 (35-45) mmHg ABG pO2 (83-108) mmHg ABG HCO3 (21-25) mmol/L ABG Total CO2 (19-24) mmol/L Sodium 134 L (137-145) mmol/L Creatinine 0.33 L (0.52-1.04) mg/dL Glucose 155 H (74-99) mg/dL POC Glucose (mg/dL) 118 H (75-99) mg/dL Triglycerides (<150) mg/dL 01/01/20 01/01/20 01/01/20 Range/Units 04:40 04:47 12:10 WBC (3.8-10.6) k/uL RDW (11.5-15.5) % Neutrophils # (1.3-7.7) k/uL Lymphocytes # (1.0-4.8) k/uL ABG pCO2 56 H (35-45) mmHg ABG pO2 77 L (83-108) mmHg ABG HCO3 32 H (21-25) mmol/L ABG Total CO2 33 H (19-24) mmol/L Sodium (137-145) mmol/L Creatinine (0.52-1.04) mg/dL Glucose (74-99) mg/dL POC Glucose (mg/dL) 159 H (75-99) mg/dL Triglycerides 409 H (<150) mg/dL Assessment and Plan Plan: 1. Acute hypoxemic respiratory failure related to Covid 19 related pneumonia, transferred to the ICU on 12/16/2019, intubated on 12/19/2019 and on the mechanical ventilator,and the patient has received steroids, Remdesivir and Convalescent plasma. The patient is still intubated on a mechanical ventilator. The patient is sedated, paralyzed secondary to acute hypoxic respiratory failur e/ARDS. 2. COVID 19 pneumonia with secondary ARDS. The patient has significant elevation of the peak and static pressure indicating poor lung compliance he secondary to ARDS. The patient continues to have difficulties oxygenation and we are allowing some permissive hypercapnia. The patient is still on high FiO2 and PEEP levels with borderline oxygenation. 3. Increased inflammatory markers related to the above, with elevated LDH, CRP 4. Hypertension 5. Hyperlipidemia and the patient is a component of hypertriglyceridemia related to use of propofol. 6. Morbid obesity with history of previous lap band surgery Plan Continue ventilator support continue enteral feeding for nutritional support The patient will be given a paralytic holiday Stopped IV Zosyn Thank you said was checked and the levels were quite high. I am contemplating switching this patient to to Precedex Continue The proximal drip for blood pressure control Lovenox therapeutic dose is 80 mg subcu every 12 hours Started patient IV Solu Medrol 40 mg every 6 hours Continue the rest of the supplements for Covid 19 infection including zinc, vitamin C, Pepcid and melatonin. Condition is critical. The family was updated on the condition will continue to follow make further recommendations based on her progress. This is a critically care evaluation and this was done and more than 30 minutes. Time with Patient: Greater than 30
[2020-01-01 17:29] LABS: Glucose,Whole Blood 167 mg/dL (75-99)
[2020-01-01] MEDS ORDERED: propofoL 100 ML IV ONE (20:10)
[2020-01-01] MEDS: HYDROmorphone 0.5 MG/0.5 ML SYRINGE IVP PRN (21:30)
[2020-01-01] MEDS: PRAVASTATIN SODIUM 40 MG TAB PO SCH (21:44)
[2020-01-01] MEDS: MELATONIN 5 MG TABLET PO SCH (21:44)
[2020-01-01] MEDS: DEXMEDETOMIDINE/0.9% NACL(PMX) 400 MCG in EMPTY BAG 1 BAG IV SCH (23:08)
[2020-01-02 00:30] LABS: Glucose,Whole Blood 156 mg/dL (75-99)
[2020-01-02] MEDS: INSULIN ASPART (NovoLOG) 100 UNIT/ML VIAL SQ SCH ×4 (00:37→17:41)
[2020-01-02] MEDS: ARTIFICIAL TEARS-HYPROMELLOSE DROPS 15 ML BTL BOTH EYES SCH ×6 (00:39→20:56)
[2020-01-02] MEDS: methylPREDNISolone SOD SUCCI 40 MG/ML 1 ML VIAL IV SCH ×4 (00:39→17:43)
[2020-01-02] MEDS: ALBUTEROL HFA INHALER INHALATION SCH ×5 (04:19→20:25)
[2020-01-02 05:19] LABS: ABG Base Excess 7.7 mmol/L; ABG HCO3 32 mmol/L (21-25); ABG Oxygen Saturation 95.4 % (94-97); ABG PCO2 45 mmHg (35-45); ABG PH 7.46 (7.35-7.45); ABG PO2 71 mmHg (83-108); ABG TCO2 33 mmol/L (19-24)
[2020-01-02 05:34] LABS: Basophils % (A) 0 %; Eosinophils % (A) 0 %; HCT 31.9 % (34.0-46.0); HGB 10.5 gm/dL (11.4-16.0); Lymphocytes # (A) 0.5 k/uL (1.0-4.8); Lymphocytes % (A) 5 %; MCHC 32.8 g/dL (31.0-37.0); MCV 88.3 fL (80.0-100.0); Mean Platelet Volume 7.5; Monocytes # (A) 0.4 k/uL (0-1.0); Monocytes % (A) 4 %; Neutrophils % (A) 90 %; Platelet Count 297 k/uL (150-450); RBC 3.62 m/uL (3.80-5.40); RDW 15.4 % (11.5-15.5)
[2020-01-02 05:50] LABS: ALT 50 U/L (4-34); AST 24 U/L (14-36); African American GFR (CKD) >90 (>60 ml/min/1.73 sqM); Alkaline Phosphatase 94 U/L (38-126); Anion Gap 3 mmol/L; Blood Urea Nitrogen 15 mg/dL (7-17); Calcium 9.1 mg/dL (8.4-10.2); Carbon Dioxide 32 mmol/L (22-30); Chloride 104 mmol/L (98-107); Glucose 151 mg/dL (74-99); Non-African American GFR(CKD) >90 (>60 ml/min/1.73 sqM); Potassium 4.1 mmol/L (3.5-5.1); Sodium 139 mmol/L (137-145); Total Bilirubin 0.5 mg/dL (0.2-1.3); Total Protein 5.9 g/dL (6.3-8.2)
[2020-01-02 05:54] LABS: Glucose,Whole Blood 152 mg/dL (75-99)
[2020-01-02 05:59] LABS: D-Dimer 0.98 mg/L FEU (<0.60)
[2020-01-02 06:16] LABS: C Reactive Protein 115.2 mg/L (<10.0)
[2020-01-02] MEDS: DEXMEDETOMIDINE/0.9% NACL(PMX) 400 MCG in EMPTY BAG 1 BAG IV SCH ×2 (06:20→17:31)
[2020-01-02 08:52] LABS: ABG HCO3 32 mmol/L (21-25); ABG Oxygen Saturation 98.2 % (94-97); ABG PCO2 43 mmHg (35-45); ABG PH 7.48 (7.35-7.45); ABG PO2 89 mmHg (83-108); ABG TCO2 33 mmol/L (19-24); Allen Test Performed? Yes
[2020-01-02] MEDS: CHLORHEXIDINE GLUCONATE 15 ML CUP MUCOUS MEM SCH ×2 (09:20→20:55)
[2020-01-02] MEDS: lisinopriL 20 MG TAB PO SCH (09:20)
[2020-01-02] MEDS: FAMOTIDINE 20 MG/2 ML VIAL IV SCH ×2 (09:20→20:55)
[2020-01-02] MEDS: ASCORBIC ACID 500 MG TAB PO SCH (09:20)
[2020-01-02 09:39] LABS: Ferritin 274.9 ng/mL (10.0-291.0)
[2020-01-02] MEDS: ENOXAPARIN 80 MG/0.8 ML SYRINGE SQ SCH ×2 (10:04→20:56)
[2020-01-02] MEDS: ZINC SULFATE 220 MG CAP PO SCH (10:05)
--- NOTE | 2020-01-02 10:37 | XR ---
EXAMINATION TYPE: XR chest 1V portable DATE OF EXAM: 01/02/2020 COMPARISON: 01/01/2020 INDICATION: ICU management TECHNIQUE: Single frontal view of the chest is obtained. FINDINGS: The heart size is normal. The pulmonary vasculature is prominent. Diffuse patchy infiltrates are present bilaterally. There may be some mild improvement from compariso n. Right central venous catheter tip is within the right atrium. Endotracheal tube tip is above the jesse na. Nasogastric tube transverses the thorax. IMPRESSION: 1. Mild improvement of patchy bilateral diffuse infiltrates.
[2020-01-02 11:35] LABS: Glucose,Whole Blood 151 mg/dL (75-99)
--- NOTE | 2020-01-02 14:58 | P.PN ---
Subjective Progress Note Date: 01/02/20 This is a 51-year-old female patient with a complicated course of a COVID 19 ammonia complicated by respiratory failure. The patient was transferred to the intensive care unit on 12/16/2019 and the patient has been intubated on 12/19/2019 and since then the patient has been on a mechanical ventilator. She has a very slow progress. The patient is essentially remains intubated on a mechanical ventilator. Currently she is an assist-control mode at the rate of 28 with a tidal volume of 375 and FiO2 of 75% with a PEEP of 15. The patient is on propofol running at 50 g per KG per minute. The patient is also on Nimbex at 3.5 g per KG 5 minutes. The patient is also on normal saline today to 75 mL an hour. The blood gases from today shows a pH of 7.36 with a pCO2 of 56 and pO2 of 77. The peak aortic pressure is around 46 metastatic a pressure of 41. Hemodynamically, the patient is hypertensive and the patient is requiring clevidipine drip at 8 mg per hour for blood pressure. The patient is receiving enteral feeding for nutritional support and the patient is currently on vital high protein at the rate of 27 mL an hour. The patient has completed her course of Remdesivir and she has also received convalescent plasma. She is currently on therapeutic dose of Lovenox 80 mg subcu every 12 hours. She is covered empirically with IV Zosyn. The patient is afebrile. The ferritin from was down to 281. The LDH level was down to 628 from yesterday. A repeat blood work showed a triglyceride level of 409. This is related to her ongoing use of propofol. 01/02/2020, the patient is being seen for a follow-up. This morning, the patient is off paralytics. The patient is on propofol at 35 g per KG per minute. Overnight, Precedex has also initiated to improve centrally with a mechanical ventilator as the patient was taken off the paralytics. The patient is currently on Precedex also and this is running at a dose of 0.4 g. The patient otherwise is still intubated on a mechanical ventilator. On today's ventilator, the patient is assist-control mode at a rate of 20 to the tidal volume of 375 and FiO2 of 60% with a PEEP of 15. Peak airway pressure was measured to be 52 and the plateau airway pressure was 46. The blood gas showed a pH of 7.46 with a pCO2 of 45 and pO2 of 71. Chest x-ray showed diffuse breath and pulmonary infiltrates which is essentially unchanged compared to yesterday. His CRP level was elevated at 115. LDH was down to 625 from 12/31/2019. The patient was afebrile. Based on the concern of an elevated peak and static pressure,, assess this patient to a pressure control mode of ventilation which seems to be more effective in terms of ventilating and oxygenating the patient. For now, the patient is on a pressure control mode with a pressure of 22 cm of water, rate of 28, FiO2 60%, PEEP of 12 with a respiratory time of 1 second. The patient is still tolerating enteral feeding for nutritional support. No other significant events. He was dynamically stable. The neck fluid balance has been negative as the patient is diuresing adequately and over the past 24 hours her net fluid balance was -1.4 L. Objective - Vital Signs Vital signs: Vital Signs Temp 98.5 F 01/02/20 04:00 Pulse 56 L 01/02/20 07:00 Resp 30 H 01/02/20 07:00 BP 113/65 01/02/20 07:00 Pulse Ox 92 L 01/02/20 07:00 Intake & Output 01/01/20 01/02/20 01/02/20 18:59 06:59 18:59 Intake Total 999.878 939.995 43 Output Total 2300 1055 70 Balance -1300.122 -115.005 -27 Weight 82.4 kg 78 kg Intake: IV 251 299 26 0.9 Normal Saline for 66 69 6 Pressure Bags @ 3mL/hr Sodium Chloride 0.9% 1, 185 230 20 000 ml @ 20 mls/hr IV . Q24H [facility] Rx#:[id number] Intake, IV Titration 418.878 278.995 Amount Cisatracurium 200 mg In 32.184 Sodium Chloride 0.9% 180 ml @ 2 MCG/KG/MIN 10.728 mls/hr IV .[id number] [facility] Rx #:[id number] Clevidipine Butyrate 25 86.2 19.667 mg In Empty Bag 1 bag @ 1 MG/HR 2 mls/hr IV .Q24H [facility] Rx#:[id number] Dexmedetomidine/0.9% NaCl 59.328 (Pmx) 400 mcg In Empty Bag 1 bag @ Titrate IV . Q0M [facility] Rx#:[id number] propofoL 1,000 mg In 300.494 200.000 Empty Bag 1 bag @ Titrate IV .Q0M [facility] Rx#: [id number] Tube Feeding 240 272 17 Other 90 90 Output: Urine 2300 1055 70 Other: Voiding Method Indwelling Catheter Indwelling Catheter ABP, PAP, CO, CI - Last Documented Arterial Blood Pressure 132/65 - Exam GENERAL EXAM: Intubated, sedated 54-year-old female patient, the patient is currently off paralytics, on mechanical ventilator on a pressure control mode of ventilation HEAD: Normocephalic/atraumatic. EYES: Normal reaction of pupils, equal size. Conjunctiva pink, sclera white. NOSE: Clear with pink turbinates. THROAT: No erythema or exudates. NECK: No masses, no JVD, no thyroid enlargement, no adenopathy. CHEST: No chest wall deformity. Symmetrical expansion. LUNGS: Equal air entry with bilateral scattered rhonchi. CVS: Regular rate and rhythm, normal S1 and S2, no gallops, no murmurs, no rubs ABDOMEN: Soft, nontender. No hepatosplenomegaly, normal bowel sounds, no guarding or rigidity. EXTREMITIES: No clubbing, no edema, no cyanosis, 2+ pulses and upper and lower extremities. MUSCULOSKELETAL: Muscle strength and tone normal. SPINE: No scoliosis or deformity SKIN: No rashes CENTRAL NERVOUS SYSTEM: Sedated, intubated. No focal deficits, tone is normal in all 4 extremities. - Labs CBC & Chem 7: 01/02/20 05:20 01/02/20 05:20 Labs: Abnormal Lab Results - Last 24 Hours (Table) 01/01/20 01/01/20 01/01/20 Range/Units 04:40 12:10 17:28 RBC (3.80-5.40) m/uL Hgb (11.4-16.0) gm/dL Hct (34.0-46.0) % Neutrophils # (1.3-7.7) k/uL Lymphocytes # (1.0-4.8) k/uL Fibrinogen (200-500) mg/dL D-Dimer (<0.60) mg/L FEU ABG pH (7.35-7.45) ABG pO2 (83-108) mmHg ABG HCO3 (21-25) mmol/L ABG Total CO2 (19-24) mmol/L Carbon Dioxide (22-30) mmol/L Creatinine (0.52-1.04) mg/dL Glucose (74-99) mg/dL POC Glucose (mg/dL) 159 H 167 H (75-99) mg/dL ALT (4-34) U/L C-Reactive Protein (<10.0) mg/L Total Protein (6.3-8.2) g/dL Albumin (3.5-5.0) g/dL Triglycerides 409 H (<150) mg/dL 01/02/20 01/02/20 01/02/20 Range/Units 00:29 05:14 05:20 RBC 3.62 L (3.80-5.40) m/uL Hgb 10.5 L (11.4-16.0) gm/dL Hct 31.9 L (34.0-46.0) % Neutrophils # 9.0 H (1.3-7.7) k/uL Lymphocytes # 0.5 L (1.0-4.8) k/uL Fibrinogen (200-500) mg/dL D-Dimer (<0.60) mg/L FEU ABG pH 7.46 H (7.35-7.45) ABG pO2 71 L (83-108) mmHg ABG HCO3 32 H (21-25) mmol/L ABG Total CO2 33 H (19-24) mmol/L Carbon Dioxide (22-30) mmol/L Creatinine (0.52-1.04) mg/dL Glucose (74-99) mg/dL POC Glucose (mg/dL) 156 H (75-99) mg/dL ALT (4-34) U/L C-Reactive Protein (<10.0) mg/L Total Protein (6.3-8.2) g/dL Albumin (3.5-5.0) g/dL Triglycerides (<150) mg/dL 01/02/20 01/02/20 01/02/20 Range/Units 05:20 05:20 05:52 RBC (3.80-5.40) m/uL Hgb (11.4-16.0) gm/dL Hct (34.0-46.0) % Neutrophils # (1.3-7.7) k/uL Lymphocytes # (1.0-4.8) k/uL Fibrinogen 634 H (200-500) mg/dL D-Dimer 0.98 H (<0.60) mg/L FEU ABG pH (7.35-7.45) ABG pO2 (83-108) mmHg ABG HCO3 (21-25) mmol/L ABG Total CO2 (19-24) mmol/L Carbon Dioxide 32 H (22-30) mmol/L Creatinine 0.47 L (0.52-1.04) mg/dL Glucose 151 H (74-99) mg/dL POC Glucose (mg/dL) 152 H (75-99) mg/dL ALT 50 H (4-34) U/L C-Reactive Protein 115.2 H (<10.0) mg/L Total Protein 5.9 L (6.3-8.2) g/dL Albumin 3.0 L (3.5-5.0) g/dL Triglycerides (<150) mg/dL Assessment and Plan Plan: 1. Acute hypoxemic respiratory failure related to Covid 19 related pneumonia, transferred to the ICU on 12/16/2019, intubated on 12/19/2019 and on the mechanical ventilator,and the patient has received steroids, Remdesivir and Convalescent plasma. The patient is still intubated on a mechanical ventilator. The patient is sedated, paralyzed secondary to acute hypoxic respiratory failure/ARDS. Unfortunately, the patient continues to be in acute respiratory failure due to ARDS post coronavirus Covid 19 related pneumonia. Low tidal volume ventilation was utilized and despite that the peak and static or appreciable quite elevated and there was a concern for barotrauma and based on that a this patient to a pressure control mode of ventilation. Follow-up blood he has a favorable. 2. COVID 19 pneumonia with secondary ARDS. The patient has significant elevation of the peak and static pressure indicating poor lung compliance he secondary to ARDS. The patient continues to have difficulties oxygenation and we are allowing some permissive hypercapnia. The patient is still on high FiO2 and PEEP levels with borderline oxygenation. 3. Increased inflammatory markers related to the above, with elevated LDH, CRP 4. Hypertension 5. Hyperlipidemia and the patient is a component of hypertriglyceridemia related to use of propofol. 6. Morbid obesity with history of previous lap band surgery Plan Continue ventilator support , utilizing a pressure control mode of ventilation is above. The repeat blood gases showed a pH of 7.48 with a pCO2 of 43 and pO2 of 89 on the Ventilator setting. continue enteral feeding for nutritional support Continue Precedex and gradually wean off propofol Triglyceride levels are slightly elevated Continue the rest of the supportive care. Lovenox therapeutic dose is 80 mg subcu every 12 hours IV Solu Medrol 40 mg every 6 hours Continue the rest of the supplements for Covid 19 infection including zinc, vitamin C, Pepcid and melatonin. Condition is critical. The family was updated on the condition will continue to follow make further recommendations based on her progress. This is a critically care evaluation and this was done and more than 30 minutes. I also contacted actually, the daughter and updated on the condition. Her condition remains quite critical. Time with Patient: Greater than 30
--- NOTE | 2020-01-02 15:29 | P.PN ---
Subjective Acute hypoxic respiratory failure secondary to covid 19 pneumonitis. Patient remains on ventilator support, patient did receive convalescent plasma along with Remdesevir. Patient remains on the Decadron patient remains on pressor support. Zosyn was added empirically by pulmonology. Patient remains on assist-control ventilation with the high before 15 FiO2 of 60%.failed weaning trials today. 12/23/2019 Patient remains on the ventilator still requiring PEEP of 16 FiO2 of 60%. Patient is mildly alkalotic. Probably need to go down on the it up respiratory rate. Patient is on tidal volume at 375. Patient is on very low-dose of norepinephrine today. 12/24/2019 Patient remains on mechanical ventilator patient has cold with 19 pneumonitis along with ARDS on high PEEP of 16 FiO2 of 55 and now. Patient's ABGs shows improvement in alkalosis. Patient is presently not requiring any pressors patient ontinues to be on propofol and Nimbex remains on Decadron. 12/25/2019 Patient can use to require high be because of ARDS associated with Covid. Patient can use to be on propofol and Nimbex. Off pressor support receiving normal saline. Completed course of Remdesivir. 12/26/2019 Patient remains on 50 g of propofol off Nimbex patient blood pressure went up patient will be started on lisinopril and strolls slowly wean off work reflex patient is bit tachycardic. Patient remains on the 16 of PEEP. Remains intubated 12/27/2019 Patient the clinical condition did not change significantly. Remains on high PEEP. Remains on sedation. 12/28/2019 Patient is off Nimbex today beyond that no significant change in her overall clinical condition and respiratory failure. Patient remains on Zosyn prophylactically 12/29/2019 Patient is back on Nimbex no significant improvement in her respiratory distress is her overall clinical condition. Patient prognosis poor 12/30/2019 patient is to minimize propofol continue the ventilator to support without any significant improvement. Patient was started back on clevidipine 12/31/2019. Patient remains on pretty much the same in The setting sepsis for deep of 15 now. Patient remains on Nimbex, patient is on and off Cleviprex 01/01/2020 Patient is off Nimbex today no significant change in her vent settings. 01/02/2020 Patient is actually improving at this time. Patient is on 35 mics of propofol. Patient is presently on PEEP of 10 doing well and patient is being started on P racedex. Patient is on now pressure control ventilation review of systems: Unable to obtain due to her clinical condition. All inpatient medications were reviewed and appropriate changes in these medications as dictated in the interval history and assessment and plan. Objective - Vital Signs Vital signs: Vital Signs Temp 98.0 F 01/02/20 12:00 Pulse 51 L 01/02/20 14:00 Resp 28 H 01/02/20 14:00 BP 150/74 01/02/20 14:00 Pulse Ox 96 01/02/20 14:00 Intake & Output 01/01/20 01/02/20 01/02/20 18:59 06:59 18:59 Intake Total 999.878 939.995 580.418 Output Total 2300 1055 395 Balance -1300.122 -115.005 185.418 Weight 82.4 kg 78 kg Intake: IV 251 299 187 0.9 Normal Saline for 66 69 27 Pressure Bags @ 3mL/hr Sodium Chloride 0.9% 1, 185 230 160 000 ml @ 20 mls/hr IV . Q24H [facility] Rx#:[id number] Intake, IV Titration 418.878 278.995 197.418 Amount Cisatracurium 200 mg In 32.184 Sodium Chloride 0.9% 180 ml @ 2 MCG/KG/MIN 10.728 mls/hr IV .[id number] [facility] Rx #:[id number] Clevidipine Butyrate 25 86.2 19.667 mg In Empty Bag 1 bag @ 1 MG/HR 2 mls/hr IV .Q24H [facility] Rx#:[id number] Dexmedetomidine/0.9% NaCl 59.328 70.04 (Pmx) 400 mcg In Empty Bag 1 bag @ Titrate IV . Q0M [facility] Rx#:[id number] propofoL 1,000 mg In 300.494 200.000 127.378 Empty Bag 1 bag @ Titrate IV .Q0M [facility] Rx#: [id number] Oral 60 Tube Feeding 240 272 136 Other 90 90 Output: Urine 2300 1055 395 Other: Voiding Method Indwelling Catheter Indwelling Catheter Indwelling Catheter ABP, PAP, CO, CI - Last Documented Arterial Blood Pressure 187/79 - Exam PHYSICAL EXAMINATION: GENERAL: patient is intubated sedated HEENT: Pupils are round and equally reacting to light. EOMI. No scleral icterus. No conjunctival pallor. Normocephalic, atraumatic. No pharyngeal erythema. No thyromegaly. CARDIOVASCULAR: S1 and S2 present. No murmurs, rubs, or gallops. PULMONARY: Chest is clear to auscultation, no wheezing or crackles. ABDOMEN: Soft, nontender, nondistended, normoactive bowel sounds. No palpable organomegaly. MUSCULOSKELETAL: No joint swelling or deformity. EXTREMITIES: No cyanosis, clubbing, or pedal edema. NEUROLOGICAL: patient is sedated SKIN: No rashes. Note: Because of [facility] isolation, some of the history and physical exam findings are indirect and obtained from nursing staff, and other physician examinations to avoid unnecessary contact with the patient. - Labs CBC & Chem 7: 01/02/20 05:20 01/02/20 05:20 Labs: Abnormal Lab Results - Last 24 Hours (Table) 01/01/20 01/02/20 01/02/20 Range/Units 17:28 00:29 05:14 RBC (3.80-5.40) m/uL Hgb (11.4-16.0) gm/dL Hct (34.0-46.0) % Neutrophils # (1.3-7.7) k/uL Lymphocytes # (1.0-4.8) k/uL Fibrinogen (200-500) mg/dL D-Dimer (<0.60) mg/L FEU ABG pH 7.46 H (7.35-7.45) ABG pO2 71 L (83-108) mmHg ABG HCO3 32 H (21-25) mmol/L ABG Total CO2 33 H (19-24) mmol/L ABG O2 Saturation (94-97) % Carbon Dioxide (22-30) mmol/L Creatinine (0.52-1.04) mg/dL Glucose (74-99) mg/dL POC Glucose (mg/dL) 167 H 156 H (75-99) mg/dL ALT (4-34) U/L C-Reactive Protein (<10.0) mg/L Total Protein (6.3-8.2) g/dL Albumin (3.5-5.0) g/dL 01/02/20 01/02/20 01/02/20 Range/Units 05:20 05:20 05:20 RBC 3.62 L (3.80-5.40) m/uL Hgb 10.5 L (11.4-16.0) gm/dL Hct 31.9 L (34.0-46.0) % Neutrophils # 9.0 H (1.3-7.7) k/uL Lymphocytes # 0.5 L (1.0-4.8) k/uL Fibrinogen 634 H (200-500) mg/dL D-Dimer 0.98 H (<0.60) mg/L FEU ABG pH (7.35-7.45) ABG pO2 (83-108) mmHg ABG HCO3 (21-25) mmol/L ABG Total CO2 (19-24) mmol/L ABG O2 Saturation (94-97) % Carbon Dioxide 32 H (22-30) mmol/L Creatinine 0.47 L (0.52-1.04) mg/dL Glucose 151 H (74-99) mg/dL POC Glucose (mg/dL) (75-99) mg/dL ALT 50 H (4-34) U/L C-Reactive Protein 115.2 H (<10.0) mg/L Total Protein 5.9 L (6.3-8.2) g/dL Albumin 3.0 L (3.5-5.0) g/dL 01/02/20 01/02/20 01/02/20 Range/Units 05:52 08:51 11:33 RBC (3.80-5.40) m/uL Hgb (11.4-16.0) gm/dL Hct (34.0-46.0) % Neutrophils # (1.3-7.7) k/uL Lymphocytes # (1.0-4.8) k/uL Fibrinogen (200-500) mg/dL D-Dimer (<0.60) mg/L FEU ABG pH 7.48 H (7.35-7.45) ABG pO2 (83-108) mmHg ABG HCO3 32 H (21-25) mmol/L ABG Total CO2 33 H (19-24) mmol/L ABG O2 Saturation 98.2 H (94-97) % Carbon Dioxide (22-30) mmol/L Creatinine (0.52-1.04) mg/dL Glucose (74-99) mg/dL POC Glucose (mg/dL) 152 H 151 H (75-99) mg/dL ALT (4-34) U/L C-Reactive Protein (<10.0) mg/L Total Protein (6.3-8.2) g/dL Albumin (3.5-5.0) g/dL Assessment and Plan Plan: COVID-19 virus pneumoniano significant improvement in her respiratory status the patient remains on mechanical ventilator. Acute hypoxic respiratory failure secondary to pneumonia. Requiring high flow oxygen --> Currently requiring mechanical ventilation. Nausea vomiting, generalized weakness and cough shortness of breath secondary to pneumonia. Hypertension Hyperlipidemia DVT prophylaxis with Lovenox. Plan: Patient is on mechanical ventilator. Patient is off Nimbex patient the actually doing well today. on dexamethasone 6 mg daily and Lovenox 80 mg subcu daily. completed remdesivir course. Continue with droplet and contact precautions.Pulmonary is following. Prognosis is guarded at this time.
[2020-01-02] MEDS: SODIUM CHLORIDE 0.9% 1,000 ML IV SCH (17:32)
[2020-01-02 17:37] LABS: Glucose,Whole Blood 138 mg/dL (75-99)
[2020-01-02] MEDS: CLEVIDIPINE BUTYRATE 25 MG in EMPTY BAG 1 BAG IV SCH ×2 (19:32→22:37)
[2020-01-02] MEDS: HYDROmorphone 0.5 MG/0.5 ML SYRINGE IVP PRN (20:55)
[2020-01-02] MEDS: PRAVASTATIN SODIUM 40 MG TAB PO SCH (20:56)
[2020-01-02] MEDS: MELATONIN 5 MG TABLET PO SCH (20:56)
[2020-01-02 23:53] LABS: Glucose,Whole Blood 141 mg/dL (75-99)
[2020-01-03] MEDS: methylPREDNISolone SOD SUCCI 40 MG/ML 1 ML VIAL IV SCH ×4 (00:04→20:07)
[2020-01-03] MEDS: HYDROmorphone 0.5 MG/0.5 ML SYRINGE IVP PRN ×4 (00:05→17:05)
[2020-01-03] MEDS: INSULIN ASPART (NovoLOG) 100 UNIT/ML VIAL SQ SCH ×4 (00:06→18:47)
[2020-01-03] MEDS: ALBUTEROL HFA INHALER INHALATION SCH ×6 (00:23→20:21)
[2020-01-03] MEDS ORDERED: propofoL 100 ML IV ONE (03:03)
[2020-01-03] MEDS: CLEVIDIPINE BUTYRATE 25 MG in EMPTY BAG 1 BAG IV SCH ×7 (03:08→23:57)
[2020-01-03 05:20] LABS: Basophils % (A) 0 %; Eosinophils % (A) 0 %; HCT 34.4 % (34.0-46.0); HGB 11.4 gm/dL (11.4-16.0); Lymphocytes # (A) 0.9 k/uL (1.0-4.8); Lymphocytes % (A) 9 %; MCH 28.6 pg (25.0-35.0); MCV 86.6 fL (80.0-100.0); Mean Platelet Volume 7.8; Monocytes # (A) 0.5 k/uL (0-1.0); Monocytes % (A) 5 %; Neutrophils # (A) 8.1 k/uL (1.3-7.7); Neutrophils % (A) 85 %; Platelet Count 328 k/uL (150-450); RBC 3.97 m/uL (3.80-5.40); RDW 15.7 % (11.5-15.5); WBC 9.5 k/uL (3.8-10.6)
[2020-01-03 05:27] LABS: ABG Base Excess 6.4 mmol/L; ABG HCO3 29 mmol/L (21-25); ABG PCO2 37 mmHg (35-45); ABG PH 7.51 (7.35-7.45); ABG PO2 104 mmHg (83-108); ABG TCO2 31 mmol/L (19-24)
[2020-01-03 05:37] LABS: ALT 48 U/L (4-34); AST 29 U/L (14-36); African American GFR (CKD) >90 (>60 ml/min/1.73 sqM); Albumin 3.1 g/dL (3.5-5.0); Alkaline Phosphatase 95 U/L (38-126); Anion Gap 4 mmol/L; Blood Urea Nitrogen 18 mg/dL (7-17); C Reactive Protein 38.1 mg/L (<10.0); Calcium 8.6 mg/dL (8.4-10.2); Carbon Dioxide 30 mmol/L (22-30); Chloride 106 mmol/L (98-107); Glucose 173 mg/dL (74-99); Non-African American GFR(CKD) >90 (>60 ml/min/1.73 sqM); Potassium 3.3 mmol/L (3.5-5.1); Sodium 140 mmol/L (137-145); Total Bilirubin 0.6 mg/dL (0.2-1.3); Total Protein 6.1 g/dL (6.3-8.2)
[2020-01-03 05:58] LABS: Glucose,Whole Blood 149 mg/dL (75-99)
[2020-01-03] MEDS: DEXMEDETOMIDINE/0.9% NACL(PMX) 400 MCG in EMPTY BAG 1 BAG IV SCH ×2 (06:05→20:05)
[2020-01-03] MEDS ORDERED: Potassium Replacement Protocol 1 EACH MISC MISCELLANE PRN (06:30)
[2020-01-03] MEDS: POTASSIUM BICARBONATE/CIT AC 20 MEQ TABLET.EFF NG-TUBE SCH (07:12)
--- NOTE | 2020-01-03 07:17 | XR ---
EXAMINATION TYPE: XR chest 1V portable DATE OF EXAM: 01/03/2020 HISTORY: Shortness of breath. COMPARISON: 01/02/2020 TECHNIQUE: Single view of the chest is submitted. FINDINGS: Demonstrated are scattered senescent parenchymal change. Diffuse bilateral mixed infiltrates persist without significant interval change. Lucency overlies the left neck region. Correlate clinically. The heart is stable. Hilar and mediastinal structures are within normal limits. Degenerative changes are seen of the dorsal spine. IMPRESSION: 1. Diffuse bilateral mixed infiltrates persist without significant interval change.
[2020-01-03] MEDS: ASCORBIC ACID 500 MG TAB PO SCH (09:56)
[2020-01-03] MEDS: CHLORHEXIDINE GLUCONATE 15 ML CUP MUCOUS MEM SCH ×2 (09:56→20:33)
[2020-01-03] MEDS: FAMOTIDINE 20 MG/2 ML VIAL IV SCH ×2 (09:56→20:33)
[2020-01-03] MEDS: ZINC SULFATE 220 MG CAP PO SCH (09:56)
[2020-01-03] MEDS: METOPROLOL TARTRATE 25 MG TAB PO SCH ×2 (09:56→20:34)
[2020-01-03] MEDS: lisinopriL 20 MG TAB PO SCH (09:56)
[2020-01-03] MEDS: ENOXAPARIN 80 MG/0.8 ML SYRINGE SQ SCH ×2 (09:56→20:33)
[2020-01-03 11:26] LABS: Ferritin 279.8 ng/mL (10.0-291.0)
[2020-01-03 11:28] LABS: ABG Base Excess 7.1 mmol/L; ABG HCO3 30 mmol/L (21-25); ABG Oxygen Saturation 97.5 % (94-97); ABG PCO2 36 mmHg (35-45); ABG PH 7.53 (7.35-7.45); ABG PO2 83 mmHg (83-108); ABG TCO2 31 mmol/L (19-24); Allen Test Performed? no
[2020-01-03 11:52] LABS: Glucose,Whole Blood 148 mg/dL (75-99)
--- NOTE | 2020-01-03 12:07 | CDI ---
Documentation Clarification Form Date: 01/03/2020 10:56:14 AM From: Fabiana Barrera RN CCDS Admit Date: 12/14/2019 01:38:00 PM Patient Name: Shira Ames Visit Number: [id number] Discharge Date: ATTENTION: The Clinical Documentation Specialists (CDI) and [facility] Coding Staff appreciate your assistance in clarifying documentation. Please respond to the clarification below the line at the bottom and electronically sign. The CDI & [facility] Coding staff will review the response and follow-up if needed. Please note: Queries are made part of the Legal Health Record. If you have any questions, please contact the author of this message via ITS. Dr. Sonja Benitez Barotrauma is documented in Critical Care Progress Note 01/01 History/Risk Factors: 54-year-old female presented to the ED for weakness, nausea, vomiting, diagnosed with COVID 19 outpatient prior to presentation. Medical History of HTN, HLD and Bariatric surgery. Clinical Indicators: Patient was intubated on 12/18 and remains on mechanical ventilation. Critical Care Progress Note 01/01: Low tidal volume ventilation was utilized and despite that the peak and static or appreciable quite elevated and there was a concern for barotrauma and based on that a this patient to a pressure control mode of ventilation. Per Critical Progress Note 01/01 Ventilator Settings 01/01 assist-control mode at a rate of 20 to the tidal volume of 375 and FiO2 of 60% with a PEEP of 15.Peak airway &pressure was measured to be 52 and the plateau airway &pressure was 46.The blood gas showed a pH of 7.46 with a pCO2 of 45 and pO2 of 71 Treatment: Monitoring blood gasses; Ventilator setting adjustments In order to accurately reflect this patients severity of illness, please clarify if the Barotrauma: -has been ruled out -is a complication of mechanical ventilation -is related to co-morbid condition(s) of -Other please specify -Unable to determine (Last Revision: March 2019) is a complication of mechanical ventilation MTDD
--- NOTE | 2020-01-03 14:46 | P.PN ---
Subjective Acute hypoxic respiratory failure secondary to covid 19 pneumonitis. Patient remains on ventilator support, patient did receive convalescent plasma along with Remdesevir. Patient remains on the Decadron patient remains on pressor support. Zosyn was added empirically by pulmonology. Patient remains on assist-control ventilation with the high before 15 FiO2 of 60%.failed weaning trials today. 12/23/2019 Patient remains on the ventilator still requiring PEEP of 16 FiO2 of 60%. Patient is mildly alkalotic. Probably need to go down on the it up respiratory rate. Patient is on tidal volume at 375. Patient is on very low-dose of norepinephrine today. 12/24/2019 Patient remains on mechanical ventilator patient has cold with 19 pneumonitis along with ARDS on high PEEP of 16 FiO2 of 55 and now. Patient's ABGs shows improvement in alkalosis. Patient is presently not requiring any pressors patient ontinues to be on propofol and Nimbex remains on Decadron. 12/25/2019 Patient can use to require high be because of ARDS associated with Covid. Patient can use to be on propofol and Nimbex. Off pressor support receiving normal saline. Completed course of Remdesivir. 12/26/2019 Patient remains on 50 g of propofol off Nimbex patient blood pressure went up patient will be started on lisinopril and strolls slowly wean off work reflex patient is bit tachycardic. Patient remains on the 16 of PEEP. Remains intubated 12/27/2019 Patient the clinical condition did not change significantly. Remains on high PEEP. Remains on sedation. 12/28/2019 Patient is off Nimbex today beyond that no significant change in her overall clinical condition and respiratory failure. Patient remains on Zosyn prophylactically 12/29/2019 Patient is back on Nimbex no significant improvement in her respiratory distress is her overall clinical condition. Patient prognosis poor 12/30/2019 patient is to minimize propofol continue the ventilator to support without any significant improvement. Patient was started back on clevidipine 12/31/2019. Patient remains on pretty much the same in The setting sepsis for deep of 15 now. Patient remains on Nimbex, patient is on and off Cleviprex 01/01/2020 Patient is off Nimbex today no significant change in her vent settings. 01/02/2020 Patient is actually improving at this time. Patient is on 35 mics of propofol. Patient is presently on PEEP of 10 doing well and patient is being started on P racedex. Patient is on now pressure control ventilation 01/03/2020 Patient is presently on 8 of PEEP. She is awake off sedation on Precedex, will undergo any trial and possible extubation tomorrow. Presently on 50% FiO2 review of systems: Unable to obtain due to her clinical condition. All inpatient medications were reviewed and appropriate changes in these medications as dictated in the interval history and assessment and plan. Objective - Vital Signs Vital signs: Vital Signs Temp 98.7 F 01/03/20 12:00 Pulse 92 01/03/20 12:00 Resp 21 01/03/20 12:00 BP 106/55 01/03/20 07:00 Pulse Ox 95 01/03/20 12:00 Intake & Output 01/02/20 01/03/20 01/03/20 18:59 06:59 18:59 Intake Total 839.970 924.154 507.173 Output Total 675 1495 1550 Balance 164.970 -570.846 -1042.827 Weight 79 kg 79 kg Intake: IV 285 312 156 0.9 Normal Saline for 45 72 36 Pressure Bags @ 3mL/hr Sodium Chloride 0.9% 1, 240 240 120 000 ml @ 20 mls/hr IV . Q24H [facility] Rx#:[id number] Intake, IV Titration 290.970 250.154 189.173 Amount Clevidipine Butyrate 25 116.033 50.000 mg In Empty Bag 1 bag @ 1 MG/HR 2 mls/hr IV .Q24H [facility] Rx#:[id number] Dexmedetomidine/0.9% NaCl 90.97 (Pmx) 400 mcg In Empty Bag 1 bag @ Titrate IV . Q0M [facility] Rx#:[id number] propofoL 1,000 mg In 200.000 134.121 139.173 Empty Bag 1 bag @ Titrate IV .Q0M [facility] Rx#: [id number] Oral 60 Tube Feeding 204 272 102 Other 90 60 Output: Urine 675 1495 1550 Other: Voiding Method Indwelling Catheter Indwelling Catheter Indwelling Catheter ABP, PAP, CO, CI - Last Documented Arterial Blood Pressure 155/65 - Exam PHYSICAL EXAMINATION: GENERAL: patient is intubated Off sedation patient is awake HEENT: Pupils are round and equally reacting to light. EOMI. No scleral icterus. No conjunctival pallor. Normocephalic, atraumatic. No pharyngeal erythema. No thyromegaly. CARDIOVASCULAR: S1 and S2 present. No murmurs, rubs, or gallops. PULMONARY: Chest is clear to auscultation, no wheezing or crackles. ABDOMEN: Soft, nontender, nondistended, normoactive bowel sounds. No palpable organomegaly. MUSCULOSKELETAL: No joint swelling or deformity. EXTREMITIES: No cyanosis, clubbing, or pedal edema. NEUROLOGICAL: patient is sedated SKIN: No rashes. Note: Because of COVID 19 isolation, some of the history and physical exam findings are indirect and obtained from nursing staff, and other physician examinations to avoid unnecessary contact with the patient. - Labs CBC & Chem 7: 01/03/20 05:10 01/03/20 05:10 Labs: Abnormal Lab Results - Last 24 Hours (Table) 01/02/20 01/02/20 01/03/20 Range/Units 17:35 23:51 05:10 RDW 15.7 H (11.5-15.5) % Neutrophils # 8.1 H (1.3-7.7) k/uL Lymphocytes # 0.9 L (1.0-4.8) k/uL D-Dimer (<0.60) mg/L FEU ABG pH (7.35-7.45) ABG HCO3 (21-25) mmol/L ABG Total CO2 (19-24) mmol/L ABG O2 Saturation (94-97) % Potassium (3.5-5.1) mmol/L BUN (7-17) mg/dL Creatinine (0.52-1.04) mg/dL Glucose (74-99) mg/dL POC Glucose (mg/dL) 138 H 141 H (75-99) mg/dL ALT (4-34) U/L C-Reactive Protein (<10.0) mg/L Total Protein (6.3-8.2) g/dL Albumin (3.5-5.0) g/dL 01/03/20 01/03/20 01/03/20 Range/Units 05:10 05:10 05:17 RDW (11.5-15.5) % Neutrophils # (1.3-7.7) k/uL Lymphocytes # (1.0-4.8) k/uL D-Dimer 1.01 H (<0.60) mg/L FEU ABG pH 7.51 H (7.35-7.45) ABG HCO3 29 H (21-25) mmol/L ABG Total CO2 31 H (19-24) mmol/L ABG O2 Saturation 99.0 H (94-97) % Potassium 3.3 L (3.5-5.1) mmol/L BUN 18 H (7-17) mg/dL Creatinine 0.41 L (0.52-1.04) mg/dL Glucose 173 H (74-99) mg/dL POC Glucose (mg/dL) (75-99) mg/dL ALT 48 H (4-34) U/L C-Reactive Protein 38.1 H (<10.0) mg/L Total Protein 6.1 L (6.3-8.2) g/dL Albumin 3.1 L (3.5-5.0) g/dL 01/03/20 01/03/20 01/03/20 Range/Units 05:57 11:14 11:51 RDW (11.5-15.5) % Neutrophils # (1.3-7.7) k/uL Lymphocytes # (1.0-4.8) k/uL D-Dimer (<0.60) mg/L FEU ABG pH 7.53 H (7.35-7.45) ABG HCO3 30 H (21-25) mmol/L ABG Total CO2 31 H (19-24) mmol/L ABG O2 Saturation 97.5 H (94-97) % Potassium (3.5-5.1) mmol/L BUN (7-17) mg/dL Creatinine (0.52-1.04) mg/dL Glucose (74-99) mg/dL POC Glucose (mg/dL) 149 H 148 H (75-99) mg/dL ALT (4-34) U/L C-Reactive Protein (<10.0) mg/L Total Protein (6.3-8.2) g/dL Albumin (3.5-5.0) g/dL Assessment and Plan Plan: COVID-19 virus pneumoniano significant improvement in her respiratory status the patient remains on mechanical ventilator. Acute hypoxic respiratory failure secondary to pneumonia. Requiring high flow oxygen --> Currently requiring mechanical ventilation. She is clinically doing well. Nausea vomiting, generalized weakness and cough shortness of breath secondary to pneumonia. Hypertension Hyperlipidemia DVT prophylaxis with Lovenox. Plan: Patient is on mechanical ventilator. Patient is off Nimbex patient the actually doing well today. on dexamethasone 6 mg daily and Lovenox 80 mg subcu daily. completed remdesivir course. Continue with droplet and contact precautions.Pulmonary is following. Prognosis is guarded at this time.
--- NOTE | 2020-01-03 15:16 | P.PN ---
Subjective Progress Note Date: 01/03/20 This is a 51-year-old female patient with a complicated course of a COVID 19 ammonia complicated by respiratory failure. The patient was transferred to the intensive care unit on 12/16/2019 and the patient has been intubated on 12/19/2019 and since then the patient has been on a mechanical ventilator. She has a very slow progress. The patient is essentially remains intubated on a mechanical ventilator. Currently she is an assist-control mode at the rate of 28 with a tidal volume of 375 and FiO2 of 75% with a PEEP of 15. The patient is on propofol running at 50 g per KG per minute. The patient is also on Nimbex at 3.5 g per KG 5 minutes. The patient is also on normal saline today to 75 mL an hour. The blood gases from today shows a pH of 7.36 with a pCO2 of 56 and pO2 of 77. The peak aortic pressure is around 46 metastatic a pressure of 41. Hemodynamically, the patient is hypertensive and the patient is requiring clevidipine drip at 8 mg per hour for blood pressure. The patient is receiving enteral feeding for nutritional support and the patient is currently on vital high protein at the rate of 27 mL an hour. The patient has completed her course of Remdesivir and she has also received convalescent plasma. She is currently on therapeutic dose of Lovenox 80 mg subcu every 12 hours. She is covered empirically with IV Zosyn. The patient is afebrile. The ferritin from was down to 281. The LDH level was down to 628 from yesterday. A repeat blood work showed a triglyceride level of 409. This is related to her ongoing use of propofol. 01/02/2020, the patient is being seen for a follow-up. This morning, the patient is off paralytics. The patient is on propofol at 35 g per KG per minute. Overnight, Precedex has also initiated to improve centrally with a mechanical ventilator as the patient was taken off the paralytics. The patient is currently on Precedex also and this is running at a dose of 0.4 g. The patient otherwise is still intubated on a mechanical ventilator. On today's ventilator, the patient is assist-control mode at a rate of 20 to the tidal volume of 375 and FiO2 of 60% with a PEEP of 15. Peak airway pressure was measured to be 52 and the plateau airway pressure was 46. The blood gas showed a pH of 7.46 with a pCO2 of 45 and pO2 of 71. Chest x-ray showed diffuse breath and pulmonary infiltrates which is essentially unchanged compared to yesterday. His CRP level was elevated at 115. LDH was down to 625 from 12/31/2019. The patient was afebrile. Based on the concern of an elevated peak and static pressure,, assess this patient to a pressure control mode of ventilation which seems to be more effective in terms of ventilating and oxygenating the patient. For now, the patient is on a pressure control mode with a pressure of 22 cm of water, rate of 28, FiO2 60%, PEEP of 12 with a respiratory time of 1 second. The patient is still tolerating enteral feeding for nutritional support. No other significant events. He was dynamically stable. The neck fluid balance has been negative as the patient is diuresing adequately and over the past 24 hours her net fluid balance was -1.4 L. 01/03/2020, the patient is being seen for a follow-up. I doubt that she has significant improvement in the patient's condition. I'm glad to reported on today's evaluation, the patient is awake and she is interactive. She is on a combination of propofol running at 45 mg per KG per minute and Precedex in 0.4 g per KG pigmented. During the course of the day, the patient will be gradually taken off the propofol. In terms of her mental status, the patient seems to be appropriate and she is very much interactive. She remains on a mechanical ventilator. On the blood gas, the patient is a pH of 7.51 with a pCO2 of 37 and pO2 of 104. The patient is also on a pressure control mode of ventilation and currently the patient is on a pressure control of 28, inspiratory time of 1 second, pressure of 22 cm of water and PEEP of 10 with an FiO2 of 60%. The peak airway pressures around 33 and the plateau airway pressures are 31. The chest x-ray still showing but the pulmonary infiltrates although probably somewhat improved compared to yesterday. She remains on Catapres which is being titrated regarding her blood pressure and the patient will be started on Lopressor 25 minutes to twice a day regarding her sinus tach ycardia and better control of her blood pressure. She is hemodynamically stable. She remains on IV Solu Medrol 4 mg every 6 hours. She is tolerating enteral feeding for nutritional support. She is on IV fluids at 20 mL an hour. She remains on Lovenox 80 mg subcu every 12 hours. No other significant events overnight. The neck fluid balance is -1.3 L over the past 24 hours. Objective - Vital Signs Vital signs: Vital Signs Temp 98.8 F 01/03/20 04:00 Pulse 85 01/03/20 07:00 Resp 27 H 01/03/20 07:00 BP 106/55 01/03/20 07:00 Pulse Ox 95 01/03/20 07:00 Intake & Output 01/02/20 01/03/20 01/03/20 18:59 06:59 18:59 Intake Total 839.970 924.154 147.928 Output Total 675 1495 150 Balance 164.970 -570.846 -2.072 Weight 79 kg Intake: IV 285 312 26 0.9 Normal Saline for 45 72 6 Pressure Bags @ 3mL/hr Sodium Chloride 0.9% 1, 240 240 20 000 ml @ 20 mls/hr IV . Q24H [facility] Rx#:[id number] Intake, IV Titration 290.970 250.154 104.928 Amount Clevidipine Butyrate 25 116.033 18.933 mg In Empty Bag 1 bag @ 1 MG/HR 2 mls/hr IV .Q24H [facility] Rx#:[id number] Dexmedetomidine/0.9% NaCl 90.97 (Pmx) 400 mcg In Empty Bag 1 bag @ Titrate IV . Q0M [facility] Rx#:[id number] propofoL 1,000 mg In 200.000 134.121 85.995 Empty Bag 1 bag @ Titrate IV .Q0M [facility] Rx#: [id number] Oral 60 Tube Feeding 204 272 17 Other 90 Output: Urine 675 1495 150 Other: Voiding Method Indwelling Catheter Indwelling Catheter ABP, PAP, CO, CI - Last Documented Arterial Blood Pressure 155/69 - Exam GENERAL EXAM: Intubated, sedated 54-year-old female patient, the patient is awake and alert although she is gently sedated. HEAD: Normocephalic/atraumatic. EYES: Normal reaction of pupils, equal size. Conjunctiva pink, sclera white. NOSE: Clear with pink turbinates. THROAT: No erythema or exudates. NECK: No masses, no JVD, no thyroid enlargement, no adenopathy. CHEST: No chest wall deformity. Symmetrical expansion. LUNGS: Equal air entry with bilateral scattered rhonchi. CVS: Regular rate and rhythm, normal S1 and S2, no gallops, no murmurs, no rubs ABDOMEN: Soft, nontender. No hepatosplenomegaly, normal bowel sounds, no guarding or rigidity. EXTREMITIES: No clubbing, no edema, no cyanosis, 2+ pulses and upper and lower extremities. MUSCULOSKELETAL: Muscle strength and tone normal. SPINE: No scoliosis or deformity SKIN: No rashes CENTRAL NERVOUS SYSTEM: Sedated, intubated, calm and comfortable, interactive.. No focal deficits, tone is normal in all 4 extremities. - Labs CBC & Chem 7: 01/03/20 05:10 01/03/20 05:10 Labs: Abnormal Lab Results - Last 24 Hours (Table) 01/02/20 01/02/20 01/02/20 Range/Units 11:33 17:35 23:51 RDW (11.5-15.5) % Neutrophils # (1.3-7.7) k/uL Lymphocytes # (1.0-4.8) k/uL D-Dimer (<0.60) mg/L FEU ABG pH (7.35-7.45) ABG HCO3 (21-25) mmol/L ABG Total CO2 (19-24) mmol/L ABG O2 Saturation (94-97) % Potassium (3.5-5.1) mmol/L BUN (7-17) mg/dL Creatinine (0.52-1.04) mg/dL Glucose (74-99) mg/dL POC Glucose (mg/dL) 151 H 138 H 141 H (75-99) mg/dL ALT (4-34) U/L C-Reactive Protein (<10.0) mg/L Total Protein (6.3-8.2) g/dL Albumin (3.5-5.0) g/dL 01/03/20 01/03/20 01/03/20 Range/Units 05:10 05:10 05:10 RDW 15.7 H (11.5-15.5) % Neutrophils # 8.1 H (1.3-7.7) k/uL Lymphocytes # 0.9 L (1.0-4.8) k/uL D-Dimer 1.01 H (<0.60) mg/L FEU ABG pH (7.35-7.45) ABG HCO3 (21-25) mmol/L ABG Total CO2 (19-24) mmol/L ABG O2 Saturation (94-97) % Potassium 3.3 L (3.5-5.1) mmol/L BUN 18 H (7-17) mg/dL Creatinine 0.41 L (0.52-1.04) mg/dL Glucose 173 H (74-99) mg/dL POC Glucose (mg/dL) (75-99) mg/dL ALT 48 H (4-34) U/L C-Reactive Protein 38.1 H (<10.0) mg/L Total Protein 6.1 L (6.3-8.2) g/dL Albumin 3.1 L (3.5-5.0) g/dL 01/03/20 01/03/20 Range/Units 05:17 05:57 RDW (11.5-15.5) % Neutrophils # (1.3-7.7) k/uL Lymphocytes # (1.0-4.8) k/uL D-Dimer (<0.60) mg/L FEU ABG pH 7.51 H (7.35-7.45) ABG HCO3 29 H (21-25) mmol/L ABG Total CO2 31 H (19-24) mmol/L ABG O2 Saturation 99.0 H (94-97) % Potassium (3.5-5.1) mmol/L BUN (7-17) mg/dL Creatinine (0.52-1.04) mg/dL Glucose (74-99) mg/dL POC Glucose (mg/dL) 149 H (75-99) mg/dL ALT (4-34) U/L C-Reactive Protein (<10.0) mg/L Total Protein (6.3-8.2) g/dL Albumin (3.5-5.0) g/dL Assessment and Plan Plan: 1. Acute hypoxemic respiratory failure related to Covid 19 related pneumonia, transferred to the ICU on 12/16/2019, intubated on 12/19/2019 and on the mechanical ventilator,and the patient has received steroids, Remdesivir and Convalescent plasma. The patient is still intubated on a mechanical ventilator. The patient is improved considerably and there is obvious improvement in oxygenation. The patient is on a pressure control mode of ventilation the patient will be gradually taken off the PEEP. I'm in the process of also gradually cutting off the sedation patient will be kept only on Precedex and hopefully propofol be discontinued today. I noted the chest x-ray. I noted the blood gases. We'll continue the IV Solu Medrol for now. 2. COVID 19 pneumonia with secondary ARDS. 3. Increased inflammatory markers related to the above, with elevated LDH, CRP 4. Hypertension 5. Hyperlipidemia and the patient is a component of hypertriglyceridemia related to use of propofol. 6. Morbid obesity with history of previous lap band surgery Plan Continue ventilator support , utilizing a pressure control mode of ventilation is above. I noted a blood gas analysis suggesting drop in the PEEP down to 8, dropping to pressure control down to 20 cm of water, rule out gastrointestinal 24, left FiO2 down to 50% and repeated blood gases and see if there is any room for further weaning. continue enteral feeding for nutritional support Continue Precedex and gradually wean off propofol and hopefully propofol be discontinued today Triglyceride levels are slightly elevated and this Cont will improve as the patient be taken off the propofolinue the rest of the supportive care. Lovenox therapeutic dose is 80 mg subcu every 12 hours IV Solu Medrol 40 mg every 6 hours Continue the rest of the supplements for Covid 19 infection including zinc, vitamin C, Pepcid and melatonin. Condition is critical. the patient is clinically improved. The patient is awake. Oxygenation is improved. I contacted the family. The family was updated on the condition will continue to follow make further recommendations based on her progress. This is a critically care evaluation and this was done and more than 30 minutes. Time with Patient: Greater than 30
[2020-01-03 15:37] LABS: ABG Base Excess 6.6 mmol/L; ABG HCO3 30 mmol/L (21-25); ABG Oxygen Saturation 97.6 % (94-97); ABG PCO2 37 mmHg (35-45); ABG PH 7.51 (7.35-7.45); ABG PO2 81 mmHg (83-108); ABG TCO2 31 mmol/L (19-24); Allen Test Performed? no
[2020-01-03] MEDS: SODIUM CHLORIDE 0.9% 1,000 ML IV SCH (18:47)
[2020-01-03] MEDS: MELATONIN 5 MG TABLET PO SCH (20:34)
[2020-01-03] MEDS: PRAVASTATIN SODIUM 40 MG TAB PO SCH (20:34)
[2020-01-04 00:24] LABS: Glucose,Whole Blood 121 mg/dL (75-99)
[2020-01-04] MEDS: INSULIN ASPART (NovoLOG) 100 UNIT/ML VIAL SQ SCH ×5 (00:44→23:45)
[2020-01-04] MEDS: ALBUTEROL HFA INHALER INHALATION SCH ×6 (01:06→20:22)
[2020-01-04] MEDS: methylPREDNISolone SOD SUCCI 40 MG/ML 1 ML VIAL IV SCH ×4 (01:25→17:51)
[2020-01-04] MEDS: DEXMEDETOMIDINE/0.9% NACL(PMX) 400 MCG in EMPTY BAG 1 BAG IV SCH (02:10)
[2020-01-04] MEDS: CLEVIDIPINE BUTYRATE 25 MG in EMPTY BAG 1 BAG IV SCH ×2 (02:29→05:20)
[2020-01-04 04:41] LABS: Basophils % (A) 0 %; Eosinophils # (A) 0.1 k/uL (0-0.7); Eosinophils % (A) 0 %; HCT 39.3 % (34.0-46.0); HGB 12.7 gm/dL (11.4-16.0); Lymphocytes # (A) 0.7 k/uL (1.0-4.8); Lymphocytes % (A) 5 %; MCHC 32.3 g/dL (31.0-37.0); MCV 86.7 fL (80.0-100.0); Mean Platelet Volume 6.9; Monocytes # (A) 0.6 k/uL (0-1.0); Monocytes % (A) 4 %; Neutrophils # (A) 12.8 k/uL (1.3-7.7); Neutrophils % (A) 90 %; Platelet Count 348 k/uL (150-450); RBC 4.53 m/uL (3.80-5.40); RDW 15.9 % (11.5-15.5); WBC 14.3 k/uL (3.8-10.6)
[2020-01-04 04:53] LABS: ALT 75 U/L (4-34); AST 48 U/L (14-36); African American GFR (CKD) >90 (>60 ml/min/1.73 sqM); Albumin 3.5 g/dL (3.5-5.0); Alkaline Phosphatase 117 U/L (38-126); Anion Gap 6 mmol/L; Blood Urea Nitrogen 15 mg/dL (7-17); Calcium 8.9 mg/dL (8.4-10.2); Carbon Dioxide 29 mmol/L (22-30); Chloride 103 mmol/L (98-107); Glucose 190 mg/dL (74-99); Non-African American GFR(CKD) >90 (>60 ml/min/1.73 sqM); Potassium 3.3 mmol/L (3.5-5.1); Sodium 138 mmol/L (137-145); Total Bilirubin 0.9 mg/dL (0.2-1.3); Total Protein 6.7 g/dL (6.3-8.2)
[2020-01-04] MEDS ORDERED: POTASSIUM CHLORIDE ER 20 MEQ TAB.ER PO SCH (06:00)
[2020-01-04 06:07] LABS: ABG HCO3 30 mmol/L (21-25); ABG PCO2 37 mmHg (35-45); ABG PH 7.51 (7.35-7.45); ABG PO2 70 mmHg (83-108); ABG TCO2 31 mmol/L (19-24); Allen Test Performed? Yes
[2020-01-04 06:08] LABS: ABG Base Excess 6.6 mmol/L
[2020-01-04 06:12] LABS: Glucose,Whole Blood 189 mg/dL (75-99)
--- NOTE | 2020-01-04 07:40 | XR ---
EXAMINATION TYPE: XR chest 1V portable DATE OF EXAM: 01/04/2020 COMPARISON: Prior chest x-ray 01/03/2020 HISTORY: Intubated, abnormal chest x-ray TECHNIQUE: Single frontal view of the chest is obtained. FINDINGS: Endotracheal tube and NG tube are overlying appropriate positions. Right jugular central v enous catheter shows the distal tip in the right atrium. There is subcutaneous emphysema. Bilateral a irspace disease is present. There is no evident pneumothorax or sizable effusion, exam is expiratory. The heart is likely stable accounting for differences in technique. There are overlying leads. IMPRESSION: Bilateral airspace disease without significant change, correlate for pneumonia, edema, A RDS
[2020-01-04] MEDS ORDERED: DEXMEDETOMIDINE/0.9% NACL(PMX) 400 MCG in EMPTY BAG 1 BAG IV SCH (07:45)
[2020-01-04 09:16] LABS: Allen Test Performed? Yes
[2020-01-04 09:17] LABS: ABG Base Excess 6.9 mmol/L; ABG HCO3 30 mmol/L (21-25); ABG PCO2 38 mmHg (35-45); ABG PO2 64 mmHg (83-108)
[2020-01-04] MEDS: METOPROLOL TARTRATE 25 MG TAB PO SCH ×3 (11:09→22:27)
[2020-01-04] MEDS: POTASSIUM BICARBONATE/CIT AC 20 MEQ TABLET.EFF NG-TUBE SCH (11:09)
[2020-01-04] MEDS: CHLORHEXIDINE GLUCONATE 15 ML CUP MUCOUS MEM SCH (11:09)
[2020-01-04] MEDS: lisinopriL 20 MG TAB PO SCH (11:09)
[2020-01-04] MEDS: ZINC SULFATE 220 MG CAP PO SCH (11:09)
[2020-01-04] MEDS: FAMOTIDINE 20 MG/2 ML VIAL IV SCH ×2 (11:09→21:03)
[2020-01-04] MEDS: ASCORBIC ACID 500 MG TAB PO SCH (11:09)
[2020-01-04 11:47] LABS: Glucose,Whole Blood 89 mg/dL (75-99)
[2020-01-04] MEDS: ENOXAPARIN 80 MG/0.8 ML SYRINGE SQ SCH ×2 (13:44→21:03)
--- NOTE | 2020-01-04 14:48 | P.PN ---
Subjective Progress Note Date: 01/04/20 This is a 51-year-old female patient with a complicated course of a COVID 19 ammonia complicated by respiratory failure. The patient was transferred to the intensive care unit on 12/16/2019 and the patient has been intubated on 12/19/2019 and since then the patient has been on a mechanical ventilator. She has a very slow progress. The patient is essentially remains intubated on a mechanical ventilator. Currently she is an assist-control mode at the rate of 28 with a tidal volume of 375 and FiO2 of 75% with a PEEP of 15. The patient is on propofol running at 50 g per KG per minute. The patient is also on Nimbex at 3.5 g per KG 5 minutes. The patient is also on normal saline today to 75 mL an hour. The blood gases from today shows a pH of 7.36 with a pCO2 of 56 and pO2 of 77. The peak aortic pressure is around 46 metastatic a pressure of 41. Hemodynamically, the patient is hypertensive and the patient is requiring clevidipine drip at 8 mg per hour for blood pressure. The patient is receiving enteral feeding for nutritional support and the patient is currently on vital high protein at the rate of 27 mL an hour. The patient has completed her course of Remdesivir and she has also received convalescent plasma. She is currently on therapeutic dose of Lovenox 80 mg subcu every 12 hours. She is covered empirically with IV Zosyn. The patient is afebrile. The ferritin from was down to 281. The LDH level was down to 628 from yesterday. A repeat blood work showed a triglyceride level of 409. This is related to her ongoing use of propofol. 01/02/2020, the patient is being seen for a follow-up. This morning, the patient is off paralytics. The patient is on propofol at 35 g per KG per minute. Overnight, Precedex has also initiated to improve centrally with a mechanical ventilator as the patient was taken off the paralytics. The patient is currently on Precedex also and this is running at a dose of 0.4 g. The patient otherwise is still intubated on a mechanical ventilator. On today's ventilator, the patient is assist-control mode at a rate of 20 to the tidal volume of 375 and FiO2 of 60% with a PEEP of 15. Peak airway pressure was measured to be 52 and the plateau airway pressure was 46. The blood gas showed a pH of 7.46 with a pCO2 of 45 and pO2 of 71. Chest x-ray showed diffuse breath and pulmonary infiltrates which is essentially unchanged compared to yesterday. His CRP level was elevated at 115. LDH was down to 625 from 12/31/2019. The patient was afebrile. Based on the concern of an elevated peak and static pressure,, assess this patient to a pressure control mode of ventilation which seems to be more effective in terms of ventilating and oxygenating the patient. For now, the patient is on a pressure control mode with a pressure of 22 cm of water, rate of 28, FiO2 60%, PEEP of 12 with a respiratory time of 1 second. The patient is still tolerating enteral feeding for nutritional support. No other significant events. He was dynamically stable. The neck fluid balance has been negative as the patient is diuresing adequately and over the past 24 hours her net fluid balance was -1.4 L. 01/03/2020, the patient is being seen for a follow-up. I doubt that she has significant improvement in the patient's condition. I'm glad to reported on today's evaluation, the patient is awake and she is interactive. She is on a combination of propofol running at 45 mg per KG per minute and Precedex in 0.4 g per KG pigmented. During the course of the day, the patient will be gradually taken off the propofol. In terms of her mental status, the patient seems to be appropriate and she is very much interactive. She remains on a mechanical ventilator. On the blood gas, the patient is a pH of 7.51 with a pCO2 of 37 and pO2 of 104. The patient is also on a pressure control mode of ventilation and currently the patient is on a pressure control of 28, inspiratory time of 1 second, pressure of 22 cm of water and PEEP of 10 with an FiO2 of 60%. The peak airway pressures around 33 and the plateau airway pressures are 31. The chest x-ray still showing but the pulmonary infiltrates although probably somewhat improved compared to yesterday. She remains on Catapres which is being titrated regarding her blood pressure and the patient will be started on Lopressor 25 minutes to twice a day regarding her sinus tach ycardia and better control of her blood pressure. She is hemodynamically stable. She remains on IV Solu Medrol 4 mg every 6 hours. She is tolerating enteral feeding for nutritional support. She is on IV fluids at 20 mL an hour. She remains on Lovenox 80 mg subcu every 12 hours. No other significant events overnight. The neck fluid balance is -1.3 L over the past 24 hours. On 01/03/2025 seeing this patient for a follow-up. On today's evaluation the patient is wide awake. She is on a low-dose Precedex 0.4 mg/kg/m. She is able to respond and answer questions appropriately. She will go for extremities. She is a bit weak. She is able to raise her head and she has an adequate cough. Earlier this morning, the patient a pH of 7.51 with a pCO2 of 36 and pO2 of 70. This was on a pressure control mode of ventilation with a PEEP of 6, pressure control of 18, respiratory rate of 24 with an FiO2 of 50%. At that point, weaning parameters were checked and the patient had a rapid shallow breathing index of 19. Following that, the patient was given a spelled his breathing trial with a pressure support of 5 and a PEEP of 5 and a subsequent blood gases showed a pH of 7.5 with a pCO2 of 38 and pO2 of 64 and this was done and FiO2 of 40%. After 30 minutes, extubated the patient to a BiPAP at a pressure of 12/5 cm of water. FiO2 is being titrated to maintain a saturation above 90%. The patient continued to be tachypneic while on the BiPAP and the patient will be given some Xanax in regards to some anxiety. Hemodynamically stable. Current pulse ox 94% with a BiPAP of 50% FiO2. She is a bit tachycardic. Blood pressures under adequate control and the patient utilizing Effexor for blood pressure control. Earlier this morning the chiropractor was running at 10 mg an hour. No fever. No chills. The chest x-ray showing diffuse but the pulmonary infiltrates and there is some subcutaneous emphysema in the left upper neck area. Note that I have treated this patient with IV Solu-Medrol 40 mg every 6 hours. She is currently off the Precedex. She is on no antibiotics. Objective - Vital Signs Vital signs: Vital Signs Temp 98.6 F 01/04/20 04:00 Pulse 115 H 01/04/20 14:00 Resp 38 H 01/04/20 14:00 BP 155/92 01/04/20 14:00 Pulse Ox 94 L 01/04/20 14:00 Intake & Output 01/03/20 01/04/20 01/04/20 18:59 06:59 18:59 Intake Total 965.173 906.404 199 Output Total 2525 1900 550 Balance -1559.827 -993.596 -351 Weight 79 kg 77.4 kg Intake: IV 312 276 115 0.9 Normal Saline for 72 36 15 Pressure Bags @ 3mL/hr Sodium Chloride 0.9% 1, 240 240 100 000 ml @ 20 mls/hr IV . Q24H [facility] Rx#:[id number] Intake, IV Titration 339.173 300.404 Amount Clevidipine Butyrate 25 100.000 229.766 mg In Empty Bag 1 bag @ 1 MG/HR 2 mls/hr IV .Q24H [facility] Rx#:[id number] Dexmedetomidine/0.9% NaCl 100 70.638 (Pmx) 400 mcg In Empty Bag 1 bag @ Titrate IV . Q0M [facility] Rx#:[id number] propofoL 1,000 mg In 139.173 Empty Bag 1 bag @ Titrate IV .Q0M [facility] Rx#: [id number] Tube Feeding 224 270 54 Other 90 60 30 Output: Urine 2525 1900 550 Other: Voiding Method Indwelling Catheter Indwelling Catheter Indwelling Catheter ABP, PAP, CO, CI - Last Documented Arterial Blood Pressure 157/66 - Exam GENERAL EXAM: Intubated, sedated 54-year-old female patient, the patient is awake and alert patient has been extubated to BiPAP at a pressure of 10/5 with an FiO2 of 50% HEAD: Normocephalic/atraumatic. EYES: Normal reaction of pupils, equal size. Conjunctiva pink, sclera white. NOSE: Clear with pink turbinates. THROAT: No erythema or exudates. NECK: No masses, no JVD, no thyroid enlargement, no adenopathy. CHEST: No chest wall deformity. Symmetrical expansion. LUNGS: Equal air entry with bilateral scattered rhonchi. CVS: Regular rate and rhythm, normal S1 and S2, no gallops, no murmurs, no rubs ABDOMEN: Soft, nontender. No hepatosplenomegaly, normal bowel sounds, no guarding or rigidity. EXTREMITIES: No clubbing, no edema, no cyanosis, 2+ pulses and upper and lower extremities. MUSCULOSKELETAL: Muscle strength and tone normal. SPINE: No scoliosis or deformity SKIN: No rashes CENTRAL NERVOUS SYSTEM: Awake and alert and following commands. She has global weakness in all 4 extremities. No focal deficits, tone is normal in all 4 extremities. - Labs CBC & Chem 7: 01/04/20 04:05 01/04/20 04:05 Labs: Abnormal Lab Results - Last 24 Hours (Table) 01/03/20 01/04/20 01/04/20 Range/Units 15:27 00:21 04:05 WBC 14.3 H (3.8-10.6) k/uL RDW 15.9 H (11.5-15.5) % Neutrophils # 12.8 H (1.3-7.7) k/uL Lymphocytes # 0.7 L (1.0-4.8) k/uL ABG pH 7.51 H (7.35-7.45) ABG pO2 81 L (83-108) mmHg ABG HCO3 30 H (21-25) mmol/L ABG Total CO2 31 H (19-24) mmol/L ABG O2 Saturation 97.6 H (94-97) % Potassium (3.5-5.1) mmol/L Creatinine (0.52-1.04) mg/dL Glucose (74-99) mg/dL POC Glucose (mg/dL) 121 H (75-99) mg/dL AST (14-36) U/L ALT (4-34) U/L 01/04/20 01/04/20 01/04/20 Range/Units 04:05 06:01 06:03 WBC (3.8-10.6) k/uL RDW (11.5-15.5) % Neutrophils # (1.3-7.7) k/uL Lymphocytes # (1.0-4.8) k/uL ABG pH 7.51 H (7.35-7.45) ABG pO2 70 L (83-108) mmHg ABG HCO3 30 H (21-25) mmol/L ABG Total CO2 31 H (19-24) mmol/L ABG O2 Saturation (94-97) % Potassium 3.3 L (3.5-5.1) mmol/L Creatinine 0.43 L (0.52-1.04) mg/dL Glucose 190 H (74-99) mg/dL POC Glucose (mg/dL) 189 H (75-99) mg/dL AST 48 H (14-36) U/L ALT 75 H (4-34) U/L 01/04/20 Range/Units 08:37 WBC (3.8-10.6) k/uL RDW (11.5-15.5) % Neutrophils # (1.3-7.7) k/uL Lymphocytes # (1.0-4.8) k/uL ABG pH 7.50 H (7.35-7.45) ABG pO2 64 L (83-108) mmHg ABG HCO3 30 H (21-25) mmol/L ABG Total CO2 (19-24) mmol/L ABG O2 Saturation (94-97) % Potassium (3.5-5.1) mmol/L Creatinine (0.52-1.04) mg/dL Glucose (74-99) mg/dL POC Glucose (mg/dL) (75-99) mg/dL AST (14-36) U/L ALT (4-34) U/L Assessment and Plan Plan: 1. Acute hypoxemic respiratory failure related to Covid 19 related pneumonia, transferred to the ICU on 12/16/2019, intubated on 12/19/2019 and on the mechanical ventilator,and the patient has received steroids, Remdesivir and Convalescent plasma. The patient is still intubated on a mechanical ventilator. The patient is improved considerably and there is obvious improvement in oxygenation. The patient is on a pressure control mode of ventilation the patient will be gradually taken off the PEEP. Subsequently, earlier this morni ng the patient had her weaning parameters checked and the patient did well and her weaning parameters and subsequently she was given a spontaneous breathing trial and the blood gases were adequate. The patient was extubated to a BiPAP. Condition is critical. The patient needs to be monitored very closely. There is a chance that the patient may end up being reintubated and the stability dependent on her overall progress. 2. COVID 19 pneumonia with secondary ARDS. 3. Increased inflammatory markers related to the above, with elevated LDH, CRP 4. Hypertension 5. Hyperlipidemia and the patient is a component of hypertriglyceridemia related to use of propofol. 6. Morbid obesity with history of previous lap band surgery 7 subcutaneous emphysema, limited over left neck area, barotrauma secondary to mechanical ventilation. Plan Continue BiPAP support as the patient is currently extubated Discontinue the Precedex Continued IV Solu-Medrol Lovenox therapeutic dose is 80 mg subcu every 12 hours IV Solu Medrol 40 mg every 6 hours Continue the rest of the supplements for Covid 19 infection including zinc, vitamin C, Pepcid and melatonin. Condition is critical. the patient is clinically improved. The patient is awake. Oxygenation is improved. I contacted the family. The family was updated on the condition will continue to follow make further recommendations based on her progress. This is a critically care evaluation and this was done and more than 30 minutes. Time with Patient: Greater than 30
--- NOTE | 2020-01-04 16:03 | P.PN ---
Subjective Acute hypoxic respiratory failure secondary to covid 19 pneumonitis. Patient remains on ventilator support, patient did receive convalescent plasma along with Remdesevir. Patient remains on the Decadron patient remains on pressor support. Zosyn was added empirically by pulmonology. Patient remains on assist-control ventilation with the high before 15 FiO2 of 60%.failed weaning trials today. 12/23/2019 Patient remains on the ventilator still requiring PEEP of 16 FiO2 of 60%. Patient is mildly alkalotic. Probably need to go down on the it up respiratory rate. Patient is on tidal volume at 375. Patient is on very low-dose of norepinephrine today. 12/24/2019 Patient remains on mechanical ventilator patient has cold with 19 pneumonitis along with ARDS on high PEEP of 16 FiO2 of 55 and now. Patient's ABGs shows improvement in alkalosis. Patient is presently not requiring any pressors patient ontinues to be on propofol and Nimbex remains on Decadron. 12/25/2019 Patient can use to require high be because of ARDS associated with Covid. Patient can use to be on propofol and Nimbex. Off pressor support receiving normal saline. Completed course of Remdesivir. 12/26/2019 Patient remains on 50 g of propofol off Nimbex patient blood pressure went up patient will be started on lisinopril and strolls slowly wean off work reflex patient is bit tachycardic. Patient remains on the 16 of PEEP. Remains intubated 12/27/2019 Patient the clinical condition did not change significantly. Remains on high PEEP. Remains on sedation. 12/28/2019 Patient is off Nimbex today beyond that no significant change in her overall clinical condition and respiratory failure. Patient remains on Zosyn prophylactically 12/29/2019 Patient is back on Nimbex no significant improvement in her respiratory distress is her overall clinical condition. Patient prognosis poor 12/30/2019 patient is to minimize propofol continue the ventilator to support without any significant improvement. Patient was started back on clevidipine 12/31/2019. Patient remains on pretty much the same in The setting sepsis for deep of 15 now. Patient remains on Nimbex, patient is on and off Cleviprex 01/01/2020 Patient is off Nimbex today no significant change in her vent settings. 01/02/2020 Patient is actually improving at this time. Patient is on 35 mics of propofol. Patient is presently on PEEP of 10 doing well and patient is being started on P racedex. Patient is on now pressure control ventilation 01/03/2020 Patient is presently on 8 of PEEP. She is awake off sedation on Precedex, will undergo any trial and possible extubation tomorrow. Presently on 50% FiO2 01/04/2020 Patient is extubated today. Patient is presently on BiPAP chest x-ray continued to show diffuse bilateral pulmonary infiltrates. Patient is bit confused. review of systems: Unable to obtain due to her clinical condition. All inpatient medications were reviewed and appropriate changes in these medications as dictated in the interval history and assessment and plan. Objective - Vital Signs Vital signs: Vital Signs Temp 98.6 F 01/04/20 04:00 Pulse 115 H 01/04/20 14:00 Resp 38 H 01/04/20 14:00 BP 155/92 01/04/20 14:00 Pulse Ox 94 L 01/04/20 14:00 Intake & Output 01/03/20 01/04/20 01/04/20 18:59 06:59 18:59 Intake Total 965.173 906.404 199 Output Total 2525 1900 550 Balance -1559.827 -993.596 -351 Weight 79 kg 77.4 kg Intake: IV 312 276 115 0.9 Normal Saline for 72 36 15 Pressure Bags @ 3mL/hr Sodium Chloride 0.9% 1, 240 240 100 000 ml @ 20 mls/hr IV . Q24H [facility] Rx#:[id number] Intake, IV Titration 339.173 300.404 Amount Clevidipine Butyrate 25 100.000 229.766 mg In Empty Bag 1 bag @ 1 MG/HR 2 mls/hr IV .Q24H [facility] Rx#:[id number] Dexmedetomidine/0.9% NaCl 100 70.638 (Pmx) 400 mcg In Empty Bag 1 bag @ Titrate IV . Q0M [facility] Rx#:[id number] propofoL 1,000 mg In 139.173 Empty Bag 1 bag @ Titrate IV .Q0M [facility] Rx#: [id number] Tube Feeding 224 270 54 Other 90 60 30 Output: Urine 2525 1900 550 Other: Voiding Method Indwelling Catheter Indwelling Catheter Indwelling Catheter ABP, PAP, CO, CI - Last Documented Arterial Blood Pressure 157/66 - Exam PHYSICAL EXAMINATION: GENERAL: Patient is extubated alert and confused HEENT: Pupils are round and equally reacting to light. EOMI. No scleral icterus. No conjunctival pallor. Normocephalic, atraumatic. No pharyngeal erythema. No thyromegaly. CARDIOVASCULAR: S1 and S2 present. No murmurs, rubs, or gallops. PULMONARY: Chest is clear to auscultation, no wheezing or crackles. ABDOMEN: Soft, nontender, nondistended, normoactive bowel sounds. No palpable organomegaly. MUSCULOSKELETAL: No joint swelling or deformity. EXTREMITIES: No cyanosis, clubbing, or pedal edema. NEUROLOGICAL: Unable to assess does have generalized weakness, confused SKIN: No rashes. Note: Because of COVID 19 isolation, some of the history and physical exam findings are indirect and obtained from nursing staff, and other physician examinations to avoid unnecessary contact with the patient. - Labs CBC & Chem 7: 01/04/20 04:05 01/04/20 04:05 Labs: Abnormal Lab Results - Last 24 Hours (Table) 01/04/20 01/04/20 01/04/20 Range/Units 00:21 04:05 04:05 WBC 14.3 H (3.8-10.6) k/uL RDW 15.9 H (11.5-15.5) % Neutrophils # 12.8 H (1.3-7.7) k/uL Lymphocytes # 0.7 L (1.0-4.8) k/uL ABG pH (7.35-7.45) ABG pO2 (83-108) mmHg ABG HCO3 (21-25) mmol/L ABG Total CO2 (19-24) mmol/L Potassium 3.3 L (3.5-5.1) mmol/L Creatinine 0.43 L (0.52-1.04) mg/dL Glucose 190 H (74-99) mg/dL POC Glucose (mg/dL) 121 H (75-99) mg/dL AST 48 H (14-36) U/L ALT 75 H (4-34) U/L 01/04/20 01/04/20 01/04/20 Range/Units 06:01 06:03 08:37 WBC (3.8-10.6) k/uL RDW (11.5-15.5) % Neutrophils # (1.3-7.7) k/uL Lymphocytes # (1.0-4.8) k/uL ABG pH 7.51 H 7.50 H (7.35-7.45) ABG pO2 70 L 64 L (83-108) mmHg ABG HCO3 30 H 30 H (21-25) mmol/L ABG Total CO2 31 H (19-24) mmol/L Potassium (3.5-5.1) mmol/L Creatinine (0.52-1.04) mg/dL Glucose (74-99) mg/dL POC Glucose (mg/dL) 189 H (75-99) mg/dL AST (14-36) U/L ALT (4-34) U/L Assessment and Plan Plan: COVID-19 virus pneumoniano significant improvement in her respiratory status the patient was extubated on 01/04/2020. On BiPAP presently. Patient is pres ently on Solu-Medrol, Lovenox and Pepcid Acute hypoxic respiratory failure secondary to pneumonia. Extubated. Presently on BiPAP -Alterman to status secondary to toxic encephalopathy from prolonged ventilation, sedation and muscle relaxants. Hypertension: Is an NICO inhibitor and on and off on Cleviprex Hyperlipidemia DVT prophylaxis with Lovenox.
[2020-01-04] MEDS: SODIUM CHLORIDE 0.9% 1,000 ML IV SCH (17:32)
[2020-01-04 17:50] LABS: Glucose,Whole Blood 97 mg/dL (75-99)
[2020-01-04 20:02] LABS: LD Isoenzymes 1 18 % (19-38); LD Isoenzymes 2 33 % (30-43); LD Isoenzymes 3 19 % (16-26); LD Isoenzymes 4 11 % (3-12); LD Isoenzymes 5 19 % (3-14); Lactacte Dehydrogenase(LD) ISO 218 U/L (120-250)
[2020-01-04] MEDS: MELATONIN 5 MG TABLET PO SCH ×2 (21:02→22:27)
[2020-01-04] MEDS: PRAVASTATIN SODIUM 40 MG TAB PO SCH ×2 (21:02→22:32)
[2020-01-04 23:45] LABS: Glucose,Whole Blood 109 mg/dL (75-99)
[2020-01-05] MEDS: methylPREDNISolone SOD SUCCI 40 MG/ML 1 ML VIAL IV SCH ×5 (00:03→23:46)
[2020-01-05] MEDS: CLEVIDIPINE BUTYRATE 25 MG in EMPTY BAG 1 BAG IV SCH ×5 (00:05→22:56)
[2020-01-05] MEDS: ALBUTEROL HFA INHALER INHALATION SCH ×6 (00:23→20:16)
[2020-01-05] MEDS: DEXMEDETOMIDINE/0.9% NACL(PMX) 400 MCG in EMPTY BAG 1 BAG IV SCH (00:41)
[2020-01-05 04:49] LABS: Basophils % (A) 0 %; Eosinophils # (A) 0.1 k/uL (0-0.7); Eosinophils % (A) 1 %; HGB 12.8 gm/dL (11.4-16.0); Lymphocytes # (A) 0.6 k/uL (1.0-4.8); Lymphocytes % (A) 5 %; MCH 28.7 pg (25.0-35.0); MCHC 32.9 g/dL (31.0-37.0); MCV 87.2 fL (80.0-100.0); Mean Platelet Volume 7.3; Monocytes # (A) 0.3 k/uL (0-1.0); Monocytes % (A) 3 %; Neutrophils # (A) 11.9 k/uL (1.3-7.7); Neutrophils % (A) 91 %; Platelet Count 295 k/uL (150-450); RBC 4.47 m/uL (3.80-5.40); RDW 15.5 % (11.5-15.5); WBC 13.1 k/uL (3.8-10.6)
[2020-01-05 05:05] LABS: ALT 65 U/L (4-34); AST 30 U/L (14-36); African American GFR (CKD) >90 (>60 ml/min/1.73 sqM); Albumin 3.5 g/dL (3.5-5.0); Alkaline Phosphatase 107 U/L (38-126); Anion Gap 9 mmol/L; Blood Urea Nitrogen 16 mg/dL (7-17); Calcium 8.9 mg/dL (8.4-10.2); Carbon Dioxide 25 mmol/L (22-30); Chloride 105 mmol/L (98-107); Glucose 158 mg/dL (74-99); Non-African American GFR(CKD) >90 (>60 ml/min/1.73 sqM); Potassium 3.6 mmol/L (3.5-5.1); Sodium 139 mmol/L (137-145); Total Bilirubin 0.8 mg/dL (0.2-1.3); Total Protein 6.6 g/dL (6.3-8.2)
[2020-01-05 06:11] LABS: Glucose,Whole Blood 118 mg/dL (75-99)
[2020-01-05] MEDS: INSULIN ASPART (NovoLOG) 100 UNIT/ML VIAL SQ SCH ×3 (06:11→18:28)
[2020-01-05] MEDS: POTASSIUM CHLORIDE 20 MEQ in WATER FOR INJECTION 1 100ML.BAG IVPB SCH ×2 (06:18→08:32)
--- NOTE | 2020-01-05 07:47 | XR ---
EXAMINATION TYPE: XR chest 1V DATE OF EXAM: 01/05/2020 COMPARISON: 01/04/2020 INDICATION: Covid pneumonia TECHNIQUE: Single frontal view of the chest is obtained. FINDINGS: The heart size is normal. The pulmonary vasculature is indistinct. Diffuse increased lung markings are present bilaterally. Right central venous catheter is present with the tip in the proximal inferior vena cava. Endotrachea l tube and nasogastric tube is been removed. Subcutaneous air is on the left neck and is improving. N o pneumothorax is evident. IMPRESSION: 1. Diffuse bilateral lung infiltrates appear stable from comparison. 2. Right central venous catheter is present with tip in inferior vena cava region.
[2020-01-05] MEDS: FAMOTIDINE 20 MG/2 ML VIAL IV SCH ×2 (08:32→21:12)
[2020-01-05] MEDS: ENOXAPARIN 80 MG/0.8 ML SYRINGE SQ SCH ×2 (08:32→21:11)
[2020-01-05] MEDS: lisinopriL 20 MG TAB PO SCH (08:33)
[2020-01-05] MEDS: hydrALAZINE HCL 20 MG/ML 1 ML VIAL IVP PRN ×2 (08:33→16:32)
[2020-01-05] MEDS: METOPROLOL TARTRATE 25 MG TAB PO SCH (08:33)
[2020-01-05] MEDS: ZINC SULFATE 220 MG CAP PO SCH (08:33)
[2020-01-05] MEDS: ASCORBIC ACID 500 MG TAB PO SCH (08:33)
[2020-01-05 13:13] LABS: Glucose,Whole Blood 113 mg/dL (75-99)
--- NOTE | 2020-01-05 13:32 | P.PN ---
Subjective Acute hypoxic respiratory failure secondary to covid 19 pneumonitis. Patient remains on ventilator support, patient did receive convalescent plasma along with Remdesevir. Patient remains on the Decadron patient remains on pressor support. Zosyn was added empirically by pulmonology. Patient remains on assist-control ventilation with the high before 15 FiO2 of 60%.failed weaning trials today. 12/23/2019 Patient remains on the ventilator still requiring PEEP of 16 FiO2 of 60%. Patient is mildly alkalotic. Probably need to go down on the it up respiratory rate. Patient is on tidal volume at 375. Patient is on very low-dose of norepinephrine today. 12/24/2019 Patient remains on mechanical ventilator patient has cold with 19 pneumonitis along with ARDS on high PEEP of 16 FiO2 of 55 and now. Patient's ABGs shows improvement in alkalosis. Patient is presently not requiring any pressors patient ontinues to be on propofol and Nimbex remains on Decadron. 12/25/2019 Patient can use to require high be because of ARDS associated with Covid. Patient can use to be on propofol and Nimbex. Off pressor support receiving normal saline. Completed course of Remdesivir. 12/26/2019 Patient remains on 50 g of propofol off Nimbex patient blood pressure went up patient will be started on lisinopril and strolls slowly wean off work reflex patient is bit tachycardic. Patient remains on the 16 of PEEP. Remains intubated 12/27/2019 Patient the clinical condition did not change significantly. Remains on high PEEP. Remains on sedation. 12/28/2019 Patient is off Nimbex today beyond that no significant change in her overall clinical condition and respiratory failure. Patient remains on Zosyn prophylactically 12/29/2019 Patient is back on Nimbex no significant improvement in her respiratory distress is her overall clinical condition. Patient prognosis poor 12/30/2019 patient is to minimize propofol continue the ventilator to support without any significant improvement. Patient was started back on clevidipine 12/31/2019. Patient remains on pretty much the same in The setting sepsis for deep of 15 now. Patient remains on Nimbex, patient is on and off Cleviprex 01/01/2020 Patient is off Nimbex today no significant change in her vent settings. 01/02/2020 Patient is actually improving at this time. Patient is on 35 mics of propofol. Patient is presently on PEEP of 10 doing well and patient is being started on P racedex. Patient is on now pressure control ventilation 01/03/2020 Patient is presently on 8 of PEEP. She is awake off sedation on Precedex, will undergo any trial and possible extubation tomorrow. Presently on 50% FiO2 01/04/2020 Patient is extubated today. Patient is presently on BiPAP chest x-ray continued to show diffuse bilateral pulmonary infiltrates. Patient is bit confused. 01/05/2020 Patient is doing well. Patient is presently in 6 L of oxygen PT and OT will evaluate the patient patient wanted to go home patient is alert oriented 2-3, bit confused which is expected. Patient remains in Cleviprex which is being weaned off patient is being started on metoprolol. Constitutional: Denied any fatigue denied any fever. Cardio vascular: denied any chest pain, palpitations Gastrointestinal denied any nausea vomiting Pulmonary: Denied any shortness of breath cough Neurologic denied any new focal deficits All inpatient medications were reviewed and appropriate changes in these medications as dictated in the interval history and assessment and plan. Objective - Vital Signs Vital signs: Vital Signs Temp 98.3 F 01/05/20 08:00 Pulse 105 H 01/05/20 12:00 Resp 30 H 01/05/20 12:00 BP 162/85 01/05/20 09:00 Pulse Ox 93 L 01/05/20 12:00 Intake & Output 01/04/20 01/05/20 01/05/20 18:59 06:59 18:59 Intake Total 510 422.163 301 Output Total 1170 1220 480 Balance -660 -797.837 -179 Weight 75.2 kg 75.2 kg Intake: IV 276 276 151 0.9 Normal Saline for 36 36 21 Pressure Bags @ 3mL/hr Sodium Chloride 0.9% 1, 240 240 130 000 ml @ 20 mls/hr IV . Q24H [facility] Rx#:[id number] Intake, IV Titration 150 146.163 150 Amount Clevidipine Butyrate 25 50 85.333 50 mg In Empty Bag 1 bag @ 1 MG/HR 2 mls/hr IV .Q24H [facility] Rx#:[id number] Dexmedetomidine/0.9% NaCl 100 60.83 (Pmx) 400 mcg In Empty Bag 1 bag @ Titrate IV . Q0M [facility] Rx#:[id number] Potassium Chloride 20 meq 100 In Water For Injection 1 100ml.bag @ 50 mls/hr IVPB Q2H [facility] Rx#: [id number] Tube Feeding 54 Other 30 Output: Urine 1170 1220 480 Other: Voiding Method Indwelling Catheter Indwelling Catheter ABP, PAP, CO, CI - Last Documented Arterial Blood Pressure 145/60 - Exam PHYSICAL EXAMINATION: GENERAL: Patient is extubated alert , less confused compared to yesterday. HEENT: Pupils are round and equally reacting to light. EOMI. No scleral icterus. No conjunctival pallor. Normocephalic, atraumatic. No pharyngeal erythema. No thyromegaly. CARDIOVASCULAR: S1 and S2 present. No murmurs, rubs, or gallops. Tachycardic. PULMONARY: Chest is clear to auscultation, no wheezing or crackles. ABDOMEN: Soft, nontender, nondistended, normoactive bowel sounds. No palpable organomegaly. MUSCULOSKELETAL: No joint swelling or deformity. EXTREMITIES: No cyanosis, clubbing, or pedal edema. NEUROLOGICAL: Unable to assess does have generalized weakness, confused SKIN: No rashes. Note: Because of [place] [id number] isolation, some of the history and physical exam findings are indirect and obtained from nursing staff, and other physician examinations to avoid unnecessary contact with the patient. - Labs CBC & Chem 7: 01/05/20 04:35 01/05/20 04:35 Labs: Abnormal Lab Results - Last 24 Hours (Table) 01/02/20 01/04/20 01/05/20 Range/Units 05:20 23:43 04:35 WBC 13.1 H (3.8-10.6) k/uL Neutrophils # 11.9 H (1.3-7.7) k/uL Lymphocytes # 0.6 L (1.0-4.8) k/uL Creatinine (0.52-1.04) mg/dL Glucose (74-99) mg/dL POC Glucose (mg/dL) 109 H (75-99) mg/dL ALT (4-34) U/L LD 1 18 L (19-38) % LD 5 19 H (3-14) % 01/05/20 01/05/20 01/05/20 Range/Units 04:35 06:09 13:10 WBC (3.8-10.6) k/uL Neutrophils # (1.3-7.7) k/uL Lymphocytes # (1.0-4.8) k/uL Creatinine 0.42 L (0.52-1.04) mg/dL Glucose 158 H (74-99) mg/dL POC Glucose (mg/dL) 118 H 113 H (75-99) mg/dL ALT 65 H (4-34) U/L LD 1 (19-38) % LD 5 (3-14) % Assessment and Plan Plan: COVID-19 virus pneumonia significant improvement in her respiratory status the patient was extubated on 01/04/2020. Presently on 6 L of oxygen. Patient is presently on Solu-Medrol, Lovenox and Pepcid Acute hypoxic respiratory failure secondary to pneumonia. Extubated. Presently on BiPAP -Altered mental status secondary to toxic encephalopathy from prolonged ventilation, sedation and muscle relaxants. Improving. Hypertension: Is an NICO inhibitor and on Cleviprex will will be weaned of. Hyperlipidemia DVT prophylaxis with Lovenox.
[2020-01-05] MEDS: METOPROLOL TARTRATE 5 MG/5 ML VIAL IVP PRN ×2 (13:36→21:40)
--- NOTE | 2020-01-05 14:14 | P.CONS ---
History of Present Illness - Chief Complaint Medical debility - History of Present Illness I had the opportunity to see patient for inpatient rehab consultation with regard to medical debility. She was admitted to [facility] December 13 with nausea, emesis, shortness of breath, fever. Diagnosis Covid pneumonia. Patient required vent and was extubated yesterday. Chest x-rays followed for diffuse bilateral disease. Seen in consultation by pulmonary, Dr. Benitez. PT reports two-person total assistance for bed mobility and balance poor. OT reports two- person total assistance for toileting and toilet transfer. Unable to assist with self-care. Previous functional history as elicited from patient: 35-year-old right-handed white female who is lives in one floor home with . Patient works full-time. [employer] independent prior to admission. PMD Dr. Arnett. Denies tobacco or alcohol. Family history father with cancer. Review of Systems Review of systems: ENT: Denies sneezes or discharge. Eyes: Denies discharge or photophobia. Cardiac: Denies chest pain or palpitation. Pulmonary: shortness of breath. Breast: Denies discharge or lumps. Gastrointestinal: Denies nausea, emesis, constipation, diarrhea. Genitourinary: Denies discharge or frequency. Musculoskeletal: Denies muscle or bone aches. Neurologic: Diffuse severe weakness. Endocrine: Denies shakes or sweats. Oncology: Denies cancers. Dermatologic: Denies rash, itching, pruritus. ALLERGY/immunology: Denies sneezes, rashes. Past Medical History Past Medical History: Hyperlipidemia, Hypertension History of Any Multi-Drug Resistant Organisms: None Reported Past Surgical History: Bariatric Surgery, Cholecystectomy, Hysterectomy Additional Past Surgical History / Comment(s): lap band placed 2010 (?), partial hysterectomy (bilateral ovaries retained), colonscopy Past Anesthesia/Blood Transfusion Reactions: Postoperative Nausea & Vomiting (PONV) Additional Past Anesthesia/Blood Transfusion Reaction / Comm: No blood transf usion to date Past Psychological History: No Psychological Hx Reported Smoking Status: Never smoker Past Alcohol Use History: None Reported Past Drug Use History: None Reported - Past Family History Father Family Medical History: Cancer Additional Family Medical History / Comment(s): bladder Sister(s) Family Medical History: Cancer Medications and Allergies Home Medications Medication Instructions Recorded Confirmed Type lisinopriL 20 mg PO DAILY 10/31/18 12/14/19 History Pravastatin Sodium [Pravachol] 40 mg PO HS 12/14/19 12/14/19 History Allergies Allergy/AdvReac Type Severity Reaction Status Date / Time No Known Allergies Allergy Verified 12/14/19 13:03 Physical Exam Vitals: Vital Signs Temp Pulse Resp BP Pulse Ox 01/05/20 13:00 114 H 27 H 95 01/05/20 12:00 105 H 30 H 93 L 01/05/20 11:00 93 33 H 94 L 01/05/20 10:00 92 30 H 97 01/05/20 09:00 92 33 H 162/85 97 01/05/20 08:00 98.3 F 104 H 32 H 93 L 01/05/20 07:00 102 H 32 H 90 L 01/05/20 06:00 111 H 37 H 93 L 01/05/20 05:00 98 29 H 94 L 01/05/20 04:00 99.0 F 96 26 H 96 01/05/20 03:00 95 22 96 01/05/20 02:00 96 33 H 93 L 01/05/20 01:00 98 30 H 126/68 93 L 01/05/20 00:00 99.1 F 99 26 H 138/75 91 L 01/04/20 23:00 93 31 H 138/75 92 L 01/04/20 22:00 96 64 H 138/75 93 L 01/04/20 21:00 90 34 H 138/75 97 01/04/20 20:00 98.8 F 94 33 H 134/75 96 01/04/20 19:00 98 30 H 134/75 95 01/04/20 18:00 99 31 H 134/75 97 01/04/20 17:00 90 43 H 134/75 100 01/04/20 16:00 93 29 H 155/92 96 01/04/20 15:00 101 H 32 H 155/92 95 Intake and Output 01/04/20 01/05/20 01/05/20 22:59 06:59 14:59 Intake Total 184 330.163 330.333 Output Total 625 845 480 Balance -441 -514.837 -149.667 Intake: IV 184 184 151 0.9 Normal Saline for 24 24 21 Pressure Bags @ 3mL/hr Sodium Chloride 0.9% 1, 160 160 130 000 ml @ 20 mls/hr IV . Q24H [facility] Rx#:[id number] Intake, IV Titration 146.163 179.333 Amount Clevidipine Butyrate 25 85.333 79.333 mg In Empty Bag 1 bag @ 1 MG/HR 2 mls/hr IV .Q24H [facility] Rx#:[id number] Dexmedetomidine/0.9% NaCl 60.83 (Pmx) 400 mcg In Empty Bag 1 bag @ Titrate IV . Q0M [facility] Rx#:[id number] Potassium Chloride 20 meq 100 In Water For Injection 1 100ml.bag @ 50 mls/hr IVPB Q2H [facility] Rx#: [id number] Output: Urine 625 845 480 Other: Voiding Method Indwelling Catheter Indwelling Catheter Weight 75.2 kg 75.2 kg ABP, PAP, CO, CI - Last 8 Hours Arterial Blood Pressure 151/67 Arterial Blood Pressure 145/60 Arterial Blood Pressure 145/60 Arterial Blood Pressure 167/68 Arterial Blood Pressure 178/78 Arterial Blood Pressure 153/65 Arterial Blood Pressure 139/61 Skin: Good color, texture, turgor. General: Medium build and fatigued appearance. Head: Normocephalic, atraumatic. Eyes: Symmetric. Pupils equal round. Ears: Symmetric. Hearing within normal limits. Mouth: Clear. Neck: Supple. Carotid without bruit. Cardiac: Regular rate and rhythm. Lungs: Clear anteriorly and posteriorly. Abdomen: Soft active nontender. Extremities: Normal tone. Neurological: Mental status: Alert, cooperative, pleasant. Cranial nerves: Symmetric facial tone and trapezius. Motor: Poor minus movement arms and legs. Sensation: Intact throughout. DTRs: Symmetric and equal throughout. Mobility: Requires assistance for any mobility. Results CBC & Chem 7: 01/05/20 04:35 01/05/20 04:35 Labs: Abnormal Lab Results - Last 24 Hours (Table) 01/02/20 01/04/20 01/05/20 Range/Units 05:20 23:43 04:35 WBC 13.1 H (3.8-10.6) k/uL Neutrophils # 11.9 H (1.3-7.7) k/uL Lymphocytes # 0.6 L (1.0-4.8) k/uL Creatinine (0.52-1.04) mg/dL Glucose (74-99) mg/dL POC Glucose (mg/dL) 109 H (75-99) mg/dL ALT (4-34) U/L LD 1 18 L (19-38) % LD 5 19 H (3-14) % 01/05/20 01/05/20 01/05/20 Range/Units 04:35 06:09 13:10 WBC (3.8-10.6) k/uL Neutrophils # (1.3-7.7) k/uL Lymphocytes # (1.0-4.8) k/uL Creatinine 0.42 L (0.52-1.04) mg/dL Glucose 158 H (74-99) mg/dL POC Glucose (mg/dL) 118 H 113 H (75-99) mg/dL ALT 65 H (4-34) U/L LD 1 (19-38) % LD 5 (3-14) % Assessment and Plan (1) COVID-19 Current Visit: Yes Status: Acute Code(s): U07.1 - COVID-19 SNOMED Code(s): 692863302 (2) Hypoxia Current Visit: Yes Status: Acute Code(s): R09.02 - HYPOXEMIA SNOMED Code(s): 650261713 Plan: Impression: 1. Medical debility. 2. Covert pneumonia with acute hypoxic failure. 3. Dehydration. 4. Hypertension. 5. Dyslipidemia. Comments and plan: At this time PT and OT are ongoing. Patient with endurance issues and is currently having therapy done to her. Not currently ready for inpatient rehab and do not anticipate for at least another 1-2 weeks. We'll continue to follow closely with you and review her therapy notes every week day a.m.
--- NOTE | 2020-01-05 14:25 | P.PN ---
Subjective Progress Note Date: 01/05/20 This is a 51-year-old female patient with a complicated course of a COVID 19 ammonia complicated by respiratory failure. The patient was transferred to the intensive care unit on 12/16/2019 and the patient has been intubated on 12/19/2019 and since then the patient has been on a mechanical ventilator. She has a very slow progress. The patient is essentially remains intubated on a mechanical ventilator. Currently she is an assist-control mode at the rate of 28 with a tidal volume of 375 and FiO2 of 75% with a PEEP of 15. The patient is on propofol running at 50 g per KG per minute. The patient is also on Nimbex at 3.5 g per KG 5 minutes. The patient is also on normal saline today to 75 mL an hour. The blood gases from today shows a pH of 7.36 with a pCO2 of 56 and pO2 of 77. The peak aortic pressure is around 46 metastatic a pressure of 41. Hemodynamically, the patient is hypertensive and the patient is requiring clevidipine drip at 8 mg per hour for blood pressure. The patient is receiving enteral feeding for nutritional support and the patient is currently on vital high protein at the rate of 27 mL an hour. The patient has completed her course of Remdesivir and she has also received convalescent plasma. She is currently on therapeutic dose of Lovenox 80 mg subcu every 12 hours. She is covered empirically with IV Zosyn. The patient is afebrile. The ferritin from was down to 281. The LDH level was down to 628 from yesterday. A repeat blood work showed a triglyceride level of 409. This is related to her ongoing use of propofol. 01/02/2020, the patient is being seen for a follow-up. This morning, the patient is off paralytics. The patient is on propofol at 35 g per KG per minute. Overnight, Precedex has also initiated to improve centrally with a mechanical ventilator as the patient was taken off the paralytics. The patient is currently on Precedex also and this is running at a dose of 0.4 g. The patient otherwise is still intubated on a mechanical ventilator. On today's ventilator, the patient is assist-control mode at a rate of 20 to the tidal volume of 375 and FiO2 of 60% with a PEEP of 15. Peak airway pressure was measured to be 52 and the plateau airway pressure was 46. The blood gas showed a pH of 7.46 with a pCO2 of 45 and pO2 of 71. Chest x-ray showed diffuse breath and pulmonary infiltrates which is essentially unchanged compared to yesterday. His CRP level was elevated at 115. LDH was down to 625 from 12/31/2019. The patient was afebrile. Based on the concern of an elevated peak and static pressure,, assess this patient to a pressure control mode of ventilation which seems to be more effective in terms of ventilating and oxygenating the patient. For now, the patient is on a pressure control mode with a pressure of 22 cm of water, rate of 28, FiO2 60%, PEEP of 12 with a respiratory time of 1 second. The patient is still tolerating enteral feeding for nutritional support. No other significant events. He was dynamically stable. The neck fluid balance has been negative as the patient is diuresing adequately and over the past 24 hours her net fluid balance was -1.4 L. 01/03/2020, the patient is being seen for a follow-up. I doubt that she has significant improvement in the patient's condition. I'm glad to reported on today's evaluation, the patient is awake and she is interactive. She is on a combination of propofol running at 45 mg per KG per minute and Precedex in 0.4 g per KG pigmented. During the course of the day, the patient will be gradually taken off the propofol. In terms of her mental status, the patient seems to be appropriate and she is very much interactive. She remains on a mechanical ventilator. On the blood gas, the patient is a pH of 7.51 with a pCO2 of 37 and pO2 of 104. The patient is also on a pressure control mode of ventilation and currently the patient is on a pressure control of 28, inspiratory time of 1 second, pressure of 22 cm of water and PEEP of 10 with an FiO2 of 60%. The peak airway pressures around 33 and the plateau airway pressures are 31. The chest x-ray still showing but the pulmonary infiltrates although probably somewhat improved compared to yesterday. She remains on Catapres which is being titrated regarding her blood pressure and the patient will be started on Lopressor 25 minutes to twice a day regarding her sinus tach ycardia and better control of her blood pressure. She is hemodynamically stable. She remains on IV Solu Medrol 4 mg every 6 hours. She is tolerating enteral feeding for nutritional support. She is on IV fluids at 20 mL an hour. She remains on Lovenox 80 mg subcu every 12 hours. No other significant events overnight. The neck fluid balance is -1.3 L over the past 24 hours. On 01/03/2025 seeing this patient for a follow-up. On today's evaluation the patient is wide awake. She is on a low-dose Precedex 0.4 mg/kg/m. She is able to respond and answer questions appropriately. She will go for extremities. She is a bit weak. She is able to raise her head and she has an adequate cough. Earlier this morning, the patient a pH of 7.51 with a pCO2 of 36 and pO2 of 70. This was on a pressure control mode of ventilation with a PEEP of 6, pressure control of 18, respiratory rate of 24 with an FiO2 of 50%. At that point, weaning parameters were checked and the patient had a rapid shallow breathing index of 19. Following that, the patient was given a spelled his breathing trial with a pressure support of 5 and a PEEP of 5 and a subsequent blood gases showed a pH of 7.5 with a pCO2 of 38 and pO2 of 64 and this was done and FiO2 of 40%. After 30 minutes, extubated the patient to a BiPAP at a pressure of 12/5 cm of water. FiO2 is being titrated to maintain a saturation above 90%. The patient continued to be tachypneic while on the BiPAP and the patient will be given some Xanax in regards to some anxiety. Hemodynamically stable. Current pulse ox 94% with a BiPAP of 50% FiO2. She is a bit tachycardic. Blood pressures under adequate control and the patient utilizing Cleviprex for blood pressure control. Earlier this morning the chiropractor was running at 10 mg an hour. No fever. No chills. The chest x-ray showing diffuse but the pulmonary infiltrates and there is some subcutaneous emphysema in the left upper neck area. Note that I have treated this patient with IV Solu-Medrol 40 mg every 6 hours. She is currently off the Precedex. She is on no antibiotics. On 01/05/2020, the patient is still extubated and currently she is on 6 L of oxygen by nasal cannula. She is more awake and alert and communicating. She is weak. She is hardly able to move her arms again Spiriva to raise them up. She is beginning her toes bilaterally pH is also trying to bend her knees. She'll be working with physical therapy. The patient is currently on 6 L with a pulse ox of 93%. She is doing well. She is unable to swallow the patient is quite weak. Her mouth is dry. She remains on IV Solu Medrol 40 mg every 6 hours and the patient is also on Lovenox 80 mg subcu every 12 hours. The patient is also on Cleviprex at 8 mg an hour and this will be gradually weaned as the patient will be started on IV Lopressor and IV hydralazine. No fever. No chills. Chest x-ray still showing diffuse bilateral pulmonary infiltrates. There is improvement in the left neck subcutaneous emphysema. Hemodynamically stable. Adequate urine output. This is extubation day #1. Objective - Vital Signs Vital signs: Vital Signs Temp 98.3 F 01/05/20 08:00 Pulse 114 H 01/05/20 13:00 Resp 27 H 01/05/20 13:00 BP 162/85 01/05/20 09:00 Pulse Ox 95 01/05/20 13:00 Intake & Output 01/04/20 01/05/20 01/05/20 18:59 06:59 18:59 Intake Total 510 422.163 330.333 Output Total 1170 1220 480 Balance -660 -797.837 -149.667 Weight 75.2 kg 75.2 kg Intake: IV 276 276 151 0.9 Normal Saline for 36 36 21 Pressure Bags @ 3mL/hr Sodium Chloride 0.9% 1, 240 240 130 000 ml @ 20 mls/hr IV . Q24H [facility] Rx#:[id number] Intake, IV Titration 150 146.163 179.333 Amount Clevidipine Butyrate 25 50 85.333 79.333 mg In Empty Bag 1 bag @ 1 MG/HR 2 mls/hr IV .Q24H [facility] Rx#:[id number] Dexmedetomidine/0.9% NaCl 100 60.83 (Pmx) 400 mcg In Empty Bag 1 bag @ Titrate IV . Q0M [facility] Rx#:[id number] Potassium Chloride 20 meq 100 In Water For Injection 1 100ml.bag @ 50 mls/hr IVPB Q2H [facility] Rx#: [id number] Tube Feeding 54 Other 30 Output: Urine 1170 1220 480 Other: Voiding Method Indwelling Catheter Indwelling Catheter ABP, PAP, CO, CI - Last Documented Arterial Blood Pressure 151/67 - Exam GENERAL EXAM: Intubated, sedated 54-year-old female patient, the patient is awake and alert patient has been extubated and currently she is on 6 L of oxygen by nasal cannula. HEAD: Normocephalic/atraumatic. EYES: Normal reaction of pupils, equal size. Conjunctiva pink, sclera white. NOSE: Clear with pink turbinates. THROAT: No erythema or exudates. NECK: No masses, no JVD, no thyroid enlargement, no adenopathy. CHEST: No chest wall deformity. Symmetrical expansion. LUNGS: Equal air entry with bilateral scattered rhonchi. CVS: Regular rate and rhythm, normal S1 and S2, no gallops, no murmurs, no rubs ABDOMEN: Soft, nontender. No hepatosplenomegaly, normal bowel sounds, no guarding or rigidity. EXTREMITIES: No clubbing, no edema, no cyanosis, 2+ pulses and upper and lower extremities. MUSCULOSKELETAL: Muscle strength and tone normal. SPINE: No scoliosis or deformity SKIN: No rashes CENTRAL NERVOUS SYSTEM: Awake and alert and following commands. She has global weakness in all 4 extremities. No focal deficits, tone is normal in all 4 extremities. - Labs CBC & Chem 7: 01/05/20 04:35 01/05/20 04:35 Labs: Abnormal Lab Results - Last 24 Hours (Table) 01/02/20 01/04/20 01/05/20 Range/Units 05:20 23:43 04:35 WBC 13.1 H (3.8-10.6) k/uL Neutrophils # 11.9 H (1.3-7.7) k/uL Lymphocytes # 0.6 L (1.0-4.8) k/uL Creatinine (0.52-1.04) mg/dL Glucose (74-99) mg/dL POC Glucose (mg/dL) 109 H (75-99) mg/dL ALT (4-34) U/L LD 1 18 L (19-38) % LD 5 19 H (3-14) % 01/05/20 01/05/20 01/05/20 Range/Units 04:35 06:09 13:10 WBC (3.8-10.6) k/uL Neutrophils # (1.3-7.7) k/uL Lymphocytes # (1.0-4.8) k/uL Creatinine 0.42 L (0.52-1.04) mg/dL Glucose 158 H (74-99) mg/dL POC Glucose (mg/dL) 118 H 113 H (75-99) mg/dL ALT 65 H (4-34) U/L LD 1 (19-38) % LD 5 (3-14) % Assessment and Plan Plan: 1 Acute hypoxemic respiratory failure related to Covid 19 related pneumonia, transferred to the ICU on 12/16/2019, intubated on 12/19/2019 and on the mechanical ventilator,and the patient has received steroids, Remdesivir and Convalescent plasma. The patient is still intubated on a mechanical ventilator. The patient was extubated yesterday to a BiPAP and currently she is on 6 L of oxygen by nasal cannula patient doing well. She is not having any significant r espiratory difficulties. Chest x-ray still showing bilateral pulmonary infiltrates which is unchanged compared to yesterday. The patient also has some subcutaneous emphysema in the left upper neck area. 2. COVID 19 pneumonia with secondary ARDS. 3. Increased inflammatory markers related to the above, with elevated LDH, CRP 4. Hypertension 5. Hyperlipidemia and the patient is a component of hypertriglyceridemia related to use of propofol. 6. Morbid obesity with history of previous lap band surgery 7 subcutaneous emphysema, limited over left neck area, barotrauma secondary to mechanical ventilation. There is improving on today's chest x-ray 8 profound motor weakness due to prolonged intubation mechanical ventilation use of sedation and paralytics. There may be a critically illness myopathy in this patient. Plan Keep the patient on nasal cannula at 6 L and gradually wean off Continued IV Solu-Medrol Lovenox therapeutic dose is 80 mg subcu every 12 hours IV Solu Medrol 40 mg every 6 hours Continue the rest of the supplements for Covid 19 infection including zinc, ann min C, Pepcid and melatonin. Aggressive physical therapy No food for today. The patient is to get stronger. We'll try to do a swallow evaluation over the next 24 hours. Condition is critical. the patient is clinically improved. The patient is awake. Oxygenation is improved. I contacted the family. The family was updated on the condition will continue to follow make further recommendations based on her progress. This is a critically care evaluation and this was done and more than 30 minutes. Time with Patient: Greater than 30
[2020-01-05 18:16] LABS: Glucose,Whole Blood 135 mg/dL (75-99)
[2020-01-05] MEDS: SODIUM CHLORIDE 0.9% 1,000 ML IV SCH (21:11)
[2020-01-05] MEDS: PRAVASTATIN SODIUM 40 MG TAB PO SCH (21:11)
[2020-01-05] MEDS: MELATONIN 5 MG TABLET PO SCH (21:11)
[2020-01-05] MEDS: HYDROmorphone 0.5 MG/0.5 ML SYRINGE IVP PRN (23:47)
[2020-01-05 23:55] LABS: Glucose,Whole Blood 146 mg/dL (75-99)
[2020-01-06] MEDS ORDERED: ZOLPIDEM 5 MG TAB PO PRN ×2 (00:04→19:41)
[2020-01-06] MEDS ORDERED: QUEtiapine 100 MG TAB PO SCH (00:15)
[2020-01-06] MEDS: INSULIN ASPART (NovoLOG) 100 UNIT/ML VIAL SQ SCH ×5 (00:24→23:46)
[2020-01-06] MEDS: ALBUTEROL HFA INHALER INHALATION SCH ×7 (01:32→20:53)
[2020-01-06 04:41] LABS: Basophils % (A) 0 %; Eosinophils % (A) 0 %; HCT 36.8 % (34.0-46.0); HGB 12.1 gm/dL (11.4-16.0); Lymphocytes # (A) 0.6 k/uL (1.0-4.8); Lymphocytes % (A) 6 %; MCHC 32.9 g/dL (31.0-37.0); MCV 88.2 fL (80.0-100.0); Mean Platelet Volume 7.7; Monocytes # (A) 0.4 k/uL (0-1.0); Monocytes % (A) 4 %; Neutrophils # (A) 8.5 k/uL (1.3-7.7); Neutrophils % (A) 89 %; Platelet Count 287 k/uL (150-450); RBC 4.17 m/uL (3.80-5.40); WBC 9.6 k/uL (3.8-10.6)
[2020-01-06 05:06] LABS: ALT 45 U/L (4-34); AST 19 U/L (14-36); African American GFR (CKD) >90 (>60 ml/min/1.73 sqM); Albumin 3.3 g/dL (3.5-5.0); Alkaline Phosphatase 94 U/L (38-126); Anion Gap 5 mmol/L; Blood Urea Nitrogen 22 mg/dL (7-17); Calcium 9.4 mg/dL (8.4-10.2); Carbon Dioxide 26 mmol/L (22-30); Chloride 109 mmol/L (98-107); Glucose 162 mg/dL (74-99); Non-African American GFR(CKD) >90 (>60 ml/min/1.73 sqM); Potassium 4.2 mmol/L (3.5-5.1); Sodium 140 mmol/L (137-145); Total Bilirubin 0.6 mg/dL (0.2-1.3); Total Protein 6.2 g/dL (6.3-8.2)
[2020-01-06 05:32] LABS: Glucose,Whole Blood 148 mg/dL (75-99)
[2020-01-06] MEDS: methylPREDNISolone SOD SUCCI 40 MG/ML 1 ML VIAL IV SCH ×4 (06:16→23:45)
--- NOTE | 2020-01-06 07:35 | XR ---
EXAMINATION TYPE: XR chest 1V DATE OF EXAM: 01/06/2020 HISTORY: Shortness of breath. COMPARISON: None. TECHNIQUE: Single view of the chest is submitted. FINDINGS: Demonstrated are scattered senescent parenchymal change. Diffuse bilateral mixed interstitial and alveolar infiltrates persist without significant change. The heart is stable. Hilar and mediastinal structures are within normal limits. Degenerative changes are seen of the dorsal spine. IMPRESSION: 1. Diffuse bilateral mixed interstitial and alveolar infiltrates persist without significant change.
[2020-01-06] MEDS: ASCORBIC ACID 500 MG TAB PO SCH (09:37)
[2020-01-06] MEDS: METOPROLOL TARTRATE 25 MG TAB PO SCH (09:37)
[2020-01-06] MEDS: lisinopriL 20 MG TAB PO SCH (09:37)
[2020-01-06] MEDS: ZINC SULFATE 220 MG CAP PO SCH (09:37)
[2020-01-06] MEDS: FAMOTIDINE 20 MG/2 ML VIAL IV SCH ×2 (09:38→22:17)
[2020-01-06] MEDS: ENOXAPARIN 80 MG/0.8 ML SYRINGE SQ SCH ×2 (09:39→22:17)
[2020-01-06 11:58] LABS: Glucose,Whole Blood 150 mg/dL (75-99)
--- NOTE | 2020-01-06 13:09 | P.PN ---
Subjective Acute hypoxic respiratory failure secondary to covid 19 pneumonitis. Patient remains on ventilator support, patient did receive convalescent plasma along with Remdesevir. Patient remains on the Decadron patient remains on pressor support. Zosyn was added empirically by pulmonology. Patient remains on assist-control ventilation with the high before 15 FiO2 of 60%.failed weaning trials today. 12/23/2019 Patient remains on the ventilator still requiring PEEP of 16 FiO2 of 60%. Patient is mildly alkalotic. Probably need to go down on the it up respiratory rate. Patient is on tidal volume at 375. Patient is on very low-dose of norepinephrine today. 12/24/2019 Patient remains on mechanical ventilator patient has cold with 19 pneumonitis along with ARDS on high PEEP of 16 FiO2 of 55 and now. Patient's ABGs shows improvement in alkalosis. Patient is presently not requiring any pressors patient ontinues to be on propofol and Nimbex remains on Decadron. 12/25/2019 Patient can use to require high be because of ARDS associated with Covid. Patient can use to be on propofol and Nimbex. Off pressor support receiving normal saline. Completed course of Remdesivir. 12/26/2019 Patient remains on 50 g of propofol off Nimbex patient blood pressure went up patient will be started on lisinopril and strolls slowly wean off work reflex patient is bit tachycardic. Patient remains on the 16 of PEEP. Remains intubated 12/27/2019 Patient the clinical condition did not change significantly. Remains on high PEEP. Remains on sedation. 12/28/2019 Patient is off Nimbex today beyond that no significant change in her overall clinical condition and respiratory failure. Patient remains on Zosyn prophylactically 12/29/2019 Patient is back on Nimbex no significant improvement in her respiratory distress is her overall clinical condition. Patient prognosis poor 12/30/2019 patient is to minimize propofol continue the ventilator to support without any significant improvement. Patient was started back on clevidipine 12/31/2019. Patient remains on pretty much the same in The setting sepsis for deep of 15 now. Patient remains on Nimbex, patient is on and off Cleviprex 01/01/2020 Patient is off Nimbex today no significant change in her vent settings. 01/02/2020 Patient is actually improving at this time. Patient is on 35 mics of propofol. Patient is presently on PEEP of 10 doing well and patient is being started on P racedex. Patient is on now pressure control ventilation 01/03/2020 Patient is presently on 8 of PEEP. She is awake off sedation on Precedex, will undergo any trial and possible extubation tomorrow. Presently on 50% FiO2 01/04/2020 Patient is extubated today. Patient is presently on BiPAP chest x-ray continued to show diffuse bilateral pulmonary infiltrates. Patient is bit confused. 01/05/2020 Patient is doing well. Patient is presently in 6 L of oxygen PT and OT will evaluate the patient patient wanted to go home patient is alert oriented 2-3, bit confused which is expected. Patient remains in Cleviprex which is being weaned off patient is being started on metoprolol. 01/06/2020 Patient fully Suboxone now. Patient blood pressure is better controlled heart rate is better controlled patient was started on metoprolol. She is still confused Constitutional: Denied any fatigue denied any fever. Cardio vascular: denied any chest pain, palpitations Gastrointestinal denied any nausea vomiting Pulmonary: Denied any shortness of breath cough Neurologic denied any new focal deficits, bit confused All inpatient medications were reviewed and appropriate changes in these medicat ions as dictated in the interval history and assessment and plan. Objective - Vital Signs Vital signs: Vital Signs Temp 98.2 F 01/06/20 12:00 Pulse 90 01/06/20 12:00 Resp 25 H 01/06/20 12:00 BP 143/83 01/06/20 12:00 Pulse Ox 94 L 01/06/20 12:00 Intake & Output 01/05/20 01/06/20 01/06/20 18:59 06:59 18:59 Intake Total 445.333 326.734 52 Output Total 750 721 120 Balance -304.667 -394.266 -68 Weight 75.2 kg 76.2 kg Intake: IV 266 306 52 0.9 Normal Saline for 36 66 12 Pressure Bags @ 3mL/hr Sodium Chloride 0.9% 1, 230 240 40 000 ml @ 20 mls/hr IV . Q24H [facility] Rx#:[id number] Intake, IV Titration 179.333 20.734 Amount Clevidipine Butyrate 25 79.333 20.734 mg In Empty Bag 1 bag @ 1 MG/HR 2 mls/hr IV .Q24H [facility] Rx#:[id number] Potassium Chloride 20 meq 100 In Water For Injection 1 100ml.bag @ 50 mls/hr IVPB Q2H [facility] Rx#: [id number] Output: Urine 750 720 120 Stool 1 Other: Voiding Method Indwelling Catheter Indwelling Catheter # Bowel Movements 1 ABP, PAP, CO, CI - Last Documented Arterial Blood Pressure 160/72 - Exam PHYSICAL EXAMINATION: GENERAL: Patient is extubated alert , less confused compared to yesterday. HEENT: Pupils are round and equally reacting to light. EOMI. No scleral icterus. No conjunctival pallor. Normocephalic, atraumatic. No pharyngeal erythema. No thyromegaly. CARDIOVASCULAR: S1 and S2 present. No murmurs, rubs, or gallops. Tachycardic. PULMONARY: Chest is clear to auscultation, no wheezing or crackles. ABDOMEN: Soft, nontender, nondistended, normoactive bowel sounds. No palpable or ganomegaly. MUSCULOSKELETAL: No joint swelling or deformity. EXTREMITIES: No cyanosis, clubbing, or pedal edema. NEUROLOGICAL: Unable to assess does have generalized weakness, confused SKIN: No rashes. Note: Because of [place] [id number] isolation, some of the history and physical exam findings are indirect and obtained from nursing staff, and other physician examinations to avoid unnecessary contact with the patient. - Labs CBC & Chem 7: 01/06/20 04:25 01/06/20 04:25 Labs: Abnormal Lab Results - Last 24 Hours (Table) 01/05/20 01/05/20 01/05/20 Range/Units 13:10 18:14 23:53 RDW (11.5-15.5) % Neutrophils # (1.3-7.7) k/uL Lymphocytes # (1.0-4.8) k/uL Chloride (98-107) mmol/L BUN (7-17) mg/dL Creatinine (0.52-1.04) mg/dL Glucose (74-99) mg/dL POC Glucose (mg/dL) 113 H 135 H 146 H (75-99) mg/dL ALT (4-34) U/L Total Protein (6.3-8.2) g/dL Albumin (3.5-5.0) g/dL 01/06/20 01/06/20 01/06/20 Range/Units 04:25 04:25 05:31 RDW 16.0 H (11.5-15.5) % Neutrophils # 8.5 H (1.3-7.7) k/uL Lymphocytes # 0.6 L (1.0-4.8) k/uL Chloride 109 H (98-107) mmol/L BUN 22 H (7-17) mg/dL Creatinine 0.44 L (0.52-1.04) mg/dL Glucose 162 H (74-99) mg/dL POC Glucose (mg/dL) 148 H (75-99) mg/dL ALT 45 H (4-34) U/L Total Protein 6.2 L (6.3-8.2) g/dL Albumin 3.3 L (3.5-5.0) g/dL 01/06/20 Range/Units 11:56 RDW (11.5-15.5) % Neutrophils # (1.3-7.7) k/uL Lymphocytes # (1.0-4.8) k/uL Chloride (98-107) mmol/L BUN (7-17) mg/dL Creatinine (0.52-1.04) mg/dL Glucose (74-99) mg/dL POC Glucose (mg/dL) 150 H (75-99) mg/dL ALT (4-34) U/L Total Protein (6.3-8.2) g/dL Albumin (3.5-5.0) g/dL Assessment and Plan Plan: COVID-19 virus pneumonia significant improvement in her respiratory status the patient was extubated on 01/04/2020. Presently on 4 L of oxygen. Patient is presently on Solu-Medrol, Lovenox and Pepcid Acute hypoxic respiratory failure secondary to pneumonia. Extubated. Presently on nasal cannula oxygen -Altered mental status secondary to toxic encephalopathy from prolonged ventilation, sedation. Improving. Hypertension: Is an NICO inhibitor and on beta martin. Hyperlipidemia DVT prophylaxis with Lovenox.
--- NOTE | 2020-01-06 15:31 | P.PN ---
Subjective Progress Note Date: 01/06/20 This is a 51-year-old female patient with a complicated course of a COVID 19 ammonia complicated by respiratory failure. The patient was transferred to the intensive care unit on 12/16/2019 and the patient has been intubated on 12/19/2019 and since then the patient has been on a mechanical ventilator. She has a very slow progress. The patient is essentially remains intubated on a mechanical ventilator. Currently she is an assist-control mode at the rate of 28 with a tidal volume of 375 and FiO2 of 75% with a PEEP of 15. The patient is on propofol running at 50 g per KG per minute. The patient is also on Nimbex at 3.5 g per KG 5 minutes. The patient is also on normal saline today to 75 mL an hour. The blood gases from today shows a pH of 7.36 with a pCO2 of 56 and pO2 of 77. The peak aortic pressure is around 46 metastatic a pressure of 41. Hemodynamically, the patient is hypertensive and the patient is requiring clevidipine drip at 8 mg per hour for blood pressure. The patient is receiving enteral feeding for nutritional support and the patient is currently on vital high protein at the rate of 27 mL an hour. The patient has completed her course of Remdesivir and she has also received convalescent plasma. She is currently on therapeutic dose of Lovenox 80 mg subcu every 12 hours. She is covered empirically with IV Zosyn. The patient is afebrile. The ferritin from was down to 281. The LDH level was down to 628 from yesterday. A repeat blood work showed a triglyceride level of 409. This is related to her ongoing use of propofol. 01/02/2020, the patient is being seen for a follow-up. This morning, the patient is off paralytics. The patient is on propofol at 35 g per KG per minute. Overnight, Precedex has also initiated to improve centrally with a mechanical ventilator as the patient was taken off the paralytics. The patient is currently on Precedex also and this is running at a dose of 0.4 g. The patient otherwise is still intubated on a mechanical ventilator. On today's ventilator, the patient is assist-control mode at a rate of 20 to the tidal volume of 375 and FiO2 of 60% with a PEEP of 15. Peak airway pressure was measured to be 52 and the plateau airway pressure was 46. The blood gas showed a pH of 7.46 with a pCO2 of 45 and pO2 of 71. Chest x-ray showed diffuse breath and pulmonary infiltrates which is essentially unchanged compared to yesterday. His CRP level was elevated at 115. LDH was down to 625 from 12/31/2019. The patient was afebrile. Based on the concern of an elevated peak and static pressure,, assess this patient to a pressure control mode of ventilation which seems to be more effective in terms of ventilating and oxygenating the patient. For now, the patient is on a pressure control mode with a pressure of 22 cm of water, rate of 28, FiO2 60%, PEEP of 12 with a respiratory time of 1 second. The patient is still tolerating enteral feeding for nutritional support. No other significant events. He was dynamically stable. The neck fluid balance has been negative as the patient is diuresing adequately and over the past 24 hours her net fluid balance was -1.4 L. 01/03/2020, the patient is being seen for a follow-up. I doubt that she has significant improvement in the patient's condition. I'm glad to reported on today's evaluation, the patient is awake and she is interactive. She is on a combination of propofol running at 45 mg per KG per minute and Precedex in 0.4 g per KG pigmented. During the course of the day, the patient will be gradually taken off the propofol. In terms of her mental status, the patient seems to be appropriate and she is very much interactive. She remains on a mechanical ventilator. On the blood gas, the patient is a pH of 7.51 with a pCO2 of 37 and pO2 of 104. The patient is also on a pressure control mode of ventilation and currently the patient is on a pressure control of 28, inspiratory time of 1 second, pressure of 22 cm of water and PEEP of 10 with an FiO2 of 60%. The peak airway pressures around 33 and the plateau airway pressures are 31. The chest x-ray still showing but the pulmonary infiltrates although probably somewhat improved compared to yesterday. She remains on Catapres which is being titrated regarding her blood pressure and the patient will be started on Lopressor 25 minutes to twice a day regarding her sinus tach ycardia and better control of her blood pressure. She is hemodynamically stable. She remains on IV Solu Medrol 4 mg every 6 hours. She is tolerating enteral feeding for nutritional support. She is on IV fluids at 20 mL an hour. She remains on Lovenox 80 mg subcu every 12 hours. No other significant events overnight. The neck fluid balance is -1.3 L over the past 24 hours. On 01/03/2025 seeing this patient for a follow-up. On today's evaluation the patient is wide awake. She is on a low-dose Precedex 0.4 mg/kg/m. She is able to respond and answer questions appropriately. She will go for extremities. She is a bit weak. She is able to raise her head and she has an adequate cough. Earlier this morning, the patient a pH of 7.51 with a pCO2 of 36 and pO2 of 70. This was on a pressure control mode of ventilation with a PEEP of 6, pressure control of 18, respiratory rate of 24 with an FiO2 of 50%. At that point, weaning parameters were checked and the patient had a rapid shallow breathing index of 19. Following that, the patient was given a spelled his breathing trial with a pressure support of 5 and a PEEP of 5 and a subsequent blood gases showed a pH of 7.5 with a pCO2 of 38 and pO2 of 64 and this was done and FiO2 of 40%. After 30 minutes, extubated the patient to a BiPAP at a pressure of 12/5 cm of water. FiO2 is being titrated to maintain a saturation above 90%. The patient continued to be tachypneic while on the BiPAP and the patient will be given some Xanax in regards to some anxiety. Hemodynamically stable. Current pulse ox 94% with a BiPAP of 50% FiO2. She is a bit tachycardic. Blood pressures under adequate control and the patient utilizing Cleviprex for blood pressure control. Earlier this morning the chiropractor was running at 10 mg an hour. No fever. No chills. The chest x-ray showing diffuse but the pulmonary infiltrates and there is some subcutaneous emphysema in the left upper neck area. Note that I have treated this patient with IV Solu-Medrol 40 mg every 6 hours. She is currently off the Precedex. She is on no antibiotics. On 01/05/2020, the patient is still extubated and currently she is on 6 L of oxygen by nasal cannula. She is more awake and alert and communicating. She is weak. She is hardly able to move her arms again Spiriva to raise them up. She is beginning her toes bilaterally pH is also trying to bend her knees. She'll be working with physical therapy. The patient is currently on 6 L with a pulse ox of 93%. She is doing well. She is unable to swallow the patient is quite weak. Her mouth is dry. She remains on IV Solu Medrol 40 mg every 6 hours and the patient is also on Lovenox 80 mg subcu every 12 hours. The patient is also on Cleviprex at 8 mg an hour and this will be gradually weaned as the patient will be started on IV Lopressor and IV hydralazine. No fever. No chills. Chest x-ray still showing diffuse bilateral pulmonary infiltrates. There is improvement in the left neck subcutaneous emphysema. Hemodynamically stable. Adequate urine output. This is extubation day #1. On 01/06/2020, the patient remains extubated and has been weaned down to 4 L of oxygen by nasal cannula. She has a weak. She is able to speak. She passed a swallow evaluation and the patient will be given soft pured diet. Overnight, she was slightly confused. The patient was given a total of 100 mg of Seroquel and she was also given Ambien following she was able to generate good sleep and the patient woke up more comfortable this morning. Doing well. No significant respiratory distress. No cough or sputum production. She is afebrile. She is still on a Cleviprex drip at 2 mg an hour. This will be further weaned off. She'll be started on oral medication including a combination of metoprolol and lisinopril for blood pressure control. The patient is known to have hypertension. No other complaints otherwise. She is post extubation day #2. Objective - Vital Signs Vital signs: Vital Signs Temp 98.2 F 01/06/20 12:00 Pulse 90 01/06/20 12:00 Resp 25 H 01/06/20 12:00 BP 143/83 01/06/20 12:00 Pulse Ox 94 L 01/06/20 12:00 Intake & Output 01/05/20 01/06/20 01/06/20 18:59 06:59 18:59 Intake Total 445.333 326.734 52 Output Total 750 721 120 Balance -304.667 -394.266 -68 Weight 75.2 kg 76.2 kg Intake: IV 266 306 52 0.9 Normal Saline for 36 66 12 Pressure Bags @ 3mL/hr Sodium Chloride 0.9% 1, 230 240 40 000 ml @ 20 mls/hr IV . Q24H [facility] Rx#:[id number] Intake, IV Titration 179.333 20.734 Amount Clevidipine Butyrate 25 79.333 20.734 mg In Empty Bag 1 bag @ 1 MG/HR 2 mls/hr IV .Q24H [facility] Rx#:[id number] Potassium Chloride 20 meq 100 In Water For Injection 1 100ml.bag @ 50 mls/hr IVPB Q2H [facility] Rx#: [id number] Output: Urine 750 720 120 Stool 1 Other: Voiding Method Indwelling Catheter Indwelling Catheter Indwelling Catheter # Bowel Movements 1 ABP, PAP, CO, CI - Last Documented Arterial Blood Pressure 160/72 - Exam GENERAL EXAM: Intubated, sedated 54-year-old female patient, the patient is awak e and alert patient has been extubated and currently she is on 4 L of oxygen by nasal cannula. HEAD: Normocephalic/atraumatic. EYES: Normal reaction of pupils, equal size. Conjunctiva pink, sclera white. NOSE: Clear with pink turbinates. THROAT: No erythema or exudates. NECK: No masses, no JVD, no thyroid enlargement, no adenopathy. CHEST: No chest wall deformity. Symmetrical expansion. LUNGS: Equal air entry with bilateral scattered rhonchi. CVS: Regular rate and rhythm, normal S1 and S2, no gallops, no murmurs, no rubs ABDOMEN: Soft, nontender. No hepatosplenomegaly, normal bowel sounds, no guarding or rigidity. EXTREMITIES: No clubbing, no edema, no cyanosis, 2+ pulses and upper and lower extremities. MUSCULOSKELETAL: Muscle strength and tone normal. SPINE: No scoliosis or deformity SKIN: No rashes CENTRAL NERVOUS SYSTEM: Awake and alert and following commands. She has global weakness in all 4 extremities. No focal deficits, tone is normal in all 4 extremities. - Labs CBC & Chem 7: 01/06/20 04:25 01/06/20 04:25 Labs: Abnormal Lab Results - Last 24 Hours (Table) 01/05/20 01/05/20 01/06/20 Range/Units 18:14 23:53 04:25 RDW 16.0 H (11.5-15.5) % Neutrophils # 8.5 H (1.3-7.7) k/uL Lymphocytes # 0.6 L (1.0-4.8) k/uL Chloride (98-107) mmol/L BUN (7-17) mg/dL Creatinine (0.52-1.04) mg/dL Glucose (74-99) mg/dL POC Glucose (mg/dL) 135 H 146 H (75-99) mg/dL ALT (4-34) U/L Total Protein (6.3-8.2) g/dL Albumin (3.5-5.0) g/dL 01/06/20 01/06/20 01/06/20 Range/Units 04:25 05:31 11:56 RDW (11.5-15.5) % Neutrophils # (1.3-7.7) k/uL Lymphocytes # (1.0-4.8) k/uL Chloride 109 H (98-107) mmol/L BUN 22 H (7-17) mg/dL Creatinine 0.44 L (0.52-1.04) mg/dL Glucose 162 H (74-99) mg/dL POC Glucose (mg/dL) 148 H 150 H (75-99) mg/dL ALT 45 H (4-34) U/L Total Protein 6.2 L (6.3-8.2) g/dL Albumin 3.3 L (3.5-5.0) g/dL Assessment and Plan Plan: 1 Acute hypoxemic respiratory failure related to Covid 19 related pneumonia, transferred to the ICU on 12/16/2019, intubated on 12/19/2019 and on the mechanical ventilator,and the patient has received steroids, Remdesivir and Convalescent plasma. The patient is still intubated on a mechanical ventilator. The patient was extubated on 01/04/2020 and the patient was subsequently weaned down to 4 L of oxygen by nasal cannula. She is breathing comfortably at this point in time. No evidence of any significant subcutaneous emphysema. Repeat chest x-ray showed diffuse bilateral Interstitial alveolar infiltrates without significant change. Clinical however the patient is feeling much better. 2. COVID 19 pneumonia with secondary ARDS, Recovering 3. Increased inflammatory markers related to the above, with elevated LDH, CRP 4. Hypertension 5. Hyperlipidemia and the patient is a component of hypertriglyceridemia related to use of propofol. 6. Morbid obesity with history of previous lap band surgery 7 subcutaneous emphysema, limited over left neck area, barotrauma secondary to mechanical ventilation. There is improving on today's chest x-ray 8 profound motor weakness due to prolonged intubation mechanical ventilation use of sedation and paralytics. There may be a critically illness myopathy in this patient. Plan Keep the patient on nasal cannula at 4 L and gradually wean off Continued IV Solu-Medrolfor another 24 hours and pelvis was this patient to a prednisone burst taper as of tomorrow Lovenox therapeutic dose is 80 mg subcu every 12 hours Continue the rest of the supplements for Covid 19 infection including zinc, vi tamin C, Pepcid and melatonin. Aggressive physical therapy Soft pureed Diet The patient on metoprolol and lisinopril for blood pressure control and gradually wean off The the Cleviprex drip Condition is critical. the patient is clinically improved. The patient is awake. Oxygenation is improved. The family was updated on the condition will continue to follow make further recommendations based on her progress.
[2020-01-06 16:34] LABS: LD Isoenzymes 1 19 % (19-38); LD Isoenzymes 2 32 % (30-43); LD Isoenzymes 3 19 % (16-26); LD Isoenzymes 4 11 % (3-12); LD Isoenzymes 5 19 % (3-14); Lactacte Dehydrogenase(LD) ISO 235 U/L (120-250)
[2020-01-06 18:19] LABS: Glucose,Whole Blood 122 mg/dL (75-99)
[2020-01-06] MEDS: SODIUM CHLORIDE 0.9% 1,000 ML IV SCH (19:37)
[2020-01-06] MEDS: METOPROLOL TARTRATE 25 MG TAB PO PRN (22:16)
[2020-01-06] MEDS: PRAVASTATIN SODIUM 40 MG TAB PO SCH (22:16)
[2020-01-06] MEDS: QUEtiapine 100 MG TAB PO SCH (22:16)
[2020-01-06] MEDS: MELATONIN 5 MG TABLET PO SCH (22:17)
[2020-01-06 23:28] LABS: Glucose,Whole Blood 195 mg/dL (75-99)
[2020-01-06] MEDS: HYDROmorphone 0.5 MG/0.5 ML SYRINGE IVP PRN (23:46)
[2020-01-07 04:19] LABS: Basophils % (A) 0 %; Eosinophils % (A) 0 %; HCT 38.2 % (34.0-46.0); HGB 12.3 gm/dL (11.4-16.0); Lymphocytes # (A) 0.7 k/uL (1.0-4.8); Lymphocytes % (A) 7 %; MCH 28.6 pg (25.0-35.0); MCHC 32.3 g/dL (31.0-37.0); MCV 88.7 fL (80.0-100.0); Mean Platelet Volume 7.5; Monocytes # (A) 0.4 k/uL (0-1.0); Monocytes % (A) 4 %; Neutrophils # (A) 8.6 k/uL (1.3-7.7); Neutrophils % (A) 88 %; Platelet Count 292 k/uL (150-450); RDW 15.7 % (11.5-15.5); WBC 9.8 k/uL (3.8-10.6)
[2020-01-07 04:36] LABS: ALT 42 U/L (4-34); AST 19 U/L (14-36); African American GFR (CKD) >90 (>60 ml/min/1.73 sqM); Albumin 3.5 g/dL (3.5-5.0); Alkaline Phosphatase 88 U/L (38-126); Anion Gap 4 mmol/L; Blood Urea Nitrogen 24 mg/dL (7-17); Calcium 9.4 mg/dL (8.4-10.2); Carbon Dioxide 31 mmol/L (22-30); Chloride 108 mmol/L (98-107); Glucose 127 mg/dL (74-99); Non-African American GFR(CKD) >90 (>60 ml/min/1.73 sqM); Potassium 4.3 mmol/L (3.5-5.1); Sodium 143 mmol/L (137-145); Total Bilirubin 0.7 mg/dL (0.2-1.3); Total Protein 6.4 g/dL (6.3-8.2)
[2020-01-07 05:59] LABS: Glucose,Whole Blood 120 mg/dL (75-99)
[2020-01-07] MEDS: INSULIN ASPART (NovoLOG) 100 UNIT/ML VIAL SQ SCH ×3 (06:11→19:05)
[2020-01-07] MEDS: methylPREDNISolone SOD SUCCI 40 MG/ML 1 ML VIAL IV SCH (06:15)
--- NOTE | 2020-01-07 07:24 | XR ---
EXAMINATION TYPE: XR chest 1V DATE OF EXAM: 01/07/2020 COMPARISON: 01/06/2020 HISTORY: Shortness of breath TECHNIQUE: Single frontal view of the chest is obtained. FINDINGS: Bilateral patchy infiltrates are seen stable in appearance. Central line is low in positio n likely within the inferior vena cava. Hypertrophic change of the spine. No pneumothorax or pleural effusion. Surgical clips are seen in the abdomen. IMPRESSION: 1. Diffuse patchy infiltrates bilaterally correlate for pneumonia. CHF and less likely. 2. central line is low in position with the tip overlying the IVC.
[2020-01-07] MEDS: ALBUTEROL HFA INHALER INHALATION SCH ×4 (07:37→20:12)
[2020-01-07] MEDS: ENOXAPARIN 80 MG/0.8 ML SYRINGE SQ SCH ×2 (09:11→20:28)
[2020-01-07] MEDS: lisinopriL 20 MG TAB PO SCH (09:11)
[2020-01-07] MEDS: METOPROLOL TARTRATE 25 MG TAB PO SCH (09:12)
[2020-01-07] MEDS: ZINC SULFATE 220 MG CAP PO SCH (09:12)
[2020-01-07] MEDS: FAMOTIDINE 20 MG/2 ML VIAL IV SCH ×2 (09:12→20:27)
[2020-01-07] MEDS: ASCORBIC ACID 500 MG TAB PO SCH (09:12)
[2020-01-07] MEDS: predniSONE 10 MG TAB PO SCH (10:20)
[2020-01-07 11:52] LABS: Glucose,Whole Blood 120 mg/dL (75-99)
--- NOTE | 2020-01-07 14:08 | P.PN ---
Subjective Acute hypoxic respiratory failure secondary to covid 19 pneumonitis. Patient remains on ventilator support, patient did receive convalescent plasma along with Remdesevir. Patient remains on the Decadron patient remains on pressor support. Zosyn was added empirically by pulmonology. Patient remains on assist-control ventilation with the high before 15 FiO2 of 60%.failed weaning trials today. 12/23/2019 Patient remains on the ventilator still requiring PEEP of 16 FiO2 of 60%. Patient is mildly alkalotic. Probably need to go down on the it up respiratory rate. Patient is on tidal volume at 375. Patient is on very low-dose of norepinephrine today. 12/24/2019 Patient remains on mechanical ventilator patient has cold with 19 pneumonitis along with ARDS on high PEEP of 16 FiO2 of 55 and now. Patient's ABGs shows improvement in alkalosis. Patient is presently not requiring any pressors patient ontinues to be on propofol and Nimbex remains on Decadron. 12/25/2019 Patient can use to require high be because of ARDS associated with Covid. Patient can use to be on propofol and Nimbex. Off pressor support receiving normal saline. Completed course of Remdesivir. 12/26/2019 Patient remains on 50 g of propofol off Nimbex patient blood pressure went up patient will be started on lisinopril and strolls slowly wean off work reflex patient is bit tachycardic. Patient remains on the 16 of PEEP. Remains intubated 12/27/2019 Patient the clinical condition did not change significantly. Remains on high PEEP. Remains on sedation. 12/28/2019 Patient is off Nimbex today beyond that no significant change in her overall clinical condition and respiratory failure. Patient remains on Zosyn prophylactically 12/29/2019 Patient is back on Nimbex no significant improvement in her respiratory distress is her overall clinical condition. Patient prognosis poor 12/30/2019 patient is to minimize propofol continue the ventilator to support without any significant improvement. Patient was started back on clevidipine 12/31/2019. Patient remains on pretty much the same in The setting sepsis for deep of 15 now. Patient remains on Nimbex, patient is on and off Cleviprex 01/01/2020 Patient is off Nimbex today no significant change in her vent settings. 01/02/2020 Patient is actually improving at this time. Patient is on 35 mics of propofol. Patient is presently on PEEP of 10 doing well and patient is being started on P racedex. Patient is on now pressure control ventilation 01/03/2020 Patient is presently on 8 of PEEP. She is awake off sedation on Precedex, will undergo any trial and possible extubation tomorrow. Presently on 50% FiO2 01/04/2020 Patient is extubated today. Patient is presently on BiPAP chest x-ray continued to show diffuse bilateral pulmonary infiltrates. Patient is bit confused. 01/05/2020 Patient is doing well. Patient is presently in 6 L of oxygen PT and OT will evaluate the patient patient wanted to go home patient is alert oriented 2-3, bit confused which is expected. Patient remains in Cleviprex which is being weaned off patient is being started on metoprolol. 01/06/2020 Patient fully Suboxone now. Patient blood pressure is better controlled heart rate is better controlled patient was started on metoprolol. She is still confused 01/07/2020 Patient confusion appears to have improved but still bit confused. Patient the pass a swallow eval and the patient is presently on pured diet. Patient is presently on 3 liters of oxygen. Transfer out of ICU Constitutional: Denied any fatigue denied any fever. Cardio vascular: denied any chest pain, palpitations Gastrointestinal denied any nausea vomiting Pulmonary: Denied any shortness of breath cough Neurologic denied any new focal deficits, bit confused All inpatient medications were reviewed and appropriate changes in these medications as dictated in the interval history and assessment and plan. Objective - Vital Signs Vital signs: Vital Signs Temp 98.2 F 01/07/20 12:00 Pulse 90 01/07/20 13:00 Resp 20 01/07/20 13:00 BP 140/71 01/07/20 13:00 Pulse Ox 94 L 01/07/20 13:00 Intake & Output 01/06/20 01/07/20 01/07/20 18:59 06:59 18:59 Intake Total 480 243 100 Output Total 545 877 425 Balance -65 -634 -325 Weight 75.1 kg Intake: IV 280 243 100 0.9 Normal Saline for 60 3 Pressure Bags @ 3mL/hr Sodium Chloride 0.9% 1, 220 240 100 000 ml @ 20 mls/hr IV . Q24H [facility] Rx#:[id number] Oral 200 Output: Urine 545 877 425 Other: Voiding Method Indwelling Catheter Indwelling Catheter Indwelling Catheter ABP, PAP, CO, CI - Last Documented Arterial Blood Pressure 135/60 - Exam PHYSICAL EXAMINATION: GENERAL: Patient is extubated alert , less confused compared to yesterday. HEENT: Pupils are round and equally reacting to light. EOMI. No scleral icterus. No conjunctival pallor. Normocephalic, atraumatic. No pharyngeal erythema. No thyromegaly. CARDIOVASCULAR: S1 and S2 present. No murmurs, rubs, or gallops. Tachycardic. PULMONARY: Chest is clear to auscultation, no wheezing or crackles. ABDOMEN: Soft, nontender, nondistended, normoactive bowel sounds. No palpable organomegaly. MUSCULOSKELETAL: No joint swelling or deformity. EXTREMITIES: No cyanosis, clubbing, or pedal edema. NEUROLOGICAL: Unable to assess does have generalized weakness, confused SKIN: No rashes. Note: Because of [facility], some of the history and physical exam findings are indirect and obtained from nursing staff, and other physician examinations to avoid unnecessary contact with the patient. - Labs CBC & Chem 7: 01/07/20 04:10 01/07/20 04:10 Labs: Abnormal Lab Results - Last 24 Hours (Table) 01/03/20 01/06/20 01/06/20 Range/Units 05:10 18:16 23:26 RDW (11.5-15.5) % Neutrophils # (1.3-7.7) k/uL Lymphocytes # (1.0-4.8) k/uL Chloride (98-107) mmol/L Carbon Dioxide (22-30) mmol/L BUN (7-17) mg/dL Creatinine (0.52-1.04) mg/dL Glucose (74-99) mg/dL POC Glucose (mg/dL) 122 H 195 H (75-99) mg/dL ALT (4-34) U/L LD 5 19 H (3-14) % 01/07/20 01/07/20 01/07/20 Range/Units 04:10 04:10 05:57 RDW 15.7 H (11.5-15.5) % Neutrophils # 8.6 H (1.3-7.7) k/uL Lymphocytes # 0.7 L (1.0-4.8) k/uL Chloride 108 H (98-107) mmol/L Carbon Dioxide 31 H (22-30) mmol/L BUN 24 H (7-17) mg/dL Creatinine 0.47 L (0.52-1.04) mg/dL Glucose 127 H (74-99) mg/dL POC Glucose (mg/dL) 120 H (75-99) mg/dL ALT 42 H (4-34) U/L LD 5 (3-14) % 01/07/20 Range/Units 11:50 RDW (11.5-15.5) % Neutrophils # (1.3-7.7) k/uL Lymphocytes # (1.0-4.8) k/uL Chloride (98-107) mmol/L Carbon Dioxide (22-30) mmol/L BUN (7-17) mg/dL Creatinine (0.52-1.04) mg/dL Glucose (74-99) mg/dL POC Glucose (mg/dL) 120 H (75-99) mg/dL ALT (4-34) U/L LD 5 (3-14) % Assessment and Plan Plan: COVID-19 virus pneumonia significant improvement in her respiratory status the patient was extubated on 01/04/2020. Presently on 3 L of oxygen. Patient is presently on Solu-Medrol, Lovenox and Pepcid Acute hypoxic respiratory failure secondary to pneumonia. Extubated. Presently on nasal cannula oxygen -Altered mental status secondary to toxic encephalopathy from prolonged ventilation, sedation. Improving. Hypertension: Is an NICO inhibitor and on beta martin. Hyperlipidemia DVT prophylaxis with Lovenox.
--- NOTE | 2020-01-07 14:31 | P.PN ---
Subjective Progress Note Date: 01/07/20 This is a 51-year-old female patient with a complicated course of a COVID 19 ammonia complicated by respiratory failure. The patient was transferred to the intensive care unit on 12/16/2019 and the patient has been intubated on 12/19/2019 and since then the patient has been on a mechanical ventilator. She has a very slow progress. The patient is essentially remains intubated on a mechanical ventilator. Currently she is an assist-control mode at the rate of 28 with a tidal volume of 375 and FiO2 of 75% with a PEEP of 15. The patient is on propofol running at 50 g per KG per minute. The patient is also on Nimbex at 3.5 g per KG 5 minutes. The patient is also on normal saline today to 75 mL an hour. The blood gases from today shows a pH of 7.36 with a pCO2 of 56 and pO2 of 77. The peak aortic pressure is around 46 metastatic a pressure of 41. Hemodynamically, the patient is hypertensive and the patient is requiring clevidipine drip at 8 mg per hour for blood pressure. The patient is receiving enteral feeding for nutritional support and the patient is currently on vital high protein at the rate of 27 mL an hour. The patient has completed her course of Remdesivir and she has also received convalescent plasma. She is currently on therapeutic dose of Lovenox 80 mg subcu every 12 hours. She is covered empirically with IV Zosyn. The patient is afebrile. The ferritin from was down to 281. The LDH level was down to 628 from yesterday. A repeat blood work showed a triglyceride level of 409. This is related to her ongoing use of propofol. 01/02/2020, the patient is being seen for a follow-up. This morning, the patient is off paralytics. The patient is on propofol at 35 g per KG per minute. Overnight, Precedex has also initiated to improve centrally with a mechanical ventilator as the patient was taken off the paralytics. The patient is currently on Precedex also and this is running at a dose of 0.4 g. The patient otherwise is still intubated on a mechanical ventilator. On today's ventilator, the patient is assist-control mode at a rate of 20 to the tidal volume of 375 and FiO2 of 60% with a PEEP of 15. Peak airway pressure was measured to be 52 and the plateau airway pressure was 46. The blood gas showed a pH of 7.46 with a pCO2 of 45 and pO2 of 71. Chest x-ray showed diffuse breath and pulmonary infiltrates which is essentially unchanged compared to yesterday. His CRP level was elevated at 115. LDH was down to 625 from 12/31/2019. The patient was afebrile. Based on the concern of an elevated peak and static pressure,, assess this patient to a pressure control mode of ventilation which seems to be more effective in terms of ventilating and oxygenating the patient. For now, the patient is on a pressure control mode with a pressure of 22 cm of water, rate of 28, FiO2 60%, PEEP of 12 with a respiratory time of 1 second. The patient is still tolerating enteral feeding for nutritional support. No other significant events. He was dynamically stable. The neck fluid balance has been negative as the patient is diuresing adequately and over the past 24 hours her net fluid balance was -1.4 L. 01/03/2020, the patient is being seen for a follow-up. I doubt that she has significant improvement in the patient's condition. I'm glad to reported on today's evaluation, the patient is awake and she is interactive. She is on a combination of propofol running at 45 mg per KG per minute and Precedex in 0.4 g per KG pigmented. During the course of the day, the patient will be gradually taken off the propofol. In terms of her mental status, the patient seems to be appropriate and she is very much interactive. She remains on a mechanical ventilator. On the blood gas, the patient is a pH of 7.51 with a pCO2 of 37 and pO2 of 104. The patient is also on a pressure control mode of ventilation and currently the patient is on a pressure control of 28, inspiratory time of 1 second, pressure of 22 cm of water and PEEP of 10 with an FiO2 of 60%. The peak airway pressures around 33 and the plateau airway pressures are 31. The chest x-ray still showing but the pulmonary infiltrates although probably somewhat improved compared to yesterday. She remains on Catapres which is being titrated regarding her blood pressure and the patient will be started on Lopressor 25 minutes to twice a day regarding her sinus tach ycardia and better control of her blood pressure. She is hemodynamically stable. She remains on IV Solu Medrol 4 mg every 6 hours. She is tolerating enteral feeding for nutritional support. She is on IV fluids at 20 mL an hour. She remains on Lovenox 80 mg subcu every 12 hours. No other significant events overnight. The neck fluid balance is -1.3 L over the past 24 hours. On 01/03/2025 seeing this patient for a follow-up. On today's evaluation the patient is wide awake. She is on a low-dose Precedex 0.4 mg/kg/m. She is able to respond and answer questions appropriately. She will go for extremities. She is a bit weak. She is able to raise her head and she has an adequate cough. Earlier this morning, the patient a pH of 7.51 with a pCO2 of 36 and pO2 of 70. This was on a pressure control mode of ventilation with a PEEP of 6, pressure control of 18, respiratory rate of 24 with an FiO2 of 50%. At that point, weaning parameters were checked and the patient had a rapid shallow breathing index of 19. Following that, the patient was given a spelled his breathing trial with a pressure support of 5 and a PEEP of 5 and a subsequent blood gases showed a pH of 7.5 with a pCO2 of 38 and pO2 of 64 and this was done and FiO2 of 40%. After 30 minutes, extubated the patient to a BiPAP at a pressure of 12/5 cm of water. FiO2 is being titrated to maintain a saturation above 90%. The patient continued to be tachypneic while on the BiPAP and the patient will be given some Xanax in regards to some anxiety. Hemodynamically stable. Current pulse ox 94% with a BiPAP of 50% FiO2. She is a bit tachycardic. Blood pressures under adequate control and the patient utilizing Cleviprex for blood pressure control. Earlier this morning the chiropractor was running at 10 mg an hour. No fever. No chills. The chest x-ray showing diffuse but the pulmonary infiltrates and there is some subcutaneous emphysema in the left upper neck area. Note that I have treated this patient with IV Solu-Medrol 40 mg every 6 hours. She is currently off the Precedex. She is on no antibiotics. On 01/05/2020, the patient is still extubated and currently she is on 6 L of oxygen by nasal cannula. She is more awake and alert and communicating. She is weak. She is hardly able to move her arms again Spiriva to raise them up. She is beginning her toes bilaterally pH is also trying to bend her knees. She'll be working with physical therapy. The patient is currently on 6 L with a pulse ox of 93%. She is doing well. She is unable to swallow the patient is quite weak. Her mouth is dry. She remains on IV Solu Medrol 40 mg every 6 hours and the patient is also on Lovenox 80 mg subcu every 12 hours. The patient is also on Cleviprex at 8 mg an hour and this will be gradually weaned as the patient will be started on IV Lopressor and IV hydralazine. No fever. No chills. Chest x-ray still showing diffuse bilateral pulmonary infiltrates. There is improvement in the left neck subcutaneous emphysema. Hemodynamically stable. Adequate urine output. This is extubation day #1. On 01/06/2020, the patient remains extubated and has been weaned down to 4 L of oxygen by nasal cannula. She has a weak. She is able to speak. She passed a swallow evaluation and the patient will be given soft pured diet. Overnight, she was slightly confused. The patient was given a total of 100 mg of Seroquel and she was also given Ambien following she was able to generate good sleep and the patient woke up more comfortable this morning. Doing well. No significant respiratory distress. No cough or sputum production. She is afebrile. She is still on a Cleviprex drip at 2 mg an hour. This will be further weaned off. She'll be started on oral medication including a combination of metoprolol and lisinopril for blood pressure control. The patient is known to have hypertension. No other complaints otherwise. She is post extubation day #2. On 01/07/2020, the patient's post extubation day #3. Doing well. She is able to speak and she is able to swallow. She is getting stronger. She is able to raise her arms against gravity and will limit Crosser body. She is in good spirits. She has no specific complaints. She is on 3 L of oxygen by nasal cannula. No chest pain. No cough or sputum production. She is on normal sed rate of 20 mL an hour. I was able to wean off the Cleviprex and discontinue. Meanwhile, the patient was started on examination of Zestril and metoprolol for blood pressure control. She is feeding well. She is awake and alert and there is no altered mentation. She is working with physical therapy. Artline has been removed. The bili was positive and an hemoglobin is at 12.3. Objective - Vital Signs Vital signs: Vital Signs Temp 98.2 F 01/07/20 12:00 Pulse 90 01/07/20 13:00 Resp 20 01/07/20 13:00 BP 140/71 01/07/20 13:00 Pulse Ox 94 L 01/07/20 13:00 Intake & Output 01/06/20 01/07/20 01/07/20 18:59 06:59 18:59 Intake Total 480 243 100 Output Total 545 877 425 Balance -65 -634 -325 Weight 75.1 kg Intake: IV 280 243 100 0.9 Normal Saline for 60 3 Pressure Bags @ 3mL/hr Sodium Chloride 0.9% 1, 220 240 100 000 ml @ 20 mls/hr IV . [facility] Rx#:[id number] Oral 200 Output: Urine 545 877 425 Other: Voiding Method Indwelling Catheter Indwelling Catheter Indwelling Catheter ABP, PAP, CO, CI - Last Documented Arterial Blood Pressure 135/60 - Exam GENERAL EXAM: Intubated, sedated 54-year-old female patient, the patient is awake and alert patient has been extubated and currently she is on 3 L of oxygen by nasal cannula. HEAD: Normocephalic/atraumatic. EYES: Normal reaction of pupils, equal size. Conjunctiva pink, sclera white. NOSE: Clear with pink turbinates. THROAT: No erythema or exudates. NECK: No masses, no JVD, no thyroid enlargement, no adenopathy. CHEST: No chest wall deformity. Symmetrical expansion. LUNGS: Equal air entry with bilateral scattered rhonchi. CVS: Regular rate and rhythm, normal S1 and S2, no gallops, no murmurs, no rubs ABDOMEN: Soft, nontender. No hepatosplenomegaly, normal bowel sounds, no guarding or rigidity. EXTREMITIES: No clubbing, no edema, no cyanosis, 2+ pulses and upper and lower extremities. MUSCULOSKELETAL: Muscle strength and tone normal. SPINE: No scoliosis or deformity SKIN: No rashes CENTRAL NERVOUS SYSTEM: Awake and alert and following commands. She has global weakness in all 4 extremities. No focal deficits, tone is normal in all 4 extremities. - Labs CBC & Chem 7: 01/07/20 04:10 01/07/20 04:10 Labs: Abnormal Lab Results - Last 24 Hours (Table) 01/03/20 01/06/20 01/06/20 Range/Units 05:10 18:16 23:26 RDW (11.5-15.5) % Neutrophils # (1.3-7.7) k/uL Lymphocytes # (1.0-4.8) k/uL Chloride (98-107) mmol/L Carbon Dioxide (22-30) mmol/L BUN (7-17) mg/dL Creatinine (0.52-1.04) mg/dL Glucose (74-99) mg/dL POC Glucose (mg/dL) 122 H 195 H (75-99) mg/dL ALT (4-34) U/L LD 5 19 H (3-14) % 01/07/20 01/07/20 01/07/20 Range/Units 04:10 04:10 05:57 RDW 15.7 H (11.5-15.5) % Neutrophils # 8.6 H (1.3-7.7) k/uL Lymphocytes # 0.7 L (1.0-4.8) k/uL Chloride 108 H (98-107) mmol/L Carbon Dioxide 31 H (22-30) mmol/L BUN 24 H (7-17) mg/dL Creatinine 0.47 L (0.52-1.04) mg/dL Glucose 127 H (74-99) mg/dL POC Glucose (mg/dL) 120 H (75-99) mg/dL ALT 42 H (4-34) U/L LD 5 (3-14) % 01/07/20 Range/Units 11:50 RDW (11.5-15.5) % Neutrophils # (1.3-7.7) k/uL Lymphocytes # (1.0-4.8) k/uL Chloride (98-107) mmol/L Carbon Dioxide (22-30) mmol/L BUN (7-17) mg/dL Creatinine (0.52-1.04) mg/dL Glucose (74-99) mg/dL POC Glucose (mg/dL) 120 H (75-99) mg/dL ALT (4-34) U/L LD 5 (3-14) % Assessment and Plan Plan: 1 Acute hypoxemic respiratory failure related to Covid 19 related pneumonia, transferred to the ICU on 12/16/2019, intubated on 12/19/2019 and on the mechanical ventilator,and the patient has received steroids, Remdesivir and Convalescent plasma. The patient was extubated on 01/04/2020 and the patient was subsequently weaned down to 3 L of oxygen by nasal cannula. She is breathing comfortably at this point in time. The chest x-ray continues to show diffuse but the pulmonary infiltrates which are slowly improving. Oxidation in general is improved and the patient is currently without liters of oxygen by nasal cannula. Active issue for noninvasive critical illness related muscle weakness. 2. COVID 19 pneumonia with secondary ARDS, Recovering 3. Increased inflammatory markers related to the above, with elevated LDH, CRP 4. Hypertension 5. Hyperlipidemia and the patient is a component of hypertriglyceridemia related to use of propofol. 6. Morbid obesity with history of previous lap band surgery 7 subcutaneous emphysema, limited over left neck area, barotrauma secondary to mechanical ventilation., Improved 8 profound motor weakness due to prolonged intubation mechanical ventilation use of sedation and paralytics. There may be a critically illness myopathy in this patient. Plan Keep the patient on nasal cannula at 3L and gradually wean off Stopped IV Solu Medrol and start the patient a prednisone burst taper starting with 30 mg Lovenox therapeutic dose is 80 mg subcu every 12 hours Discontinue the arterial line Continue the rest of the supplements for Covid 19 infection including zinc, vitamin C, Pepcid and melatonin. Aggressive physical therapy Soft pureed Diet , Advance diet as tolerated The patient on metoprolol and lisinopril for blood pressure control andthe patient has been taken off the chiropractic's Condition Is stable and the patient will be transferred out of the intensive care unit today. Aggressive physical therapy is needed. We'll remove the central line
[2020-01-07 17:34] LABS: Glucose,Whole Blood 78 mg/dL (75-99)
[2020-01-07] MEDS: MELATONIN 5 MG TABLET PO SCH (20:27)
[2020-01-07] MEDS: QUEtiapine 100 MG TAB PO SCH (20:27)
[2020-01-07] MEDS: PRAVASTATIN SODIUM 40 MG TAB PO SCH (20:27)
[2020-01-07] MEDS: SODIUM CHLORIDE 0.9% 1,000 ML IV SCH (20:28)
[2020-01-07] MEDS: METOPROLOL TARTRATE 25 MG TAB PO PRN (22:46)
[2020-01-07 23:48] LABS: Glucose,Whole Blood 104 mg/dL (75-99)
[2020-01-08] MEDS: INSULIN ASPART (NovoLOG) 100 UNIT/ML VIAL SQ SCH ×3 (00:04→18:52)
[2020-01-08 03:59] LABS: Basophils # (A) 0.1 k/uL (0-0.2); Basophils % (A) 1 %; Eosinophils # (A) 0.5 k/uL (0-0.7); Eosinophils % (A) 6 %; Lymphocytes # (A) 1.8 k/uL (1.0-4.8); Lymphocytes % (A) 22 %; MCH 29.2 pg (25.0-35.0); MCHC 32.7 g/dL (31.0-37.0); MCV 89.4 fL (80.0-100.0); Mean Platelet Volume 7.1; Monocytes # (A) 0.6 k/uL (0-1.0); Monocytes % (A) 7 %; Neutrophils # (A) 5.5 k/uL (1.3-7.7); Neutrophils % (A) 65 %; Platelet Count 219 k/uL (150-450); RBC 4.47 m/uL (3.80-5.40); RDW 15.5 % (11.5-15.5); WBC 8.5 k/uL (3.8-10.6)
[2020-01-08 04:10] LABS: African American GFR (CKD) >90 (>60 ml/min/1.73 sqM); Anion Gap 6 mmol/L; Blood Urea Nitrogen 25 mg/dL (7-17); Calcium 9.3 mg/dL (8.4-10.2); Carbon Dioxide 29 mmol/L (22-30); Chloride 107 mmol/L (98-107); Glucose 102 mg/dL (74-99); Non-African American GFR(CKD) >90 (>60 ml/min/1.73 sqM); Potassium 3.6 mmol/L (3.5-5.1); Sodium 142 mmol/L (137-145)
[2020-01-08 05:58] LABS: Glucose,Whole Blood 89 mg/dL (75-99)
[2020-01-08] MEDS: ALBUTEROL HFA INHALER INHALATION SCH ×4 (07:10→18:54)
[2020-01-08] MEDS: ASCORBIC ACID 500 MG TAB PO SCH (08:26)
[2020-01-08] MEDS: ZINC SULFATE 220 MG CAP PO SCH (08:26)
[2020-01-08] MEDS: predniSONE 10 MG TAB PO SCH (08:26)
[2020-01-08] MEDS: FAMOTIDINE 20 MG/2 ML VIAL IV SCH ×2 (08:26→21:03)
[2020-01-08] MEDS: lisinopriL 20 MG TAB PO SCH (08:26)
[2020-01-08] MEDS: ENOXAPARIN 80 MG/0.8 ML SYRINGE SQ SCH ×2 (08:26→21:03)
[2020-01-08] MEDS: METOPROLOL TARTRATE 25 MG TAB PO SCH (08:27)
--- NOTE | 2020-01-08 08:55 | XR ---
EXAMINATION TYPE: XR chest 1V DATE OF EXAM: 01/08/2020 COMPARISON: 01/07/2020 INDICATION: Pneumonia TECHNIQUE: Single frontal view of the chest is obtained. FINDINGS: The heart size is normal. The pulmonary vasculature is normal. There are patchy mild infiltrates present diffusely bilaterally. Findings have slight improvement ove r the interval. a tiny stable nodular density may be at the left base. This could be followed Previous right central venous catheter has removed. No pneumothorax is evident. IMPRESSION: 1. Patchy infiltrates may have slight improvement over the interval. Continued follow-up is recommend ed.
--- NOTE | 2020-01-08 14:58 | P.PN ---
Subjective Acute hypoxic respiratory failure secondary to covid 19 pneumonitis. Patient remains on ventilator support, patient did receive convalescent plasma along with Remdesevir. Patient remains on the Decadron patient remains on pressor support. Zosyn was added empirically by pulmonology. Patient remains on assist-control ventilation with the high before 15 FiO2 of 60%.failed weaning trials today. 12/23/2019 Patient remains on the ventilator still requiring PEEP of 16 FiO2 of 60%. Patient is mildly alkalotic. Probably need to go down on the it up respiratory rate. Patient is on tidal volume at 375. Patient is on very low-dose of norepinephrine today. 12/24/2019 Patient remains on mechanical ventilator patient has cold with 19 pneumonitis along with ARDS on high PEEP of 16 FiO2 of 55 and now. Patient's ABGs shows improvement in alkalosis. Patient is presently not requiring any pressors patient ontinues to be on propofol and Nimbex remains on Decadron. 12/25/2019 Patient can use to require high be because of ARDS associated with Covid. Patient can use to be on propofol and Nimbex. Off pressor support receiving normal saline. Completed course of Remdesivir. 12/26/2019 Patient remains on 50 g of propofol off Nimbex patient blood pressure went up patient will be started on lisinopril and strolls slowly wean off work reflex patient is bit tachycardic. Patient remains on the 16 of PEEP. Remains intubated 12/27/2019 Patient the clinical condition did not change significantly. Remains on high PEEP. Remains on sedation. 12/28/2019 Patient is off Nimbex today beyond that no significant change in her overall clinical condition and respiratory failure. Patient remains on Zosyn prophylactically 12/29/2019 Patient is back on Nimbex no significant improvement in her respiratory distress is her overall clinical condition. Patient prognosis poor 12/30/2019 patient is to minimize propofol continue the ventilator to support without any significant improvement. Patient was started back on clevidipine 12/31/2019. Patient remains on pretty much the same in The setting sepsis for deep of 15 now. Patient remains on Nimbex, patient is on and off Cleviprex 01/01/2020 Patient is off Nimbex today no significant change in her vent settings. 01/02/2020 Patient is actually improving at this time. Patient is on 35 mics of propofol. Patient is presently on PEEP of 10 doing well and patient is being started on P racedex. Patient is on now pressure control ventilation 01/03/2020 Patient is presently on 8 of PEEP. She is awake off sedation on Precedex, will undergo any trial and possible extubation tomorrow. Presently on 50% FiO2 01/04/2020 Patient is extubated today. Patient is presently on BiPAP chest x-ray continued to show diffuse bilateral pulmonary infiltrates. Patient is bit confused. 01/05/2020 Patient is doing well. Patient is presently in 6 L of oxygen PT and OT will evaluate the patient patient wanted to go home patient is alert oriented 2-3, bit confused which is expected. Patient remains in Cleviprex which is being weaned off patient is being started on metoprolol. 01/06/2020 Patient fully Suboxone now. Patient blood pressure is better controlled heart rate is better controlled patient was started on metoprolol. She is still confused 01/07/2020 Patient confusion appears to have improved but still bit confused. Patient the pass a swallow eval and the patient is presently on pured diet. Patient is presently on 3 liters of oxygen. Transfer out of ICU 01/08/2020 Patient is a anywhere between 3-6 L of oxygen. Patient is still confused to. Patient has significant weakness because of being on muscle relaxant for long period of time. Will need subacute rehabitation patient is being transferred out of ICU Constitutional: Denied any fatigue denied any fever. Cardio vascular: denied any chest pain, palpitations Gastrointestinal denied any nausea vomiting Pulmonary: Denied any shortness of breath cough Neurologic denied any new focal deficits, bit confused All inpatient medications were reviewed and appropriate changes in these medications as dictated in the interval history and assessment and plan. Objective - Vital Signs Vital signs: Vital Signs Temp 97.9 F 01/07/20 20:00 Pulse 84 01/08/20 12:00 Resp 20 01/08/20 12:00 BP 124/65 01/08/20 12:00 Pulse Ox 94 L 01/08/20 12:00 Intake & Output 01/07/20 01/08/20 01/08/20 18:59 06:59 18:59 Intake Total 160 Output Total 096 685 Balance -466 -685 Weight 73.5 kg Intake: IV 160 Sodium Chloride 0.9% 1, 160 000 ml @ 20 mls/hr IV . Q24H [facility] Rx#:[id number] Output: Urine 625 685 Stool 1 Other: Voiding Method Indwelling Catheter Indwelling Catheter Indwelling Catheter ABP, PAP, CO, CI - Last Documented Arterial Blood Pressure 135/60 - Exam PHYSICAL EXAMINATION: GENERAL: Patient is extubated alert , less confused compared to yesterday. HEENT: Pupils are round and equally reacting to light. EOMI. No scleral icterus. No conjunctival pallor. Normocephalic, atraumatic. No pharyngeal erythema. No thyromegaly. CARDIOVASCULAR: S1 and S2 present. No murmurs, rubs, or gallops. Tachycardic. PULMONARY: Chest is clear to auscultation, no wheezing or crackles. ABDOMEN: Soft, nontender, nondistended, normoactive bowel sounds. No palpable organomegaly. MUSCULOSKELETAL: No joint swelling or deformity. EXTREMITIES: No cyanosis, clubbing, or pedal edema. NEUROLOGICAL: Unable to assess does have generalized weakness, confused SKIN: No rashes. Note: Because of COVID 19 isolation, some of the history and physical exam findings are indirect and obtained from nursing staff, and other physician exa minations to avoid unnecessary contact with the patient. - Labs CBC & Chem 7: 01/08/20 03:43 01/08/20 03:43 Labs: Abnormal Lab Results - Last 24 Hours (Table) 01/07/20 01/08/20 Range/Units 23:47 03:43 BUN 25 H (7-17) mg/dL Creatinine 0.48 L (0.52-1.04) mg/dL Glucose 102 H (74-99) mg/dL POC Glucose (mg/dL) 104 H (75-99) mg/dL Assessment and Plan Plan: COVID-19 virus pneumonia significant improvement in her respiratory status the patient was extubated on 01/04/2020. Presently on 3 L of oxygen. Patient is presently on prednisone, Lovenox and Pepcid Acute hypoxic respiratory failure secondary to pneumonia. Extubated. Presently on nasal cannula oxygen -Altered mental status secondary to toxic encephalopathy from prolonged ventil ation, sedation. Improving. -Significant generalized weakness: Secondary to prolonged hospitalization Hypertension: Is an NICO inhibitor and on beta martin. Hyperlipidemia DVT prophylaxis with Lovenox.
--- NOTE | 2020-01-08 15:00 | P.PN ---
Subjective Progress Note Date: 01/08/20 Principal diagnosis: Acute hypoxic respiratory failure secondary to covid 19 pneumonitis. 54-year-old white female patient with past medical history of hypertension, nonsmoker, previous history of lab band surgery for morbid obesity who presented to the hospital on 12/14/2019 with complaints of nausea, vomiting, weakness. Patient was tested for Covid 19 7 days ago last Wednesday, and received positive results 5 days ago on Wednesday. Patient has a daughter who was hospitalized with COVID 19 related pneumonia, and that daughter was discharged home after treatment, her other daughter is also currently hospitalized with Covid 19. Her was also positive for Covid 19 infection. Patient has not been able to keep anything down related to nausea and vomiting. Chest x-ray showed diffuse airspace opacities of bilateral lungs related to Covid 19 viral infection. Patient had positive lymphopenia, with lymphocyte count of 0.5, d-dimer was 1.22, initial BMP was unremarkable, lactic acid was 0.9, ferritin level was elevated at 382, LDH of 704, CRP was significantly elevated at 73.9, pro calcitonin is 0.12, C. diff was negative. Patient is currently on 10 L of oxygen her pulse ox is 91%, she is a very short of breath with any activity. Occasional cough, nonproductive, she was started on oral Decadron, prophylactic dose of Lovenox, and we will start the patient on Remdesivir. The patient is seen today 12/16/2019 in follow-up on the regular medical floor. She is currently awake. She is still quite short of breath. Still fatigued and weak. She is now requiring AirVo high flow oxygen with the fluid at 50 L an FiO2 of 70% to maintain O2 saturations in the 90s. Currently afebrile. She had a temperature earlier this morning at 100.0. She is short of breath with minimal exertion. White count 8.8. Hemoglobin 13.3. Lymphocyte 0.5. D-dimer 2.52. Sodium 142. Potassium 3.4. Creatinine 0.54. LDH 1933. C-reactive protein 70.8. Continued on Remdesivir, day #2. Continued on zinc, melatonin, vitamin C, Decadron, Lovenox, Pepcid. 0.9 normal saline at 100 ML's per hour. 12/17/2019, the patient is currently being taken care of in the intensive care unit. Noted the patient got transferred to the ICU yesterday because of her progressive hypoxemia that was developing related to colitis code 19 related pneumonia. The patient has progressive increase in the oxygen requirements and currently she is in the intensive care unit and she is on 6 L of oxygen to high flow system and the patient's pulse ox in the order of 94%. Chest x-ray showing diffuse breath and pulmonary infiltrates consistent with pneumonia. The patient is short of breath even at rest and she is trying to sleep on her side and prone herself if possible. She is not using this is an was of breathing , is quite tired and weak and lethargic. No chest pain. No hemoptysis. No pleurisy. She is on and off cough and. No altered mentation. We discussed the possibility of intubation mechanical ventilation and she was agreeable to that. I think we can hold off on this intervention for now and monitor progress. She still on Remdesivir and Decadron. I'm going to go ahead and order interleukin-6 levels to evaluate this patient for possible tocilizumab treatment. We will also order some coalescent immunoglobulins if available. The patient's d-dimer is up to 3.97. The patient continues to have lymphopenia with a lymphocyte count of 0.6. White cell count of 10.2. The electrolytes are all within normal limits. The LDH is up to 3003 and the C-reactive protein is up to 169. She is having low-grade fever on and off. Oral intake is quite diminished. Patient was reevaluated today on 12/18/19, remains in the ICU, she is presently on airvo at a flow of 60 L/m, and FiO2 of 94%, patient is comfortable, does not seem to be in distress, patient is on third day of remdesivir , and she received convalescent plasma on 12/17/19. Chest x-ray continues to deteriorate, and she has diffuse multifocal infiltrates not much chart changer the last couple of days. Surprisingly, the patient seems to be clinically better than expected considering the worsening of her chest x-ray. Patient has a relatively high d- dimer, and she remains on Lovenox at 80 mg subcu twice a day. Patient remains on Decadron. I also plan to give the patient a dose of Lasix today. No plans to transfer the patient out of the ICU at this point yet. Labs today showed a relatively normal CBC. D-dimer is rising up to 4.69 today. Electrolytes are normal except for low potassium of 3.2. Renal profile is normal. LDH seems to be coming down however C-reactive protein is elevated. Patient was reevaluated today on 12/19/19, patient took a downhill course last night, her oxygenation worsened significantly, patient dropped her O2 saturation down to the 70s, and she was on a high flow O2 using airvo patient was supposedly DO NOT RESUSCITATE CODE STATUS, however she changed her CODE STATUS and the patient required intubation and mechanical ventilation. She is now on mechanical ventilation. And her ventilator settings are assist control rate of 20 tidal volume is 400 FiO2 80% PEEP of 12. I adjusted her FiO2 down to 65% tidal volume cut down to 375 respiratory rate increased to 28. Patient is on Nimbex at 2 mcg/kg/m, she is also on propofol at 60, and may consider adding fentanyl. Her peak airway pressure is 38 and her plateau pressure is 34. Chest x-ray continues to show worsening ARDS. D-dimer today is 4.25 CBC is relatively normal ABG earlier today showed a pO2 of 137 pCO2 of 57 pH of 7.29. Basic metabolic profile is basically normal. Renal profile is normal. Inflammatory markers are high including elevated C-reactive protein of 267 LDH is 2264 and ferritin is pending. D-dimer is 4.5 with fibrinogen of 581. Patient was reevaluated today on 12/20/19, she is now in the ICU intubated and mechanically ventilated. Her ventilator settings are assist control rate of 28 tidal volume is 380 FiO2 is 70% and PEEP is 12. ABG showed a pO2 of 81 pCO2 of 53 pH of 7.35, hence I was able to titrate down her FiO2 to 60%. I have also recommended Dilaudid 0.5 mg every 12 hours. Patient remains on propofol at 50 mcg/kg/m and she is on Nimbex. She required norepinephrine yesterday as she was placed on fentanyl, however she did not tolerate the fentanyl well, and both were discontinued including norepinephrine. Patient is on vital HP nutritional support . Chest x-ray continues to show evidence of ARDS. Labs showed relatively normal CBC, platelets are normal, lymphocytes are low at 4%. D-dimer is 2.48. Elects lites are normal renal profile is normal. Her inflammatory markers were reviewed her C-reactive protein is 191 ferritin is 456 and her LDH not done today. C-reactive protein is lower today than the last 2 days. Patient was reevaluated today on 12/21/19, remains in the ICU, basically on the same ventilator settings, she is now on assist control rate of 28 tidal volume of 375 FiO2 of 60% PEEP is 12 her pO2 is marginal at 59, hence I have increased her PEEP up to 16. Patient remains on Nimbex at 2 mcg/kg/m, she is also on propofol at 40 mcg/kg/m, she is on enteral feeding vital HP 14/14. And her IV fluid is at 100 mL per hour. Patient is hemodynamically stable, not requiring any pressors. Chest x-ray continues to show evidence of diffuse interstitial infiltrates/ARDS. Electrolytes are normal renal profile is normal CBC is rel atively normal. D-dimer is 1.54. C-reactive protein is 172 and her ferritin level is 618. Patient was reevaluated today on 12/22/19, remains in ICU, intubated and mechanically ventilated, sedated and paralyzed, and maintained on Nimbex propofol, also on Dilaudid. Her ventilator settings are assist control rate of 28 tidal volume is 375 FiO2 is 60% and PEEP is 16. Attempted to go down on the FiO2 to 55%, however her saturation dropped, been recommended placing her back on 60% and The PEEP at 16. ABG today showed a pO2 of 75 pCO2 of 46 pH of 7.42. Patient is sedated and paralyzed, her chest x-ray continues to show evidence of ARDS. Patient is on enteral feeding using vital HP 14/14 patient seems to be edematous, hence I recommended Lasix 40 mg IV push 1, and empirically I went ahead and added Zosyn. Bit concerned about slight increase in the constellation in the right lower lobe. Patient was reevaluated today on 12/23/19 remains in the ICU, intubated, mechanically ventilated. Remains on assist control mode of mechanical ventilation. Rate is 28 tidal volume 375 FiO2 60% PEEP is 16 ABG today is marginal with a pO2 of 60 pCO2 of 44 pH of 7.50. Patient remains on propofol Nimbex and she is receiving Dilaudid. Remains on enteral feeding. IV fluid is increased to 75 mL per hour. Based on the ABG and based on her overall status, no plans to wean or extubated at this point. Chest x-ray continues to show evidence of ARDS, not much of a change overall. Reevaluated today on 12/24/19, patient remains in the ICU intubated and mechanically ventilated. Patient had covid 19 pneumonitis and ARDS. Her ventilator settings are assist control rate of 28 tidal volume is 375 FiO2 is 60% PEEP is 16. I did cut down the FiO2 to 55%. ABG showed a pO2 of 68 pCO2 of 45 pH of 7.47. Patient remains on Nimbex propofol at 50 she is not requiring any pressors. She is on vital HP . Zosyn was added empirically. Patient did receive full course of remdesivir and she received one infusion of convalescent plasma. Chest x-ray was reviewed today, continues to show ARDS, but I believe there is slight improvement in his definitely not any worse. Hence considering her O2 saturations holding, I cut down the FiO2 to 55% The PEEP at 16. Patient remains on enteral feedings she remains on GI and DVT prophylaxis and clearly not ready for any modality of weaning at this point. Patient was reevaluated today on 01/08/20, extubated, post extubation day #4. Patient is doing great, feeling much better, breathing a lot easier, she is presently on 6 L nasal cannula, and her O2 saturations 98%. Patient was extubated on 01/03-0, she was initially intubated on 12/19/19. Patient is now on prednisone orally, she is also on Lovenox 80 mg subcu twice a day, and I plan to transfer the patient out of the ICU to a regular medical floor. Chest x-ray continues to show bilateral interstitial infiltrates, but improved compared to previous x-rays. WBC count today is 8.5 hemoglobin is 13.0 elects lites are normal renal profile is normal Objective - Vital Signs Vital signs: Vital Signs Temp 97.9 F 01/07/20 20:00 Pulse 84 01/08/20 12:00 Resp 20 01/08/20 12:00 BP 124/65 01/08/20 12:00 Pulse Ox 94 L 01/08/20 12:00 Intake & Output 11/22/20 11/23/20 11/23/20 18:59 06:59 18:59 Intake Total 160 Output Total 626 685 Balance -466 -685 Weight 73.5 kg Intake: IV 160 Sodium Chloride 0.9% 1, 160 000 ml @ 20 mls/hr IV . Q24H [facility] Rx#:[id number] Output: Urine 625 685 Stool 1 Other: Voiding Method Indwelling Catheter Indwelling Catheter Indwelling Catheter ABP, PAP, CO, CI - Last Documented Arterial Blood Pressure 135/60 - Exam GENERAL EXAM: 54-year-old in no distress. HEAD: Normocephalic/atraumatic. EENT: PERRLA, EOMI, no icterus, moist mucous membranes, CHEST: No chest wall deformity. Symmetrical expansion. LUNGS: Fine crackles persisted the bases. CVS: Regular rate and rhythm, normal S1 and S2, no gallops, no murmurs, no rubs ABDOMEN: Soft, nontender. No hepatosplenomegaly, normal bowel sounds, no guarding or rigidity. EXTREMITIES: No clubbing, edema or cyanosis, good pulses bilaterally. MUSCULOSKELETAL: No limitation in range of motion, no deformities. SKIN: No rashes CENTRAL NERVOUS SYSTEM: Alert and oriented 3, no gross focal deficits. PSYCHIATRIC: Normal mood, affect and normal mental status examination - Labs CBC & Chem 7: 01/08/20 03:43 01/08/20 03:43 Labs: Abnormal Lab Results - Last 24 Hours (Table) 01/07/20 01/08/20 Range/Units 23:47 03:43 BUN 25 H (7-17) mg/dL Creatinine 0.48 L (0.52-1.04) mg/dL Glucose 102 H (74-99) mg/dL POC Glucose (mg/dL) 104 H (75-99) mg/dL Assessment and Plan Assessment: Impression: Acute hypoxic respiratory failure secondary to cvid 19 pneumonitis. Required intubation and mechanical ventilation until 4 days ago. Covid 19 pneumonia with ARDS, improved. Benign essential hypertension Dyslipidemia Profound motor weakness secondary to prolonged intubation and mechanical ventilation/mild critical illness myopathy. Recommendation: Continue present supportive care measures. Continue Lovenox. Continue oral prednisone. Continue vitamin C Pepcid melatonin and zinc. Aggressive physical data. Advanced diet as tolerated. Transferred to regular medical floor today. We'll continue to follow. Time with Patient: Less than 30
[2020-01-08] MEDS: SODIUM CHLORIDE 0.9% 1,000 ML IV SCH (18:52)
[2020-01-08] MEDS: QUEtiapine 100 MG TAB PO SCH (21:03)
[2020-01-08] MEDS: MELATONIN 5 MG TABLET PO SCH (21:03)
[2020-01-08] MEDS: PRAVASTATIN SODIUM 40 MG TAB PO SCH (21:03)
[2020-01-09 00:30] LABS: Glucose,Whole Blood 114 mg/dL (75-99)
[2020-01-09] MEDS: INSULIN ASPART (NovoLOG) 100 UNIT/ML VIAL SQ SCH ×2 (01:12→05:37)
[2020-01-09 05:38] LABS: Glucose,Whole Blood 108 mg/dL (75-99)
[2020-01-09] MEDS: predniSONE 10 MG TAB PO SCH (07:43)
[2020-01-09] MEDS: FAMOTIDINE 20 MG/2 ML VIAL IV SCH ×2 (07:43→20:41)
[2020-01-09] MEDS: ZINC SULFATE 220 MG CAP PO SCH (07:43)
[2020-01-09] MEDS: ENOXAPARIN 80 MG/0.8 ML SYRINGE SQ SCH ×2 (07:44→20:41)
[2020-01-09] MEDS: ASCORBIC ACID 500 MG TAB PO SCH (07:44)
[2020-01-09] MEDS: lisinopriL 20 MG TAB PO SCH (07:44)
[2020-01-09] MEDS: METOPROLOL TARTRATE 25 MG TAB PO SCH (07:44)
[2020-01-09] MEDS: ALBUTEROL HFA INHALER INHALATION SCH ×4 (08:25→19:22)
[2020-01-09 11:42] LABS: Glucose,Whole Blood 137 mg/dL (75-99)
--- NOTE | 2020-01-09 12:33 | P.DS ---
Providers Date of admission: 12/14/19 13:38 Attending physician: Selena Armstrong Consults: 12/14/19 13:38 Consult Physician Stat Consulting Provider: Sonja Benitez Consult Reason/Comments: Covid Do you want consulting provider notified?: Yes 01/05/20 10:39 Consult Physician Stat Consulting Provider: Henry Quiroga Consult Reason/Comments: Evaluate for IP Rehab Do you want consulting provider notified?: Yes Primary care physician: Petty Hargrove [facility] Course: Acute hypoxic respiratory failure secondary to covid 19 pneumonitis. Patient remains on ventilator support, patient did receive convalescent plasma along with Remdesevir. Patient remains on the Decadron patient remains on pressor support. Zosyn was added empirically by pulmonology. Patient remains on assist-control ventilation with the high before 15 FiO2 of 60%.failed weaning trials today. 12/23/2019 Patient remains on the ventilator still requiring PEEP of 16 FiO2 of 60%. Patient is mildly alkalotic. Probably need to go down on the it up respiratory rate. Patient is on tidal volume at 375. Patient is on very low-dose of norepinephrine today. 12/24/2019 Patient remains on mechanical ventilator patient has cold with 19 pneumonitis along with ARDS on high PEEP of 16 FiO2 of 55 and now. Patient's ABGs shows improvement in alkalosis. Patient is presently not requiring any pressors patient ontinues to be on propofol and Nimbex remains on Decadron. 12/25/2019 Patient can use to require high be because of ARDS associated with Covid. Patient can use to be on propofol and Nimbex. Off pressor support receiving normal saline. Completed course of Remdesivir. 12/26/2019 Patient remains on 50 g of propofol off Nimbex patient blood pressure went up patient will be started on lisinopril and strolls slowly wean off work reflex patient is bit tachycardic. Patient remains on the 16 of PEEP. Remains intubated 12/27/2019 Patient the clinical condition did not change significantly. Remains on high PEEP. Remains on sedation. 12/28/2019 Patient is off Nimbex today beyond that no significant change in her overall clinical condition and respiratory failure. Patient remains on Zosyn prophylactically 12/29/2019 Patient is back on Nimbex no significant improvement in her respiratory distress is her overall clinical condition. Patient prognosis poor 12/30/2019 patient is to minimize propofol continue the ventilator to support without any significant improvement. Patient was started back on clevidipine 12/31/2019. Patient remains on pretty much the same in The setting sepsis for deep of 15 now. Patient remains on Nimbex, patient is on and off Cleviprex 01/01/2020 Patient is off Nimbex today no significant change in her vent settings. 01/02/2020 Patient is actually improving at this time. Patient is on 35 mics of propofol. Patient is presently on PEEP of 10 doing well and patient is being started on Pracedex. Patient is on now pressure control ventilation 01/03/2020 Patient is presently on 8 of PEEP. She is awake off sedation on Precedex, will undergo any trial and possible extubation tomorrow. Presently on 50% FiO2 01/04/2020 Patient is extubated today. Patient is presently on BiPAP chest x-ray continued to show diffuse bilateral pulmonary infiltrates. Patient is bit confused. 01/05/2020 Patient is doing well. Patient is presently in 6 L of oxygen PT and OT will evaluate the patient patient wanted to go home patient is alert oriented 2-3, bit confused which is expected. Patient remains in Cleviprex which is being weaned off patient is being started on metoprolol. 01/06/2020 Patient fully Suboxone now. Patient blood pressure is better controlled heart rate is better controlled patient was started on metoprolol. She is still confused 01/07/2020 Patient confusion appears to have improved but still bit confused. Patient the pass a swallow eval and the patient is presently on pured diet. Patient is presently on 3 liters of oxygen. Transfer out of ICU 01/08/2020 Patient is a anywhere between 3-6 L of oxygen. Patient is still confused to. Patient has significant weakness because of being on muscle relaxant for long period of time. Will need subacute rehabitation patient is being transferred out of ICU 01/09/2020 Patient is presently on liters of oxygen. Patient will be discharged is to subacute rehabilitation. Patient is on muscle relaxant for long. Of time because of which patient is quite a bit weak and will need physical therapy probably for a prolonged period of time. Patient confusion improved patient will be discharged today. PHYSICAL EXAMINATION: GENERAL: Alert oriented timesx2-3 HEENT: Pupils are round and equally reacting to light. EOMI. No scleral icterus. No conjunctival pallor. Normocephalic, atraumatic. No pharyngeal erythema. No thyromegaly. CARDIOVASCULAR: S1 and S2 present. No murmurs, rubs, or gallops. Tachycardic. PULMONARY: Chest is clear to auscultation, no wheezing or crackles. ABDOMEN: Soft, nontender, nondistended, normoactive bowel sounds. No palpable organomegaly. MUSCULOSKELETAL: No joint swelling or deformity. EXTREMITIES: No cyanosis, clubbing, or pedal edema. NEUROLOGICAL: No focal deficits but does have significant generalized weakness. SKIN: No rashes. Note: Because of COVID 19 isolation, some of the history and physical exam findings are indirect and obtained from nursing staff, and other physician examinations to avoid unnecessary contact with the patient. Assessment and Plan Plan: COVID-19 virus pneumonia significant improvement in her respiratory status the patient was extubated on 01/04/2020. Presently on 4 L of oxygen. Patient is presently on prednisone, Lovenox and Pepcid Acute hypoxic respiratory failure secondary to pneumonia. Extubated. Presently on nasal cannula oxygen -Altered mental status secondary to toxic encephalopathy from prolonged ventilation, sedation. Improving. -Significant generalized weakness: Secondary to prolonged hospitalization Hypertension: Is an NICO inhibitor and on beta martin. Hyperlipidemia DVT prophylaxis with Lovenox. Patient Condition at Discharge: Stable Plan - Discharge Summary Discharge Rx Participant: No New Discharge Prescriptions: No Action lisinopriL 20 mg PO DAILY Pravastatin Sodium [Pravachol] 40 mg PO HS Discharge Medication List lisinopriL 20 mg PO DAILY 10/31/18 [History] Pravastatin Sodium [Pravachol] 40 mg PO HS 12/14/19 [History] Albuterol Inhaler [Ventolin Hfa Inhaler] 2 puff INHALATION RT-QID PRN puff 01/09/20 [Rx] Ascorbic Acid [Vitamin C] 500 mg PO DAILY tab 01/09/20 [Rx] Famotidine [Pepcid] 20 mg PO BID #30 tablet 01/09/20 [Rx] Metoprolol Tartrate [Lopressor] 50 mg PO DAILY PRN tab 01/09/20 [Rx] QUEtiapine [SEROquel] 50 mg PO HS PRN #10 tab 01/09/20 [Rx] Zinc Sulfate [Orazinc] 220 mg PO DAILY cap 01/09/20 [Rx] predniSONE 10 mg PO DAILY #30 tab 01/09/20 [Rx] Follow up Appointment(s)/Referral(s): Petty Hargrove DO [Primary Care Provider] - 1-2 days
[2020-01-09 14:14] VITALS: BMI 46.0
--- NOTE | 2020-01-09 19:37 | P.PN ---
Subjective Progress Note Date: 01/09/20 Principal diagnosis: Acute hypoxic respiratory failure secondary to covid 19 pneumonitis. 54-year-old white female patient with past medical history of hypertension, nonsmoker, previous history of lab band surgery for morbid obesity who presented to the hospital on 12/14/2019 with complaints of nausea, vomiting, weakness. Patient was tested for Covid 19 7 days ago last Wednesday, and received positive results 5 days ago on Wednesday. Patient has a daughter who was hospitalized with COVID 19 related pneumonia, and that daughter was discharged home after treatment, her other daughter is also currently hospitalized with Covid 19. Her was also positive for Covid 19 infection. Patient has not been able to keep anything down related to nausea and vomiting. Chest x-ray showed diffuse airspace opacities of bilateral lungs related to Covid 19 viral infection. Patient had positive lymphopenia, with lymphocyte count of 0.5, d-dimer was 1.22, initial BMP was unremarkable, lactic acid was 0.9, ferritin level was elevated at 382, LDH of 704, CRP was significantly elevated at 73.9, pro calcitonin is 0.12, C. diff was negative. Patient is currently on 10 L of oxygen her pulse ox is 91%, she is a very short of breath with any activity. Occasional cough, nonproductive, she was started on oral Decadron, prophylactic dose of Lovenox, and we will start the patient on Remdesivir. The patient is seen today 12/16/2019 in follow-up on the regular medical floor. She is currently awake. She is still quite short of breath. Still fatigued and weak. She is now requiring AirVo high flow oxygen with the fluid at 50 L an FiO2 of 70% to maintain O2 saturations in the 90s. Currently afebrile. She had a temperature earlier this morning at 100.0. She is short of breath with minimal exertion. White count 8.8. Hemoglobin 13.3. Lymphocyte 0.5. D-dimer 2.52. Sodium 142. Potassium 3.4. Creatinine 0.54. LDH 1933. C-reactive protein 70.8. Continued on Remdesivir, day #2. Continued on zinc, melatonin, vitamin C, Decadron, Lovenox, Pepcid. 0.9 normal saline at 100 ML's per hour. 12/17/2019, the patient is currently being taken care of in the intensive care unit. Noted the patient got transferred to the ICU yesterday because of her progressive hypoxemia that was developing related to colitis code 19 related pneumonia. The patient has progressive increase in the oxygen requirements and currently she is in the intensive care unit and she is on 6 L of oxygen to high flow system and the patient's pulse ox in the order of 94%. Chest x-ray showing diffuse breath and pulmonary infiltrates consistent with pneumonia. The patient is short of breath even at rest and she is trying to sleep on her side and prone herself if possible. She is not using this is an was of breathing , is quite tired and weak and lethargic. No chest pain. No hemoptysis. No pleurisy. She is on and off cough and. No altered mentation. We discussed the possibility of intubation mechanical ventilation and she was agreeable to that. I think we can hold off on this intervention for now and monitor progress. She still on Remdesivir and Decadron. I'm going to go ahead and order interleukin-6 levels to evaluate this patient for possible tocilizumab treatment. We will also order some coalescent immunoglobulins if available. The patient's d-dimer is up to 3.97. The patient continues to have lymphopenia with a lymphocyte count of 0.6. White cell count of 10.2. The electrolytes are all within normal limits. The LDH is up to 3003 and the C-reactive protein is up to 169. She is having low-grade fever on and off. Oral intake is quite diminished. Patient was reevaluated today on 12/18/19, remains in the ICU, she is presently on airvo at a flow of 60 L/m, and FiO2 of 94%, patient is comfortable, does not seem to be in distress, patient is on third day of remdesivir , and she received convalescent plasma on 12/17/19. 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 Surprisingly, the patient seems to be clinically better than expected considering the worsening of her chest x-ray. Patient has a relatively high d- dimer, and she remains on Lovenox at 80 mg subcu twice a day. Patient remains on Decadron. I also plan to give the patient a dose of Lasix today. No plans to transfer the patient out of the ICU at this point yet. Labs today showed a relatively normal CBC. D-dimer is rising up to 4.69 today. Electrolytes are normal except for low potassium of 3.2. Renal profile is normal. LDH seems to be coming down however C-reactive protein is elevated. Patient was reevaluated today on 12/19/19, patient took a downhill course last night, her oxygenation worsened significantly, patient dropped her O2 saturation down to the 70s, and she was on a high flow O2 using airvo patient was supposedly DO NOT RESUSCITATE CODE STATUS, however she changed her CODE STATUS and the patient required intubation and mechanical ventilation. She is now on mechanical ventilation. And her ventilator settings are assist control rate of 20 tidal volume is 400 FiO2 80% PEEP of 12. I adjusted her FiO2 down to 65% tidal volume cut down to 375 respiratory rate increased to 28. Patient is on Nimbex at 2 mcg/kg/m, she is also on propofol at 60, and may consider adding fentanyl. Her peak airway pressure is 38 and her plateau pressure is 34. Chest x-ray continues to show worsening ARDS. D-dimer today is 4.25 CBC is relatively normal ABG earlier today showed a pO2 of 137 pCO2 of 57 pH of 7.29. Basic metabolic profile is basically normal. Renal profile is normal. Inflammatory markers are high including elevated C-reactive protein of 267 LDH is 2264 and ferritin is pending. D-dimer is 4.5 with fibrinogen of 581. Patient was reevaluated today on 12/20/19, she is now in the ICU intubated and mechanically ventilated. Her ventilator settings are assist control rate of 28 tidal volume is 380 FiO2 is 70% and PEEP is 12. ABG showed a pO2 of 81 pCO2 of 53 pH of 7.35, hence I was able to titrate down her FiO2 to 60%. I have also recommended Dilaudid 0.5 mg every 12 hours. Patient remains on propofol at 50 mcg/kg/m and she is on Nimbex. She required norepinephrine yesterday as she was placed on fentanyl, however she did not tolerate the fentanyl well, and both were discontinued including norepinephrine. Patient is on vital HP nutritional support . Chest x-ray continues to show evidence of ARDS. Labs showed relatively normal CBC, platelets are normal, lymphocytes are low at 4%. D-dimer is 2.48. Elects lites are normal renal profile is normal. Her inflammatory markers were reviewed her C-reactive protein is 191 ferritin is 456 and her LDH not done today. C-reactive protein is lower today than the last 2 days. Patient was reevaluated today on 12/21/19, remains in the ICU, basically on the same ventilator settings, she is now on assist control rate of 28 tidal volume of 375 FiO2 of 60% PEEP is 12 her pO2 is marginal at 59, hence I have increased her PEEP up to 16. Patient remains on Nimbex at 2 mcg/kg/m, she is also on propofol at 40 mcg/kg/m, she is on enteral feeding vital HP 14/14. And her IV fluid is at 100 mL per hour. Patient is hemodynamically stable, not requiring any pressors. Chest x-ray continues to show evidence of diffuse interstitial infiltrates/ARDS. Electrolytes are normal renal profile is normal CBC is rel atively normal. D-dimer is 1.54. C-reactive protein is 172 and her ferritin level is 618. Patient was reevaluated today on 12/22/19, remains in ICU, intubated and mechanically ventilated, sedated and paralyzed, and maintained on Nimbex propofol, also on Dilaudid. Her ventilator settings are assist control rate of 28 tidal volume is 375 FiO2 is 60% and PEEP is 16. Attempted to go down on the FiO2 to 55%, however her saturation dropped, been recommended placing her back on 60% and The PEEP at 16. ABG today showed a pO2 of 75 pCO2 of 46 pH of 7.42. Patient is sedated and paralyzed, her chest x-ray continues to show evidence of ARDS. Patient is on enteral feeding using vital HP 14/14 patient seems to be edematous, hence I recommended Lasix 40 mg IV push 1, and empirically I went ahead and added Zosyn. Bit concerned about slight increase in the constellation in the right lower lobe. Patient was reevaluated today on 12/23/19 remains in the ICU, intubated, mechanically ventilated. Remains on assist control mode of mechanical ventilation. Rate is 28 tidal volume 375 FiO2 60% PEEP is 16 ABG today is marginal with a pO2 of 60 pCO2 of 44 pH of 7.50. Patient remains on propofol Nimbex and she is receiving Dilaudid. Remains on enteral feeding. IV fluid is increased to 75 mL per hour. Based on the ABG and based on her overall status, no plans to wean or extubated at this point. Chest x-ray continues to show evidence of ARDS, not much of a change overall. Reevaluated today on 12/24/19, patient remains in the ICU intubated and mechanically ventilated. Patient had covid 19 pneumonitis and ARDS. Her ventilator settings are assist control rate of 28 tidal volume is 375 FiO2 is 60% PEEP is 16. I did cut down the FiO2 to 55%. ABG showed a pO2 of 68 pCO2 of 45 pH of 7.47. Patient remains on Nimbex propofol at 50 she is not requiring any pressors. She is on vital HP . Zosyn was added empirically. Patient did receive full course of remdesivir and she received one infusion of convalescent plasma. Chest x-ray was reviewed today, continues to show ARDS, but I believe there is slight improvement in his definitely not any worse. Hence considering her O2 saturations holding, I cut down the FiO2 to 55% The PEEP at 16. Patient remains on enteral feedings she remains on GI and DVT prophylaxis and clearly not ready for any modality of weaning at this point. Patient was reevaluated today on 01/08/20, extubated, post extubation day #4. Patient is doing great, feeling much better, breathing a lot easier, she is presently on 6 L nasal cannula, and her O2 saturations 98%. Patient was extubated on 01/03-0, she was initially intubated on 12/19/19. Patient is now on prednisone orally, she is also on Lovenox 80 mg subcu twice a day, and I plan to transfer the patient out of the ICU to a regular medical floor. Chest x-ray continues to show bilateral interstitial infiltrates, but improved compared to previous x-rays. WBC count today is 8.5 hemoglobin is 13.0 elects lites are normal renal profile is normal Reevaluated today on 01/09/20, patient is now on a regular medical floor, patient is doing great, relatively asymptomatic, on 3 L nasal cannula, a symptomatic Objective - Vital Signs Vital signs: Vital Signs Temp 97.6 F 01/09/20 17:41 Pulse 94 01/09/20 17:41 Resp 18 01/09/20 17:41 BP 128/78 01/09/20 17:41 Pulse Ox 97 01/09/20 17:41 Intake & Output 01/09/20 01/09/20 01/10/20 06:59 18:59 06:59 Intake Total 160 236 Output Total 435 300 Balance -275 -64 Weight 110.5 kg 110.5 kg Intake: IV 160 Sodium Chloride 0.9% 1, 160 000 ml @ 20 mls/hr IV . Q24H [facility] Rx#:[id number] Oral 236 Output: Urine 435 300 Other: Voiding Method Indwelling Catheter Indwelling Catheter Indwelling Catheter # Bowel Movements 1 ABP, PAP, CO, CI - Last Documented Arterial Blood Pressure 135/60 - Exam GENERAL EXAM: 54-year-old in no distress. HEAD: Normocephalic/atraumatic. EENT: PERRLA, EOMI, no icterus, moist mucous membranes, CHEST: No chest wall deformity. Symmetrical expansion. LUNGS: Fine crackles persisted the bases. CVS: Regular rate and rhythm, normal S1 and S2, no gallops, no murmurs, no rubs ABDOMEN: Soft, nontender. No hepatosplenomegaly, normal bowel sounds, no guarding or rigidity. EXTREMITIES: No clubbing, edema or cyanosis, good pulses bilaterally. MUSCULOSKELETAL: No limitation in range of motion, no deformities. SKIN: No rashes CENTRAL NERVOUS SYSTEM: Alert and oriented 3, no gross focal deficits. PSYCHIATRIC: Normal mood, affect and normal mental status examination - Labs CBC & Chem 7: 01/08/20 03:43 01/08/20 03:43 Labs: Abnormal Lab Results - Last 24 Hours (Table) 01/09/20 01/09/20 01/09/20 Range/Units 00:28 05:36 11:38 POC Glucose (mg/dL) 114 H 108 H 137 H (75-99) mg/dL Assessment and Plan Assessment: Impression: Acute hypoxic respiratory failure secondary to cvid 19 pneumonitis. Required intubation and mechanical ventilation until 5 days ago. Covid 19 pneumonia with ARDS, improved. Benign essential hypertension Dyslipidemia Profound motor weakness secondary to prolonged intubation and mechanical ventilation/mild critical illness myopathy. Recommendation: Continue present supportive care measures. Continue Lovenox. Continue oral prednisone. Taper accordingly. Continue vitamin C Pepcid melatonin and zinc. Agree with discharge planning, patient could be discharged on home O2 if necessary Follow-up on outpatient basis. Time with Patient: Less than 30
[2020-01-09] MEDS: PRAVASTATIN SODIUM 40 MG TAB PO SCH (20:42)
[2020-01-09] MEDS: QUEtiapine 100 MG TAB PO SCH (20:42)
[2020-01-09] MEDS: MELATONIN 5 MG TABLET PO SCH (20:42)
[2020-01-09] MEDS: SODIUM CHLORIDE 0.9% 1,000 ML IV SCH (22:11)
[2020-01-10] MEDS: ALBUTEROL HFA INHALER INHALATION SCH ×3 (07:26→15:42)
[2020-01-10] MEDS: ENOXAPARIN 80 MG/0.8 ML SYRINGE SQ SCH (09:05)
[2020-01-10] MEDS: predniSONE 10 MG TAB PO SCH (09:05)
[2020-01-10] MEDS: lisinopriL 20 MG TAB PO SCH (09:05)
[2020-01-10] MEDS: ZINC SULFATE 220 MG CAP PO SCH (09:05)
[2020-01-10] MEDS: METOPROLOL TARTRATE 25 MG TAB PO SCH (09:05)
[2020-01-10] MEDS: ASCORBIC ACID 500 MG TAB PO SCH (09:05)
[2020-01-10] MEDS: FAMOTIDINE 20 MG/2 ML VIAL IV SCH (09:05)
[2020-01-10 09:13] VITALS: BP 117/75; PULSE 99; RESP 22; TEMP 98.2
--- NOTE | 2020-01-10 11:33 | P.DS ---
Providers Date of admission: 12/14/19 13:38 Attending physician: Selena Armstrong Consults: 12/14/19 13:38 Consult Physician Stat Consulting Provider: Sonja Benitez Consult Reason/Comments: Covid Do you want consulting provider notified?: Yes 01/05/20 10:39 Consult Physician Stat Consulting Provider: Henry Quiroga Consult Reason/Comments: Evaluate for IP Rehab Do you want consulting provider notified?: Yes Primary care physician: Petty Hargrove [facility] Course: Acute hypoxic respiratory failure secondary to covid 19 pneumonitis. Patient remains on ventilator support, patient did receive convalescent plasma along with Remdesevir. Patient remains on the Decadron patient remains on pressor support. Zosyn was added empirically by pulmonology. Patient remains on assist-control ventilation with the high before 15 FiO2 of 60%.failed weaning trials today. 12/23/2019 Patient remains on the ventilator still requiring PEEP of 16 FiO2 of 60%. Patient is mildly alkalotic. Probably need to go down on the it up respiratory rate. Patient is on tidal volume at 375. Patient is on very low-dose of norepinephrine today. 12/24/2019 Patient remains on mechanical ventilator patient has cold with 19 pneumonitis along with ARDS on high PEEP of 16 FiO2 of 55 and now. Patient's ABGs shows improvement in alkalosis. Patient is presently not requiring any pressors patient ontinues to be on propofol and Nimbex remains on Decadron. 12/25/2019 Patient can use to require high be because of ARDS associated with Covid. Patient can use to be on propofol and Nimbex. Off pressor support receiving normal saline. Completed course of Remdesivir. 12/26/2019 Patient remains on 50 g of propofol off Nimbex patient blood pressure went up patient will be started on lisinopril and strolls slowly wean off work reflex patient is bit tachycardic. Patient remains on the 16 of PEEP. Remains intubated 12/27/2019 Patient the clinical condition did not change significantly. Remains on high PEEP. Remains on sedation. 12/28/2019 Patient is off Nimbex today beyond that no significant change in her overall clinical condition and respiratory failure. Patient remains on Zosyn prophylactically 12/29/2019 Patient is back on Nimbex no significant improvement in her respiratory distress is her overall clinical condition. Patient prognosis poor 12/30/2019 patient is to minimize propofol continue the ventilator to support without any significant improvement. Patient was started back on clevidipine 12/31/2019. Patient remains on pretty much the same in The setting sepsis for deep of 15 now. Patient remains on Nimbex, patient is on and off Cleviprex 01/01/2020 Patient is off Nimbex today no significant change in her vent settings. 01/02/2020 Patient is actually improving at this time. Patient is on 35 mics of propofol. Patient is presently on PEEP of 10 doing well and patient is being started on Pracedex. Patient is on now pressure control ventilation 01/03/2020 Patient is presently on 8 of PEEP. She is awake off sedation on Precedex, will undergo any trial and possible extubation tomorrow. Presently on 50% FiO2 01/04/2020 Patient is extubated today. Patient is presently on BiPAP chest x-ray continued to show diffuse bilateral pulmonary infiltrates. Patient is bit confused. 01/05/2020 Patient is doing well. Patient is presently in 6 L of oxygen PT and OT will evaluate the patient patient wanted to go home patient is alert oriented 2-3, bit confused which is expected. Patient remains in Cleviprex which is being weaned off patient is being started on metoprolol. 01/06/2020 Patient fully Suboxone now. Patient blood pressure is better controlled heart rate is better controlled patient was started on metoprolol. She is still confused 01/07/2020 Patient confusion appears to have improved but still bit confused. Patient the pass a swallow eval and the patient is presently on pured diet. Patient is presently on 3 liters of oxygen. Transfer out of ICU 01/08/2020 Patient is a anywhere between 3-6 L of oxygen. Patient is still confused to. Patient has significant weakness because of being on muscle relaxant for long period of time. Will need subacute rehabitation patient is being transferred out of ICU 01/09/2020 Patient is presently on liters of oxygen. Patient will be discharged is to subacute rehabilitation. Patient is on muscle relaxant for long. Of time because of which patient is quite a bit weak and will need physical therapy probably for a prolonged period of time. Patient confusion improved patient will be discharged today. 01/10/2020 Patient declined go to subacute rehabilitation patient will be discharged to home with home care today. PHYSICAL EXAMINATION: GENERAL: Alert oriented timesx2-3 HEENT: Pupils are round and equally reacting to light. EOMI. No scleral icterus. No conjunctival pallor. Normocephalic, atraumatic. No pharyngeal erythema. No thyromegaly. CARDIOVASCULAR: S1 and S2 present. No murmurs, rubs, or gallops. Tachycardic. PULMONARY: Chest is clear to auscultation, no wheezing or crackles. ABDOMEN: Soft, nontender, nondistended, normoactive bowel sounds. No palpable organomegaly. MUSCULOSKELETAL: No joint swelling or deformity. EXTREMITIES: No cyanosis, clubbing, or pedal edema. NEUROLOGICAL: No focal deficits but does have significant generalized weakness. SKIN: No rashes. Note: Because of COVID 19 isolation, some of the history and physical exam findings are indirect and obtained from nursing staff, and other physician examinations to avoid unnecessary contact with the patient. Assessment and Plan Plan: COVID-19 virus pneumonia significant improvement in her respiratory status the patient was extubated on 01/04/2020. Presently on 3-4 L of oxygen. Patient is presently on prednisone, Lovenox and Pepcid Acute hypoxic respiratory failure secondary to pneumonia. Extubated. Presently on nasal cannula oxygen -Altered mental status secondary to toxic encephalopathy from prolonged ventilation, sedation. Improving. -Significant generalized weakness: Secondary to prolonged hospitalization Hypertension: Is an NICO inhibitor and on beta martin. Hyperlipidemia Patient Condition at Discharge: Stable Plan - Discharge Summary Discharge Rx Participant: No New Discharge Prescriptions: New Metoprolol Tartrate [Lopressor] 50 mg PO DAILY PRN tab PRN Reason: Blood Pressure - High Zinc Sulfate [Orazinc] 220 mg PO DAILY cap QUEtiapine [SEROquel] 50 mg PO HS PRN #10 tab PRN Reason: Agitation Albuterol Inhaler [Ventolin Hfa Inhaler] 2 puff INHALATION RT-QID PRN puff Ascorbic Acid [Vitamin C] 500 mg PO DAILY tab predniSONE 10 mg PO DAILY #30 tab Famotidine [Pepcid] 20 mg PO BID #30 tablet Continue lisinopriL 20 mg PO DAILY Pravastatin Sodium [Pravachol] 40 mg PO HS Discharge Medication List lisinopriL 20 mg PO DAILY 10/31/18 [History] Pravastatin Sodium [Pravachol] 40 mg PO HS 12/14/19 [History] Albuterol Inhaler [Ventolin Hfa Inhaler] 2 puff INHALATION RT-QID PRN puff 01/09/20 [Rx] Ascorbic Acid [Vitamin C] 500 mg PO DAILY tab 01/09/20 [Rx] Famotidine [Pepcid] 20 mg PO BID #30 tablet 01/09/20 [Rx] Metoprolol Tartrate [Lopressor] 50 mg PO DAILY PRN tab 01/09/20 [Rx] QUEtiapine [SEROquel] 50 mg PO HS PRN #10 tab 01/09/20 [Rx] Zinc Sulfate [Orazinc] 220 mg PO DAILY cap 01/09/20 [Rx] predniSONE 10 mg PO DAILY #30 tab 01/09/20 [Rx] Follow up Appointment(s)/Referral(s): [facility],Equipment [NON-STAFF] - Petty Hargrove DO [Primary Care Provider] - 01/16/20 11:20 am [facility], [NON-STAFF] - Activity/Diet/Wound Care/Special Instructions: *Please call [facility] once home to arrange delivery of oxygen concentrator if not already set up: [phone] [facility] will also provide a bedside commode and wheelchair for patient. Discharge Disposition: HOME WITH HOME HEALTH SERVICES
[2020-01-10] MEDS ORDERED: TAMSULOSIN 0.4 MG CAP.ER.24H PO STA (13:48)
--- NOTE | 2020-01-10 14:09 | FL ---
EXAMINATION TYPE: FL barium swallow w video DATE OF EXAM: 01/10/2020 MODIFIED SWALLOW / DEGLUTITION STUDY CLINICAL HISTORY: Dysphagia. Rule out aspiration. TECHNIQUE: Deglutition study is performed utilizing thin liquid barium, honey and nectar thick liqui d barium, and barium thick applesauce. 0 Spot images saved to PACS. 30 seconds fluoroscopic time util ized. COMPARISON: None. FINDINGS: The oral and pharyngeal phases show satisfactory initiation and propagation with all modali ties tested. Aspiration with thin liquid barium is present initiating cough reflex. Subsequent episod es improved with chin tuck. [id number] pharyngeal residue was appreciated with more viscous mod alities. IMPRESSION: Delroy aspiration of thin liquid barium first attempt. Improvement subsequent attempts wit h chin tuck. Please refer to speech therapist notes for further details if necessary.
[2020-01-10] MEDS ORDERED: FAMOTIDINE 20 MG TAB PO SCH (21:00)
--- NOTE | 2020-01-12 08:14 | CDI ---
Documentation Clarification Form Date: 01/12/20 From: Aliyah Brown CCS Phone: If you have a question about this query, please contact Megha Mesa, Print Graphic Designer at [phone] between 8am and 5pm. Admit Date: 12/14/19 Discharge Date:01/10/20 Patient Name: Shira Ames Visit Number: [id number] ATTENTION: The Clinical Documentation Specialists (CDI) and [facility] Coding Staff appreciate your assistance in clarifying documentation. Please respond to the clarification below the line at the bottom and electronically sign. The CDI & [facility] Coding staff will review the response and follow-up if needed. Please note: Queries are made part of the Legal Health Record. If you have any questions, please contact the author of this message via ITS. Dear Dr. Armstrong, The patient presented with the following COVID 19 pneumonia, acute respiratory failure. PNs beginning 12/30 and DS documents: Patient remains on pretty much the same in The setting sepsis for deep of 15 now History/Risk Factors: COVID 19 pneumonia, HTN, Acute hypoxic resp failure, Morbid obesity/ BMI 47 Clinical Indicators: Tachycardic, Acute respiratory failure WBC: 5.3, 4.9, 8.8, 14.3 Lactic acid: 0.9 Blood cultures: No growth after 144 hours Vitals signs on admission: BP 102/70, RR 18, FL 102, Temp 98.6, O2 Sat 92 Treatment: Zosyn 3.375 mg IVPB, Remdesivir 200 mg IVPB, Levophed IV IV Bolus: Saline 0.9% 1,000 ml IV In your professional opinion, please clarify if these findings signify one of the following conditions if known: Condition Sepsis ruled out Sepsis POA Sepsis not POA Severe Sepsis Other, please specify Unable to determine SIRS Criteria (2 or more of the following may indicate SIRS): -Temperature < 96.8F (36C) or > 101.0F (38.3C) -Heart Rate > 90 bpm -Respiratory Rate > 20 breaths/min or PaCO2 < 32 mmHg -White Blood Cell Count > 12,000 or < 4,000 cells/mm3 or > 10% bands -Lactate >2.0 mmol/L (>4.0 is equivalent to septic shock) dragon typographical error- no sepsis MTDD
--- NOTE | 2020-04-04 12:00 | CDI ---
Date: 04/04/2020 11:29:48 AM From: Saamnta MASON, CCDS, RN Phone: [phone] Admit Date: 12/14/2019 01:38:00 PM Patient Name: Shira Ames Visit Number: [id number] Discharge Date: 01/10/2020 05:50:00 PM ATTENTION: The Clinical Documentation Specialists (CDI) and [facility] Coding Staff appreciate your assistance in clarifying documentation. Please respond to the clarification below the line at the bottom and electronically sign. The CDI & [facility] Coding staff will review the response and follow-up if needed. Please note: Queries are made part of the Legal Health Record. If you have any questions, please contact the author of this message via ITS. Dr. Sonja Benitez Case was reviewed at Clinical Validation Committee and clarification is sought regarding the documentation of Subcutaneous Emphysema in Progress notes History/Risk Factors: Per 12/14/2019 HP 54 y/o female presents to the ED for evaluation with complaints of nausea and vomiting Diagnosed with COVID on Wednesday of this week Clinical Intubated 12/19/2019. 01/01 Pulmonary: acute respiratory failure due to ARDS post coronavirus COVID 19 related pneumonia. Low tidal volume ventilation was utilized and despite that the peak and static or appreciable quite elevated and there was a concern for barotrauma and based on that this patient to a pressure control mode of ventilation. Pulmonary 01/03 Chest x-ray showing diffuse but the pulmonary infiltrates and there is some subcutaneous emphysema in the left upper neck area. Indicators: Pulmonary 01/03The chest x-ray showing diffuse but the pulmonary infiltrates and there is some subcutaneous emphysema in the left upper neck area. Pulmonary 01/06: subcutaneous emphysema, limited over left neck area 01/02 Chest X-ray- Lucency overlies left neck region, Correlate clinically. 01/03 Chest X-ray - Bilateral airspace disease without significant change, correlate for pneumonia, edema, ARDS There is subcutaneous emphysema 01/04 There is improvement in the left neck subcutaneous emphysema 01/06: Chest x-ray showing diffuse but the pulmonary infiltrates and there is some subcutaneous emphysema in the left upper neck area Extubated 01/03 @ 09:00 Treatment: Chest X-rays In your professional opinion, can you please clarify the clinical significance, if any, of subcutaneous emphysema? Subcutaneous Emphysema clinically significant and treated by (please specify) Subcutaneous Emphysema not clinically significant Other, please specify Unable to determine (Last Revision: May 2017) Subcutaneous Emphysema not clinically significant MTDD
== END 2020-01-10 17:50 | disposition home health service (06) | DRG 207 ==
LOC: EC 10:46 → 4SSUR 13:38 → 2SICU 12-16 13:38 → 4SSUR 01-09 01:52
PROVIDERS: ADMIT Internal Medicine; ATTEND Internal Medicine
PROC: XW033E5 Introduction of Remdesivir Anti-infective into Peripheral Vein, Percutaneous Approach, New Technology Group 5 (ICD-10-PCS; 2019-12-15)
PROC: XW13325 Transfusion of Convalescent Plasma (Nonautologous) into Peripheral Vein, Percutaneous Approach, New Technology Group 5 (ICD-10-PCS; 2019-12-17)
PROC: 3E033XZ Introduction of Vasopressor into Peripheral Vein, Percutaneous Approach (ICD-10-PCS; principal; 2019-12-19)
PROC: 4A133B1 Monitoring of Arterial Pressure, Peripheral, Percutaneous Approach (ICD-10-PCS; principal; 2019-12-19)
PROC: 3E0G76Z Introduction of Nutritional Substance into Upper GI, Via Natural or Artificial Opening (ICD-10-PCS; principal; 2019-12-19)
PROC: 0DH67UZ Insertion of Feeding Device into Stomach, Via Natural or Artificial Opening (ICD-10-PCS; principal; 2019-12-19)
PROC: 5A1955Z Respiratory Ventilation, Greater than 96 Consecutive Hours (ICD-10-PCS; principal; 2019-12-19)
PROC: 0BH17EZ Insertion of Endotracheal Airway into Trachea, Via Natural or Artificial Opening (ICD-10-PCS; principal; 2019-12-19)
PROC: 03HY32Z Insertion of Monitoring Device into Upper Artery, Percutaneous Approach (ICD-10-PCS; principal; 2019-12-19)
PROC: 4A133J1 Monitoring of Arterial Pulse, Peripheral, Percutaneous Approach (ICD-10-PCS; principal; 2019-12-19)
PROC: 02H633Z Insertion of Infusion Device into Right Atrium, Percutaneous Approach (ICD-10-PCS; principal; 2019-12-19)
DX: U07.1 COVID-19 (principal); G92 Toxic encephalopathy; J12.89 Other viral pneumonia; J80 Acute respiratory distress syndrome; G72.81 Critical illness myopathy; E87.3 Alkalosis; Z68.42 Body mass index [BMI] 45.0-49.9, adult; J95.859 Other complication of respirator [ventilator]; E66.01 Morbid (severe) obesity due to excess calories; I10 Essential (primary) hypertension; E86.0 Dehydration; E78.5 Hyperlipidemia, unspecified; D72.810 Lymphocytopenia; F41.9 Anxiety disorder, unspecified; Z79.899 Other long term (current) drug therapy; Z90.49 Acquired absence of other specified parts of digestive tract; Z90.710 Acquired absence of both cervix and uterus; Z98.84 Bariatric surgery status; Z80.52 Family history of malignant neoplasm of bladder
CPT/HCPCS: 36415; 36600; 71045; 74230; 80048; 80053; 82150; 82550; 82728; 82805; 83520; 83605; 83615; 83625; 83690; 83735; 84100; 84132; 84145; 84478; 85025; 85379; 85384; 85610; 86140; 86850; 86900; 86901; 87040; 87070; 87205; 87324; 87635; 93005; 94002; 94003; 94640; 94660; 94760; 96360; 96361; 99285

== ENCOUNTER 2020-01-11 08:08 | Inpatient (IN) | payer OTHER, BC ==
--- NOTE | 2020-01-11 09:23 | XR ---
EXAMINATION TYPE: XR chest 2V DATE OF EXAM: 01/11/2020 COMPARISON: 01/08/2020 HISTORY: Shortness of breath TECHNIQUE: Frontal and lateral views of the chest are obtained. FINDINGS: Scattered senescent parenchymal changes noted. Hyperinflation compatible with COPD. Patchy perihilar and basilar infiltrates persist. Correlate for Covid 19 pneumonia. Significant steele e appreciated. Heart size is stable. Mediastinal structures are stable and grossly unremarkable. No evidence for hilar prominence. Degenerative changes dorsal spine. IMPRESSION: 1. Patchy perihilar and basilar infiltrates persist. Correlate for Covid 19 pneumonia. Significant ch aixa appreciated.
--- NOTE | 2020-01-11 09:25 | XR ---
EXAMINATION TYPE: XR elbow complete RT DATE OF EXAM: 01/11/2020 CLINICAL HISTORY: pain TECHNIQUE: Frontal, lateral and oblique images of the right elbow are obtained. COMPARISON: None. FINDINGS: Pathologic anterior and posterior fat pads noted. Tiny ossific density seen on the lateral projection within the posterior compartment of the right elbow may reflect a tiny loose body or avuls ion fracture. There is also curvilinear density adjacent to the radial neck. This may be external to the patient or related to avulsion fracture. Spurring arising from the lateral humeral epicondyles. IMPRESSION: As above
[2020-01-11 09:43] LABS: Basophils # (A) 0.1 k/uL (0-0.2); Basophils % (A) 0 %; Eosinophils # (A) 0.5 k/uL (0-0.7); Eosinophils % (A) 3 %; HCT 47.3 % (34.0-46.0); HGB 14.5 gm/dL (11.4-16.0); Hypochromasia Slight; Lymphocytes % (A) 5 %; MCH 28.2 pg (25.0-35.0); MCHC 30.6 g/dL (31.0-37.0); MCV 91.9 fL (80.0-100.0); Monocytes # (A) 0.7 k/uL (0-1.0); Monocytes % (A) 4 %; Neutrophils # (A) 17.1 k/uL (1.3-7.7); Neutrophils % (A) 88 %; Platelet Count 356 k/uL (150-450); RBC 5.15 m/uL (3.80-5.40); RDW 15.7 % (11.5-15.5); WBC 19.5 k/uL (3.8-10.6)
[2020-01-11 09:53] LABS: ALT 47 U/L (4-34); AST 32 U/L (14-36); African American GFR (CKD) >90 (>60 ml/min/1.73 sqM); Alkaline Phosphatase 122 U/L (38-126); Anion Gap 10 mmol/L; Blood Urea Nitrogen 37 mg/dL (7-17); Calcium 10.2 mg/dL (8.4-10.2); Carbon Dioxide 30 mmol/L (22-30); Chloride 107 mmol/L (98-107); Glucose 171 mg/dL (74-99); Magnesium 2.1 mg/dL (1.6-2.3); Non-African American GFR(CKD) 81 (>60 ml/min/1.73 sqM); Potassium 4.3 mmol/L (3.5-5.1); Sodium 147 mmol/L (137-145); Total Protein 7.1 g/dL (6.3-8.2)
[2020-01-11 10:06] LABS: Prothrombin Time 10.6 sec (9.0-12.0)
[2020-01-11 10:09] LABS: Partial Thromboplastin Time 21.9 sec (22.0-30.0)
--- NOTE | 2020-01-11 11:01 | ED ---
General Adult HPI - General Source: patient, RN notes reviewed Mode of arrival: ambulatory Limitations: no limitations <Dangelo Beltran - Last Filed: 01/11/20 11:25> <July Rivas - Last Filed: 01/18/20 11:50> - General Chief complaint: Shortness of Breath Stated complaint: SOB Time Seen by Provider: 01/11/20 08:11 - History of Present Illness Initial comments: This a 54-year-old female presents emergency Department with chief complaint of shortness of breath. Patient was found to be slightly confused, hypoxic at home. Patient was discharged yesterday after 37 day hospitalization for covid patient was offered subacute rehab that she is very weak, minimally ambulatory. Patient declined and went home on oxygen. When EMS arrived patient was found the on 15 L nasal cannula in which she was switched to a nonrebreather at 12 L. She ate greatly improved after oxygenation. She states she feels like she is at her baseline that she left the hospital yesterday. She denies any chest pain patient states that she did take a fall today patient complains of right elbow pain. No head injury no loss conscious. (Dangelo Beltran) - Related Data Home Medications Medication Instructions Recorded Confirmed lisinopriL 20 mg PO DAILY 10/31/18 01/11/20 Pravastatin Sodium [Pravachol] 40 mg PO HS 12/14/19 01/11/20 Previous Rx's Medication Instructions Recorded Acetaminophen Tab [Tylenol] 650 mg PO Q6HR PRN #30 tab 01/10/20 Albuterol Inhaler [Ventolin Hfa 2 puff INHALATION QID 30 Days #1 01/10/20 Inhaler] puff Ascorbic Acid [Vitamin C] 250 mg PO DAILY 30 Days #30 tablet 01/10/20 Famotidine [Pepcid] 20 mg PO Q12HR 30 Days #60 tab 01/10/20 Metoprolol Tartrate [Lopressor] 50 mg PO DAILY 30 Days #60 tab 01/10/20 Zinc 50 mg PO DAILY 30 Days #30 tablet 01/10/20 Cefuroxime Axetil [Ceftin] 500 mg PO BID 5 Days #10 tab 01/15/20 Folic Acid 1 mg PO DAILY@1200 tab 01/15/20 Melatonin 5 mg PO HS PRN tablet 01/15/20 Multivitamins, Thera [Multivitamin 1 each PO DAILY@1200 tab 01/15/20 (formulary)] Thiamine [Vitamin B-1] 100 mg PO DAILY@1200 tab 01/15/20 predniSONE 10 mg PO DIRECTED #30 tab 01/15/20 Allergies Allergy/AdvReac Type Severity Reaction Status Date / Time No Known Allergies Allergy Verified 01/11/20 13:22 Review of Systems ROS Other: All systems not noted in ROS Statement are negative. <Dangelo Beltran - Last Filed: 01/11/20 11:25> ROS Other: All systems not noted in ROS Statement are negative. <July Rivas - Last Filed: 01/18/20 11:50> ROS Statement: Those systems with pertinent positive or pertinent negative responses have been documented in the HPI. Past Medical History Past Medical History: Hyperlipidemia, Hypertension History of Any Multi-Drug Resistant Organisms: None Reported Past Surgical History: Bariatric Surgery, Cholecystectomy, Hysterectomy Additional Past Surgical History / Comment(s): lap band placed 2010 (?), partial hysterectomy (bilateral ovaries retained), colonscopy Past Anesthesia/Blood Transfusion Reactions: Postoperative Nausea & Vomiting (PONV) Additional Past Anesthesia/Blood Transfusion Reaction / Comment(s): No blood transfusion to date Past Psychological History: No Psychological Hx Reported Smoking Status: Never smoker Past Alcohol Use History: None Reported Past Drug Use History: None Reported - Past Family History Father Family Medical History: Cancer Additional Family Medical History / Comment(s): bladder Sister(s) Family Medical History: Cancer <Dangelo Beltran - Last Filed: 01/11/20 11:25> General Exam Limitations: no limitations General appearance: alert, in no apparent distress Head exam: Present: atraumatic, normocephalic, normal inspection Eye exam: Present: normal appearance, PERRL, EOMI. Absent: scleral icterus, conjunctival injection, periorbital swelling ENT exam: Present: normal exam, mucous membranes moist Neck exam: Present: normal inspection, full ROM. Absent: tenderness, meningismus, lymphadenopathy Respiratory exam: Present: decreased breath sounds. Absent: normal lung sounds bilaterally, respiratory distress, wheezes, rales, rhonchi, stridor Cardiovascular Exam: Present: normal rhythm, tachycardia, normal heart sounds. Absent: systolic murmur, diastolic murmur, rubs, gallop, clicks GI/Abdominal exam: Present: soft, normal bowel sounds. Absent: distended, tenderness, guarding, rebound, rigid Neurological exam: Present: alert, oriented X3, CN II-XII intact, reflexes normal. Absent: motor sensory deficit Skin exam: Present: warm, dry, intact, normal color. Absent: rash <Dangelo Beltran - Last Filed: 01/11/20 11:25> Course Vital Signs 01/11/20 01/11/20 01/11/20 08:10 08:30 10:50 Temperature 97.6 F Pulse Rate 123 H 107 H Respiratory 24 24 20 Rate Blood Pressure 106/81 136/79 O2 Sat by Pulse 96 98 Oximetry 01/11/20 01/11/20 01/11/20 15:06 17:56 20:00 Temperature 97.8 F 98.1 F Pulse Rate 99 106 H 110 H Respiratory 16 16 26 H Rate Blood Pressure 102/53 107/57 122/54 O2 Sat by Pulse 100 100 98 Oximetry Procedures - Cook Sta Protocol (Time Out) Nurse: Marina Vidales <Dangelo Beltran - Last Filed: 01/11/20 11:25> Medical Decision Making - Lab Data Result diagrams: 01/11/20 09:12 01/11/20 09:12 <Dangelo Beltran - Last Filed: 01/11/20 11:25> - Lab Data Result diagrams: 01/14/20 04:13 01/15/20 05:22 <July Rivas - Last Filed: 01/18/20 11:50> - Medical Decision Making 54-year-old presented to the Er with hypoxia. Patient had saturations in the 70s and 80s at home. Patient was AT the time improved with oxygenation. Patient continues to require significant oxygenation. Patient will be admitted (Dangelo Beltran) I was available for consultation in the emergency department. The history and physical exam were done by the midlevel provider. I was consulted for this [facility] care. I reviewed the case with the midlevel provider and based on their presentation of the patient, I agree with the assessment, medical decision making and plan of care as documented. Chart was dictated using [employer] dictation software. Attempts were made to correct any dictation errors however some typographical errors may persist. Patient seen during the Covid-19 pandemic. (July Rivas) - Lab Data Lab Results 01/11/20 01/11/20 01/11/20 Range/Units 09:12 09:12 09:12 WBC 19.5 H (3.8-10.6) k/uL RBC 5.15 (3.80-5.40) m/uL Hgb 14.5 (11.4-16.0) gm/dL Hct 47.3 H (34.0-46.0) % MCV 91.9 (80.0-100.0) fL MCH 28.2 (25.0-35.0) pg MCHC 30.6 L (31.0-37.0) g/dL RDW 15.7 H (11.5-15.5) % Plt Count 356 (150-450) k/uL MPV 8.0 Neutrophils % 88 % Lymphocytes % 5 % Monocytes % 4 % Eosinophils % 3 % Basophils % 0 % Neutrophils # 17.1 H (1.3-7.7) k/uL Lymphocytes # 1.0 (1.0-4.8) k/uL Monocytes # 0.7 (0-1.0) k/uL Eosinophils # 0.5 (0-0.7) k/uL Basophils # 0.1 (0-0.2) k/uL Hypochromasia Slight PT 10.6 (9.0-12.0) sec INR 1.0 (<1.2) APTT 21.9 L (22.0-30.0) sec D-Dimer (<0.60) mg/L FEU Sodium 147 H (137-145) mmol/L Potassium 4.3 (3.5-5.1) mmol/L Chloride 107 (98-107) mmol/L Carbon Dioxide 30 (22-30) mmol/L Anion Gap 10 mmol/L BUN 37 H (7-17) mg/dL Creatinine 0.83 (0.52-1.04) mg/dL Est GFR (CKD-EPI)AfAm >90 (>60 ml/min/1.73 sqM) Est GFR (CKD-EPI)NonAf 81 (>60 ml/min/1.73 sqM) Glucose 171 H (74-99) mg/dL Lactic Ac Sepsis Rflx Plasma Lactic Acid Jonathon (0.7-2.0) mmol/L Calcium 10.2 (8.4-10.2) mg/dL Magnesium 2.1 (1.6-2.3) mg/dL Total Bilirubin 1.0 (0.2-1.3) mg/dL AST 32 (14-36) U/L ALT 47 H (4-34) U/L Alkaline Phosphatase 122 (38-126) U/L Troponin I (0.000-0.034) ng/mL NT-Pro-B Natriuret Pep pg/mL Total Protein 7.1 (6.3-8.2) g/dL Albumin 4.0 (3.5-5.0) g/dL Vancomycin Trough ug/mL 01/11/20 01/11/20 01/11/20 Range/Units 09:12 09:12 09:12 WBC (3.8-10.6) k/uL RBC (3.80-5.40) m/uL Hgb (11.4-16.0) gm/dL Hct (34.0-46.0) % MCV (80.0-100.0) fL MCH (25.0-35.0) pg MCHC (31.0-37.0) g/dL RDW (11.5-15.5) % Plt Count (150-450) k/uL MPV Neutrophils % % Lymphocytes % % Monocytes % % Eosinophils % % Basophils % % Neutrophils # (1.3-7.7) k/uL Lymphocytes # (1.0-4.8) k/uL Monocytes # (0-1.0) k/uL Eosinophils # (0-0.7) k/uL Basophils # (0-0.2) k/uL Hypochromasia PT (9.0-12.0) sec INR (<1.2) APTT (22.0-30.0) sec D-Dimer (<0.60) mg/L FEU Sodium (137-145) mmol/L Potassium (3.5-5.1) mmol/L Chloride (98-107) mmol/L Carbon Dioxide (22-30) mmol/L Anion Gap mmol/L BUN (7-17) mg/dL Creatinine (0.52-1.04) mg/dL Est GFR (CKD-EPI)AfAm (>60 ml/min/1.73 sqM) Est GFR (CKD-EPI)NonAf (>60 ml/min/1.73 sqM) Glucose (74-99) mg/dL Lactic Ac Sepsis Rflx Plasma Lactic Acid Jonathon 2.2 H* (0.7-2.0) mmol/L Calcium (8.4-10.2) mg/dL Magnesium (1.6-2.3) mg/dL Total Bilirubin (0.2-1.3) mg/dL AST (14-36) U/L ALT (4-34) U/L Alkaline Phosphatase (38-126) U/L Troponin I <0.012 (0.000-0.034) ng/mL NT-Pro-B Natriuret Pep 90 pg/mL Total Protein (6.3-8.2) g/dL Albumin (3.5-5.0) g/dL Vancomycin Trough ug/mL 01/11/20 01/11/20 01/11/20 Range/Units 09:12 09:12 10:04 WBC (3.8-10.6) k/uL RBC (3.80-5.40) m/uL Hgb (11.4-16.0) gm/dL Hct (34.0-46.0) % MCV (80.0-100.0) fL MCH (25.0-35.0) pg MCHC (31.0-37.0) g/dL RDW (11.5-15.5) % Plt Count (150-450) k/uL MPV Neutrophils % % Lymphocytes % % Monocytes % % Eosinophils % % Basophils % % Neutrophils # (1.3-7.7) k/uL Lymphocytes # (1.0-4.8) k/uL Monocytes # (0-1.0) k/uL Eosinophils # (0-0.7) k/uL Basophils # (0-0.2) k/uL Hypochromasia PT (9.0-12.0) sec INR (<1.2) APTT (22.0-30.0) sec D-Dimer 1.13 H (<0.60) mg/L FEU Sodium (137-145) mmol/L Potassium (3.5-5.1) mmol/L Chloride (98-107) mmol/L Carbon Dioxide (22-30) mmol/L Anion Gap mmol/L BUN (7-17) mg/dL Creatinine (0.52-1.04) mg/dL Est GFR (CKD-EPI)AfAm (>60 ml/min/1.73 sqM) Est GFR (CKD-EPI)NonAf (>60 ml/min/1.73 sqM) Glucose (74-99) mg/dL Lactic Ac Sepsis Rflx Y Plasma Lactic Acid Jonathon (0.7-2.0) mmol/L Calcium (8.4-10.2) mg/dL Magnesium (1.6-2.3) mg/dL Total Bilirubin (0.2-1.3) mg/dL AST (14-36) U/L ALT (4-34) U/L Alkaline Phosphatase (38-126) U/L Troponin I (0.000-0.034) ng/mL NT-Pro-B Natriuret Pep pg/mL Total Protein (6.3-8.2) g/dL Albumin (3.5-5.0) g/dL Vancomycin Trough <5.0 ug/mL Disposition <Dangelo Beltran - Last Filed: 01/11/20 11:25> <July Rivas - Last Filed: 01/18/20 11:50> Clinical Impression: COVID-19, Hypoxia Disposition: ADMITTED IP TO THIS HOSP Condition: Stable
[2020-01-11] MEDS ORDERED: ACETAMINOPHEN TAB 325 MG TAB PO PRN (11:27)
[2020-01-11] MEDS ORDERED: NALOXONE 0.4 MG/ML 1 ML VIAL IV PRN (11:27)
[2020-01-11] MEDS ORDERED: VANCOMYCIN IV PER PHARMACY 1 EACH MISC MISCELLANE PRN (12:23)
--- NOTE | 2020-01-11 14:29 | CT ---
EXAMINATION TYPE: CT chest angio for PE DATE OF EXAM: 01/11/2020 COMPARISON: Chest x-ray earlier today and older studies HISTORY: Shortness of breath and weakness for [address] DLP: 247.4 mGycm Automated exposure control for dose reduction was used. CONTRAST: CT Chest for pulmonary embolism performed with with IV Contrast, patient injected with 100 mL of Isov ue 370. FINDINGS: LUNGS: Low lung volumes with multifocal areas of groundglass opacity and areas of reticulation and co nsolidation in the lower lungs. No pleural effusion or pneumothorax. MEDIASTINUM: There is satisfactory enhancement of the pulmonary artery and its branches, there is no CT evidence for pulmonary embolism. Satisfactory enhancement of aorta without dissection or aneurysm. There are prominent right greater than left bilateral hilar lymph nodes. No mediastinal adenopathy. No cardiomegaly or pericardial effusion is seen. OTHER: Lap band device satisfactory in position. Cholecystectomy clips. Multilevel spurring in the s pine. Some retained contrast in the right-sided colon on quarrying manager image. IMPRESSION: 1. No CT evidence for acute pulmonary embolism. 2. Bilateral acute infiltrates greatest in the periphery and in the lower lungs consistent with histo ry of covid-19 infection.
[2020-01-11] MEDS: VANCOMYCIN 1,500 MG in SODIUM CHLORIDE 0.9% 250 ML IVPB SCH (15:02)
[2020-01-11] MEDS ORDERED: ALPRAZolam 0.25 MG TAB PO PRN (16:37)
[2020-01-11] MEDS ORDERED: HYDROcodone/APAP 5-325MG 1 EACH TAB PO PRN (16:37)
[2020-01-11] MEDS ORDERED: RX INFO: IV CONTRAST WAS GIVEN 1 EACH MISC MISCELLANE PRN (16:38)
[2020-01-11] MEDS: DEXTROSE 5% IN WATER 1,000 ML IV SCH (17:51)
--- NOTE | 2020-01-11 19:13 | CT ---
EXAMINATION TYPE: CT brain wo con DATE OF EXAM: 01/11/2020 HISTORY: Stroke? CT DLP: 1099.4 mGycm. Automated Exposure Control for Dose Reduction was Utilized. TECHNIQUE: CT scan of the head is performed without contrast. COMPARISON: None. FINDINGS: There is no acute intracranial hemorrhage or midline shift identified. Mild ventricular a nd sulcal prominence. Coronado-white matter differentiation fairly well maintained. The globes are intac t and the visualized sinuses are clear. IMPRESSION: No acute intracranial hemorrhage or midline shift.
[2020-01-11] MEDS: ALBUTEROL HFA INHALER INHALATION SCH (21:30)
--- NOTE | 2020-01-11 21:45 | HP ---
HISTORY AND PHYSICAL DATE OF SERVICE: 01/11/2020 CHIEF COMPLAINT: Shortness of breath. HISTORY OF PRESENT ILLNESS: This 54-year-old woman being followed by Dr. Hargrove in the outpatient setting had a history of hypertension, hyperlipidemia, history of bariatric surgery, cholecystectomy. The patient recently admitted with COVID-19 pneumonia for several weeks in the hospital. Patient was treated with Remdesivir and convalescence plasma and the patient was sent home a couple days ago. The patient was found to be confused and the patient also complaining of weak and patient was offered subacute rehab, but the patient refused rehab and the patient was found to be short of breath and EMS found the patient severely hypoxic. 15 L nasal cannula was administered. The patient transferred to [facility] and was admitted for further evaluation and treatment. Evaluation showed some evidence of ongoing inflammation as well as elevated D-dimer and sodium is 147. The patient also had bilateral lung lesions, which is very extensive in the CT scan. The previous CT scan was not available for comparison at this time. The patient being admitted for further evaluation and treatment. There is no history of any rigor or chills at this time. PAST MEDICAL HISTORY: History of hypertension, hyperlipidemia, recent Covid 19 pneumonia, bariatric surgery. MEDICATIONS: Albuterol. Pepcid, prednisone, lisinopril, zinc, Seroquel Pravachol, Lopressor, melatonin, vitamin C, Tylenol. ALLERGIES: None FAMILY HISTORY: Family history of bladder cancer in the family. SOCIAL HISTORY: No history of smoking. No history of alcohol. REVIEW OF SYSTEMS: ENT: No diminished vision. No diminished hearing. CARDIOVASCULAR: No angina or palpitations. RESPIRATORY: As mentioned earlier. GI: As mentioned earlier. : No dysuria. NERVOUS SYSTEM: No focal deficits. ALLERGIES/IMMUNOLOGY: No history of hayfever. MUSCULOSKELETAL as mentioned earlier. HEMATOLOGY/ONCOLOGY: No history of anemia. ENDOCRINE: No history of diabetes or hypothyroidism. CONSTITUTIONAL: As mentioned earlier. DERMATOLOGY negative. RHEUMATOLOGY: Negative. CONSTITUTIONAL: As mentioned earlier. PHYSICAL EXAMINATION: Alert and oriented times three. Pulse is 99. Blood pressure 102/53, respirations 16, temp 97.8. Pulse ox 100 percent on 5 L. HEENT: Conjunctivae normal. NECK: No JVD. CARDIOVASCULAR: S1, S2 muffled. RESPIRATORY: Breath sounds diminished in the bases. A few scattered rhonchi and crackles. ABDOMEN: Soft, nontender. LEGS are no edema. No swelling. NERVOUS SYSTEM: No focal deficits. SKIN: No ulcers, rashes or bleeding. JOINTS: Right elbow pain. LABS: WBC 19.2, hemoglobin is 14.5. Otherwise D-dimer is 1.13. Sodium is 147. ASSESSMENT: 1. Acute bilateral pneumonia Covid 19 interstitial pneumonia with acute hypoxic respiratory failure with possible sepsis present on admission. 2. History of recent Covid 19 pneumonia treated with convalescent plasma and Remdesivir. 3. Increased WBC. 4. Right elbow pain, rule out fracture. 5. Elevated D-dimer without any evidence of pulmonary embolism. 6. Hypernatremia. 7. Change in mental status, metabolic encephalopathy, acute. 8. Elevated lactic acid, possibly secondary to sepsis. 9. History of hypertension. 10.Hyperlipidemia. 11.History of bariatric surgery. 12.History of cholecystectomy. 13.History of hysterectomy. 14.History of lap band. 15.Obesity with body mass of 37.1. 16.FULL CODE. RECOMMENDATIONS AND DISCUSSION: This 54-year-old woman who presented with multiple complex medical issues, we will monitor the patient closely. Continue the current medications, symptomatic treatment. Otherwise at this time empiric antibiotics will be initiated. We will initiate Rocephin and vancomycin and obtain the cultures. We will obtain Infectious Disease and pulmonary consultations. Prognosis: Extremely guarded because of multiple complex medical issues. Further recommendations to follow. We will also check a interleukin level and level also. We will also order a procalcitonin level as well. A copy of dictation being forwarded to Dr. Hargrove, who is the primary physician. We will retest the patient for COVID 19. MMODL / IJN: [id number] / MTDD
[2020-01-11] MEDS: ENOXAPARIN 40 MG/0.4 ML SYRINGE SQ SCH (22:31)
[2020-01-11] MEDS: PRAVASTATIN SODIUM 40 MG TAB PO SCH (22:31)
[2020-01-11] MEDS: MELATONIN 5 MG TABLET PO SCH (22:31)
[2020-01-11] MEDS: QUEtiapine 50 MG TAB PO SCH (22:31)
[2020-01-11] MEDS: FAMOTIDINE 20 MG TAB PO SCH (22:31)
[2020-01-12] MEDS: VANCOMYCIN 1,500 MG in SODIUM CHLORIDE 0.9% 250 ML IVPB SCH (04:37)
[2020-01-12 08:09] LABS: Basophils % (A) 0 %; Eosinophils % (A) 11 %; HCT 43.2 % (34.0-46.0); HGB 13.2 gm/dL (11.4-16.0); Hypochromasia Slight; Lymphocytes # (A) 1.3 k/uL (1.0-4.8); Lymphocytes % (A) 15 %; MCH 28.2 pg (25.0-35.0); MCHC 30.7 g/dL (31.0-37.0); MCV 91.8 fL (80.0-100.0); Monocytes # (A) 0.5 k/uL (0-1.0); Monocytes % (A) 6 %; Neutrophils # (A) 5.8 k/uL (1.3-7.7); Neutrophils % (A) 67 %; Platelet Count 210 k/uL (150-450); RDW 15.8 % (11.5-15.5); WBC 8.7 k/uL (3.8-10.6)
[2020-01-12] MEDS ORDERED: NON FORMULARY DRUG (Zinc [Zinc] 50 MG Tablet) PO SCH (09:00)
[2020-01-12] MEDS: ALBUTEROL HFA INHALER INHALATION SCH ×4 (09:20→20:22)
[2020-01-12] MEDS: METOPROLOL TARTRATE 50 MG TAB PO SCH (09:27)
[2020-01-12] MEDS: FAMOTIDINE 20 MG TAB PO SCH ×2 (09:27→20:22)
[2020-01-12] MEDS: lisinopriL 20 MG TAB PO SCH (09:28)
[2020-01-12] MEDS: ASCORBIC ACID 500 MG TAB PO SCH (09:28)
[2020-01-12] MEDS: ENOXAPARIN 40 MG/0.4 ML SYRINGE SQ SCH ×2 (09:28→20:22)
--- NOTE | 2020-01-12 10:13 | ECHOF ---
Referral Reason:SOB MEASUREMENTS -------- HEIGHT: 154.9 cm WEIGHT: 86.2 kg BP: IVSd: 1.4 cm (0.6 - 1.1) LVIDd: 3.3 cm (3.9 - 5.3) LVPWd: 1.3 cm (0.6 - 1.1) EDV(Teich): 43 ml IVSs: 1.4 cm LVIDs: 1.4 cm LVPWs: 1.3 cm %IVS Thck: -3 % ESV(Teich): 5 ml EF(Teich): 89 % %FS: 58 % SV(Teich): 38 ml IVC: 9.94 mm LALs A4C: 4.1 cm LAAs A4C: 11.5 cm LAESV A-L A4C: 27 ml LAESV MOD A4C: 26 ml LALs A2C: 3.4 cm LAAs A2C: 8.1 cm LAESV A-L A2C: 17 ml LAESV MOD A2C: 16 ml LAESV(A-L): 24 ml LAESV Index (A-L): 12.81 ml/m Ao Diam: 2.8 cm (2.0 - 3.7) LA Diam: 2.2 cm (2.7 - 3.8) AV Cusp: 1.5 cm (1.5 - 2.6) EPSS: 0.5 cm MV E Parminder: 0.87 m/s MV DecT: 199 ms MV Dec Callaway: 4.4 m/s MV A Parminder: 0.82 m/s MV E/A Ratio: 1.07 MV PHT: 58 ms MR Vmax: 1.55 m/s MR maxP.63 mmHg LVOT Vmax: 1.31 m/s LVOT maxP.99 mmHg LVOT Vmax: 1.45 m/s LVOT Vmean: 1.02 m/s LVOT maxP.46 mmHg LVOT meanP.86 mmHg LVOT Env.Ti: 286 ms LVOT VTI: 29.2 cm AV Vmax: 1.51 m/s AV maxP.10 mmHg AV Vmax: 1.58 m/s AV Vmean: 1.12 m/s AV maxP.95 mmHg AV meanP.68 mmHg AV Env.Ti: 245 ms AV VTI: 27.3 cm TR Vmax: 1.57 m/s TR maxP.84 mmHg RAP: 5.00 mmHg RVSP: 14.84 mmHg MV EF SLOPE: 60.34 mm/s (70 - 150) MV EXCURSION: 12.45 mm (> 18.000) FINDINGS -------- Sinus rhythm. This was a technically good study. The left ventricular size is normal. There is moderate concentric left ventricular hypertrophy. T here is normal global left ventricular contractility. Overall left ventricular systolic function is normal with, an EF between 55 - 60 %. The diastolic filling pattern is normal for the age of the p atient 12.97. The right ventricle is normal in size. Normal LA size by volume 22+/-6 ml/m2. The right atrial size is normal. The aortic valve is trileaflet, and appears structurally normal. No aortic stenosis or regurgitation. The mitral valve is normal. Mild mitral regurgitation is present. The tricuspid valve appears structurally normal. Mild tricuspid regurgitation present. Right vent ricular systolic pressure is normal at < 35 mmHg. There is no pulmonic regurgitation present. The aortic root size is normal. Normal inferior vena cava with normal inspiratory collapse consistent with estimated right atrial pre ssure of 5 mmHg. There is no pericardial effusion. CONCLUSIONS -------- 1. The left ventricular size is normal. 2. There is moderate concentric left ventricular hypertrophy. 3. Overall left ventricular systolic function is normal with, an EF between 55 - 60 %. 4. The diastolic filling pattern is normal for the age of the patient 12.97 5. Normal LA size by volume 22+/-6 ml/m2. 6. The aortic valve is trileaflet, and appears structurally normal. No aortic stenosis or regurgitati on. 7. Mild mitral regurgitation is present. 8. Mild tricuspid regurgitation present. 9. There is no pericardial effusion. WASHING MACHINE LOADER: Carmela Borden RDCS
[2020-01-12 11:34] LABS: African American GFR (CKD) 128.1 (60.0-200.0); Non-African American GFR(CKD) 110.5 (60.0-200.0); Potassium 3.8 mmol/L (3.5-5.5)
--- NOTE | 2020-01-12 12:13 | CONS ---
CONSULTATION DATE OF SERVICE: 01/11/2020. REASON FOR CONSULTATION: COVID. HISTORY OF PRESENT ILLNESS: The patient is a 54-year-old female who was recently admitted to this facility for almost 25 days and just discharged from the hospital yesterday. This patient was treated for COVID-19 infection. The patient is presenting back to the hospital with increasing shortness of breath, confusion and hypoxemia at home. The patient denies having any headache or URI symptoms. Denies having any chest pain. Still complaining of shortness of breath. Did have minimal cough but no sputum production. No nausea, no vomiting. No abdominal pain or any diarrhea. On arrival to the hospital, the patient was afebrile. The patient was hypoxic requiring supplemental oxygen, currently on 5 L nasal cannula. The patient did have white count of 19.5 with left shift. D-dimer was mildly elevated to 1.13, creatinine 0.83. Lactic acid 2.8 repeat is 1.3. The patient did have a chest x-ray which shows patchy perihilar and basilar infiltrate for COVID-19 pneumonia. Patient also have a CT angiogram of the chest which shows no evidence of PE, did show bilateral ( ) periphery and lower lungs consistent with history of COVID-19 infection. DIAGNOSTIC IMPRESSION AND PLAN: Patient has been admitted to the hospital. Patient was started on Rocephin and vancomycin. Infectious Disease was consulted with concern for possible infection. REVIEW OF SYSTEMS: Positive points have been mentioned in HPI. Rest of systems are negative. PAST MEDICAL HISTORY: Hypertension, hyperlipidemia, recent prolonged stay in the hospital for COVID-19 pneumonia. PAST SURGICAL HISTORY: Cholecystectomy, hysterectomy, bariatric surgery. SOCIAL HISTORY: No history of smoking, drinking or drug use. FAMILY HISTORY: Father had history of bladder cancer. ALLERGIES: No known drug allergies. MEDICATIONS: The patient is currently on vancomycin, Levaquin, Pravachol, Narcan, Lopressor, melatonin, Lovenox, Rocephin, Xanax and Ventolin. PHYSICAL EXAMINATION: Blood pressure 137/71 with a pulse of 93, temperature 97.7. She is 100% on 5 L nasal cannula. General description is middle-aged female lying in bed in no distress. No tachypnea or accessory muscle of respiration use. HEENT examination shows no pallor or scleral icterus. Oral mucous membranes are dry. Neck: Trachea central, no thyromegaly. Lungs: Unlabored breathing, decreased breath sounds in the base, with no wheeze or crackle. Heart S1, S2. Regular rate and rhythm. Abdomen soft, no tenderness, no rigidity. Extremities: No edema of the feet. No rash or mass palpable. Neurologic: The patient is awake, alert, oriented. Mood and affect normal. LABS: Hemoglobin 14.5, white count 19.5, BUN of 37, creatinine 0.8, ( ) 2.2. DIAGNOSTIC IMPRESSION: Patient admitted to the hospital with increasing shortness of breath and cough in this patient who recently did have a prolonged stay in hospital where the patient was treated for COVID-19 infection, now with evidence of leukocytosis and pulmonary infiltrate and concern for possible pneumonia. PLAN: 1. We will try to obtain sputum for Gram stain and culture. 2. Check a CRP and procalcitonin level. 3. Continue empiric vancomycin and Rocephin while awaiting for the ( ) to be completed. 4. We will follow on clinical condition and further adjust medication if needed. Thank you for this consultation. Will follow this patient along with you. MMODL / IJN: [id number] /
[2020-01-12] MEDS: THIAMINE 100 MG TAB PO SCH (13:39)
[2020-01-12] MEDS: MULTIVITAMINS, THERA 1 EACH TAB PO SCH (13:39)
[2020-01-12] MEDS: FOLIC ACID 1 MG TAB PO SCH (13:39)
--- NOTE | 2020-01-12 13:54 | P.CNPUL ---
History of Present Illness Consult date: 01/12/20 Requesting physician: David Kang Reason for consult: dyspnea, hypoxemia, abnormal CXR/CT Chief complaint: Weakness, hypoxia, medical debility, COVID 19 History of present illness: 54-year-old white female patient with recent history of COVID 19 related pneumonia with severe hypoxic respiratory failure requiring intubation and prolonged mechanical ventilator support from 12/19/2019 through 01/04/2020, patient was treated with steroids, Remdesivir and convalescent plasma. She required paralytics while on the ventilator. Following weaning and extubation from mechanical ventilator she remained quiet weak, as she had developed critical illness polyneuropathy. However she was overall recovering quite nicely, she was recommended rehabilitation at an [facility] following her discharge however patient declined, and insisted on going home, and she was discharged home on 01/10/2020. When she returned home, patient was having issues with mobility, he was requiring extensive assistance with transferring to the commode and as her was trying to transfer her to the commode, he could not s upport her weight, and she ended up falling on the floor, onto her right arm. At the same time she became quite short of breath while on oxygen her daughter checked her O2 saturation which was in the low 60s, and EMS was called and patient was transported back to the hospital. Otherwise no worsening dyspnea other than with exertion, no chest pain, no significant cough. Chest x-ray showed patchy perihilar and basilar infiltrates related to COVID 19 pneumonia and this was compared to her most recent chest x-ray showing some improvement. CT chest was obtained showing no evidence of acute pulmonary embolism, it did show bilateral acute infiltrates greatest in the periphery and in the lower l ungs consistent with history of COVID [address] brain was completed showing no acute intracranial hemorrhage or midline shift. Currently patient is on 5 L of oxygen a pulse ox of 97%, afebrile, hemodynamically stable, she was started on empiric antibiotics in the form of Rocephin and vancomycin. Her admission blood work that showed leukocytosis with white blood cell count of 19.5, hemoglobin of 14.5, d-dimer 1.13, sodium was 147, the rest of electrolytes were within normal limits, BUN of 37 creatinine is 0.83, lactic acid was 2.2, LDH is down to 343, trending down since her last hospitalization, CRP is down to 2, pro calcitonin is negative at 0.10, proBNP was 90. Repeat COVID 19 test came back negative. Patient was started on D5W at a rate of 40 ML per hour, she is tolerating oral intake, denies nausea vomiting or diarrhea. Review of Systems All systems: negative Constitutional: Reports weakness, Denies chills, Denies fever Eyes: denies blurred vision, denies pain Ears, nose, mouth and throat: Denies headache, Denies sore throat Cardiovascular: Denies chest pain, Denies shortness of breath Respiratory: Reports dyspnea, Reports home oxygen, Denies cough Gastrointestinal: Denies abdominal pain, Denies diarrhea, Denies nausea, Denies vomiting Genitourinary: Denies dysuria, Denies hematuria Musculoskeletal: Denies myalgias Integumentary: Denies pruritus, Denies rash Neurological: Reports gait dysfunction, Reports weakness, Denies numbness Psychiatric: Denies anxiety, Denies depression Endocrine: Denies fatigue, Denies weight change Past Medical History Past Medical History: Hyperlipidemia, Hypertension Additional Past Medical History / Comment(s): COVID pos 2020 History of Any Multi-Drug Resistant Organisms: None Reported Past Surgical History: Bariatric Surgery, Cholecystectomy, Hysterectomy Additional Past Surgical History / Comment(s): lap band placed 2010 (?), partial hysterectomy (bilateral ovaries retained), colonscopy Past Anesthesia/Blood Transfusion Reactions: Postoperative Nausea & Vomiting (PONV) Additional Past Anesthesia/Blood Transfusion Reaction / Comment(s): No blood transfusion to date Past Psychological History: No Psychological Hx Reported Smoking Status: Never smoker Past Alcohol Use History: None Reported Past Drug Use History: None Reported - Past Family History Father Family Medical History: Cancer Additional Family Medical History / Comment(s): bladder Sister(s) Family Medical History: Cancer Medications and Allergies Home Medications Medication Instructions Recorded Confirmed Type lisinopriL 20 mg PO DAILY 10/31/18 01/11/20 History Pravastatin Sodium [Pravachol] 40 mg PO HS 12/14/19 01/11/20 History Acetaminophen Tab [Tylenol] 650 mg PO Q6HR PRN #30 tab 01/10/20 01/11/20 Rx Albuterol Inhaler [Ventolin Hfa 2 puff INHALATION QID 30 Days #1 01/10/20 01/11/20 Rx Inhaler] puff Ascorbic Acid [Vitamin C] 250 mg PO DAILY 30 Days #30 tablet 01/10/20 01/11/20 Rx Famotidine [Pepcid] 20 mg PO Q12HR 30 Days #60 tab 01/10/20 01/11/20 Rx Melatonin 5 mg PO HS #10 tablet 01/10/20 01/11/20 Rx Metoprolol Tartrate [Lopressor] 50 mg PO DAILY 30 Days #60 tab 01/10/20 01/11/20 Rx QUEtiapine FUMARATE [SEROquel] 50 mg PO HS 30 Days #60 tablet 01/10/20 01/11/20 Rx Zinc 50 mg PO DAILY 30 Days #30 tablet 01/10/20 01/11/20 Rx predniSONE 30 mg PO DAILY 30 Days #90 tab 01/10/20 01/11/20 Rx Allergies Allergy/AdvReac Type Severity Reaction Status Date / Time No Known Allergies Allergy Verified 01/11/20 13:22 Physical Exam Vitals: Vital Signs Temp Pulse Pulse Resp BP BP Pulse Ox 01/12/20 07:40 98.3 F 87 18 128/76 94 L 01/12/20 03:41 98.6 F 98 16 146/85 97 01/11/20 22:45 97.7 F 93 20 107/71 100 01/11/20 20:00 98.1 F 110 H 26 H 122/54 98 01/11/20 17:56 106 H 16 107/57 100 01/11/20 15:06 97.8 F 99 16 102/53 100 Intake and Output 01/11/20 01/12/20 01/12/20 22:59 06:59 14:59 Intake Total 320 Balance 320 Intake: Intake, IV Titration 320 Amount Dextrose 5% in Water 1, 320 000 ml @ 40 mls/hr IV . Q24H COUNTS INCLUDE 234 BEDS AT THE [facility] Rx#:[id number] Other: Voiding Method Bedside Commode # Voids 1 Weight 77.5 kg GENERAL EXAM: Alert, very pleasant 84-year-old white female on 5 L of oxygen with a pulse ox of 97% comfortable in no apparent distress. HEAD: Normocephalic/atraumatic. EYES: Normal reaction of pupils, equal size. Conjunctiva pink, sclera white. NOSE: Clear with pink turbinates. THROAT: No erythema or exudates. NECK: No masses, no JVD, no thyroid enlargement, no adenopathy. CHEST: No chest wall deformity. Symmetrical expansion. LUNGS: Equal air entry with no crackles, wheeze, rhonchi or dullness. CVS: Regular rate and rhythm, normal S1 and S2, no gallops, no murmurs, no rubs ABDOMEN: Soft, nontender. No hepatosplenomegaly, normal bowel sounds, no guarding or rigidity. EXTREMITIES: No clubbing, no edema, no cyanosis, 2+ pulses and upper and lower extremities. MUSCULOSKELETAL: Muscle strength and tone normal. SPINE: No scoliosis or deformity SKIN: No rashes CENTRAL NERVOUS SYSTEM: Alert and oriented -3. No focal deficits, tone is normal in all 4 extremities. PSYCHIATRIC: Alert and oriented -3. Appropriate affect. Intact judgment and insight. Results - Laboratory Findings CBC and BMP: 01/12/20 07:42 01/12/20 07:42 PT/INR, D-dimer PT 10.6 sec (9.0-12.0) 01/11/20 09:12 INR 1.0 (<1.2) 01/11/20 09:12 D-Dimer 1.13 mg/L FEU (<0.60) H 01/11/20 09:12 Abnormal lab findings: Abnormal Labs 01/11/20 01/11/20 01/11/20 09:12 09:12 09:12 WBC 19.5 H Hct 47.3 H MCHC 30.6 L RDW 15.7 H Neutrophils # 17.1 H Eosinophils # APTT 21.9 L D-Dimer Sodium 147 H BUN 37 H Creatinine BUN/Creatinine Ratio Glucose 171 H Plasma Lactic Acid Jonathon ALT 47 H Lactate Dehydrogenase C-Reactive Protein Procalcitonin 01/11/20 01/11/20 01/12/20 09:12 09:12 07:42 WBC Hct MCHC 30.7 L RDW 15.8 H Neutrophils # Eosinophils # 1.0 H APTT D-Dimer 1.13 H Sodium BUN Creatinine BUN/Creatinine Ratio Glucose Plasma Lactic Acid Jonathon 2.2 H* ALT Lactate Dehydrogenase C-Reactive Protein Procalcitonin 01/12/20 01/12/20 07:42 07:42 WBC Hct MCHC RDW Neutrophils # Eosinophils # APTT D-Dimer Sodium BUN Creatinine 0.5 L BUN/Creatinine Ratio 48.00 H Glucose Plasma Lactic Acid Jonathon ALT Lactate Dehydrogenase 343 H C-Reactive Protein 2.0 H Procalcitonin 0.10 H - Diagnostic Findings Chest x-ray: report reviewed, image reviewed CT scan - chest: report reviewed, image reviewed Assessment and Plan Plan: Assessment: #1. Acute hypoxic respiratory failure related to recent history of COVID 19 pneumonitis #2. Recent hospitalization for COVID 19 pneumonitis requiring intubation and mechanical ventilation from 12/19/2019 through 01/04/2020 #3. Severe medical debility following severe critical illness and prolonged mechanical ventilator support #4. Fall at home, sustaining injury to the right elbow and the x-ray showed possibility of avulsion fracture #5. Mild lactic acidosis related to dehydration, doubt sepsis #6. Mild hypernatremia related to dehydration, improved with hydration #7. Elevated d-dimer with no evidence of pulmonary embolism on the CTA chest, this is likely related to recent history of COVID 19 infection #8. History of hypertension #9. Hyperlipidemia #10. History of bariatric surgery Plan: Clinically stable, maintain aspiration precautions, patient needs intensive physical therapy and rehabilitation after discharge, she is still severely weak. Pro-calcitonin level came back negative at 0.10, no cough, no chest pain, no phlegm production, no worsening dyspnea, doubt underlying pneumonia, or just discontinuing the antibiotics, ID service is following, and managing the antibiotics. Continue anticoagulation. Consult social work for rehab placement I performed a history & physical examination of the patient and discussed their management with my nurse practitioner, Andreia Lau. I reviewed the nurse practitioner's note and agree with the documented findings and plan of care. Lung sounds are positive for diminished breath sounds. The findings and the impression was discussed with the patient. I attest to the documentation by the nurse practitioner. Time with Patient: Greater than 30
[2020-01-12] MEDS: VANCOMYCIN 1,250 MG in SODIUM CHLORIDE 0.9% 250 ML IVPB SCH ×2 (14:55→21:42)
[2020-01-12] MEDS: DEXTROSE 5% IN WATER 1,000 ML IV SCH (18:04)
--- NOTE | 2020-01-12 19:03 | P.PN ---
Subjective Progress Note Date: 01/12/20 This is a 54-year-old female who was recently admitted with severe hypoxia while at home after recently being sent home during long hospitalization with Covid 19 pneumonia and is being closely monitored. Patient was on mechanical ventilation during last admission. Patient continues to be quite weak and also experienced a fall while at home. Patient will be needing subacute rehab once stabilized and discharged. Orthopedics consulted for the right elbow pain as she fell while at home and xray shows possibility of an avulsion fracture. No plans for surgical intervention and patient placed in a splint. A sling will be ordered. PT/OT following and working with the patient as she will require PT/OT at an [facility] once discharged. Case management and social work following and working on [place] as a possibility. Repeat Covid testing is negative at this time. Patient remains on 5L via NC. Patient denies chest pain, worsening shortness of breath, or palpitations at this time. Afebrile. No reports of nausea or vomiting and tolerating diet. Objective - Vital Signs Vital signs: Vital Signs Temp 98.1 F 01/12/20 14:00 Pulse 87 01/12/20 14:00 Resp 18 01/12/20 14:00 BP 111/59 01/12/20 14:00 Pulse Ox 95 01/12/20 14:00 Intake & Output 01/11/20 01/12/20 01/12/20 18:59 06:59 18:59 Intake Total 320 Balance 320 Weight 89.358 kg 77.5 kg Intake: Intake, IV Titration 320 Amount Dextrose 5% in Water 1, 320 000 ml @ 40 mls/hr IV . Q24H [facility] Rx#:[id number] Other: Voiding Method Bedside Commode # Voids 1 1 - Exam Gen: This is a 54-year-old female sitting up at the side of the bed awake, alert and oriented 3, well-developed, well-nourished. Weak. Temp is 98.1F, pulse is 87, resp are 18, blood pressure is 111/59, and 02 is 95% on 4L via NC. HEENT: Head is atraumatic, normocephalic. Pupils equal, round. Sclerae is anicteric. NECK: Supple. No JVD. No lymphadenopathy. No thyromegaly. LUNGS: Diminished breath sounds bilaterally with some scattered rhonchi noted No intercostal retractions. HEART: S1, S2 are muffled ABDOMEN: Soft. Bowel sounds are present. No masses. No tenderness. EXTREMITIES: No pedal edema. No calf tenderness. NEUROLOGICAL: Patient is awake, alert and oriented x3. Cranial nerves 2 through 12 are grossly intact. Diffusely weak - Labs CBC & Chem 7: 01/12/20 07:42 01/12/20 07:42 Labs: Abnormal Lab Results - Last 24 Hours (Table) 01/12/20 01/12/20 01/12/20 Range/Units 07:42 07:42 07:42 MCHC 30.7 L (31.0-37.0) g/dL RDW 15.8 H (11.5-15.5) % Eosinophils # 1.0 H (0-0.7) k/uL Creatinine 0.5 L (0.6-1.5) mg/dL BUN/Creatinine Ratio 48.00 H (12.00-20.00) Ratio Lactate Dehydrogenase 343 H (120-246) U/L C-Reactive Protein 2.0 H (0.0-0.8) mg/dL Procalcitonin 0.10 H (0.02-0.09) ng/mL Microbiology - Last 24 Hours (Table) 01/11/20 12:35 Blood Culture - Preliminary Blood No Growth after 24 hours Assessment and Plan Assessment: Acute bilateral pneumonia Covid 19 interstitial pneumonia with acute hypoxic respiratory failure with possible sepsis, present on admission History of recent Covid 19 pneumonia treated with convalescent plasma and Remdesivir Increased white blood count Right elbow pain, possible avulsion fracture Elevated d-dimer without any evidence of PE Hypernatremia Change in mental status, metabolic encephalopathy, acute Elevated lactic acid, possibly secondary to sepsis history of hypertension Hyperlipidemia History of bariatric surgery history of cholecystectomy History of hysterectomy history of LAP-BAND Obesity with a body mass index of 32.3 Full code Recommendations and discussion: Recommend continue current medications, management, and symptomatic treatment. Patient is on IV antibiotic therapy and will continue at this time. Infectious disease is following along with pulmonary. PT/OT to evaluate and work with the patient. Case management and social work following as patient will likely need ECF for continued PT /OT therapy. Will repeat a.m. labs. Due to multiple complex medical issues, prognosis is guarded. Further recommendations to follow.
[2020-01-12] MEDS: MELATONIN 5 MG TABLET PO SCH (20:22)
[2020-01-12] MEDS: PRAVASTATIN SODIUM 40 MG TAB PO SCH (20:22)
[2020-01-12] MEDS: QUEtiapine 50 MG TAB PO SCH (20:22)
--- NOTE | 2020-01-12 23:25 | PN ---
PROGRESS NOTE DATE OF SERVICE: 01/12/2020 REASON FOR FOLLOWUP: Leukocytosis, concern for pneumonia. INTERVAL HISTORY: Patient is currently afebrile. The patient is breathing more comfortably. He patient denies having any chest pain. Minimal cough. No nausea, no vomiting. No abdominal pain. O diarrhea. PHYSICAL EXAMINATION: Blood pressure 141/69, pulse of 99, temperature 97.8. She is 100% on 2 L nasal cannula. General description is a middle-aged female lying in bed in no distress. Respiratory system: Unlabored breathing, decreased breath sounds in the base. No wheeze. Heart S1, S2. Regular rate and rhythm. ABDOMEN: Soft, no tenderness. LABS: Hemoglobin 13.8, white count 8.7, creatinine 0.5. Procalcitonin 0.10. [place] PCR was negative. Blood culture negative. DIAGNOSTIC IMPRESSION AND PLAN: Patient admitted to the hospital with increased shortness of breath, hypoxemia and concern for possible pneumonia in this patient who did have recent prolonged hospital stay. Patient is covered with vancomycin and Rocephin. White count normalized and seems to have shown clinical improvement. To continue with antibiotics. Try to obtain a sputum to narrow down antibiotics and continue supportive care. MMODL / IJN: [id number] /
[2020-01-13] MEDS: DEXTROSE 5% IN WATER 1,000 ML IV SCH (04:13)
[2020-01-13] MEDS ORDERED: VANCOMYCIN TROUGH DUE 1 EACH MISC MISCELLANE ONE (05:00)
[2020-01-13] MEDS: VANCOMYCIN 1,250 MG in SODIUM CHLORIDE 0.9% 250 ML IVPB SCH ×3 (06:09→21:59)
[2020-01-13 06:46] LABS: Basophils % (A) 0 %; Eosinophils # (A) 0.7 k/uL (0-0.7); Eosinophils % (A) 9 %; HCT 36.8 % (34.0-46.0); HGB 12.1 gm/dL (11.4-16.0); Lymphocytes % (A) 13 %; MCH 29.5 pg (25.0-35.0); MCHC 32.8 g/dL (31.0-37.0); Mean Platelet Volume 7.9; Monocytes # (A) 0.4 k/uL (0-1.0); Monocytes % (A) 6 %; Neutrophils # (A) 5.5 k/uL (1.3-7.7); Neutrophils % (A) 71 %; Platelet Count 210 k/uL (150-450); RBC 4.09 m/uL (3.80-5.40); RDW 15.2 % (11.5-15.5); WBC 7.7 k/uL (3.8-10.6)
[2020-01-13 09:01] LABS: African American GFR (CKD) 137.8 (60.0-200.0); Anion Gap 10.4 mmol/L (4.00-12.00); BUN/Creat Ratio 37.5 Ratio (12.00-20.00); Calcium 8.8 mg/dL (8.7-10.3); Carbon Dioxide 27.6 mmol/L (21.6-31.8); Non-African American GFR(CKD) 118.9 (60.0-200.0); Potassium 3.3 mmol/L (3.5-5.5)
[2020-01-13] MEDS: ALBUTEROL HFA INHALER INHALATION SCH ×4 (09:03→20:40)
[2020-01-13] MEDS: METOPROLOL TARTRATE 50 MG TAB PO SCH (09:17)
[2020-01-13] MEDS: ASCORBIC ACID 500 MG TAB PO SCH (09:17)
[2020-01-13] MEDS: ENOXAPARIN 40 MG/0.4 ML SYRINGE SQ SCH ×2 (09:17→21:59)
[2020-01-13] MEDS: lisinopriL 20 MG TAB PO SCH (09:17)
[2020-01-13] MEDS: FAMOTIDINE 20 MG TAB PO SCH ×2 (09:17→21:59)
--- NOTE | 2020-01-13 11:40 | XR ---
EXAMINATION TYPE: XR chest 1V portable DATE OF EXAM: 01/13/2020 CLINICAL HISTORY: Difficulty breathing pneumonia progress study. TECHNIQUE: Single AP portable upright view of the chest is obtained. COMPARISON: Chest x-ray and CTA chest from 2 days earlier and older studies. FINDINGS: Low lung volumes with bilateral multifocal opacities greatest in the periphery remain pres ent. No pleural effusion or pneumothorax seen. Cardiac silhouette size stable and upper limits of nor mal. Osseous structures are intact. IMPRESSION: Low lung volumes with bilateral multifocal acute infiltrates consistent with covid 19 inf ection. Findings thought slightly worsened since 2 days earlier.
[2020-01-13] MEDS: THIAMINE 100 MG TAB PO SCH (11:55)
[2020-01-13] MEDS: FOLIC ACID 1 MG TAB PO SCH (11:55)
[2020-01-13] MEDS: MULTIVITAMINS, THERA 1 EACH TAB PO SCH (11:55)
[2020-01-13] MEDS: POTASSIUM CHLORIDE ER 20 MEQ TAB.ER PO SCH ×2 (12:45→14:59)
[2020-01-13] MEDS ORDERED: Potassium Replacement Protocol 1 EACH MISC MISCELLANE PRN (17:19)
[2020-01-13] MEDS ORDERED: Magnesium Replacement Protocol 1 EACH MISC MISCELLANE PRN (17:19)
--- NOTE | 2020-01-13 20:08 | PN ---
PROGRESS NOTE DATE OF SERVICE: 01/13/2020 This 54-year-old woman with a past medical of multiple medical problems was admitted with significant disabilities and hypoxia, bilateral lung lesions. The patient recently had COVID-19 pneumonia. The COVID-19 testing was negative. The patient possibly had secondary infectious pneumonia. Multiple consultants are following the patient closely. A 2D echo with Doppler was done today which showed an ejection fraction 50% to 60%. Patient closely monitored. The patient is on broad-spectrum IV antibiotics. Cultures are negative so far. PAST MEDICAL HISTORY: Reviewed. REVIEW OF SYSTEMS: CARDIOVASCULAR: No angina. RESPIRATORY: As mentioned earlier. : No ( ). CURRENT MEDICATIONS: Reviewed include Tylenol, [employer], Ventolin, Xanax, vitamin C, Rocephin, Vanco. Doses are reviewed. PHYSICAL EXAM: Patient is alert, oriented x3. Pulse 85, blood pressure 119/60, respiration 28, temp 97.8, pulse ox 98% on 15 L. HEENT: Conjunctivae normal. Oral mucosa moist. NECK: No jugular venous distention. No lymph node enlargement. CARDIOVASCULAR: S1, S2, muffled. No S3, no S4, RESPIRATORY: Diminished breath sounds at the bases. Bilateral scattered rhonchi and crackles. ABDOMEN: Soft, nontender. LEGS: No edema, no swelling. NERVOUS SYSTEM: No focal motor or sensory deficits. LABS: WBC 7.2, hemoglobin 12.1, sodium 141, potassium 3.3. ASSESSMENT: 1. Acute bilateral pneumonia possibly secondary bacterial pneumonia with acute hypoxic respiratory failure with possible sepsis, present on admission. 2. History of recent COVID-19 infection, treated with convalescent plasma and Remdesivir. 3. Increased WBC. 4. Right elbow pain, possibly avulsion fracture. 5. Elevated D-dimer without any evidence of pulmonary embolism. 6. Hyponatremia. 7. Change in mental status, metabolic encephalopathy, acute. 8. Elevated lactic acid, possibly secondary to sepsis. 9. History of hypertension. 10.Hyperlipidemia. 11.History of bariatric surgery. 12.History of cholecystectomy. 13.History of hysterectomy. 14.History of lap band. 15.Obesity with body mass of 32.3. 16.FULL CODE. RECOMMENDATIONS AND DISCUSSION: I recommend to continue current medications, symptomatic treatment. Otherwise at this time I recommend continue the current management. We will stop the IV fluids and otherwise continue the broad-spectrum IV antibiotics. Await for the final cultures. PT/OT evaluation. Patient has significant comorbidities. At this time the patient might benefit from an ECF rehab. Guarded prognosis. Further recommendations to follow. MMODL / IJN: [id number] /
[2020-01-13] MEDS: MELATONIN 5 MG TABLET PO SCH (21:57)
[2020-01-13] MEDS: QUEtiapine 50 MG TAB PO SCH (21:58)
[2020-01-13] MEDS: PRAVASTATIN SODIUM 40 MG TAB PO SCH (21:58)
[2020-01-14 05:14] LABS: Basophils # (A) 0.1 k/uL (0-0.2); Basophils % (A) 1 %; Eosinophils # (A) 0.4 k/uL (0-0.7); Eosinophils % (A) 6 %; HCT 37.1 % (34.0-46.0); HGB 12.6 gm/dL (11.4-16.0); Lymphocytes % (A) 13 %; MCH 30.5 pg (25.0-35.0); MCHC 33.9 g/dL (31.0-37.0); MCV 90.1 fL (80.0-100.0); Mean Platelet Volume 8.6; Monocytes # (A) 0.5 k/uL (0-1.0); Monocytes % (A) 6 %; Neutrophils # (A) 5.8 k/uL (1.3-7.7); Neutrophils % (A) 74 %; Platelet Count 216 k/uL (150-450); RBC 4.12 m/uL (3.80-5.40); RDW 15.1 % (11.5-15.5); WBC 7.9 k/uL (3.8-10.6)
[2020-01-14] MEDS: VANCOMYCIN 1,250 MG in SODIUM CHLORIDE 0.9% 250 ML IVPB SCH ×3 (06:04→21:05)
[2020-01-14] MEDS: ENOXAPARIN 40 MG/0.4 ML SYRINGE SQ SCH ×2 (08:13→21:05)
[2020-01-14] MEDS: ASCORBIC ACID 500 MG TAB PO SCH (08:13)
[2020-01-14] MEDS: lisinopriL 20 MG TAB PO SCH (08:14)
[2020-01-14] MEDS: FAMOTIDINE 20 MG TAB PO SCH ×2 (08:14→21:06)
[2020-01-14] MEDS: METOPROLOL TARTRATE 50 MG TAB PO SCH (08:14)
[2020-01-14] MEDS: ALBUTEROL HFA INHALER INHALATION SCH ×4 (08:33→21:10)
[2020-01-14 10:14] LABS: African American GFR (CKD) 137.8 (60.0-200.0); Anion Gap 9.1 mmol/L (4.00-12.00); BUN/Creat Ratio 17.5 Ratio (12.00-20.00); Carbon Dioxide 25.9 mmol/L (21.6-31.8); Magnesium 1.6 mg/dL (1.5-2.4); Non-African American GFR(CKD) 118.9 (60.0-200.0); Potassium 3.8 mmol/L (3.5-5.5)
[2020-01-14] MEDS ORDERED: POTASSIUM CHLORIDE ER 20 MEQ TAB.ER PO SCH (11:00)
[2020-01-14] MEDS: MAGNESIUM SULFATE-D5W PMX 1 GM in DEXTROSE/WATER 1 100ML.BAG IVPB SCH ×2 (11:33→13:06)
[2020-01-14] MEDS: FOLIC ACID 1 MG TAB PO SCH (11:33)
[2020-01-14] MEDS: MULTIVITAMINS, THERA 1 EACH TAB PO SCH (11:33)
[2020-01-14] MEDS: THIAMINE 100 MG TAB PO SCH (11:33)
[2020-01-14] MEDS: MELATONIN 5 MG TABLET PO SCH (21:06)
[2020-01-14] MEDS: QUEtiapine 50 MG TAB PO SCH (21:06)
[2020-01-14] MEDS: PRAVASTATIN SODIUM 40 MG TAB PO SCH (21:15)
--- NOTE | 2020-01-15 01:38 | PN ---
PROGRESS NOTE DATE OF SERVICE: 01/14/2020 This 54-year-old woman was admitted with acute bilateral pneumonia with recent COVID-19 infection being closely monitored. Patient is extremely weak. PT, OT evaluating the patient at this time. The most recent chest x-ray which was personally reviewed by me showed evidence of extensive bilateral pneumonic process. No chest pain or palpitation. PHYSICAL EXAMINATION: On exam, alert and oriented x3. Pulse is 79, blood pressure 106/69, respiration 17, temperature 98.1, pulse ox 100% on 2 L. HEENT: Conjunctivae normal. NECK: No jugular venous distention. CARDIOVASCULAR: S1, S2 muffled. RESPIRATORY SYSTEM: Breath sounds diminished at the bases. A few scattered rhonchi and crackles. ABDOMEN: Soft, nontender. LEGS: No edema, no swelling. NERVOUS SYSTEM: No focal deficits. LABS: CBC, BMP noted. ASSESSMENT: 1. Acute bilateral pneumonia possibly secondary bacterial pneumonia with acute hypoxic respiratory failure with possible sepsis, present on admission. 2. History of recent COVID-19 infection, treated with convalescent plasma and remdesivir. 3. Increased WBC. 4. Right elbow pain, possibly avulsion fracture. 5. Elevated D-dimer without any evidence of pulmonary embolism. 6. Hypernatremia. 7. Change in mental status, acute metabolic encephalopathy. 8. Elevated lactic acid, possibly secondary to sepsis. 9. Hypertension. 10.Hyperlipidemia. 11.History of bariatric surgery. 12.History of cholecystectomy. 13.History of hysterectomy. 14.History of lap band. 15.Obesity with body mass index of 32.3. 16.Gait dysfunction. 17.FULL CODE. RECOMMENDATIONS AND DISCUSSION: This 54-year-old woman who presented with multiple complex medical issues, we will monitor the patient closely. Continue the current medications. Continues symptomatic treatment. Continue with empiric antibiotics. Otherwise PT, OT evaluation. I would also recommend possible ECF rehab. The cultures are negative so far. Prognosis guarded. Further recommendations to follow. MMODL / IJN: [id number] /
[2020-01-15] MEDS ORDERED: VANCOMYCIN TROUGH DUE 1 EACH MISC MISCELLANE ONE (05:00)
[2020-01-15] MEDS: VANCOMYCIN 1,250 MG in SODIUM CHLORIDE 0.9% 250 ML IVPB SCH (05:37)
--- NOTE | 2020-01-15 06:12 | PN ---
PROGRESS NOTE DATE OF SERVICE: 01/14/2020 REASON FOR FOLLOWUP: Pneumonia. INTERVAL HISTORY: Patient is currently afebrile. The patient is breathing comfortably. The patient denies having any chest pain, no shortness with minimal cough. No nausea, vomiting, abdominal pain or diarrhea. PHYSICAL EXAMINATION: Blood pressure 129/70 with a pulse of 91, temperature 97.5, she is 100% on 2 L nasal cannula. General description is a middle-aged female lying in bed in no distress. Respiratory system: Unlabored breathing, decreased breath sounds in the base, with no wheeze. Heart S1, S2. Regular rate and rhythm. Abdomen is soft, no tenderness. LABS: Hemoglobin is 12.8, white count 7.9, BUN of 7, creatinine 0.4. DIAGNOSTIC IMPRESSION AND PLAN: Patient admitted to the hospital with generalized weakness and no energy in this patient with concern for possible pneumonia. This patient recently did have a prolonged hospital stay for COVID-19 infection. The patient is currently on vancomycin and Rocephin and short course of oral antibiotic on discharge and continue supportive care. MMODL / IJN: [id number] /
[2020-01-15 08:03] VITALS: RESP 18
[2020-01-15] MEDS: ENOXAPARIN 40 MG/0.4 ML SYRINGE SQ SCH (08:18)
[2020-01-15] MEDS: ASCORBIC ACID 500 MG TAB PO SCH (08:18)
[2020-01-15] MEDS: FAMOTIDINE 20 MG TAB PO SCH (08:18)
[2020-01-15] MEDS: METOPROLOL TARTRATE 50 MG TAB PO SCH (08:19)
[2020-01-15] MEDS: lisinopriL 20 MG TAB PO SCH (08:19)
[2020-01-15] MEDS: ALBUTEROL HFA INHALER INHALATION SCH ×2 (08:53→12:01)
[2020-01-15 11:25] LABS: African American GFR (CKD) 137.8 (60.0-200.0); Non-African American GFR(CKD) 118.9 (60.0-200.0)
[2020-01-15 11:59] VITALS: BP 121/79; PULSE 94; TEMP 97.9
[2020-01-15] MEDS ORDERED: MELATONIN 5 MG TABLET PO PRN (12:01)
[2020-01-15] MEDS ORDERED: QUEtiapine 50 MG TAB PO PRN (12:02)
[2020-01-15] MEDS: THIAMINE 100 MG TAB PO SCH (12:27)
[2020-01-15] MEDS: MULTIVITAMINS, THERA 1 EACH TAB PO SCH (12:27)
[2020-01-15] MEDS: FOLIC ACID 1 MG TAB PO SCH (12:27)
--- NOTE | 2020-01-15 14:28 | P.DS ---
Providers Date of admission: 01/11/20 11:07 Expected date of discharge: 01/15/20 Attending physician: Regulo Schmidt MD Consults: 01/11/20 11:27 Consult Physician Urgent Consulting Provider: Linda Perdomo Consult Reason/Comments: Hypoxia Do you want consulting provider notified?: Yes 01/11/20 12:24 Consult Physician Urgent Consulting Provider: Carina Keith Consult Reason/Comments: COVID Do you want consulting provider notified?: Yes Primary care physician: Petty Sharpe Hospital Course: Final diagnosis Acute bilateral pneumonia Covid 19 interstitial pneumonia with acute hypoxic respiratory failure with possible sepsis, present on admission History of recent Covid 19 pneumonia treated with convalescent plasma and Remdesivir Increased white blood count Right elbow pain, possible avulsion fracture Elevated d-dimer without any evidence of PE Hypernatremia Change in mental status, metabolic encephalopathy, acute Elevated lactic acid, possibly secondary to sepsis history of hypertension Hyperlipidemia History of bariatric surgery history of cholecystectomy History of hysterectomy history of LAP-BAND Obesity with a body mass index of 32.3 Full code Discharge disposition Patient is being discharged in a stable condition with guarded prognosis to [facility] continued PT/OT therapy. Patient will follow-up with Dr. Sharpe in the outpatient setting upon discharge. Patient will continue on a prednisone taper along with Ceftin 500 mg twice daily for the next 5 days to complete a course. Total time taken is greater than 35 minutes. History of present illness This is an 36-year-old female who was recently admitted with acute bilateral pneumonia and hypoxia, present on admission with recent Covid 19 infection and was being closely monitored. Patient was hospitalized and ultimately on a ventilator in the ICU for quite some time and continue to be quite weak. Patient went home and subsequently fell due to weakness and came back to the hospital. Patient was also on oxygen for discharge from last admission. Patient fell on right elbow with the possibility of a small avulsion fracture and orthopedics evaluated the patient recommending splinting and a sling for comfort. Patient is maintained on prednisone and will continue with the prednisone taper to finish the course. Patient also continued on Ceftin 500 mg twice daily for the next 5 days to complete the course. Patient will be going to [facility] for continued PT/OT therapy. Infectious disease was following. Patient's repeat Covid 19 testing was negative. Patient needs continued PT/OT therapy in the outpatient setting and will be going to [facility] today. Currently no reports of chest pain, worsening shortness of breath, or palpitations. Patient is afebrile. No reports of nausea or vomiting and patient is tolerating diet. Patient will be discharged today. On exam vital signs are stable. Temp is 97.9F, pulse is 94 respirations are 18, blood pressure is 121/79, oxygen saturation is 94% on 2 L via nasal cannula. Cardio S1, S2 are muffled. Respiratory system shows diminished breath sounds at the bases with no wheezing or rhonchi noted. Abdomen is soft and nontender. Nervous system shows diffuse weakness. Please refer to medication reconciliation sheet for a list of medications. Patient Condition at Discharge: Stable Plan - Discharge Summary Discharge Rx Participant: No New Discharge Prescriptions: New Folic Acid 1 mg PO DAILY@1200 tab Melatonin 5 mg PO HS PRN tablet PRN Reason: Insomnia Multivitamins, Thera [Multivitamin (formulary)] 1 each PO DAILY@1200 tab Thiamine [Vitamin B-1] 100 mg PO DAILY@1200 tab Cefuroxime Axetil [Ceftin] 500 mg PO BID 5 Days #10 tab Continue lisinopriL 20 mg PO DAILY Pravastatin Sodium [Pravachol] 40 mg PO HS Metoprolol Tartrate [Lopressor] 50 mg PO DAILY 30 Days #60 tab Famotidine [Pepcid] 20 mg PO Q12HR 30 Days #60 tab predniSONE 30 mg PO DAILY 30 Days #90 tab Acetaminophen Tab [Tylenol] 650 mg PO Q6HR PRN #30 tab PRN Reason: Mild Pain Or Fever > 100.5 Albuterol Inhaler [Ventolin Hfa Inhaler] 2 puff INHALATION QID 30 Days #1 puff Ascorbic Acid [Vitamin C] 250 mg PO DAILY 30 Days #30 tablet Zinc 50 mg PO DAILY 30 Days #30 tablet Discontinued Melatonin 5 mg PO HS #10 tablet QUEtiapine FUMARATE [SEROquel] 50 mg PO HS 30 Days #60 tablet Discharge Medication List lisinopriL 20 mg PO DAILY 10/31/18 [History] Pravastatin Sodium [Pravachol] 40 mg PO HS 12/14/19 [History] Acetaminophen Tab [Tylenol] 650 mg PO Q6HR PRN #30 tab 01/10/20 [Rx] Albuterol Inhaler [Ventolin Hfa Inhaler] 2 puff INHALATION QID 30 Days #1 puff 01/10/20 [Rx] Ascorbic Acid [Vitamin C] 250 mg PO DAILY 30 Days #30 tablet 01/10/20 [Rx] Famotidine [Pepcid] 20 mg PO Q12HR 30 Days #60 tab 01/10/20 [Rx] Metoprolol Tartrate [Lopressor] 50 mg PO DAILY 30 Days #60 tab 01/10/20 [Rx] Zinc 50 mg PO DAILY 30 Days #30 tablet 01/10/20 [Rx] Cefuroxime Axetil [Ceftin] 500 mg PO BID 5 Days #10 tab 01/15/20 [Rx] Folic Acid 1 mg PO DAILY@1200 tab 01/15/20 [Rx] Melatonin 5 mg PO HS PRN tablet 01/15/20 [Rx] Multivitamins, Thera [Multivitamin (formulary)] 1 each PO DAILY@1200 tab 01/15/20 [Rx] Thiamine [Vitamin B-1] 100 mg PO DAILY@1200 tab 01/15/20 [Rx] predniSONE 10 mg PO DIRECTED #30 tab 01/15/20 [Rx] Follow up Appointment(s)/Referral(s): Petty Sharpe DO [Primary Care Provider] - 1-2 days Activity/Diet/Wound Care/Special Instructions: Patient is going to [facility] as tolerated Continue current diet Continue with antibiotics for 5 days and then may discontinue Continue prednisone taper Follow-up with primary care provider outpatient Continue working with physical therapy Discharge Disposition: TRANSFER TO SNF/F
[2020-01-15] MEDS ORDERED: VANCOMYCIN 1,250 MG in SODIUM CHLORIDE 0.9% 250 ML IVPB SCH (18:00)
--- NOTE | 2020-01-15 18:45 | PN ---
PROGRESS NOTE DATE OF SERVICE: 01/15/2020 REASON FOR FOLLOWUP: Pneumonia. INTERVAL HISTORY: The patient was seen on rounds early this afternoon. The patient has been afebrile, has been breathing comfortably. Denies having any chest pain. No shortness of breath. No cough. No nausea, vomiting, abdominal pain or diarrhea. PHYSICAL EXAMINATION: Blood pressure 110/70 with a pulse of 94. Temperature is 97.9. She is 94% on 2 L nasal cannula. General description is a middle-aged female lying in bed in no distress. Respiratory system: Unlabored breathing. Clear to auscultation anteriorly. Heart S1, S2. Regular rate and rhythm. Abdomen soft, no tenderness. LABS: Creatinine 0.4. Lowry PCR has been negative. Blood culture negative. DIAGNOSTIC IMPRESSION/PLAN: The patient admitted to the hospital with shortness of breath and cough with concern for pneumonia. Overall improvement on Rocephin, Vanco. Antibiotic switched over to Ceftin and close outpatient followup. MMODL / IJN: [id number] /
== END 2020-01-15 15:14 | DRG 871 ==
LOC: EC 08:08 → 4SSUR 11:07 → 6NMEDSUR 19:58
PROVIDERS: ADMIT Internal Medicine; ATTEND Internal Medicine
DX: A41.9 Sepsis, unspecified organism (principal); J96.01 Acute respiratory failure with hypoxia; G93.41 Metabolic encephalopathy; J15.9 Unspecified bacterial pneumonia; G62.81 Critical illness polyneuropathy; E87.2 Acidosis; E87.0 Hyperosmolality and hypernatremia; S42.401A Unspecified fracture of lower end of right humerus, initial encounter for closed fracture; Z20.828 Contact with and (suspected) exposure to other viral communicable diseases; E78.5 Hyperlipidemia, unspecified; I10 Essential (primary) hypertension; E66.9 Obesity, unspecified; R53.81 Other malaise; E86.0 Dehydration; W19.XXXA Unspecified fall, initial encounter; Z68.32 Body mass index [BMI] 32.0-32.9, adult; Z79.899 Other long term (current) drug therapy; Z86.19 Personal history of other infectious and parasitic diseases; Z87.01 Personal history of pneumonia (recurrent); Z90.49 Acquired absence of other specified parts of digestive tract; Z98.84 Bariatric surgery status; Z90.710 Acquired absence of both cervix and uterus; Z80.52 Family history of malignant neoplasm of bladder
CPT/HCPCS: 29105; 36415; 70450; 71045; 71046; 71275; 80048; 80053; 80202; 82565; 83520; 83605; 83615; 83735; 83880; 84145; 84484; 85025; 85379; 85610; 85730; 86140; 87040; 87635; 93005; 93306; 94640; 96365; 99285

== ENCOUNTER → 2020-11-20 | Outpatient (CLI) | payer OTHER, BC ==
--- NOTE | 2020-11-21 11:41 | MM ---
Reason for exam: additional evaluation requested from prior study. Last mammogram was performed 1 year ago. History: Patient is postmenopausal. Physical Findings: Nurse did not find any significant physical abnormalities on exam. MG Diagnostic Mammo w CAD VINCE Bilateral CC and MLO view(s) were taken. Prior study comparison: November 08, 2019, right breast MG diagnostic mammo RT w CAD. December 22, 2018, bilateral MG screening mammo w CAD. Finding: There is a 6 mm equal density (isodense), circumscribed round mass located 6 cm from the nipple in the right breast. Ultrasound recommended. These results were verbally communicated with the patient and result sheet given to the patient on 11/20/20. ASSESSMENT: Incomplete: need additional imaging evaluation, BI-RAD 0 RECOMMENDATION: Ultrasound of the right breast.
--- NOTE | 2020-11-21 11:42 | USB ---
Reason for exam: additional evaluation requested from abnormal screening. History: Patient is postmenopausal. US Breast Limited RT Right limited breast ultrasound including focal area of concern, retroareolar and axilla demonstrates a 0.6 x 0.3 x 0.6cm cystic cluster at 6 o'clock. These results were verbally communicated with the patient and result sheet given to the patient on 11/20/20. ASSESSMENT: Probably benign, BI-RAD 3 RECOMMENDATION: Ultrasound of the right breast in 6 months.
== END | disposition home or self-care (01) ==
LOC: RADMAMWWP 14:43
PROVIDERS: ATTEND Family Medicine
DX: N60.01 Solitary cyst of right breast (principal)
CPT/HCPCS: 77066

== ENCOUNTER → 2021-09-02 | Outpatient (CLI) | payer OTHER, BC ==
--- NOTE | 2021-09-03 10:32 | USB ---
Reason for Exam: Follow-up at short interval from prior study. Patient History: Menarche at age 14. First Full-Term at age 19. Hysterectomy at age 44. Postmenopausal. Risk Values: [place] 5 year model risk: 0.8%. NCI Lifetime model risk: 6.1%. Technique: Method: Targeted. Prior Study Comparison: 01/02/2019 Right Diagnostic Mammogram, [facility]. 11/08/2019 Right Diagnostic Mammogram, [facility]. 11/20/2020 Bilateral Diagnostic Mammogram, [facility]. Findings: A cystic lesion again seen at the 6:00 position appears somewhat more elongated than on today's exam. Remains to have a benign appearance with anechoic and septations. Most likely related to a cluster of simple cysts.. Overall Assessment: Benign, BI-RAD 2 Management: Screening Mammogram of both breasts in 6 months. A clinical breast exam by your physician is recommended on an annual basis and results should be correlated with mammographic findings. Electronically signed and approved by: Mike Mckenna M.D. Radiologis
== END | disposition home or self-care (01) ==
LOC: RADUSWWP 14:56
PROVIDERS: ATTEND Family Medicine
DX: R92.8 Other abnormal and inconclusive findings on diagnostic imaging of breast (principal); Z78.0 Asymptomatic menopausal state